=== PATIENT | male | born 1945 | race Caucasian/White ===

== ENCOUNTER 2016-03-30 11:38 | Inpatient (IN) | payer MEDICARE ==
[2016-03-30 12:55] LABS: ALT 10 U/L (7-52); AST 16 U/L (13-39); Albumin 3.9 g/dL (3.2-5.2); Alkaline Phosphatase 64 U/L (34-104); Anion Gap 7 mmol/L (2-11); BUN/Creatinine Ratio 23.3 (8-20); Blood Urea Nitrogen 35 mg/dL (6-24); CO2 Carbon Dioxide 29 mmol/L (22-32); Calcium 9.7 mg/dL (8.6-10.3); Chloride 98 mmol/L (101-111); EGFR African American 59.7 (>60); EGFR Non-African American 46.4 (>60); Globulin 3.9 g/dL (2-4); Glucose 100 mg/dL (70-100); Magnesium 2.2 mg/dL (1.9-2.7); Potassium 4.6 mmol/L (3.5-5.0); Sodium 134 mmol/L (133-145); Total Protein 7.8 g/dL (6.4-8.9); Troponin I 0.01 ng/mL (<0.04)
[2016-03-30 13:13] LABS: T4 7.03 g/dL (6.09-12.23)
[2016-03-30 13:14] LABS: TSH (Thyroid Stimulating Horm) 6.41 mcIU/mL (0.34-5.60)
--- NOTE | 2016-03-30 13:22 | RAD ---
HISTORY: Shortness of breath COMPARISONS: November 11, 2014 VIEWS: 2: Frontal dual-energy and lateral views of the chest. FINDINGS: CARDIOMEDIASTINAL SILHOUETTE: The cardiac silhouette is enlarged. The cardiomediastinal silhouette is otherwise normal. LINDA: The linda are normal. PLEURA: Again noted are pleural calcifications. LUNG PARENCHYMA: There is a diffuse coarse pattern of reticular opacification with alveolar opacification in the left midlung field. ABDOMEN: The upper abdomen is clear. There is no subphrenic gas. BONES AND SOFT TISSUES: No bone or soft tissue abnormalities are noted. OTHER: None. IMPRESSION: 1. CARDIOMEGALY. 2. PULMONARY INTERSTITIAL EDEMA. 3. CALCIFIED PLEURAL PLAQUES
[2016-03-30 13:23] LABS: Hematocrit 44 % (42-52); Mean Corpuscular HGB Conc 28 g/dl (31-36); Mean Corpuscular Hemoglobin 17 pg (27-31); Mean Platelet Volume 9 um3 (7.4-10.4); Red Blood Count 7.04 10^6/ul (4.0-5.4); Red Cell Distribution Width 23 % (10.5-15); White Blood Count 5.9 10^3/ul (3.5-10.8)
[2016-03-30 13:30] LABS: Comments Flag Yes; Hemoglobin 12.3 g/dl (14.0-18.0)
[2016-03-30 13:31] LABS: Add Diff/Slide Review? Slide Review Added; Mean Corpuscular Volume 63 fL (80-94)
[2016-03-30 13:58] LABS: Target Cells 1+
[2016-03-30 13:59] LABS: Hypochromasia 3+; Microcytosis 3+
[2016-03-30 14:00] LABS: Add Path Review? YES; Polychromasia 1+
[2016-03-30 14:29] LABS: Urine Bilirubin Negative (Negative); Urine Glucose Negative (Negative); Urine Nitrite Negative (Negative)
[2016-03-30 14:43] LABS: Free T4 0.91 ng/dL (0.61-1.12)
[2016-03-30] MEDS ORDERED: Furosemide IV* 10 MG/ML 10 ML VIAL (100 MG) IV ONE (14:49)
[2016-03-30] MEDS ORDERED: Ondansetron INJ* 2 MG/ML VIAL IV PRN (14:49)
[2016-03-30] MEDS ORDERED: Albuterol/Ipratropium NEB.SOL* Albuterol 2.5 MG/Ipratropium 0.5 MG 3 ML INH PRN (14:53)
[2016-03-30] MEDS ORDERED: Dextrose 50% Syringe 50 ML* 25 GM/50 ML SYRINGE IV PUSH PRN (14:57)
--- NOTE | 2016-03-30 15:03 | ED ---
Gil Boss Anna, scribed for Niles Franklin MD on 03/30/16 at 1226 . Lower Extremity - HPI Summary HPI Summary: Patient is a 71 y/o male coming to [facility] presenting with gradual onset of constant, bilateral LE edema that began three weeks ago. The edema is accompanied by erythema and pain. He additionally feels SOB. He has gained 30 lbs in the last four months. He has had constipation, but this has since resolved. Denies CP, fever, cough, abd pain, or diarrhea. His history is significant for CHF, DM, and COPD. Uses 4 L of O2 at home. - History of Current Complaint Chief Complaint: EDExtremityLower Stated Complaint: SOB Time Seen by Provider: 03/30/16 12:08 Hx Obtained From: Patient Onset of Pain: Prior to Arrival Onset/Duration: Still Present Timing: Constant, Lasting Weeks Associated Signs And Symptoms: Positive: Swelling, Redness - Allergies/Home Medications Allergies/Adverse Reactions: Allergies Allergy/AdvReac Type Severity Reaction Status Date / Time No Known Allergies Allergy Verified 11/12/14 00:16 Home Medications: Home Medications Albuterol Sulfate [Proair Hfa] 2 puff INH Q4H PRN 03/30/16 [History Confirmed ] Albuterol/Ipratropium NEB.ALEXIS* [Duoneb NEB.ALEXIS*] 1 neb INH Q4H PRN 03/30/16 [ History Confirmed 03/30/16] Furosemide TAB* [Lasix TAB*] 80 mg PO DAILY 03/30/16 [History Confirmed 03/30/16 ] Isosorbide Mononitrate ER TAB* [Imdur ER TAB*] 30 mg PO DAILY 03/30/16 [History Confirmed 03/30/16] Lisinopril [Lisinopril] 5 mg PO DAILY 03/30/16 [History Confirmed 03/30/16] Multiple Vitamin [Multivitamins] 1 cap PO DAILY 03/30/16 [History Confirmed 09/06] [place]-3 Fatty Acids [Thornton 3] 1 cap PO DAILY 03/30/16 [History Confirmed ] Rivaroxaban TAB(*) [Xarelto 20 mg] 20 mg PO DAILY 03/30/16 [History Confirmed ] Tamsulosin HCl [Tamsulosin HCl] 0.4 mg PO DAILY 03/30/16 [History Confirmed 09/06] PMH/Surg Hx/FS Hx/Imm Hx Endocrine/Hematology History: Reports: Hx Diabetes Cardiovascular History: Reports: Hx Congestive Heart Failure, Hx Coronary Artery Disease, Hx Hypercholesterolemia, Hx Hypertension Respiratory History: Reports: Hx Chronic Obstructive Pulmonary Disease (COPD) History: Denies: Hx Renal Disease Sensory History: Reports: Hx Contacts or Glasses, Hx Hearing Problem - [place], untreated Opthamlomology History: Reports: Hx Contacts or Glasses Infectious Disease History: No Infectious Disease History: Denies: Traveled Outside the [place] in Last 30 Days - Family History Known Family History: Negative: Cardiac Disease - Social History Alcohol Use: Occasionally Substance Use Type: Reports: None Smoking Status (MU): Former Smoker Type: Cigarettes Length of Time of Smoking/Using Tobacco: 50 yrs Have You Smoked in the Last Year: No Review of Systems Positive: Other - unintentional weight gain Positive: Shortness Of Breath Positive: Myalgia, Edema Positive: Other - erythema on bilateral LE All Other Systems Reviewed And Are Negative: Yes Physical Exam - Summary Physical Exam Summary: VITAL SIGNS: Reviewed. GENERAL: Patient is an obese male who is lying comfortable in the stretcher. Patient is not in any acute respiratory distress. HEAD AND FACE: No signs of trauma. No ecchymosis, hematomas or skull depressions. No sinus tenderness. EYES: PERRLA, EOMI x 2, No injected conjunctiva, no nystagmus. EARS: Hearing grossly intact. Ear canals and tympanic membranes are within normal limits. MOUTH: Oropharynx within normal limits. NECK: Supple, trachea is midline, no adenopathy, no JVD, no carotid bruit, no c- spine tenderness, neck with full ROM. CHEST: Symmetric, no tenderness at palpation LUNGS: Bilateral coarse breath sounds. CVS: Regular rate and rhythm, S1 and S2 present, no murmurs or gallops appreciated. ABDOMEN: Soft, non-tender. No signs of distention. No rebound no guarding, and no masses palpated. Bowel sounds are normal. Positive anasarca. EXTREMITIES: FROM in all major joints, Positive b/l LE edema 2+ . NEURO: Alert and oriented x 3. No acute neurological deficits. Speech is normal and follows commands. SKIN: Dry and warm Triage Information Reviewed: Yes Vital Signs On Initial Exam: Initial Vitals BP 90/66 03/30/16 11:57 Vital Signs Reviewed: Yes - Shabnam Coma Scale Coma Scale Total: 15 Diagnostics - Vital Signs Vital Signs Temp Pulse Resp BP Pulse Ox 03/30/16 12:11 98.1 F 78 20 98/67 96 03/30/16 12:09 74 16 106/77 95 03/30/16 12:00 77 12 88 03/30/16 11:58 62 80 03/30/16 11:57 90/66 - Laboratory Lab Results: Lab Results 03/30/16 03/30/16 03/30/16 Range/Units 12:11 12:11 12:11 INR (Anticoag Therapy) 1.67 H (0.89-1.11) Sodium 134 (133-145) mmol/L Potassium 4.6 (3.5-5.0) mmol/L Chloride 98 L (101-111) mmol/L Carbon Dioxide 29 (22-32) mmol/L Anion Gap 7 (2-11) mmol/L BUN 35 H (6-24) mg/dL Creatinine 1.50 H (0.67-1.17) mg/dL Est GFR ( Amer) 59.7 (>60) Est GFR (Non-Af Amer) 46.4 (>60) BUN/Creatinine Ratio 23.3 H (8-20) Glucose 100 (70-100) mg/dL Lactic Acid 1.7 (0.5-2.0) mmol/L Calcium 9.7 (8.6-10.3) mg/dL Magnesium 2.2 (1.9-2.7) mg/dL Total Bilirubin 1.50 H (0.2-1.0) mg/dL AST 16 (13-39) U/L ALT 10 (7-52) U/L Alkaline Phosphatase 64 (34-104) U/L CK-MB (CK-2) 1.7 (0.6-6.3) ng/mL Troponin I 0.01 (<0.04) ng/mL B-Natriuretic Peptide ( - 100) pg/mL Total Protein 7.8 (6.4-8.9) g/dL Albumin 3.9 (3.2-5.2) g/dL Globulin 3.9 (2-4) g/dL Albumin/Globulin Ratio 1.0 (1-3) TSH 6.41 H (0.34-5.60) mcIU/mL Thyroxine (T4) 7.03 (6.09-12.23) g/dL 03/30/16 Range/Units 12:11 INR (Anticoag Therapy) (0.89-1.11) Sodium (133-145) mmol/L Potassium (3.5-5.0) mmol/L Chloride (101-111) mmol/L Carbon Dioxide (22-32) mmol/L Anion Gap (2-11) mmol/L BUN (6-24) mg/dL Creatinine (0.67-1.17) mg/dL Est GFR ( Amer) (>60) Est GFR (Non-Af Amer) (>60) BUN/Creatinine Ratio (8-20) Glucose (70-100) mg/dL Lactic Acid (0.5-2.0) mmol/L Calcium (8.6-10.3) mg/dL Magnesium (1.9-2.7) mg/dL Total Bilirubin (0.2-1.0) mg/dL AST (13-39) U/L ALT (7-52) U/L Alkaline Phosphatase (34-104) U/L CK-MB (CK-2) (0.6-6.3) ng/mL Troponin I (<0.04) ng/mL B-Natriuretic Peptide 605 H ( - 100) pg/mL Total Protein (6.4-8.9) g/dL Albumin (3.2-5.2) g/dL Globulin (2-4) g/dL Albumin/Globulin Ratio (1-3) TSH (0.34-5.60) mcIU/mL Thyroxine (T4) (6.09-12.23) g/dL Result Diagrams: 03/30/16 12:11 03/30/16 12:11 Lab Statement: Any lab studies that have been ordered have been reviewed, and results considered in the medical decision making process. - Radiology CXR Xray Interpretation: Positive (See Comments) Radiology Interpretation Completed By: Radiologist - IMPRESSION: 1. CARDIOMEGALY. 2. PULMONARY INTERSTITIAL EDEMA. 3. CALCIFIED PLEURAL PLAQUES - EKG 1141 Cardiac Rate: NL - 81 bpm EKG Rhythm: Sinus Rhythm EKG Interpretation: Low voltage EKG, no ST elevations Lower Extremity Course/Dx - Course Assessment/Plan: Patient is a 71 y/o male coming to [facility] presenting with gradual onset of constant, bilateral LE edema that began three weeks ago. The edema is accompanied by erythema and pain. He additionally feels SOB. He has gained 30 lbs in the last four months. He has had constipation, but this has since resolved. Denies CP, fever, cough, abd pain, or diarrhea. His history is significant for CHF, DM, and COPD. Uses 4 L of O2 at home. Blood work shows RF and increase BNP consistent with CHF exacerbation. CXR impression: Cardiomegaly , pulmonary interstitial edema, and calcified pleural plaques. In the ED course I held the Lasix since patient is hypotensive. I believe he is intravascular depleted and he has peripheral overload. I discuss my physical exam, findings and test results with Dr. Newman from the hospitalist services and she agrees to admit patient to his services. Patient is alert and oriented x 3 w /o neurological deficits. - Diagnoses Differential Diagnosis/HQI/PQRI: Positive: Cellulitis, Infection - PNA, CHF, TN Provider Diagnoses: CHF exacerbation, Anasarca, Renal failure, Lower extremity edema - Physician Notifications Discussed Care of Patient With: Dr. Houser ([facility] [employer] Specialist) at 1437. Agrees to accept pt for admission. Discharge - Discharge Plan Condition: Stable Disposition: ADMITTED TO [facility] The documentation as recorded by the Gil schmidt Anna accurately reflects the service I personally performed and the decisions made by me, Niles Franklin MD.
[2016-03-30 15:14] LABS: Iron 17 ug/dL (50-212); Total Iron Binding Capacity 518 mcg/dL (250-450); Transferrin 370 mg/dL (203-362)
[2016-03-30 15:36] LABS: Ferritin < 10.0 ng/mL (24-336)
[2016-03-30 15:39] LABS: Folate > 20.00 ng/mL (>3.99)
[2016-03-30 15:40] LABS: Vitamin B12 423 pg/mL (180-914)
[2016-03-30] MEDS: Insulin LISPRO* 1 UNITS UNIT SUBCUT SCH (16:57)
[2016-03-30] MEDS: Metoprolol Tartrate TAB* 25 MG PO SCH (16:58)
--- NOTE | 2016-03-30 17:25 | HP ---
ADDENDUM NOW INCLUDED ON THIS REPORT ADMISSION HISTORY AND PHYSICAL: DATE OF ADMISSION: 03/30/16 PRIMARY CARE PROVIDER: Dr. Ne Hernandez. DISTRIBUTION WAREHOUSE MANAGER: Ronen Maravilla MD CREW MANAGER: Dr. Jolynn Marsh out of the [facility]. SUPERVISING PHYSICIAN: Jhoana Newman MD * (DICTATED BY LEEANNA JUARES) CHIEF COMPLAINT: Increased dyspnea. HISTORY OF PRESENT ILLNESS: This is a 71-year-old gentleman with a history of ischemic cardiomyopathy, chronic kidney disease, atrial flutter, obstructive sleep apnea that is relatively recently diagnosed, noninsulin-dependent diabetes , interstitial lung disease requiring chronic oxygen therapy, COPD, and known coronary disease who was referred by his primary care provider to the emergency department with complaints of increased dyspnea. The patient's symptoms have been increasing in severity over the last several weeks. He has noticed significant lower extremity edema and believes that he has gained almost 30 pounds in the last 2 months. His Lasix and lisinopril were doubled a couple of weeks ago. His Lasix went up to 80 mg daily and his lisinopril up to 5 mg daily and he was also started on Flomax with a little to no improvement in his edema. The patient notes decreasing exercise tolerance. He feels that his legs are extremely heavy and uncomfortable with all of the extra fluid. He has been compliant with low-sodium diet and has been trying to restrict fluid intake , but states that despite all of this, he continues to gain weight rather steadily. The patient has an occasional cough, which is chronic for him, but denies any recent acute illness. He has been afebrile. Denies abdominal pain, nausea, vomiting, or diarrhea. Apart from the medication changes listed above, he denies any anything else new. The patient reports that he was hospitalized at [facility] in October for similar symptoms and was diuresed approximately 25 pounds at that time. He believes that his dry weight is approximately 265 pounds or so, but he is really not sure about this. PAST MEDICAL HISTORY: 1. Stage 3 chronic kidney disease. 2. Atrial flutter. 3. Obstructive sleep apnea, which was diagnosed fairly recently. 4. Ischemic cardiomyopathy, last EF about 45%, measured December 2014. 5. Hypertension. 6. Noninsulin-dependent diabetes. 7. Interstitial lung disease, on chronic supplemental oxygen at 4 L. 8. COPD. 9. Coronary artery disease, status post PCI. PAST SURGICAL HISTORY: 1. PCI. 2. Tonsillectomy. HOME MEDICATIONS: 1. Albuterol inhaler 2 puffs inhaled q.4 hours as needed for shortness of breath. 2. DuoNeb 1 neb inhaled q.4 hours as needed for shortness of breath. 3. Atorvastatin 20 mg p.o. daily. 4. Clopidogrel 75 mg p.o. daily. 5. Lasix 80 mg p.o. daily. 6. Isosorbide mononitrate extended release 30 mg p.o. daily. 7. Lisinopril 5 mg p.o. daily. 8. Metoprolol tartrate 25 mg p.o. b.i.d. 9. Multivitamin 1 capsule p.o. daily. 10. [place]-3 fatty acids 1 capsule p.o. daily. 11. Xarelto 20 mg p.o. daily. 12. Flomax 0.4 mg p.o. daily. 13. Metformin 1000 mg p.o. daily. SOCIAL HISTORY: The patient lives alone. He has a [id number] smoking history and quit several years ago. The patient consumes occasional alcohol. REVIEW OF SYSTEMS: As listed above in HPI. PHYSICAL EXAMINATION GENERAL: This is an elderly gentleman who appeared slightly older than his stated age and slightly depressed. He is in no acute distress, however. INITIAL VITAL SIGNS: Temperature 98.1 degrees Fahrenheit, pulse 80 beats per minute, respiratory rate 16, oxygen saturation was 88% on 4 L, and blood pressure 90/66 mmHg. HEENT: Head is normocephalic, atraumatic. Mucous membranes are pink and moist. RESPIRATORY: There is diminished lung sounds appreciated at lung bases with a few crackles. No wheezes or rhonchi noted. CARDIOVASCULAR: Heart has a regular rate and rhythm without murmurs, rubs, or gallops. ABDOMEN: Slightly distended and firm, but nontender to palpation. EXTREMITIES: Lower extremities: There is significant nonpitting edema over both lower extremities. SKIN: Lower extremities are slightly hyperemic. PSYCH: The patient is alert and appropriately oriented. LABORATORY EVALUATION: CBC shows a white blood cell count of 5900; hemoglobin of 12.3 g/dL; and a platelet count of 188,000. INR mildly elevated at 1.67. Comprehensive metabolic panel shows sodium of 134 mmol/L, potassium 4.6 mmol/L, BUN of 35, creatinine of 1.5, and estimated GFR of 46. Magnesium is normal at 2.2. Iron is low at 17. Total iron binding capacity is high at 518 and iron saturation is low at 3%. Ferritin is pending. Total bilirubin mildly elevated at 1.5. Transaminases normal. BNP is elevated at 605. Troponin is 0.01. B12 and folate are pending. TSH mildly elevated at 6.4 with a free T4 of 0.91. Urinalysis is unremarkable. DIAGNOSTIC STUDIES/IMAGING: Chest x-ray shows evidence of interstitial lung disease along with what appeared to be pulmonary edema and cardiomegaly. EKG shows a normal sinus rhythm. Echocardiogram from December 2014 shows no significant valvular disease, but his ejection fraction was at about 45% at that time. ASSESSMENT AND PLAN: This is a 71-year-old gentleman with a history of ischemic cardiomyopathy, last EF estimated at 45% as well as obstructive sleep apnea; atrial flutter; hypertension; noninsulin-dependent diabetes; interstitial lung disease, requiring chronic supplemental O2; and chronic obstructive pulmonary disease who presents with complaints of increasing dyspnea without improvement with oral diuretics at home. 1. Congestive heart failure exacerbation - the patient's acute presentation appears to be consistent with congestive heart failure exacerbation. He has gained a significant amount of weight and has evidence of significant edema. We will start diuresing him with IV Lasix. Anticipate the patient will require several days of hospitalization to complete appropriate diuresis. Repeat an echocardiogram as his last one is almost 2 years old. No evidence of this being ischemic in origin, but if there are new wall motion abnormalities, repeat stress testing maybe indicated. The patient is also interested in a nutrition consult as he feels like he has not been successful in managing his diet at home. 2. Chronic kidney disease, stage 3 without acute exacerbation. 3. Chronic hypoxic respiratory failure secondary to interstitial lung disease without evidence of acute exacerbation. The patient has no associated wheeze nor does he have a significant amount of cough. I believe that his acute respiratory complaints are more due to his heart failure than a pulmonary process at this time. 4. Chronic obstructive pulmonary disease without acute exacerbation. 5. Noninsulin-dependent diabetes - we will hold his metformin at this time. Cover with mealtime Humalog for hyperglycemia if necessary. 6. Atrial flutter - the patient is chronically anticoagulated with Xarelto, which will be continued. He is in sinus rhythm at this time. 7. Obesity with a body mass index of 40. 8. Elevated TSH: His free T4 is borderline normal. His mild hypothyroidism maybe contributing to his current positive fluid balance. Maybe worth starting low-dose levothyroxine. Repeating a TSH in 4 to 6 weeks. 9. Microcytic anemia - the patient has a rather profound microcytosis with an MCV of only 63 and an MCH of 17 with an elevated RDW to 23. His hemoglobin is 12.3. This does not appear to represent any acute change. In a 71-year-old gentleman, the concern would be GI malignancy. We will check a stool for occult blood and if positive, outpatient colonoscopy would be the next appropriate step. He did have a CT scan done of his abdomen a couple of days ago ordered by Dr. Schumacher, which did not show any gross pathology nor does the patient have any significant abdominal discomfort at this time. 10. Code status: The patient is full code. 11. Health care proxy: Unknown. 12. DVT prophylaxis: The patient is anticoagulated with Xarelto. DISPOSITION: The patient is being admitted inpatient status for CHF exacerbation to the telemetry floor. ANTICIPATE LENGTH OF STAY: To be greater than 2 days. LEEANNA JUARES ADDENDUM: Clarified MALLIKA diagnosis with the patient. He states that this is a relatively new diagnosis for him. He did complete recommended sleep studies, but states that he has not received a CPAP at home and he is unsure of why. It sounds like he might have completed the titration study, but that is not entirely clear. This has been coordinated through his manager physical, Dr. Marsh, out of [facility]. This will require followup following this acute admission as certainly his MALLIKA would be significantly contributing to his difficulty to control his CHF. LEEANNA JUARES CC: Dr. Ne Hernandez; Dr. Maravilla; Dr. Jolynn Marsh* [id number]/[facility] #: [id number]/CPS #: [id number] LILA
--- NOTE | 2016-03-30 18:30 | HP ---
HISTORY AND PHYSICAL:* ADDENDUM: Clarified MALLIKA diagnosis with the patient. He states that this is a relatively new diagnosis for him. He did complete recommended sleep studies, but states that he has not received a CPAP at home and he is unsure of why. It sounds like he might have completed the titration study, but that is not entirely clear. This has been coordinated through his extension supervisor, Dr. Marsh, out of [place]. This will require followup following this acute admission as certainly his MALLIKA would be significantly contributing to his difficulty to control his CHF. LEEANNA JUARES [id number]/[facility] #: [id number] LILA
[2016-03-31 05:37] LABS: Hematocrit 40 % (42-52); Hemoglobin 10.9 g/dl (14.0-18.0); Mean Corpuscular HGB Conc 28 g/dl (31-36); Mean Corpuscular Hemoglobin 17 pg (27-31); Mean Platelet Volume 8 um3 (7.4-10.4); Red Blood Count 6.31 10^6/ul (4.0-5.4); White Blood Count 6.8 10^3/ul (3.5-10.8)
[2016-03-31 05:51] LABS: BUN/Creatinine Ratio 23.7 (8-20); Comments Flag Yes; EGFR African American 65.2 (>60); EGFR Non-African American 50.7 (>60); Potassium 4.4 mmol/L (3.5-5.0)
[2016-03-31 05:52] LABS: Mean Corpuscular Volume 63 fL (80-94); Red Cell Distribution Width 23 % (10.5-15)
[2016-03-31] MEDS ORDERED: Levothyroxine TAB* 25 MCG TAB PO SCH (06:00)
[2016-03-31] MEDS: Insulin LISPRO* 1 UNITS UNIT SUBCUT SCH ×3 (08:08→16:49)
[2016-03-31] MEDS: Metoprolol Tartrate TAB* 25 MG PO SCH ×2 (08:33→16:38)
--- NOTE | 2016-03-31 10:21 | PN ---
Subjective Date of Service: 03/31/16 Interval History: HOSPITALIST PROGRESS NOTE Patient seen and examined at bedside. Records from Dr. Ne Hernandez reviewed. Patient feels a little better today, but very discouraged with his edema. Denies any significant dyspnea so far, but has not "moved around yet". Denies chest pain or palpitations. Family History: Unchanged from Admission Social History: Unchanged from Admission Past Medical History: Unchanged from Admission Objective Active Medications: Acetaminophen (Tylenol Tab*) 650 mg PO Q4H PRN PRN Reason: FEVER/PAIN Albuterol/Ipratropium (Duoneb Neb.Alana*) 1 neb INH Q4H PRN PRN Reason: SOB/WHEEZING Last Admin: 03/31/16 08:55 Dose: 1 neb Atorvastatin Calcium (Lipitor*) 20 mg PO DAILY [facility] Clopidogrel Bisulfate (Plavix Tab*) 75 mg PO DAILY [facility] Dextrose (D50w Syringe 50 Ml*) 12.5 gm IV PUSH .FOR FS < 60 - SS PRN PRN Reason: FS < 60 Ferrous Sulfate (Ferrous Sulfate Tab*) 325 mg PO DAILY [facility] Furosemide (Lasix Iv*) 40 mg IV DAILY [facility] Insulin Human Lispro (Humalog*) 0 units SUBCUT AC [facility] PRN Reason: Protocol Last Admin: 03/31/16 08:08 Dose: Not Given Isosorbide Mononitrate (Imdur Er Tab*) 30 mg PO DAILY [facility] Lisinopril (Prinivil Tab*) 2.5 mg PO DAILY [facility] Metoprolol Tartrate (Lopressor Tab*) 25 mg PO BID WITH MEALS [facility] Last Admin: 03/31/16 08:33 Dose: 25 mg Ondansetron HCl (Zofran Inj*) 4 mg IV Q4H PRN PRN Reason: NAUSEA/VOMITING Rivaroxaban (Xarelto (*)) 20 mg PO DAILY@1700 [facility] Vital Signs 03/31/16 03/31/16 03/31/16 08:00 08:08 08:57 Temperature 97.7 F Pulse Rate 82 Respiratory 18 14 Rate Blood Pressure (mmHg) O2 Sat by Pulse 85 89 Oximetry Oxygen Devices in Use Now: Nasal Cannula Appearance: Elderly obese male sitting up in bed in NAD. Eyes: No Scleral Icterus Ears/Nose/Mouth/Throat: Mucous Membranes Moist Neck: Trachea Midline Respiratory: Symmetrical Chest Expansion and Respiratory Effort, - - BS+ bilaterally with bibasilar rales Cardiovascular: RRR - Normal S1 and S2 Abdominal: NL Sounds; No Tenderness; No Distention - Obese with abdominal wall edema Extremities: - - Severe bilateral LE edema all the way up to his thighs Skin: - - Bilateral LE erythema with chronic skin changes Neurological: Alert and Oriented x 3, NL Muscle Strength and Tone Lines/Tubes/Other Access: Clean, Dry and Intact Peripheral IV Nutrition: Taking PO's Result Diagrams: 03/31/16 05:09 03/31/16 05:09 Assess/Plan/Problems-Billing Assessment: Mr. Zimmer is a 71yo M with PMH of COPD, interstitial lung disease on home O2 4 liters, CKD stage 3, MALLIKA, CHF, HTN, type 2 DM, CAD, who presented to ED with c/ o dyspnea, progressive weight gain and edema secondary to CHF exacerbation, after failing outpatient diuretic therapy. - Patient Problems (1) Acute diastolic CHF (congestive heart failure) Comment: - F/u repeat echocardiogram. - As per Dr. Hernandez's note, his Furosemide dose was progressively increased up to 80mg/day but patient reports no significant improvement and is very discouraged. - Will add metolazone and continue IV Furosemide. - Monitor I/Os and daily weights. (2) Bilateral leg edema Comment: - Associated with CHF. - Suspect his skin changes are secondary to edema, but no signs of infection at this time. Recently completed antibiotic course as outpatient with no report of improvement. (3) CKD stage 3 due to type 2 diabetes mellitus Comment: - Renal function is stable. Continue to monitor in the setting of diuresis. (4) Acute and chronic respiratory failure Comment: - Patient has chronic hypoxemic respiratory failure secondary to his COPD/ILD and is on 4 liters of O2 at baseline. - Now oxygen requirements are higher due to acute CHF exacerbation - up to 6 liters. - Continue to monitor. (5) Type 2 diabetes mellitus Comment: - Continue Lispro SS. (6) CAD (coronary artery disease) Comment: - Stable. - Continue Plavix, Atorvastatin and Metoprolol. (7) Atrial flutter Comment: - In NSR at this time. - Continue Xarelto. (8) DVT prophylaxis Comment: - Xarelto. - SCDs contraindicated in the setting of severe bilateral LE edema and CHF. (9) Full code status (10) Microcytic anemia Comment: - W/u reveals iron deficiency anemia. - Continue ferrous sulfate. - As per Dr. Hernandez's note, patient had a colonoscopy in 2010. - Check stool for occult blood. - May need further GI w/u. Status and Disposition: Inpatient.
[2016-03-31] MEDS: Lisinopril TAB* 5 MG PO SCH (10:50)
[2016-03-31] MEDS: Isosorbide Mononitrate ER TAB* 30 MG PO SCH (10:51)
[2016-03-31] MEDS: Atorvastatin* 20 MG TAB PO SCH (10:52)
[2016-03-31] MEDS: Ferrous Sulfate TAB* 325 MG PO SCH (10:52)
[2016-03-31] MEDS: Clopidogrel TAB* 75 MG PO SCH (10:53)
[2016-03-31] MEDS: Furosemide IV* 10 MG/ML 10 ML VIAL (100 MG) IV SCH (10:54)
--- NOTE | 2016-03-31 12:47 | ECHO ---
Patient: CRUZ BRASWELL [facility] Rec#: [id number] : 1945 Date: 03/31/2016 Age: 71y Height: 182 cm / 71.7 in Weight: 134 kg / 295.3 lbs Sex: M BSA: 2.51 Room#: 444 Admit Date#: 03/30/2016 Type: Inpatient Referring: Saurabh Greenfield Reading: Melissa Moran MD Air Pollution Specialist: Samy Franklin RDCS CC: Ne Hernandez Transthoracic Echocardiogram Indication: CHF EXACERBATION BP: 90/49 Rhythm: NSR Findings History: CAD,with PCI, HTN,with rx, DM, HLD, COPD,interstital lung disease former smoker. Technical Comments: The study is technically difficult. The study is technically limited due to poor apical windows. The study is technically limited due to patient body habitus. The study is technically limited due to the patient's history of COPD. The study is technically limited due to the patient's smoking history. Left Ventricle: The left ventricular chamber size is normal. Mild concentric left ventricular hypertrophy is observed.D shaped septum noted on short axis view, suggestive of RV overload. Global left ventricular wall motion and contractility are within normal limits. Left ventricular systolic function is at the lower limits of normal. The estimated ejection fraction is 50-55%. The assessment of diastolic function is non-diagnostic. Left Atrium: The left atrial chamber size is normal. Right Ventricle: The right ventricular cavity size is normal.on measurment, appears dilated on 4 chamber view, diameter is greater than LV in this view. The right ventricular global systolic function is mildly reduced. Right Atrium: The right atrium is slightly dilated. Aortic Valve: The aortic valve is trileaflet.inadquate doppler signal due patient off axis devation There is no evidence of aortic regurgitation. There is no evidence of aortic stenosis.inadquate doppler signal due patient off axis devation Mitral Valve: The mitral valve leaflets appear normal. There is no evidence of mitral regurgitation. There is no evidence of mitral stenosis. Tricuspid Valve: There is trace to mild tricuspid regurgitation. The right ventricular systolic pressure is estimated at 28 mmHg. Unable to estimate the right ventricular systolic pressure. Pulmonic Valve: The pulmonic valve structure is not well visualized. There is no evidence of pulmonic regurgitation. Pericardium: There is no pericardial effusion. Aorta: There is no dilatation of the ascending aorta. The aortic arch is not well visualized. There is no dilation of the aortic root. Pulmonary Artery: The main pulmonary artery is not well visualized. Venous: The venous system is not well visualized. Conclusions Mild concentric left ventricular hypertrophy is observed. Left ventricular systolic function is at the lower limits of normal. The estimated ejection fraction is 50-55%. The right ventricular cavity size is normal.on measurment, appears dilated on 4 chamber view, diameter is greater than LV in this view. The right ventricular global systolic function is mildly reduced. All valves show good function. PA pressure may be underestimated. Compared with prior study of 01/20/15, LVEF previously estimated at 45%, RV not seen well. Also a technically difficult study due to COPD. Measurements Name Value Normal Range RVIDd (AP) 2D 2.5 cm (0.9 - 2.6) RVDdMajor (2D) 3.7 cm (2.2 - 4.4) RAd ISD 4CH 6.9 cm (3.4 - 4.9) RA (A4C)W 4.8 cm (2.9 - 4.6) IVSd (2D) 1.5 cm (0.6 - 1) LVPWd (2D) 0.87 cm (0.6 - 1) LVIDd (2D) 5.1 cm (3.6 - 5.4) LVIDs (2D) 3.4 cm - LV FS (2D) 31 % (25 - 45) Aortic Annulus 1.9 cm (1.4 - 2.6) Ao root diameter (2D) 2.8 cm (2.1 - 3.5) Ascending Ao 3.6 cm (2.1 - 3.4) LA dimension (AP) 2D 3.5 cm (2.3 - 3.8) LAd ISD 4CH 4.9 cm (2.9 - 5.3) LA ISD 4CH W 3.4 cm (2.5 - 4.5) Name Value Normal Range MV E-wave Vmax 0.62 m/sec - MV deceleration time 164 msec - MV A-wave Vmax 0.47 m/sec - MV E:A ratio 1.31 ratio - LV septal e' Vmax 0.06 m/sec - LV lateral e' Vmax 0.07 m/sec - LV E:e' septal ratio 10.3 ratio - LV E:e' lateral ratio 8.86 ratio - Name Value Normal Range LVOT diameter 2 cm - LVOT Vmax 0.5 m/sec - Name Value Normal Range TR Vmax 2.6 m/sec - TR peak gradient 28 mmHg - RVSP 28 mmHg - Name Value Normal Range PV Vmax 0.86 m/sec - PV peak gradient 2.99 mmHg -
[2016-03-31] MEDS ORDERED: Metolazone TAB* 5 MG PO ONE (15:30)
[2016-03-31] MEDS ORDERED: Furosemide IV* 10 MG/ML 10 ML VIAL (100 MG) IV ONE (16:00)
[2016-03-31] MEDS: Rivaroxaban TAB(*) 20 MG TAB PO SCH (16:38)
[2016-04-01 05:47] LABS: BUN/Creatinine Ratio 22.2 (8-20); EGFR Non-African American 56.7 (>60); Potassium 4.4 mmol/L (3.5-5.0)
[2016-04-01] MEDS ORDERED: Metolazone TAB* 5 MG PO ONE (08:30)
[2016-04-01] MEDS: Insulin LISPRO* 1 UNITS UNIT SUBCUT SCH ×3 (08:45→16:47)
[2016-04-01] MEDS: Ferrous Sulfate TAB* 325 MG PO SCH (08:55)
[2016-04-01] MEDS: Atorvastatin* 20 MG TAB PO SCH (08:55)
[2016-04-01] MEDS: Lisinopril TAB* 5 MG PO SCH (08:56)
[2016-04-01] MEDS: Clopidogrel TAB* 75 MG PO SCH (08:56)
[2016-04-01] MEDS: Isosorbide Mononitrate ER TAB* 30 MG PO SCH (08:56)
[2016-04-01] MEDS: Metoprolol Tartrate TAB* 25 MG PO SCH ×2 (08:56→17:15)
[2016-04-01] MEDS: Acetaminophen TAB* 325 MG PO PRN (08:57)
[2016-04-01] MEDS: Furosemide IV* 10 MG/ML 10 ML VIAL (100 MG) IV SCH (09:34)
--- NOTE | 2016-04-01 12:07 | PN ---
Subjective Date of Service: 04/01/16 Interval History: HOSPITALIST PROGRESS NOTE Patient seen and examined at bedside. He is in good spirits today, happy with his weight loss. Denies dyspnea, feels his legs are commercial credit lead and he can move more. Family History: Unchanged from Admission Social History: Unchanged from Admission Past Medical History: Unchanged from Admission Objective Active Medications: Acetaminophen (Tylenol Tab*) 650 mg PO Q4H PRN PRN Reason: FEVER/PAIN Last Admin: 04/01/16 08:57 Dose: 650 mg Albuterol/Ipratropium (Duoneb Neb.Alana*) 1 neb INH Q4H PRN PRN Reason: SOB/WHEEZING Last Admin: 03/31/16 08:55 Dose: 1 neb Atorvastatin Calcium (Lipitor*) 20 mg PO DAILY [facility] Last Admin: 04/01/16 08:55 Dose: 20 mg Clopidogrel Bisulfate (Plavix Tab*) 75 mg PO DAILY [facility] Last Admin: 04/01/16 08:56 Dose: 75 mg Dextrose (D50w Syringe 50 Ml*) 12.5 gm IV PUSH .FOR FS < 60 - SS PRN PRN Reason: FS < 60 Ferrous Sulfate (Ferrous Sulfate Tab*) 325 mg PO DAILY [facility] Last Admin: 04/01/16 08:55 Dose: 325 mg Furosemide (Lasix Iv*) 40 mg IV DAILY [facility] Last Admin: 04/01/16 09:34 Dose: 40 mg Insulin Human Lispro (Humalog*) 0 units SUBCUT AC [facility] PRN Reason: Protocol Last Admin: 04/01/16 08:45 Dose: Not Given Isosorbide Mononitrate (Imdur Er Tab*) 30 mg PO DAILY [facility] Last Admin: 04/01/16 08:56 Dose: 30 mg Lisinopril (Prinivil Tab*) 2.5 mg PO DAILY [facility] Last Admin: 04/01/16 08:56 Dose: 2.5 mg Metoprolol Tartrate (Lopressor Tab*) 25 mg PO BID WITH MEALS [facility] Last Admin: 04/01/16 08:56 Dose: 25 mg Ondansetron HCl (Zofran Inj*) 4 mg IV Q4H PRN PRN Reason: NAUSEA/VOMITING Rivaroxaban (Xarelto (*)) 20 mg PO DAILY@1700 [facility] Last Admin: 03/31/16 16:38 Dose: 20 mg Vital Signs 04/01/16 04/01/16 04/01/16 08:00 08:20 10:43 Temperature Pulse Rate 84 Respiratory 18 20 Rate Blood Pressure 104/68 (mmHg) O2 Sat by Pulse 93 Oximetry 04/01/16 11:23 Temperature 98.9 F Pulse Rate 72 Respiratory 16 Rate Blood Pressure 89/58 (mmHg) O2 Sat by Pulse 90 Oximetry Oxygen Devices in Use Now: Nasal Cannula Appearance: Pleasant elderly male sitting up in bed in NAD. Eyes: No Scleral Icterus Ears/Nose/Mouth/Throat: Mucous Membranes Moist Neck: Trachea Midline Respiratory: Symmetrical Chest Expansion and Respiratory Effort, - - BS+ bilaterally with bibasilar rales Cardiovascular: RRR - Normal S1 and S2 Abdominal: NL Sounds; No Tenderness; No Distention Extremities: - - Bilateral LE moderate to severe pitting edema, less than yesterday. Erythema has also subsided. Neurological: Alert and Oriented x 3, NL Muscle Strength and Tone Lines/Tubes/Other Access: Clean, Dry and Intact Peripheral IV Nutrition: Taking PO's Result Diagrams: 03/31/16 05:09 04/01/16 05:15 Assess/Plan/Problems-Billing Assessment: Mr. Zimmer is a 71yo M with PMH of COPD, interstitial lung disease on home O2 4 liters, CKD stage 3, MALLIKA, CHF, HTN, type 2 DM, CAD, who presented to ED with c/ o dyspnea, progressive weight gain and edema secondary to CHF exacerbation, after failing outpatient diuretic therapy. - Patient Problems (1) Acute diastolic CHF (congestive heart failure) Comment: - As per Dr. Hernandez's note, his Furosemide dose was progressively increased up to 80mg/day but patient reported no significant improvement and was very discouraged. - Repeat echocardiogram shows EF 50-55%. - Responding well to metolazone and IV Furosemide. - Weight down to 276lbs. (2) Bilateral leg edema Comment: - Associated with CHF. - Suspect his skin changes are secondary to edema, but no signs of infection at this time. Recently completed antibiotic course as outpatient with no report of improvement. - As edema is a little improved today, patient willing to wear Vern wraps or TEDs. (3) CKD stage 3 due to type 2 diabetes mellitus Comment: - Renal function is stable. Continue to monitor in the setting of diuresis. (4) Acute and chronic respiratory failure Comment: - Patient has chronic hypoxemic respiratory failure secondary to his COPD/ILD and is on 4 liters of O2 at baseline. - Now oxygen requirements are higher due to acute CHF exacerbation - up to 6 liters. - Continue to monitor. (5) Type 2 diabetes mellitus Comment: - Continue Lispro SS. (6) CAD (coronary artery disease) Comment: - Stable. - Continue Plavix, Atorvastatin and Metoprolol. (7) Atrial flutter Comment: - In NSR at this time. - Continue Xarelto. (8) Microcytic anemia Comment: - W/u reveals iron deficiency anemia. - Continue ferrous sulfate. - As per Dr. Hernandez's note, patient had a colonoscopy in 2010. - Check stool for occult blood. - May need further GI w/u. (9) DVT prophylaxis Comment: - Xarelto. - SCDs contraindicated in the setting of severe bilateral LE edema and CHF. (10) Full code status Status and Disposition: Inpatient.
[2016-04-01] MEDS: Rivaroxaban TAB(*) 20 MG TAB PO SCH (17:14)
[2016-04-02] MEDS: Acetaminophen TAB* 325 MG PO PRN ×2 (04:58→21:32)
[2016-04-02 06:34] LABS: EGFR African American 65.2 (>60); EGFR Non-African American 50.7 (>60); Potassium 4.2 mmol/L (3.5-5.0)
[2016-04-02] MEDS: Insulin LISPRO* 1 UNITS UNIT SUBCUT SCH ×3 (07:50→17:12)
[2016-04-02] MEDS: Isosorbide Mononitrate ER TAB* 30 MG PO SCH (08:32)
[2016-04-02] MEDS: Metoprolol Tartrate TAB* 25 MG PO SCH ×2 (08:33→17:26)
[2016-04-02] MEDS: Ferrous Sulfate TAB* 325 MG PO SCH (08:33)
[2016-04-02] MEDS: Atorvastatin* 20 MG TAB PO SCH (08:33)
[2016-04-02] MEDS: Clopidogrel TAB* 75 MG PO SCH (08:33)
[2016-04-02] MEDS: Metolazone TAB* 5 MG PO SCH ×2 (08:34→14:47)
[2016-04-02] MEDS: Lisinopril TAB* 5 MG PO SCH (08:34)
[2016-04-02] MEDS: Furosemide IV* 10 MG/ML 10 ML VIAL (100 MG) IV SCH ×2 (08:58→15:35)
--- NOTE | 2016-04-02 11:44 | PN ---
Subjective Date of Service: 04/02/16 Interval History: HOSPITALIST PROGRESS NOTE Patient seen and examined at bedside. Although he denies worsening of his dyspnea, he was on 9 liters of O2 when I saw him. RN documents 6 liters. Unclear to me why it was increased. He denies CP, palpitations. Has cough with brown sputum and has had some epistaxis, now resolved. Family History: Unchanged from Admission Social History: Unchanged from Admission Past Medical History: Unchanged from Admission Objective Active Medications: Acetaminophen (Tylenol Tab*) 650 mg PO Q4H PRN PRN Reason: FEVER/PAIN Last Admin: 04/02/16 04:58 Dose: 650 mg Albuterol/Ipratropium (Duoneb Neb.Alana*) 1 neb INH Q4H PRN PRN Reason: SOB/WHEEZING Last Admin: 03/31/16 08:55 Dose: 1 neb Atorvastatin Calcium (Lipitor*) 20 mg PO DAILY [facility] Last Admin: 04/02/16 08:33 Dose: 20 mg Clopidogrel Bisulfate (Plavix Tab*) 75 mg PO DAILY [facility] Last Admin: 04/02/16 08:33 Dose: 75 mg Dextrose (D50w Syringe 50 Ml*) 12.5 gm IV PUSH .FOR FS < 60 - SS PRN PRN Reason: FS < 60 Ferrous Sulfate (Ferrous Sulfate Tab*) 325 mg PO DAILY [facility] Last Admin: 04/02/16 08:33 Dose: 325 mg Furosemide (Lasix Iv*) 40 mg IV 0800,1500 [facility] Last Admin: 04/02/16 08:58 Dose: 40 mg Insulin Human Lispro (Humalog*) 0 units SUBCUT AC [facility] PRN Reason: Protocol Last Admin: 04/02/16 07:50 Dose: Not Given Isosorbide Mononitrate (Imdur Er Tab*) 30 mg PO DAILY [facility] Last Admin: 04/02/16 08:32 Dose: 30 mg Lisinopril (Prinivil Tab*) 2.5 mg PO DAILY [facility] Last Admin: 04/02/16 08:34 Dose: 2.5 mg Metolazone (Zaroxolyn Tab*) 5 mg PO 0730,1430 [facility] Last Admin: 04/02/16 08:34 Dose: 5 mg Metoprolol Tartrate (Lopressor Tab*) 25 mg PO BID WITH MEALS [facility] Last Admin: 04/02/16 08:33 Dose: 25 mg Ondansetron HCl (Zofran Inj*) 4 mg IV Q4H PRN PRN Reason: NAUSEA/VOMITING Rivaroxaban (Xarelto (*)) 20 mg PO DAILY@1700 [facility] Last Admin: 04/01/16 17:14 Dose: 20 mg Vital Signs 04/02/16 04/02/16 04/02/16 07:18 07:32 08:34 Temperature 97.9 F Pulse Rate 86 86 Respiratory 17 18 17 Rate Blood Pressure 94/53 (mmHg) O2 Sat by Pulse 89 90 Oximetry Oxygen Devices in Use Now: Nasal Cannula Appearance: Pleasant elderly gentleman sitting up in bed in NAD. Eyes: No Scleral Icterus Ears/Nose/Mouth/Throat: Mucous Membranes Moist Neck: Trachea Midline Respiratory: Symmetrical Chest Expansion and Respiratory Effort, - - BS+ bilaterally with bibasilar rales Cardiovascular: RRR - Normal S1 and S2 Abdominal: NL Sounds; No Tenderness; No Distention Extremities: - - Bilateral LE moderate pitting edema Neurological: Alert and Oriented x 3, NL Muscle Strength and Tone Lines/Tubes/Other Access: Clean, Dry and Intact Peripheral IV Nutrition: Taking PO's Result Diagrams: 03/31/16 05:09 04/02/16 05:48 Assess/Plan/Problems-Billing Assessment: Mr. Zimmer is a 71yo M with PMH of COPD, interstitial lung disease on home O2 4 liters, CKD stage 3, MALLIKA, CHF, HTN, type 2 DM, CAD, who presented to ED with c/ o dyspnea, progressive weight gain and edema secondary to CHF exacerbation, after failing outpatient diuretic therapy. - Patient Problems (1) Acute diastolic CHF (congestive heart failure) Comment: - Repeat echocardiogram shows EF 50-55%. - Weight stable around 276lbs. - Increase metolazone and IV Furosemide to BID. - Continue to monitor daily weights and I/Os. (2) Bilateral leg edema Comment: - Associated with CHF. - Suspect his skin changes are secondary to edema, but no signs of infection at this time. Recently completed antibiotic course as outpatient with no report of improvement. - Continue to wear Vern wraps or TEDs. (3) CKD stage 3 due to type 2 diabetes mellitus Comment: - Renal function is stable. Continue to monitor in the setting of diuresis. (4) Acute and chronic respiratory failure Comment: - Patient has chronic hypoxemic respiratory failure secondary to his COPD/ILD and is on 4 liters of O2 at baseline. - Does not require 9 liters at this point - will titrate down as tolerated. (5) Type 2 diabetes mellitus Comment: - Continue Lispro SS. (6) CAD (coronary artery disease) Comment: - Stable. - Continue Plavix, Atorvastatin and Metoprolol. (7) Atrial flutter Comment: - In NSR at this time. - Continue Xarelto. (8) Microcytic anemia Comment: - W/u reveals iron deficiency anemia. - Continue ferrous sulfate. - As per Dr. Hernandez's note, patient had a colonoscopy in 2010. - Stool was negative for occult blood. - May need further GI w/u as outpatient. (9) DVT prophylaxis Comment: - Xarelto. - SCDs contraindicated in the setting of severe bilateral LE edema and CHF. (10) Full code status Status and Disposition: Inpatient.
--- NOTE | 2016-04-02 12:45 | RAD ---
INDICATION: Mild dyspnea COMPARISON: Similar chest x-ray dated March 30, [address] the chest dated September 15, 2010 TECHNIQUE: PA and lateral views of the chest were obtained. FINDINGS: Similar the previous chest x-ray there is mild cardiomegaly and coarse calcification overlying the arch of the aorta. There is diffuse reticulonodular density overlying the bilateral lungs worse at the mid-level left lung relative to the right. Linear densities along the lateral margin of each lung compatible with calcification in the pleura. IMPRESSION: 1. THE RADIOGRAPHIC FINDINGS OBSERVED ARE UNCHANGED IN THE PREVIOUS CHEST X-RAY AND, AFTER EVALUATING THE SEPTEMBER 15, 2010 CT EXAMINATION, ARE LIKELY INDICATIVE OF INTERSTITIAL LUNG DISEASE. CARDIOGENIC PULMONARY EDEMA IS STILL CONSIDERED BUT CONSIDERED LESS LIKELY AFTER REVIEWING THE PATIENT'S MORE DISTANT PRIOR IMAGING. 2. THERE ARE PLEURAL PLAQUES ALONG THE LATERAL MARGINS OF BOTH LUNGS. PLEASE CORRELATE TO A HISTORY OF ASBESTOS EXPOSURE.
[2016-04-02] MEDS: Rivaroxaban TAB(*) 20 MG TAB PO SCH (17:26)
[2016-04-03] MEDS ORDERED: Furosemide IV* 10 MG/ML 10 ML VIAL (100 MG) IV SCH (07:13)
[2016-04-03] MEDS: Insulin LISPRO* 1 UNITS UNIT SUBCUT SCH ×3 (07:50→17:36)
[2016-04-03] MEDS: Metolazone TAB* 5 MG PO SCH ×2 (08:01→16:25)
[2016-04-03 08:12] LABS: BUN/Creatinine Ratio 25.4 (8-20); Calcium 9.3 mg/dL (8.6-10.3); EGFR African American 65.7 (>60); EGFR Non-African American 51.1 (>60); Potassium 4.8 mmol/L (3.5-5.0)
[2016-04-03] MEDS: Isosorbide Mononitrate ER TAB* 30 MG PO SCH (08:36)
[2016-04-03] MEDS: Ferrous Sulfate TAB* 325 MG PO SCH (08:36)
[2016-04-03] MEDS: Clopidogrel TAB* 75 MG PO SCH (08:36)
[2016-04-03] MEDS: Lisinopril TAB* 5 MG PO SCH (08:36)
[2016-04-03] MEDS: Atorvastatin* 20 MG TAB PO SCH (08:36)
[2016-04-03] MEDS: Furosemide IV* 10 MG/ML VIAL (40 MG) IV SCH ×2 (08:36→16:26)
[2016-04-03] MEDS: Metoprolol Tartrate TAB* 25 MG PO SCH ×2 (08:36→17:36)
[2016-04-03] MEDS ORDERED: Morphine INJ* 2 MG/ML 1 ML CARPUJECT IV PRN (12:32)
[2016-04-03] MEDS: Acetaminophen TAB* 325 MG PO PRN (12:33)
--- NOTE | 2016-04-03 12:46 | PN ---
Subjective Date of Service: 04/03/16 Interval History: HOSPITALIST PROGRESS NOTE Patient seen and examined at bedside. Family History: Unchanged from Admission Social History: Unchanged from Admission Past Medical History: Unchanged from Admission Objective Active Medications: Acetaminophen (Tylenol Tab*) 650 mg PO Q4H PRN PRN Reason: FEVER/PAIN Last Admin: 04/03/16 12:33 Dose: 650 mg Albuterol/Ipratropium (Duoneb Neb.Alana*) 1 neb INH Q4H PRN PRN Reason: SOB/WHEEZING Last Admin: 03/31/16 08:55 Dose: 1 neb Atorvastatin Calcium (Lipitor*) 20 mg PO DAILY [facility] Last Admin: 04/03/16 08:36 Dose: 20 mg Clopidogrel Bisulfate (Plavix Tab*) 75 mg PO DAILY [facility] Last Admin: 04/03/16 08:36 Dose: 75 mg Dextrose (D50w Syringe 50 Ml*) 12.5 gm IV PUSH .FOR FS < 60 - SS PRN PRN Reason: FS < 60 Ferrous Sulfate (Ferrous Sulfate Tab*) 325 mg PO DAILY [facility] Last Admin: 04/03/16 08:36 Dose: 325 mg Furosemide (Lasix Iv*) 40 mg IV 0800,1500 [facility] Last Admin: 04/03/16 08:36 Dose: 40 mg Insulin Human Lispro (Humalog*) 0 units SUBCUT AC [facility] PRN Reason: Protocol Last Admin: 04/03/16 11:45 Dose: Not Given Isosorbide Mononitrate (Imdur Er Tab*) 30 mg PO DAILY [facility] Last Admin: 04/03/16 08:36 Dose: 30 mg Lisinopril (Prinivil Tab*) 2.5 mg PO DAILY [facility] Last Admin: 04/03/16 08:36 Dose: 2.5 mg Metolazone (Zaroxolyn Tab*) 5 mg PO 0730,1430 [facility] Last Admin: 04/03/16 08:01 Dose: 5 mg Metoprolol Tartrate (Lopressor Tab*) 25 mg PO BID WITH MEALS [facility] Last Admin: 04/03/16 08:36 Dose: 25 mg Morphine Sulfate (Morphine Inj (Syringe)*) 2 mg IV Q4H PRN PRN Reason: SEVERE PAIN Ondansetron HCl (Zofran Inj*) 4 mg IV Q4H PRN PRN Reason: NAUSEA/VOMITING Rivaroxaban (Xarelto (*)) 20 mg PO DAILY@1700 [facility] Last Admin: 04/02/16 17:26 Dose: 20 mg Vital Signs 04/03/16 04/03/16 01:33 07:38 Temperature 98.8 F Pulse Rate 88 94 Respiratory 16 Rate Blood Pressure 101/63 (mmHg) O2 Sat by Pulse 92 97 Oximetry Oxygen Devices in Use Now: Simple Face Mask - Oxymask 4.5 liters Appearance: Pleasant elderly male sitting up in bed in NAD. Eyes: No Scleral Icterus Ears/Nose/Mouth/Throat: Mucous Membranes Moist Neck: Trachea Midline Respiratory: Symmetrical Chest Expansion and Respiratory Effort, - - BS+ bilaterally with bibasilar rales Cardiovascular: RRR - Normal S1 and S2 Abdominal: NL Sounds; No Tenderness; No Distention Extremities: - - Bilateral LE moderate pitting edema Neurological: Alert and Oriented x 3, NL Muscle Strength and Tone Lines/Tubes/Other Access: Clean, Dry and Intact Peripheral IV Nutrition: Taking PO's Result Diagrams: 03/31/16 05:09 04/03/16 06:41 Assess/Plan/Problems-Billing Assessment: Mr. Zimmer is a 71yo M with PMH of COPD, interstitial lung disease on home O2 4 liters, CKD stage 3, MALLIKA, CHF, HTN, type 2 DM, CAD, who presented to ED with c/ o dyspnea, progressive weight gain and edema secondary to CHF exacerbation, after failing outpatient diuretic therapy. - Patient Problems (1) Acute diastolic CHF (congestive heart failure) Comment: - Repeat echocardiogram shows EF 50-55%. - Weight stable around 276lbs, but fluid balance was negative 3 liters. - Continue metolazone and IV Furosemide BID as BP allows. SBP in the high 70s overnight, but he was asymptomatic. - Continue to monitor daily weights and I/Os. (2) Bilateral leg edema Comment: - Associated with CHF. - Continue to wear Vern wraps or TEDs as tolerated. (3) CKD stage 3 due to type 2 diabetes mellitus Comment: - Renal function is stable. Continue to monitor in the setting of diuresis. (4) Acute and chronic respiratory failure Comment: - Patient has chronic hypoxemic respiratory failure secondary to his COPD/ILD and is on 4 liters of O2 at baseline. - Doing well with 4.5 liters. (5) Type 2 diabetes mellitus Comment: - Continue Lispro SS. (6) CAD (coronary artery disease) Comment: - Stable. - Continue Plavix, Atorvastatin and Metoprolol. (7) Atrial flutter Comment: - In NSR at this time. - Continue Xarelto. (8) Microcytic anemia Comment: - W/u reveals iron deficiency anemia. - Continue ferrous sulfate. - As per Dr. Hernandez's note, patient had a colonoscopy in 2010. - Stool was negative for occult blood. - May need further GI w/u as outpatient. (9) DVT prophylaxis Comment: - Xarelto. - SCDs contraindicated in the setting of severe bilateral LE edema and CHF. (10) Full code status Status and Disposition: Inpatient.
[2016-04-03] MEDS ORDERED: Haloperidol INJ IV/IM* 5 MG/ML AMP IM PRN (16:34)
--- NOTE | 2016-04-03 16:34 | PN ---
Hospitalist Progress Note HOSPITALIST ADDENDUM Called by RN because patient was agitated and wants to leave the Hospital. Re-evaluated at bedside. He is very different from this AM. States he wants to leave the hospital because we are trying to kill him. "I don't trust this hospital, I don't trust you, I don't trust the nurse, I just want to go home". I explained in a simple manner I would need to assess his capacity prior to AMA discharge. I told him he's still very fluid overloaded and I'm concerned with his safety alone at home, especially with his dyspnea and drop in oxygen with exertion. He states he feels lousy and doesn't want to be here anymore, but cannot tell me exactly what's bothering him. He cannot manage the information I' ve given him about his health state, despite repeating myself. He seems to be paranoid now, and tells me what set him off was the lady on TV (channel 3, [employer]) , telling him strange things (he did not elaborate on the content). He asked me to change to channel 3 to make sure she was not saying those things anymore and then asked me to change to channel 65 [employer]. At this point he didn't want to leave anymore, just wanted me to increase the heat in his room and give him a warm blanket. I believe he's delirious and I'm concerned with possible CO2 retention, but he won't allow an ABG to be safely done at this time. He's confused, but not lethargic at this point. It is my opinion he doesn't have the capacity to sign out AMA at this time. I d/ w RN and RT - will continue to monitor closely, but if he becomes more lethargic , will need ABG. Will order Haldol PRN in case his agitation escalates again.
[2016-04-03] MEDS: Rivaroxaban TAB(*) 20 MG TAB PO SCH (17:35)
[2016-04-03 17:52] LABS: PCO2 Arterial 57 mmHg (35-45)
[2016-04-03] MEDS ORDERED: Furosemide IV* 10 MG/ML 2 ML VIAL (20 MG) IV ONE (20:01)
[2016-04-04 05:32] LABS: BUN/Creatinine Ratio 31.8 (8-20); Calcium 9.5 mg/dL (8.6-10.3); EGFR African American 85.4 (>60); EGFR Non-African American 66.4 (>60); Potassium 4.2 mmol/L (3.5-5.0)
[2016-04-04] MEDS: Metoprolol Tartrate TAB* 25 MG PO SCH ×2 (08:02→17:20)
[2016-04-04] MEDS: Ferrous Sulfate TAB* 325 MG PO SCH (08:02)
[2016-04-04] MEDS: Clopidogrel TAB* 75 MG PO SCH (08:03)
[2016-04-04] MEDS: Isosorbide Mononitrate ER TAB* 30 MG PO SCH (08:03)
[2016-04-04] MEDS: Atorvastatin* 20 MG TAB PO SCH (08:03)
[2016-04-04] MEDS: Lisinopril TAB* 5 MG PO SCH (08:03)
[2016-04-04] MEDS: Metolazone TAB* 5 MG PO SCH ×2 (08:10→14:19)
[2016-04-04] MEDS: Insulin LISPRO* 1 UNITS UNIT SUBCUT SCH ×3 (08:10→17:05)
[2016-04-04] MEDS: Furosemide IV* 10 MG/ML VIAL (40 MG) IV SCH ×2 (08:46→14:49)
--- NOTE | 2016-04-04 09:09 | RAD ---
HISTORY: Lower extremity pain TECHNIQUE: Multiple transverse and longitudinal ultrasound images were obtained of the veins of the bilateral lower extremity using grayscale, color Doppler, and spectral Doppler imaging with and without compression and with augmentation. FINDINGS: VEINS: The common femoral vein, deep femoral vein, femoral vein and popliteal vein are compressible throughout their course, with normal flow on color Doppler imaging and normal response to augmentation on spectral Doppler imaging. SOFT TISSUES: There is mild lower leg subcutaneous edema. IMPRESSION: No sonographic evidence of deep vein thrombosis.
--- NOTE | 2016-04-04 10:20 | PTEDU ---
Patient Name: CRUZ BRASWELL CHANA BRASWELLTER selected video: Fall Prevention in the Hospital to view on 04/04/2016 at 10:19:41 AM from [id number]
--- NOTE | 2016-04-04 14:45 | PN ---
Subjective Date of Service: 04/04/16 Interval History: HOSPITALIST PROGRESS NOTE Patient seen and examined at bedside. He seems to be back to his baseline today. States he's feeling well, and happy with weight he has lost so far. Breathing is easier and legs are "not so heavy" . He apologizes for his behavior last night and doesn't know "how it happened". Family History: Unchanged from Admission Social History: Unchanged from Admission Past Medical History: Unchanged from Admission Objective Active Medications: Acetaminophen (Tylenol Tab*) 650 mg PO Q4H PRN PRN Reason: FEVER/PAIN Last Admin: 04/03/16 12:33 Dose: 650 mg Albuterol/Ipratropium (Duoneb Neb.Alana*) 1 neb INH Q4H PRN PRN Reason: SOB/WHEEZING Last Admin: 03/31/16 08:55 Dose: 1 neb Atorvastatin Calcium (Lipitor*) 20 mg PO DAILY [facility] Last Admin: 04/04/16 08:03 Dose: 20 mg Clopidogrel Bisulfate (Plavix Tab*) 75 mg PO DAILY [facility] Last Admin: 04/04/16 08:03 Dose: 75 mg Dextrose (D50w Syringe 50 Ml*) 12.5 gm IV PUSH .FOR FS < 60 - SS PRN PRN Reason: FS < 60 Ferrous Sulfate (Ferrous Sulfate Tab*) 325 mg PO DAILY [facility] Last Admin: 04/04/16 08:02 Dose: 325 mg Furosemide (Lasix Iv*) 40 mg IV 0800,1500 [facility] Last Admin: 04/04/16 08:46 Dose: 40 mg Haloperidol Lactate (Haldol Inj Iv/Im*) 2.5 mg IM Q6H PRN PRN Reason: AGITATION Insulin Human Lispro (Humalog*) 0 units SUBCUT AC [facility] PRN Reason: Protocol Last Admin: 04/04/16 12:11 Dose: Not Given Isosorbide Mononitrate (Imdur Er Tab*) 30 mg PO DAILY [facility] Last Admin: 04/04/16 08:03 Dose: 30 mg Lisinopril (Prinivil Tab*) 2.5 mg PO DAILY [facility] Last Admin: 04/04/16 08:03 Dose: 2.5 mg Metolazone (Zaroxolyn Tab*) 5 mg PO 0730,1430 [facility] Last Admin: 04/04/16 14:19 Dose: 5 mg Metoprolol Tartrate (Lopressor Tab*) 25 mg PO BID WITH MEALS [facility] Last Admin: 04/04/16 08:02 Dose: 25 mg Morphine Sulfate (Morphine Inj (Syringe)*) 2 mg IV Q4H PRN PRN Reason: SEVERE PAIN Rivaroxaban (Xarelto (*)) 20 mg PO DAILY@1700 [facility] Last Admin: 04/03/16 17:35 Dose: 20 mg Vital Signs 04/04/16 04/04/16 04/04/16 00:43 04:48 07:53 Temperature 98.3 F 98.3 F Pulse Rate 79 92 92 Respiratory 20 12 Rate Blood Pressure 119/72 111/59 (mmHg) O2 Sat by Pulse 95 85 91 Oximetry Oxygen Devices in Use Now: Simple Face Mask - Oxymask 4.5 liters Appearance: Pleasant elderly male sitting up in a chair in NAD. Eyes: No Scleral Icterus Ears/Nose/Mouth/Throat: Mucous Membranes Moist Neck: Trachea Midline Respiratory: Symmetrical Chest Expansion and Respiratory Effort, Clear to Auscultation Cardiovascular: RRR - Normal S1 and S2 Abdominal: NL Sounds; No Tenderness; No Distention - obese Extremities: - - Bilateral LE moderate pitting edema, Vern wrapped Neurological: Alert and Oriented x 3, NL Muscle Strength and Tone Lines/Tubes/Other Access: Clean, Dry and Intact Peripheral IV Nutrition: Taking PO's Result Diagrams: 03/31/16 05:09 04/04/16 05:00 Assess/Plan/Problems-Billing Assessment: Mr. Zimmer is a 71yo M with PMH of COPD, interstitial lung disease on home O2 4 liters, CKD stage 3, MALLIKA, CHF, HTN, type 2 DM, CAD, who presented to ED with c/ o dyspnea, progressive weight gain and edema secondary to CHF exacerbation, after failing outpatient diuretic therapy. - Patient Problems (1) Delirium Comment: - Suspect multifactorial in the setting of hospital stay, hypoxia and hypercapnia. - Mental status back to baseline at this time, but may happen again, as I think he may have some sundowning also. - I believe he may qualify for BiPAP at home with his hypoxia and hypercapnia. Will check overnight oximetry with supplemental O2 and request Pulmonology consultation. (2) Acute diastolic CHF (congestive heart failure) Comment: - Repeat echocardiogram shows EF 50-55%. - Weight down to 271 lbs. - Continue metolazone and IV Furosemide BID as BP allows. - Continue to monitor daily weights and I/Os. (3) Bilateral leg edema Comment: - Associated with CHF. - Continue to wear Vern wraps or TEDs as tolerated. (4) CKD stage 3 due to type 2 diabetes mellitus Comment: - Renal function is stable. Continue to monitor in the setting of diuresis. (5) Acute and chronic respiratory failure Comment: - Patient has chronic hypoxemic respiratory failure secondary to his COPD/ILD and is on 4 liters of O2 at baseline. (6) Type 2 diabetes mellitus Comment: - Continue Lispro SS. (7) CAD (coronary artery disease) Comment: - Stable. - Continue Plavix, Atorvastatin and Metoprolol. (8) Atrial flutter Comment: - In NSR at this time. - Continue Xarelto. (9) Microcytic anemia Comment: - W/u reveals iron deficiency anemia. - Continue ferrous sulfate. - As per Dr. Hernandez's note, patient had a colonoscopy in 2010. - Stool was negative for occult blood. - May need further GI w/u as outpatient. (10) DVT prophylaxis Comment: - Xarelto. - SCDs contraindicated in the setting of severe bilateral LE edema and CHF. (11) Full code status Status and Disposition: Inpatient. Brother (Mr. Elton Zimmer [phone]) called and updated.
[2016-04-04] MEDS: Rivaroxaban TAB(*) 20 MG TAB PO SCH (17:20)
[2016-04-05] MEDS ORDERED: diPHENhydraMINE PO* 25 MG PO ONE ×2 (06:00→11:09)
[2016-04-05 07:11] LABS: BUN/Creatinine Ratio 31.4 (8-20); Calcium 9.8 mg/dL (8.6-10.3); EGFR African American 90.1 (>60)
--- NOTE | 2016-04-05 07:46 | PTEDU ---
Patient Name: CRUZ BRASWELL PORTIACRUZ CAMPBELL selected video: Fall Prevention in the Hospital to view on 04/05/2016 at 7:44:[address] [facility] [id number]
[2016-04-05] MEDS: Clopidogrel TAB* 75 MG PO SCH (08:56)
[2016-04-05] MEDS: Isosorbide Mononitrate ER TAB* 30 MG PO SCH (08:56)
[2016-04-05] MEDS: Ferrous Sulfate TAB* 325 MG PO SCH (08:56)
[2016-04-05] MEDS: Lisinopril TAB* 5 MG PO SCH (08:56)
[2016-04-05] MEDS: Metoprolol Tartrate TAB* 25 MG PO SCH ×2 (08:57→18:09)
[2016-04-05] MEDS: Atorvastatin* 20 MG TAB PO SCH (08:57)
[2016-04-05] MEDS: Insulin LISPRO* 1 UNITS UNIT SUBCUT SCH ×3 (08:58→18:03)
--- NOTE | 2016-04-05 11:03 | PN ---
Subjective Date of Service: 04/05/16 Interval History: HOSPITALIST PROGRESS NOTE Patient seen and examined at bedside. He feels well this AM. Pleased his weight is down to 259 lbs. Developed an erythematous pruritic rash last night, somewhat improved with Benadryl, but still present. Tolerating diet well. Denies dizziness or lightheadedness. Family History: Unchanged from Admission Social History: Unchanged from Admission Past Medical History: Unchanged from Admission Objective Active Medications: Acetaminophen (Tylenol Tab*) 650 mg PO Q4H PRN PRN Reason: FEVER/PAIN Last Admin: 04/03/16 12:33 Dose: 650 mg Albuterol/Ipratropium (Duoneb Neb.Alana*) 1 neb INH Q4H PRN PRN Reason: SOB/WHEEZING Last Admin: 03/31/16 08:55 Dose: 1 neb Atorvastatin Calcium (Lipitor*) 20 mg PO DAILY [facility] Last Admin: 04/05/16 08:57 Dose: 20 mg Clopidogrel Bisulfate (Plavix Tab*) 75 mg PO DAILY [facility] Last Admin: 04/05/16 08:56 Dose: 75 mg Dextrose (D50w Syringe 50 Ml*) 12.5 gm IV PUSH .FOR FS < 60 - SS PRN PRN Reason: FS < 60 Ferrous Sulfate (Ferrous Sulfate Tab*) 325 mg PO DAILY [facility] Last Admin: 04/05/16 08:56 Dose: 325 mg Haloperidol Lactate (Haldol Inj Iv/Im*) 2.5 mg IM Q6H PRN PRN Reason: AGITATION Insulin Human Lispro (Humalog*) 0 units SUBCUT AC [facility] PRN Reason: Protocol Last Admin: 04/05/16 08:58 Dose: Not Given Isosorbide Mononitrate (Imdur Er Tab*) 30 mg PO DAILY [facility] Last Admin: 04/05/16 08:56 Dose: 30 mg Lisinopril (Prinivil Tab*) 2.5 mg PO DAILY [facility] Last Admin: 04/05/16 08:56 Dose: 2.5 mg Metoprolol Tartrate (Lopressor Tab*) 25 mg PO BID WITH MEALS [facility] Last Admin: 04/05/16 08:57 Dose: 25 mg Morphine Sulfate (Morphine Inj (Syringe)*) 2 mg IV Q4H PRN PRN Reason: SEVERE PAIN Rivaroxaban (Xarelto (*)) 20 mg PO DAILY@1700 [facility] Last Admin: 04/04/16 17:20 Dose: 20 mg Vital Signs 04/04/16 04/05/16 04/05/16 23:36 02:13 04:26 Temperature 97.8 F 97.8 F Pulse Rate 75 75 80 Respiratory 18 20 20 Rate Blood Pressure 104/61 105/68 (mmHg) O2 Sat by Pulse 95 93 95 Oximetry Oxygen Devices in Use Now: Simple Face Mask - Oxymask 9 liters Appearance: Pleasant elderly male sitting up in bed in NAD. Eyes: No Scleral Icterus Ears/Nose/Mouth/Throat: Mucous Membranes Moist Neck: Trachea Midline Respiratory: Symmetrical Chest Expansion and Respiratory Effort, Clear to Auscultation Cardiovascular: RRR - Normal S1 and S2 Abdominal: NL Sounds; No Tenderness; No Distention Extremities: - - Bilateral LE edema is much improved, persistent around his ankles, with chronic sking changes. Skin: - - Faint macular rash on upper and lower extremities Neurological: Alert and Oriented x 3, NL Muscle Strength and Tone Lines/Tubes/Other Access: Clean, Dry and Intact Peripheral IV Nutrition: Taking PO's Result Diagrams: 03/31/16 05:09 04/05/16 06:19 Assess/Plan/Problems-Billing Assessment: Mr. Zimmer is a 71yo M with PMH of COPD, interstitial lung disease on home O2 4 liters, CKD stage 3, MALLIKA, CHF, HTN, type 2 DM, CAD, who presented to ED with c/ o dyspnea, progressive weight gain and edema secondary to CHF exacerbation, after failing outpatient diuretic therapy. - Patient Problems (1) Rash Comment: - Source is unclear, but almost resolved with one dose of Benadryl. - Will give another dose now and monitor. (2) Delirium Comment: - Suspect multifactorial in the setting of hospital stay, hypoxia and hypercapnia. - Mental status back to baseline at this time, but may happen again, as I think he may have some sundowning also. - I believe he may qualify for BiPAP at home with his hypoxia and hypercapnia. Will check overnight oximetry with supplemental O2 and request Pulmonology consultation. (3) Acute diastolic CHF (congestive heart failure) Comment: - Repeat echocardiogram shows EF 50-55%. - Weight down to 259 lbs. I believe he's as dry as he can be at this point. - Hold metolazone and furosemide. - Continue to monitor daily weights and I/Os. (4) Bilateral leg edema Comment: - Associated with CHF. - Continue to wear Vern wraps or TEDs as tolerated. (5) CKD stage 3 due to type 2 diabetes mellitus Comment: - Renal function remains stable. (6) Acute and chronic respiratory failure Comment: - Patient has chronic hypoxemic respiratory failure secondary to his COPD/ILD and was on 4 liters of O2 at baseline at home. (7) MALLIKA (obstructive sleep apnea) Comment: - Suspect patient may benefit of BiPAP. - CO2 was 57 and overnight oximetry showed SO2<89% for 4:12 minutes but it was done on 10 liters of O2. Will try again tonight with a lower amount of O2. - Pulmonology consult requested. (8) Type 2 diabetes mellitus Comment: - Continue Lispro SS. (9) CAD (coronary artery disease) Comment: - Stable. - Continue Plavix, Atorvastatin and Metoprolol. (10) Atrial flutter Comment: - Continue Xarelto. (11) Microcytic anemia Comment: - W/u reveals iron deficiency anemia. - Continue ferrous sulfate. - As per Dr. Hernandez's note, patient had a colonoscopy in 2010. - Stool was negative for occult blood. - May need further GI w/u as outpatient. (12) DVT prophylaxis Comment: - Xarelto. (13) Full code status Status and Disposition: Inpatient. Brother (Mr. Elton Zimmer [phone]) called and updated yesterday.
[2016-04-05] MEDS: Rivaroxaban TAB(*) 20 MG TAB PO SCH (18:09)
--- NOTE | 2016-04-05 20:41 | CONS ---
PULMONARY CONSULTATION REPORT: DATE OF CONSULT: 04/05/16 CONSULTATION REQUESTED BY: Dr. Ko. REASON FOR CONSULT: Evaluation of hypoxemic and hypercapnic respiratory failure. HISTORY OF PRESENT ILLNESS: The patient is a 71-year-old male, former smoker with history of ischemic cardiomyopathy, chronic kidney disease, atrial flutter , recently diagnosed mild obstructive sleep apnea, O2 dependency COPD, interstitial lung disease and pleural calcifications, coronary artery disease. The patient used to follow up with client support consultant in [place], [place]. The patient came into the ED for evaluation of worsening shortness of breath over the past several weeks. The patient also reported significantly worsening lower extremity edema with 30- pound weight gain in the past 2 months. He has failed outpatient diuretic therapy. His Lasix was increased to 80 mg recently. The patient also reported worsening exercise tolerance due to lower extremity edema. The patient also reported occasional cough productive of clear phlegm. The patient denied fevers, chills, abdominal pain, nausea, vomiting, diarrhea, headaches, and generalized malaise. The patient reported significant weight gain of about 25 pounds since October. The patient was hospitalized in October in [place], [place]. The patient recently was diagnosed with mild obstructive sleep apnea and significant hypoxemia. He subsequently underwent CPAP titration, CPAP of 7 cm was found to be optimal along with 6 L O2 supplementation. The patient did not receive his CPAP yet. The patient on further evaluation in the emergency room was noted to have hypoxemic and hypercapnic respiratory failure with chronic respiratory acidosis and metabolic compensation. The patient received extra dose of Lasix IV with improvement in lower extremity swelling and breathing. The patient was seen and examined by me at bedside. The patient has not been compliant with his CPAP while here. The patient reports improvement in his breathing. The patient has been O2 dependent, has needed 4 to 6 L oxygen which was set up by [facility]. I have personally reviewed prior imaging studies. The patient had CT scan of the chest a few years ago, which showed pleural calcification bilaterally and small effusions and pleural thickening. The patient also noted to having interstitial prominence. Recent chest x-ray during this admission was also personally reviewed. The patient noted to have interstitial prominence concerning for possible fluid overload. He also was noted to have those pleural changes that were seen on prior scans which appear unchanged. The patient had blood gas analysis, which revealed hypoxemia with pO2 of 55 and compensated respiratory acidosis with metabolic compensation. The patient had worsening metabolic alkalosis due to contraction alkalosis from Lasix. PAST MEDICAL HISTORY: 1. Stage 3 chronic kidney disease. 2. Atrial flutter. 3. Obstructive sleep apnea. 4. Ischemic cardiomyopathy of 45% in December 2014. 5. Hypertension. 6. Non-insulin diabetes. 7. Interstitial lung disease, on 4 L O2. 8. COPD. 9. Coronary artery disease, status post PCI. PAST SURGICAL HISTORY: 1. PCI. 2. Tonsillectomy. MEDICATIONS: At home: 1. Albuterol. 2. DuoNeb. 3. Atorvastatin. 4. Clopidogrel. 5. Lasix. 6. Isosorbide. 7. Lisinopril. 8. Metoprolol. 9. Multivitamin. 10. [place]-3. 11. Xarelto. 12. Flomax. 13. Metformin. SOCIAL HISTORY: The patient lives alone at home. [id number] smoking history , quit several years ago. The patient consumes alcohol occasionally. Denied drug abuse. REVIEW OF SYSTEMS: All 14 systems were reviewed and as per HPI. PHYSICAL EXAM: The patient in bed, in no apparent distress. Vital Signs: Temperature 97.8, heart rate 80 beats per minute, respiratory rate 16 per minute , O2 sat 95% on 8 L, blood pressure 90/66. HEENT: Pupils are equal and reactive to light. Mucous membranes are moist. Respiratory: Diminished breath sounds bilaterally, crackles present. Cardiovascular: Regular. No murmurs, gallops, or rubs. Abdomen: Obese, distended, nontender, bowel sounds present. Extremities: Pitting edema of lower extremities, chronic skin changes. Skin: Hyperemia and skin changes in lower extremities. Neuro: No focal deficits. DIAGNOSTIC STUDIES/LAB DATA: WBC count 6.8, hemoglobin 10.9, hematocrit 40, platelet count 173. Blood gas analysis showed pH of 7.42, pCO2 of 57, pO2 of 55 on 4 L, and bicarb of 33.3. Sodium is 136, potassium 4.0, chloride 90, bicarb of 42, BUN 33, creatinine 1.05. Chest x-ray as described above in HPI. Lower extremity Dopplers, negative for DVT. Echocardiogram showed mild concentric LVH with systolic function lower limits of normal and estimated EF of 50% to 55%. Right ventricular cavity is dilated and global systolic function is mildly reduced. PA pressure could not be estimated well. IMPRESSION AND RECOMMENDATIONS: 71-year-old male with history of chronic O2 dependent chronic obstructive pulmonary disease, interstitial lung disease with worsening shortness of breath recently likely secondary to fluid overload. [id number] hypoxemic and hypercapnic respiratory failure. The patient with cor pulmonale picture secondary to chronic hypoxia from COPD and interstitial lung disease. Patient denies h/o asbestos exposure Mild obstructive sleep apnea, not being treated currently. The patient's condition appears to be chronic. He had responded to diuresis. Titrate FiO2 to his baseline of 4-6 L/min to keep O2 sat around 90%. Continue with O2 supplementation. Continue with CPAP at night with 6L O2. Thank you for allowing me to participate in care of your patient. [id number]/CPS #: [id number] LILA
--- NOTE | 2016-04-06 07:53 | RAD ---
INDICATION: Hypoxia COMPARISON: Most recent comparison chest x-rays dated April 02, 2016 TECHNIQUE: Single AP portable view of the chest was obtained. FINDINGS: Image quality is compromised due to the relative inferiority of a portable chest x-ray. Similar the previous chest x-ray there is moderate cardiomegaly and coarse calcification overlying the arch of the aorta. Again seen are longitudinally oriented densities along the lateral aspects of each lung consistent with pleural calcification. There are patchy densities seen overlying the bilateral lungs. The pulmonary vasculature is indistinct and engorged. There is bibasilar costophrenic angle blunting. Visualized bones are normal for the patient's age. IMPRESSION: 1. Chest x-ray findings are most consistent with exacerbation of congestive heart failure. 2. Pleural calcifications are again seen. Please correlate to exposure to asbestos.
[2016-04-06] MEDS: Insulin LISPRO* 1 UNITS UNIT SUBCUT SCH ×3 (08:12→17:06)
[2016-04-06] MEDS: Metoprolol Tartrate TAB* 25 MG PO SCH ×2 (09:43→18:09)
[2016-04-06] MEDS: Atorvastatin* 20 MG TAB PO SCH (09:43)
[2016-04-06] MEDS: Isosorbide Mononitrate ER TAB* 30 MG PO SCH (09:43)
[2016-04-06] MEDS: Lisinopril TAB* 5 MG PO SCH (09:43)
[2016-04-06] MEDS: Clopidogrel TAB* 75 MG PO SCH (09:43)
[2016-04-06] MEDS: Ferrous Sulfate TAB* 325 MG PO SCH (09:43)
--- NOTE | 2016-04-06 16:38 | PN ---
Subjective Date of Service: 04/06/16 Interval History: Pt is feeling quite good. He states he is the lightest he has been in "decades. " He denies any SOB at rest. He has been up and doing laps in the white. Objective Active Medications: Acetaminophen (Tylenol Tab*) 650 mg PO Q4H PRN PRN Reason: FEVER/PAIN Last Admin: 04/03/16 12:33 Dose: 650 mg Albuterol/Ipratropium (Duoneb Neb.Alana*) 1 neb INH Q4H PRN PRN Reason: SOB/WHEEZING Last Admin: 03/31/16 08:55 Dose: 1 neb Atorvastatin Calcium (Lipitor*) 20 mg PO DAILY [facility] Last Admin: 04/06/16 09:43 Dose: 20 mg Clopidogrel Bisulfate (Plavix Tab*) 75 mg PO DAILY [facility] Last Admin: 04/06/16 09:43 Dose: 75 mg Dextrose (D50w Syringe 50 Ml*) 12.5 gm IV PUSH .FOR FS < 60 - SS PRN PRN Reason: FS < 60 Ferrous Sulfate (Ferrous Sulfate Tab*) 325 mg PO DAILY [facility] Last Admin: 04/06/16 09:43 Dose: 325 mg Haloperidol Lactate (Haldol Inj Iv/Im*) 2.5 mg IM Q6H PRN PRN Reason: AGITATION Insulin Human Lispro (Humalog*) 0 units SUBCUT AC [facility] PRN Reason: Protocol Last Admin: 04/06/16 11:51 Dose: Not Given Isosorbide Mononitrate (Imdur Er Tab*) 30 mg PO DAILY [facility] Last Admin: 04/06/16 09:43 Dose: 30 mg Lisinopril (Prinivil Tab*) 2.5 mg PO DAILY [facility] Last Admin: 04/06/16 09:43 Dose: 2.5 mg Metoprolol Tartrate (Lopressor Tab*) 25 mg PO BID WITH MEALS [facility] Last Admin: 04/06/16 09:43 Dose: 25 mg Morphine Sulfate (Morphine Inj (Syringe)*) 2 mg IV Q4H PRN PRN Reason: SEVERE PAIN Rivaroxaban (Xarelto (*)) 20 mg PO DAILY@1700 [facility] Last Admin: 04/05/16 18:09 Dose: 20 mg Vital Signs 04/05/16 04/06/16 04/06/16 20:35 00:04 00:10 Temperature Pulse Rate 74 Respiratory 20 16 Rate Blood Pressure 81/37 94/44 (mmHg) O2 Sat by Pulse 98 Oximetry 04/06/16 04/06/16 04/06/16 01:11 08:00 08:18 Temperature 97.9 F Pulse Rate 72 76 Respiratory 20 20 20 Rate Blood Pressure 121/70 (mmHg) O2 Sat by Pulse 93 95 Oximetry 04/06/16 13:08 Temperature Pulse Rate 66 Respiratory 16 Rate Blood Pressure (mmHg) O2 Sat by Pulse 94 Oximetry Oxygen Devices in Use Now: Simple Face Mask - 4L-94% Appearance: Elderly male sitting on the edge of the bed, NAD Eyes: No Scleral Icterus Ears/Nose/Mouth/Throat: Mucous Membranes Moist Respiratory: Symmetrical Chest Expansion and Respiratory Effort, Clear to Auscultation - decreased breath sounds in all lung thomas but clear Cardiovascular: NL Sounds; No Murmurs; No JVD, RRR, - - 2+ B/L lower leg edema Abdominal: NL Sounds; No Tenderness; No Distention Extremities: No Clubbing, Cyanosis Skin: No Rash or Ulcers, No Nodules or Sclerosis Neurological: Alert and Oriented x 3 Result Diagrams: 03/31/16 05:09 04/05/16 06:19 Additional Lab and Data: Lab Results 03/30/16 03/30/16 03/30/16 Range/Units 12:11 12:11 12:11 INR (Anticoag Therapy) 1.67 H (0.89-1.11) Sodium 134 (133-145) mmol/L Potassium 4.6 (3.5-5.0) mmol/L Chloride 98 L (101-111) mmol/L Carbon Dioxide 29 (22-32) mmol/L Anion Gap 7 (2-11) mmol/L BUN 35 H (6-24) mg/dL Creatinine 1.50 H (0.67-1.17) mg/dL Est GFR ( Amer) 59.7 (>60) Est GFR (Non-Af Amer) 46.4 (>60) BUN/Creatinine Ratio 23.3 H (8-20) Glucose 100 (70-100) mg/dL Lactic Acid 1.7 (0.5-2.0) mmol/L Calcium 9.7 (8.6-10.3) mg/dL Magnesium 2.2 (1.9-2.7) mg/dL Total Bilirubin 1.50 H (0.2-1.0) mg/dL AST 16 (13-39) U/L ALT 10 (7-52) U/L Alkaline Phosphatase 64 (34-104) U/L CK-MB (CK-2) 1.7 (0.6-6.3) ng/mL Troponin I 0.01 (<0.04) ng/mL B-Natriuretic Peptide ( - 100) pg/mL Total Protein 7.8 (6.4-8.9) g/dL Albumin 3.9 (3.2-5.2) g/dL Globulin 3.9 (2-4) g/dL Albumin/Globulin Ratio 1.0 (1-3) TSH 6.41 H (0.34-5.60) mcIU/mL Thyroxine (T4) 7.03 (6.09-12.23) g/dL 03/30/16 Range/Units 12:11 INR (Anticoag Therapy) (0.89-1.11) Sodium (133-145) mmol/L Potassium (3.5-5.0) mmol/L Chloride (101-111) mmol/L Carbon Dioxide (22-32) mmol/L Anion Gap (2-11) mmol/L BUN (6-24) mg/dL Creatinine (0.67-1.17) mg/dL Est GFR ( Amer) (>60) Est GFR (Non-Af Amer) (>60) BUN/Creatinine Ratio (8-20) Glucose (70-100) mg/dL Lactic Acid (0.5-2.0) mmol/L Calcium (8.6-10.3) mg/dL Magnesium (1.9-2.7) mg/dL Total Bilirubin (0.2-1.0) mg/dL AST (13-39) U/L ALT (7-52) U/L Alkaline Phosphatase (34-104) U/L CK-MB (CK-2) (0.6-6.3) ng/mL Troponin I (<0.04) ng/mL B-Natriuretic Peptide 605 H ( - 100) pg/mL Total Protein (6.4-8.9) g/dL Albumin (3.2-5.2) g/dL Globulin (2-4) g/dL Albumin/Globulin Ratio (1-3) TSH (0.34-5.60) mcIU/mL Thyroxine (T4) (6.09-12.23) g/dL Microbiology and Other Data: Microbiology 03/31/16 05:09 Aerobic Blood Culture - Preliminary Blood Venous No Growth Day 1 Anaerobic Blood Culture - Preliminary No Growth Day 1 03/31/16 05:09 Aerobic Blood Culture - Preliminary Blood Venous No Growth Day 1 Anaerobic Blood Culture - Preliminary No Growth Day 1 Assess/Plan/Problems-Billing Mr. Zimmer is a 71yo M with PMHx of COPD, interstitial lung disease on home O2 4 liters, CKD stage 3, MALLIKA, CHF, HTN, type 2 DM, CAD, who presented to ED with c /o dyspnea, progressive weight gain and edema secondary to CHF exacerbation, after failing outpatient diuretic therapy. - Patient Problems (1) Acute and chronic respiratory failure Current Visit: Yes Status: Acute Code(s): J96.20 - ACUTE AND CHR RESP FAILURE, UNSP W HYPOXIA OR HYPERCAPNIA SNOMED Code(s): 33551652 Comment: The patient has chronic hypoxemic respiratory failure secondary to his COPD/ILD and was on 4 liters of O2 at baseline at home. He at times has required as much as 15L of supplemental O2. Now back down to 4L continuously. (2) Acute diastolic CHF (congestive heart failure) Current Visit: Yes Status: Acute Code(s): I50.31 - ACUTE DIASTOLIC ( CONGESTIVE) HEART FAILURE SNOMED Code(s): 916248685 Comment: The patient is down to 253lb today. Will resume diuretic therapy tomorrow. Will send him out on lasix alone and he will need to monitor his weight/symptoms. If he starts to worsen again metolazone should be added back to augment the lasix. (3) MALLIKA (obstructive sleep apnea) Current Visit: Yes Status: Acute Code(s): G47.33 - OBSTRUCTIVE SLEEP APNEA ( ADULT) (PEDIATRIC) SNOMED Code(s): 61433292 Comment: CPAP has been ordered by Dr. Mcintosh. (4) Bilateral leg edema Current Visit: Yes Status: Acute Code(s): R60.0 - LOCALIZED EDEMA SNOMED Code(s): 697216951 Comment: Much improved per the patient. Continue DAMARIS wraps as able. (5) Atrial flutter Current Visit: Yes Status: Acute Code(s): I48.92 - UNSPECIFIED ATRIAL FLUTTER SNOMED Code(s): 5212640 Comment: Pt is in NSR. Continue xarelto and metoprolol. (6) CAD (coronary artery disease) Current Visit: Yes Status: Acute Code(s): I25.10 - ATHSCL HEART DISEASE OF [place] CORONARY ARTERY W/O ANG PCTRS SNOMED Code(s): 63655965 Comment: Stable and without complaints. Continue plavix, atorvastatin and metoprolol. (7) CKD stage 3 due to type 2 diabetes mellitus Current Visit: Yes Status: Acute Code(s): E11.22 - TYPE 2 DIABETES MELLITUS W DIABETIC CHRONIC KIDNEY DISEASE; N18.3 - CHRONIC KIDNEY DISEASE, STAGE 3 ( MODERATE) SNOMED Code(s): 723139822398 Comment: Creatinine remains stable. Continue to monitor intermittently. (8) Microcytic anemia Current Visit: Yes Status: Acute Code(s): D50.9 - IRON DEFICIENCY ANEMIA, UNSPECIFIED SNOMED Code(s): 491165985 Comment: Previous work up reveals iron deficiency. Continue ferrous sulfate. His PCP will need to continue to follow this. (9) HTN (hypertension) Current Visit: Yes Status: Acute Code(s): I10 - ESSENTIAL (PRIMARY) HYPERTENSION SNOMED Code(s): 86297973 Comment: BP is under good control. Continue to monitor. (10) Type 2 diabetes mellitus Current Visit: Yes Status: Acute Comment: Sugars are under good control. Resume metformin on d/c. (11) DVT prophylaxis Current Visit: Yes Status: Acute Code(s): POI6493 - SNOMED Code(s): 125061358 Comment: filipeto (12) Full code status Current Visit: Yes Status: Acute Code(s): Z78.9 - OTHER SPECIFIED HEALTH STATUS SNOMED Code(s): 003519657 Status and Disposition: d/c home tomorrow
--- NOTE | 2016-04-06 17:21 | PN ---
Progress Note - Progress Note Note: Pulm consult f/u note 04/06/16. Pt seen and examined at bed side.Pt reports feeling much improved. He is ambulating in room with O2. His O2 requirements have come down, he has been needing 4L Active Medications Generic Name Dose Route Start Last Admin Trade Name Freq PRN Reason Stop Dose Admin Acetaminophen 650 mg 03/30/16 14:49 04/03/16 12:33 Tylenol Tab* PO 650 mg Q4H PRN Administration FEVER/PAIN Albuterol/Ipratropium 1 neb 03/30/16 14:53 03/31/16 08:55 Duoneb Neb.Alana* INH 1 neb Q4H PRN Administration SOB/WHEEZING Atorvastatin Calcium 20 mg 03/31/16 09:00 04/06/16 09:43 Lipitor* PO 20 mg DAILY [facility] Administration Clopidogrel Bisulfate 75 mg 03/31/16 09:00 04/06/16 09:43 Plavix Tab* PO 75 mg DAILY [facility] Administration Dextrose 12.5 gm 03/30/16 14:57 D50w Syringe 50 Ml* IV PUSH .FOR FS < 60 - SS PRN FS < 60 Ferrous Sulfate 325 mg 03/31/16 09:00 04/06/16 09:43 Ferrous Sulfate Tab* PO 325 mg DAILY [facility] Administration Insulin Human Lispro 0 units 03/30/16 16:30 04/06/16 17:06 Humalog* SUBCUT Not Given AC [facility] Protocol Isosorbide Mononitrate 30 mg 04/03/16 07:13 04/06/16 09:43 Imdur Er Tab* PO 30 mg DAILY [facility] Administration Lisinopril 2.5 mg 04/03/16 07:13 04/06/16 09:43 Prinivil Tab* PO 2.5 mg DAILY [facility] Administration Metoprolol Tartrate 25 mg 04/03/16 07:13 04/06/16 09:43 Lopressor Tab* PO 25 mg BID WITH MEALS [facility] Administration Morphine Sulfate 2 mg 04/03/16 12:32 Morphine Inj (Syringe)* IV Q4H PRN SEVERE PAIN Rivaroxaban 20 mg 03/31/16 17:00 04/05/16 18:09 Xarelto (*) PO 20 mg DAILY@1700 [facility] Administration Vital Signs Temp Pulse Resp BP Pulse Ox 97.8 F 64 18 104/61 97 04/06/16 15:55 02/14/17 15:55 04/06/16 15:55 04/06/16 15:55 04/06/16 15:55 Oxygen Devices in Use Now: Simple Face Mask - 4L-94% Appearance: Elderly male sitting on the edge of the bed, NAD Eyes: No Scleral Icterus Ears/Nose/Mouth/Throat: Mucous Membranes Moist Respiratory: Symmetrical Chest Expansion and Respiratory Effort, Clear to Auscultation - decreased breath sounds in all lung thomas but clear Cardiovascular: NL Sounds; No Murmurs; No JVD, RRR, - - 2+ B/L lower leg edema Abdominal: NL Sounds; No Tenderness; No Distention Extremities: No Clubbing, Cyanosis Skin: No Rash or Ulcers, No Nodules or Sclerosis Neurological: Alert and Oriented x 3 Laboratory Results - last 24 hr 04/05/16 04/06/16 04/06/16 17:48 03:14 08:10 POC Glucose (mg/dL) 149 H 102 B-Natriuretic Peptide 490 H 04/06/16 04/06/16 11:42 16:22 POC Glucose (mg/dL) 118 H 107 H B-Natriuretic Peptide Microbiology and Other Data: Microbiology 03/31/16 05:09 Aerobic Blood Culture - Preliminary Blood Venous No Growth Day 1 Anaerobic Blood Culture - Preliminary No Growth Day 1 03/31/16 05:09 Aerobic Blood Culture - Preliminary Blood Venous No Growth Day 1 Anaerobic Blood Culture - Preliminary No Growth Day 1 I/R: Pt is a 71yo M with PMHx of COPD, interstitial lung disease on home O2 4-6 liters, CKD stage 3, MALLIKA, CHF, HTN, type 2 DM, CAD, with c/o dyspnea, progressive weight gain and edema secondary to CHF exacerbation, after failing outpatient diuretic therapy. Pt noted to have increased FiO2 requirements. He has responded to diuresis. ACUTE on CHR hypoxic and hypercapnic RESP FAILURE secondary to fluid overload- Improving, returning to baseline.The patient has chronic hypoxemic respiratory failure/cor pulmonale secondary to his COPD/ILD and was on 4-6 liters of O2 at baseline at home. c/w O2 at 4L/min c/w diuresis Pt with mild sleep apnea, required CPAP of 7 cm H2O with 6L O2 Pt to be set up through [facility] [place] upon d/c Pt has not been compliant with CPAP while in hosp Advised pt to use it tonight Poor overall prognosis given significant lung disease
[2016-04-06] MEDS: Rivaroxaban TAB(*) 20 MG TAB PO SCH (18:30)
[2016-04-07] MEDS: Insulin LISPRO* 1 UNITS UNIT SUBCUT SCH ×2 (08:22→12:31)
[2016-04-07 08:23] VITALS: BP 111/70
[2016-04-07] MEDS: Clopidogrel TAB* 75 MG PO SCH (09:24)
[2016-04-07] MEDS: Ferrous Sulfate TAB* 325 MG PO SCH (09:24)
[2016-04-07] MEDS: Atorvastatin* 20 MG TAB PO SCH (09:24)
[2016-04-07] MEDS: Isosorbide Mononitrate ER TAB* 30 MG PO SCH (09:24)
[2016-04-07] MEDS: Lisinopril TAB* 5 MG PO SCH (09:24)
[2016-04-07] MEDS: Metoprolol Tartrate TAB* 25 MG PO SCH (09:24)
--- NOTE | 2016-04-07 10:48 | PN ---
Subjective Date of Service: 04/07/16 Interval History: Pt is feeling well. He denies any SOB at this time. He is anxious to go home. Objective Active Medications: Acetaminophen (Tylenol Tab*) 650 mg PO Q4H PRN PRN Reason: FEVER/PAIN Last Admin: 04/03/16 12:33 Dose: 650 mg Albuterol/Ipratropium (Duoneb Neb.Alana*) 1 neb INH Q4H PRN PRN Reason: SOB/WHEEZING Last Admin: 03/31/16 08:55 Dose: 1 neb Atorvastatin Calcium (Lipitor*) 20 mg PO DAILY [facility] Last Admin: 04/07/16 09:24 Dose: 20 mg Clopidogrel Bisulfate (Plavix Tab*) 75 mg PO DAILY [facility] Last Admin: 04/07/16 09:24 Dose: 75 mg Dextrose (D50w Syringe 50 Ml*) 12.5 gm IV PUSH .FOR FS < 60 - SS PRN PRN Reason: FS < 60 Ferrous Sulfate (Ferrous Sulfate Tab*) 325 mg PO DAILY [facility] Last Admin: 04/07/16 09:24 Dose: 325 mg Insulin Human Lispro (Humalog*) 0 units SUBCUT AC [facility] PRN Reason: Protocol Last Admin: 04/07/16 08:22 Dose: Not Given Isosorbide Mononitrate (Imdur Er Tab*) 30 mg PO DAILY [facility] Last Admin: 04/07/16 09:24 Dose: 30 mg Lisinopril (Prinivil Tab*) 2.5 mg PO DAILY [facility] Last Admin: 04/07/16 09:24 Dose: 2.5 mg Metoprolol Tartrate (Lopressor Tab*) 25 mg PO BID WITH MEALS [facility] Last Admin: 04/07/16 09:24 Dose: 25 mg Morphine Sulfate (Morphine Inj (Syringe)*) 2 mg IV Q4H PRN PRN Reason: SEVERE PAIN Rivaroxaban (Xarelto (*)) 20 mg PO DAILY@1700 [facility] Last Admin: 04/06/16 18:30 Dose: 20 mg Vital Signs 04/06/16 04/06/16 04/06/16 13:08 15:55 23:47 Temperature 97.8 F Pulse Rate 66 64 Respiratory 16 18 18 Rate Blood Pressure 104/61 (mmHg) O2 Sat by Pulse 94 97 Oximetry 04/07/16 04/07/16 04/07/16 00:06 02:55 07:48 Temperature 98.2 F 98.6 F Pulse Rate 77 77 Respiratory 18 18 18 Rate Blood Pressure 109/52 111/70 (mmHg) O2 Sat by Pulse 95 98 Oximetry 04/07/16 08:00 Temperature Pulse Rate Respiratory 18 Rate Blood Pressure (mmHg) O2 Sat by Pulse Oximetry Oxygen Devices in Use Now: Nasal Cannula - 4L-98% Appearance: Elderly male sitting on the edge of the bed, NAD Eyes: No Scleral Icterus Ears/Nose/Mouth/Throat: Mucous Membranes Moist Respiratory: Symmetrical Chest Expansion and Respiratory Effort, Clear to Auscultation - diminished breath sounds in all lung thomas but clear Cardiovascular: NL Sounds; No Murmurs; No JVD, RRR, - - 2+ LE edema Abdominal: NL Sounds; No Tenderness; No Distention Extremities: No Clubbing, Cyanosis Skin: No Rash or Ulcers, No Nodules or Sclerosis Neurological: Alert and Oriented x 3 Result Diagrams: 03/31/16 05:09 04/05/16 06:19 Additional Lab and Data: Lab Results 03/30/16 03/30/16 03/30/16 Range/Units 12:11 12:11 12:11 INR (Anticoag Therapy) 1.67 H (0.89-1.11) Sodium 134 (133-145) mmol/L Potassium 4.6 (3.5-5.0) mmol/L Chloride 98 L (101-111) mmol/L Carbon Dioxide 29 (22-32) mmol/L Anion Gap 7 (2-11) mmol/L BUN 35 H (6-24) mg/dL Creatinine 1.50 H (0.67-1.17) mg/dL Est GFR ( Amer) 59.7 (>60) Est GFR (Non-Af Amer) 46.4 (>60) BUN/Creatinine Ratio 23.3 H (8-20) Glucose 100 (70-100) mg/dL Lactic Acid 1.7 (0.5-2.0) mmol/L Calcium 9.7 (8.6-10.3) mg/dL Magnesium 2.2 (1.9-2.7) mg/dL Total Bilirubin 1.50 H (0.2-1.0) mg/dL AST 16 (13-39) U/L ALT 10 (7-52) U/L Alkaline Phosphatase 64 (34-104) U/L CK-MB (CK-2) 1.7 (0.6-6.3) ng/mL Troponin I 0.01 (<0.04) ng/mL B-Natriuretic Peptide ( - 100) pg/mL Total Protein 7.8 (6.4-8.9) g/dL Albumin 3.9 (3.2-5.2) g/dL Globulin 3.9 (2-4) g/dL Albumin/Globulin Ratio 1.0 (1-3) TSH 6.41 H (0.34-5.60) mcIU/mL Thyroxine (T4) 7.03 (6.09-12.23) g/dL 03/30/16 Range/Units 12:11 INR (Anticoag Therapy) (0.89-1.11) Sodium (133-145) mmol/L Potassium (3.5-5.0) mmol/L Chloride (101-111) mmol/L Carbon Dioxide (22-32) mmol/L Anion Gap (2-11) mmol/L BUN (6-24) mg/dL Creatinine (0.67-1.17) mg/dL Est GFR ( Amer) (>60) Est GFR (Non-Af Amer) (>60) BUN/Creatinine Ratio (8-20) Glucose (70-100) mg/dL Lactic Acid (0.5-2.0) mmol/L Calcium (8.6-10.3) mg/dL Magnesium (1.9-2.7) mg/dL Total Bilirubin (0.2-1.0) mg/dL AST (13-39) U/L ALT (7-52) U/L Alkaline Phosphatase (34-104) U/L CK-MB (CK-2) (0.6-6.3) ng/mL Troponin I (<0.04) ng/mL B-Natriuretic Peptide 605 H ( - 100) pg/mL Total Protein (6.4-8.9) g/dL Albumin (3.2-5.2) g/dL Globulin (2-4) g/dL Albumin/Globulin Ratio (1-3) TSH (0.34-5.60) mcIU/mL Thyroxine (T4) (6.09-12.23) g/dL Microbiology and Other Data: Microbiology 03/31/16 05:09 Aerobic Blood Culture - Preliminary Blood Venous No Growth Day 1 Anaerobic Blood Culture - Preliminary No Growth Day 1 03/31/16 05:09 Aerobic Blood Culture - Preliminary Blood Venous No Growth Day 1 Anaerobic Blood Culture - Preliminary No Growth Day 1 Assess/Plan/Problems-Billing Mr. Zimmer is a 71yo M with PMHx of COPD, interstitial lung disease on home O2 4 liters, CKD stage 3, MALLIKA, CHF, HTN, type 2 DM, CAD, who presented to ED with c /o dyspnea, progressive weight gain and edema secondary to CHF exacerbation, after failing outpatient diuretic therapy. - Patient Problems (1) Acute and chronic respiratory failure Current Visit: Yes Status: Acute Code(s): J96.20 - ACUTE AND CHR RESP FAILURE, UNSP W HYPOXIA OR HYPERCAPNIA SNOMED Code(s): 56169590 Comment: THe patient was admitted iwht acute on chronic hypoxic and hypercarbic respiratory failure secondary to decompensated CHF in the setting of chronic COPD/ILD. The patient has chronic hypoxemic respiratory failure secondary to his COPD/ILD and was on 4 liters of O2 at baseline at home. He at times has required as much as 15L of supplemental O2. Now back down to 4L continuously. (2) Acute diastolic CHF (congestive heart failure) Current Visit: Yes Status: Acute Code(s): I50.31 - ACUTE DIASTOLIC ( CONGESTIVE) HEART FAILURE SNOMED Code(s): 952983749 Comment: The patient's weight continues to drop. He feels much improved. Will have the patient continue on his regular home dose of lasix. (3) MALLIKA (obstructive sleep apnea) Current Visit: Yes Status: Acute Code(s): G47.33 - OBSTRUCTIVE SLEEP APNEA ( ADULT) (PEDIATRIC) SNOMED Code(s): 58491797 Comment: Continue CPAP +7 with 6L O2. (4) Bilateral leg edema Current Visit: Yes Status: Acute Code(s): R60.0 - LOCALIZED EDEMA SNOMED Code(s): 636064744 Comment: Much improved per the patient. Continue DAMARIS wraps as able. (5) Atrial flutter Current Visit: Yes Status: Acute Code(s): I48.92 - UNSPECIFIED ATRIAL FLUTTER SNOMED Code(s): 4236910 Comment: Pt is in NSR. Continue xarelto and metoprolol. (6) CAD (coronary artery disease) Current Visit: Yes Status: Acute Code(s): I25.10 - ATHSCL HEART DISEASE OF [place] CORONARY ARTERY W/O ANG PCTRS SNOMED Code(s): 47022581 Comment: Stable and without complaints. Continue plavix, atorvastatin and metoprolol. (7) CKD stage 3 due to type 2 diabetes mellitus Current Visit: Yes Status: Acute Code(s): E11.22 - TYPE 2 DIABETES MELLITUS W DIABETIC CHRONIC KIDNEY DISEASE; N18.3 - CHRONIC KIDNEY DISEASE, STAGE 3 ( MODERATE) SNOMED Code(s): 134030810598 Comment: Creatinine remains stable. Continue to monitor intermittently. (8) Microcytic anemia Current Visit: Yes Status: Acute Code(s): D50.9 - IRON DEFICIENCY ANEMIA, UNSPECIFIED SNOMED Code(s): 120604717 Comment: Previous work up reveals iron deficiency. Continue ferrous sulfate. His PCP will need to continue to follow this. (9) HTN (hypertension) Current Visit: Yes Status: Acute Code(s): I10 - ESSENTIAL (PRIMARY) HYPERTENSION SNOMED Code(s): 89691428 Comment: BP is under good control. Continue to monitor. (10) Type 2 diabetes mellitus Current Visit: Yes Status: Acute Comment: Sugars are under good control. Resume metformin on d/c. (11) DVT prophylaxis Current Visit: Yes Status: Acute Code(s): IBX0684 - SNOMED Code(s): 796459060 Comment: damian (12) Full code status Current Visit: Yes Status: Acute Code(s): Z78.9 - OTHER SPECIFIED HEALTH STATUS SNOMED Code(s): 489527152 Status and Disposition: d/c home
--- NOTE | 2016-04-08 14:46 | DS ---
DISCHARGE SUMMARY: DATE OF ADMISSION: 03/30/16 DATE OF DISCHARGE: 04/07/16 PRIMARY CARE PROVIDER: Dr. Ne Hernandez. ENVIRONMENTAL DESIGNER: Ronen Maravilla MD PRINCIPAL DIAGNOSIS: [id number] hypoxic and hypercarbic respiratory failure secondary to acute decompensated diastolic congestive heart failure in the setting of known chronic obstructive pulmonary disease and interstitial lung disease. SECONDARY DIAGNOSES: 1. Stage 3 chronic kidney disease. 2. Atrial flutter. 3. Obstructive sleep apnea. 4. Hypertension. 5. Type 2 diabetes. 6. Coronary artery disease. DISCHARGE MEDICATIONS: 1. Metformin 1000 mg p.o. daily. 2. Flomax 0.4 mg p.o. daily. 3. Multivitamin 1 cap p.o. daily. 4. Lisinopril 5 mg p.o. daily. 5. Burchard-3 fatty acid 1 cap p.o. daily. 6. Metoprolol tartrate 25 mg p.o. b.i.d. 7. Lipitor 20 mg p.o. daily. 8. Imdur 30 mg p.o. daily. 9. Lasix 40 mg p.o. b.i.d. 10. Xarelto 20 mg p.o. daily. 11. DuoNeb 1 neb inhaled q.4 hours p.r.n. shortness of breath. 12. Albuterol 2 puffs inhaled q.4 hours p.r.n. shortness of breath. 13. Plavix 75 mg p.o. daily. HOSPITAL COURSE: Mr. Zimmer is a 71-year-old male who presented to the emergency room on 03/30/16 with complaints of increasing dyspnea. The patient had been working with his primary care provider due to increasing dyspnea over several weeks prior to admission. Additionally, he noted that he had significant lower extremity edema and that as faster, he gained approximately 30 pounds in 2 months. His medications have been adjusted as an outpatient; however, he has not improved; and therefore, the patient was admitted for hospitalization to manage his acute decompensated congestive heart failure. The patient underwent repeat transthoracic echocardiogram on 03/30/16. This revealed his EF to be normal at 50% to 55%. The patient was placed on IV Lasix. Additionally, oral metolazone was added to augment the effects of the Lasix. With his, the patient did remarkably well. The day of admission, the patient was weighed to be 288 pounds. By the day of discharge, his weight was down to 250 pounds. The patient was feeling markedly improved in terms of both his breathing and his lower extremity edema. During the course of the hospitalization, it became clear that the patient had [id number] hypoxic and hypercarbic respiratory failure secondary to the decompensated CHF in the setting of his baseline COPD and interstitial lung disease. The patient was seen in consultation by Dr. Mcintosh, who felt that his management had been appropriate; however, she also recommended that he be set up for CPAP given his history of obstructive sleep apnea. Dr. Mcintosh has prescribed CPAP at +7 cm of water with 6 L of O2 while sleeping. This has been set up and is to be delivered on the day of discharge. The patient utilized the CPAP the night prior to discharge and states that it was best he had slept in quite sometime. By 04/07/16, the patient was feeling markedly improved and anxious for discharge to home. FOLLOWUP CONCERNS: The patient is being discharged to home today, 04/07/16. He is to follow up with Dr. Hernandez in the next 4 to 7 days. He will be contacted by Dr. Hernandez's office with an appointment date and time. ACTIVITY LEVEL: As tolerated. DIET: Diabetic, no added salt. CONDITION ON DISCHARGE: Stable. The patient has been instructed to monitor his weight daily and if his weight is to go up by 3 pounds, he is to contact his primary care provider's office for instructions on what to do with his diuretic regimen. Additionally, I have not sent the patient home on metolazone as he continues to lose fluid weight despite his diuretics being held over the last 2 days. If the patient notices increasing fluid gains, at that time metolazone could be added sparingly to his regimen. TIME SPENT: Thirty-five minutes was spent discharging this patient. CC: Dr. Ne Hernandez* [id number]/[facility] #: [id number] LILA
== END 2016-04-07 13:10 | disposition home or self-care (01) | DRG 291 ==
LOC: ED 11:38 → MEDTELE 14:38 → MED 04-01 22:14
PROVIDERS: ADMIT Internal Medicine; ATTEND Hospitalist
PROC: 5A09357 Assistance with Respiratory Ventilation, Less than 24 Consecutive Hours, Continuous Positive Airway Pressure (ICD-10-PCS; principal; 2016-03-31)
DX: I13.0 Hypertensive heart and chronic kidney disease with heart failure and stage 1 through stage 4 chronic kidney disease, or unspecified chronic kidney disease (principal); I50.33 Acute on chronic diastolic (congestive) heart failure; J96.21 Acute and chronic respiratory failure with hypoxia; J84.9 Interstitial pulmonary disease, unspecified; E87.3 Alkalosis; I27.81 Cor pulmonale (chronic); I95.9 Hypotension, unspecified; E87.2 Acidosis; E11.22 Type 2 diabetes mellitus with diabetic chronic kidney disease; J96.22 Acute and chronic respiratory failure with hypercapnia; I48.92 Unspecified atrial flutter; Z68.41 Body mass index [BMI] 40.0-44.9, adult; J44.9 Chronic obstructive pulmonary disease, unspecified; N18.3 Chronic kidney disease, stage 3 (moderate); I25.10 Atherosclerotic heart disease of native coronary artery without angina pectoris; E78.00 Pure hypercholesterolemia, unspecified; H91.90 Unspecified hearing loss, unspecified ear; E66.9 Obesity, unspecified; I25.5 Ischemic cardiomyopathy; G47.33 Obstructive sleep apnea (adult) (pediatric); D50.9 Iron deficiency anemia, unspecified; R41.0 Disorientation, unspecified; R21 Rash and other nonspecific skin eruption; Z99.81 Dependence on supplemental oxygen; Z72.89 Other problems related to lifestyle; Z87.891 Personal history of nicotine dependence; Z95.5 Presence of coronary angioplasty implant and graft; Z91.19 Patient's noncompliance with other medical treatment and regimen; Z79.84 Long term (current) use of oral hypoglycemic drugs; Z79.01 Long term (current) use of anticoagulants; Z79.02 Long term (current) use of antithrombotics/antiplatelets
CPT/HCPCS: 36415; 36600; 71010; 71020; 74177; 80048; 80053; 81003; 82272; 82553; 82607; 82728; 82746; 82803; 83036; 83540; 83550; 83605; 83735; 83880; 84436; 84439; 84443; 84484; 85025; 85060; 85610; 87040; 93005; 93306; 93970; 94640; 94660; 94760; 94762; A9270-GY; J1940; Q9967

== ENCOUNTER → 2016-04-26 07:59 | Day surgery (SDC) | payer MEDICARE ==
--- NOTE | 2016-04-17 12:34 | HP ---
HISTORY AND PHYSICAL: DATE OF PLANNED ADMISSION AND SURGERY: 04/26/16 [facility] PRIMARY MEDICINE: Dr. Ne Hernandez. HISTORY OF PRESENT ILLNESS: Mr. Zimmer is a 71-year-old white male who is admitted with a bladder tumor for cystoscopy and excisional biopsy. Mr. Zimmer was referred to my office by Dr. Hernandez and Dr. Schumacher because of increasing voiding symptoms and because of a small bladder mass noted on a CT. Mr. Zimmer is a chronic heavy smoker with advanced COPD on 24 hour oxygen. He recently was noted to have increasing swelling of his lower extremities and some abdominal distention. A CT of the abdomen and pelvis was obtained with IV contrast. The study showed some decreased perfusion to his kidneys; however, there was no evidence of any abnormal filling defect in the collecting systems or in the ureter. There was, however, a 1 cm filling defect noted in the left base of the bladder that was suspicious for bladder carcinoma. The study showed diffuse diverticulosis and some ascites, but no other abnormalities. The patient has been having increasing voiding symptoms with nocturia up to 3 times, day frequency every 2 hours with slow stream, hesitancy, and at times feeling of incomplete bladder emptying. He denies any episodes of gross hematuria or urinary tract infections. He was started on tamsulosin with improvement in the symptoms. His examination in the office showed an enlarged, but nonsuspicious prostate. Because of the finding of the bladder lesion on the CT scan, the patient had an office cystoscopy. The examination showed a 1.5 cm papillary lesion in the left base of the bladder consistent with transitional cell carcinoma. Because of that finding, the patient is admitted for excisional biopsy. PAST MEDICAL HISTORY AND SYSTEM REVIEW: The patient has multiple medical problems. He has type 2 diabetes mellitus and he is maintained on metformin 1 g daily. He has a history of hypertension and an element of congestive heart failure. MEDICATIONS: He is maintained on lisinopril 2.5 mg daily, metoprolol 25 mg daily, isosorbide 30 mg daily, Plavix 75 mg daily, and furosemide 40 mg 2 tablets daily. He is also on inhalers for his COPD and on Lipitor 10 mg daily. He is on 24 hour oxygen. ALLERGIES: He denies any allergies to medications. PHYSICAL EXAMINATION GENERAL: A pleasant white male, who looks older than his age and who is on 24 hour oxygen. VITAL SIGNS: Blood pressure 100/60, pulse of 70, and oxygen saturation 91%. LUNGS: Bilateral wheezing, some rhonchi. HEART: Regular and rhythmic. No murmurs. ABDOMEN: Soft. No masses, no tenderness, and no CVA tenderness. EXTERNAL GENITALIA: Normal. RECTAL: Exam showed an enlarged but nonsuspicious prostate. EXTREMITIES: Show bilateral edema more so on the left side. IMPRESSION: 1. A 1.5 cm tumor in the left base of the bladder consistent with transitional cell carcinoma. 2. History of chronic heavy smoking with advanced chronic obstructive pulmonary disease on 24 hour oxygen. 3. Diabetes mellitus. 4. History of congestive heart failure. 5. Hypertension. PLAN/RECOMMENDATIONS: 1. Plan is for cystoscopy and excisional biopsy of the above lesion. 2. This can be done without stopping his Plavix. 3. A medical clearance was requested from his primary care physician. CC: Dr. Ne Hernandez, Primary Medicine * [id number]/[facility] #: [id number] MTDD
[~2016-04-26 07:59] MED LIST: Buffered Lidocaine 1% SYR 3ML* 3 ML/SYR SYRINGE INTRADERM ONE; EPHEDrine (Pressors)* 50 MG/ML VIAL ONE; Famotidine IV* 10 MG/ML 2 ML (20 mg) IV ONE; Famotidine IV* 10 MG/ML 2 ML (20 mg) ONE; Metoclopramide IV* 5 MG/ML 2 ML VIAL IV SLOW PU ONE; Metoclopramide IV* 5 MG/ML 2 ML VIAL ONE; Midazolam* 1 MG/ML 2 ML VIAL (2 MG) ONE; NS 0.45% 1000 ML BAG* 1,000 ML IV SCH; Ondansetron INJ* 2 MG/ML VIAL IV PRN; Phenylephrine IV* 40 MCG/ML 10 ML SYRINGE ONE; cefTRIAXone VIAL(*) 1,000 MG VIAL ONE; cefTRIAXone(*) 2 GM ADDV.VIAL IVPB ONE; fentaNYL* 50 MCG/ML 2 ML VIAL (100 MCG VIAL) IV PRN; mitoMYcin PWD* 40 MG in Sterile Water for Inj* 40 ML IRRIGATION ONE
[2016-04-26 12:56] VITALS: BP 110/59
--- NOTE | 2016-04-26 21:46 | OP ---
DATE OF OPERATION: 04/26/16 [facility] DATE OF : 49 SURGEON: Yahir Stephens MD ANESTHESIOLOGIST: De Mcguire MD ANESTHESIA: General. PRE-OP DIAGNOSIS: Bladder tumor. POST-OP DIAGNOSIS: Bladder tumor. OPERATIVE PROCEDURE: 1. Cystoscopy. 2. Excisional biopsy and fulguration of bladder tumor (left anterolateral bladder wall, 1.5 cm). INDICATIONS: Mr. Zimmer is a 71-year-old white male who is a chronic heavy smoker and has advanced COPD, on 24-hour oxygen. He had a CT of the abdomen and pelvis for evaluation of leg swelling and was noted to have a filling defect in the left bladder wall. He denies any history of gross hematuria. Office cystoscopy confirmed the presence of a 1.5-cm tumor arising from the left anterolateral bladder wall. Because of that finding, the above operation was advised and accepted. PATHOLOGY AT CYSTOSCOPY: The penile and bulbar urethrae looked normal. The prostatic urethra measured 2.5 cm in length and there was moderate degree of obstruction by bilobar hyperplasia of the prostate and some degree of bladder neck elevation. Examination of the bladder showed moderate trabeculations. The ureteral orifices looked normal. Clear efflux was seen coming from both orifices. There was a 1.5-cm pedunculated, non papillary, solid looking tumor, arising from the left anterolateral bladder wall. The tumor measured about 1.5 cm. It had the appearance of a medium-to- high grade transitional cell carcinoma. There was no gross evidence of infiltration of the tumor into the bladder wall. DESCRIPTION OF PROCEDURE: After successful general anesthesia, the patient was placed under lithotomy position and was prepped and draped for cystoscopy. Cystoscopy was then performed. The bladder was carefully inspected and the above findings were noted. Using the rigid biopsy forceps, the tumor was excised at its base. Muscle fibers were seen in the bed of the excised tumor. The bed of the tumor and the surrounding tissue were then thoroughly fulgurated with a Bugbee electrode achieving very good hemostasis. After making sure there were no residual tumors, the cystoscope was removed and a size 16 Gu[place]ese Chanel catheter was passed inside the bladder and the balloon inflated with 10 cc of water. The patient tolerated the procedure well and left the operating room in good condition. The plan is to give the patient one dose of intravesical mitomycin-C in the PACU to decrease the incidence of recurrent tumors. CC: Dr. Ne Hernandez* [id number]/[facility] #: [id number] [facility]ITALAbhi
== END | disposition home or self-care (01) ==
LOC: OR 07:59
PROVIDERS: ATTEND Urology
DX: C67.2 Malignant neoplasm of lateral wall of bladder (principal); E11.8 Type 2 diabetes mellitus with unspecified complications; Z79.84 Long term (current) use of oral hypoglycemic drugs; J44.9 Chronic obstructive pulmonary disease, unspecified; F17.210 Nicotine dependence, cigarettes, uncomplicated; Z79.01 Long term (current) use of anticoagulants; I25.10 Atherosclerotic heart disease of native coronary artery without angina pectoris; Z95.5 Presence of coronary angioplasty implant and graft; I10 Essential (primary) hypertension
CPT/HCPCS: 88305; J0696; J2250; J2765; J9280

== ENCOUNTER 2018-02-23 10:40 | Inpatient (IN) | payer MEDICARE ==
--- NOTE | 2018-02-23 11:11 | ED ---
Shortness of Breath - HPI Summary HPI Summary: A 72 y/o male accompanied by his neighbor presents to [facility] with a chief complaint of increasing SOB since 02/16/18. At triage he rated his pain as 0/ 10. The patient called Dr. Ibarra office and claims that a nurse referred him to the ED. He states that he experiences this SOB even when sitting down. He expressed his difficulty sleeping claiming that it felt as if he went to sleep he would choke to . He denies CP, fever, recent falls, coughs, N/V or calf pain. He c/o weakness stating that it is like everything is a struggle, and his legs being swollen with his left leg being more swollen than his right leg. He reports that Dr. Jolynn Marsh, gear repairer at [place], gave the patient an oxymizer which is supposed to maximize O2 regardless of what level you are on. He has a Hx of DM and reports that he has had 2 episodes of CHF. FHx of cardiac disease stating his dad of HI at 53. He denies a Hx of HI. He had a tumor removal on his bladder by Dr. Stephens. He is a former smoker, quitting in 2010. He denies substance abuse or EtOH use. Vital signs while in room: HR 87 bpm, BP 122/75, O2 sat 91 on 4L O2 (his usual) . He reports that his O2 Sats at home he reads himself and usually runs between 75 and 85. - History of Current Complaint Chief Complaint: EDRespiratoryDistress Time Seen by Provider: 02/23/18 11:02 Hx Obtained From: Patient, Family/Seam Hammerer - neighbor Onset/Duration: Sudden Onset, Lasting Days, Still Present Current Severity: Mild Dyspnea At: Rest Aggrevating Factors: Nothing Alleviating Factors: Nothing Associated Signs & Symptoms: Calf Pain/Swelling - Allergy/Home Medications Allergies/Adverse Reactions: Allergies Allergy/AdvReac Type Severity Reaction Status Date / Time No Known Allergies Allergy Verified 04/26/16 08:25 Home Medications: Home Medications Atorvastatin* [Lipitor*] 20 mg PO DAILY 02/23/18 [History Confirmed 02/23/18] Clopidogrel TAB* [Plavix TAB*] 75 mg PO DAILY 02/23/18 [History Confirmed ] Finasteride TAB* [Proscar TAB*] 5 mg PO DAILY 02/23/18 [History Confirmed ] Isosorbide Mononitrate ER TAB* [Imdur ER TAB*] 30 mg PO DAILY 02/23/18 [History Confirmed 02/23/18] Lisinopril TAB* [Prinivil TAB*] 2.5 mg PO BID 02/23/18 [History Confirmed ] Multivitamins/Minerals TAB* [Theragran/minerals TAB*] 1 tab PO DAILY 02/23/18 [ History Confirmed 02/23/18] [place]-3 Fatty Acids (Nf) [Fish Oil (NF)] 1,000 mg PO DAILY 02/23/18 [History Confirmed 02/23/18] Rivaroxaban TAB(*) [Xarelto 20 mg] 20 mg PO DAILY 02/23/18 [History Confirmed ] Tamsulosin CAP* [Flomax CAP*] 0.4 mg PO DAILY 02/23/18 [History Confirmed ] metFORMIN* [Glucophage 500 MG TAB *] 1,000 mg PO BID 02/23/18 [History Confirmed 02/23/18] PMH/Surg Hx/FS Hx/Imm Hx Endocrine/Hematology History: Reports: Hx Diabetes - TYPE II- ON ORAL MEDICATION FOR Cardiovascular History: Reports: Hx Congestive Heart Failure - HISTORY OF 3 TIMES- RECENTLY 2 WEEKS AGO, Hx Coronary Artery Disease - STENT-2010, Hx Hypercholesterolemia, Hx Hypertension - ON MEDICATION FOR, Other Cardiovascular Problems/Disorders - ARRTHYMIA Denies: Hx Pacemaker/ICD Respiratory History: Reports: Hx Chronic Obstructive Pulmonary Disease (COPD), Hx Pulmonary Edema - HX OF, Hx Sleep Apnea GI History: Reports: Other GI Disorders - pt states he vascillates between diarrhea and constipation History: Denies: Hx Renal Disease Sensory History: Reports: Hx Hearing Problem - [place], untreated Denies: Hx Contacts or Glasses, Hx Hearing Aid Opthamlomology History: Denies: Hx Contacts or Glasses - Surgical History Surgery Procedure, Year, and Place: tonsils,. cardiac stent 2010 Hx Anesthesia Reactions: No Infectious Disease History: No Infectious Disease History: Denies: Traveled Outside the [place] in Last 30 Days - Family History Known Family History: Positive: Cardiac Disease - Social History Occupation: Retired Lives: Alone Alcohol Use: None Substance Use Type: Reports: None Smoking Status (MU): Former Smoker Type: Cigarettes Amount Used/How Often: 1.5 ppd X 45 YEARS Length of Time of Smoking/Using Tobacco: 47 years Have You Smoked in the Last Year: No Review of Systems Negative: Fever Negative: Chest Pain Positive: Shortness Of Breath. Negative: Cough Negative: Vomiting, Nausea Musculoskeletal: Negative - calf pain All Other Systems Reviewed And Are Negative: Yes Physical Exam - Summary Physical Exam Summary: Appearance: Well-appearing, moderate pain distress, well-nourished Skin: Warm, color reflects adequate perfusion, dry Head: Normal Head/Face inspection, atraumatic Eyes: Conjunctiva clear ENT: Normal inspection Neck: Supple, no nodes, no JVD Respiratory: Crackles at right base, expiratory wheezing and decreased breath sounds throughout, no respiratory distress, speaks full sentences. Cardio: RRR, No murmur, pulses normal, brisk capillary refill Abdomen: Soft, nontender Bowel sounds: Present Musculoskeletal: Strength Intact/ROM intact, no calf tenderness, Silver scales bilateral anterior tibia, bilateral edema Psychological: Normal Neuro: Alert, muscle tone normal, no focal deficit Triage Information Reviewed: Yes Vital Signs On Initial Exam: Initial Vitals Temp Pulse Resp BP Pulse Ox 98.2 F 92 24 120/74 81 02/23/18 10:42 02/23/18 10:42 02/23/18 10:42 02/23/18 10:42 02/23/18 10:42 Vital Signs Reviewed: Yes Diagnostics - Vital Signs Vital Signs Temp Pulse Resp BP Pulse Ox 02/23/18 10:42 98.2 F 92 24 120/74 81 - Laboratory Result Diagrams: 02/23/18 11:15 02/23/18 11:15 Lab Statement: Any lab studies that have been ordered have been reviewed, and results considered in the medical decision making process. - Radiology CXR Radiology Interpretation Completed By: Radiologist Summary of Radiographic Findings: Stable radiographic findings include pleural plaques which could be seen in. the setting of asbestosis. The increased parenchymal markings overlying the bilateral. lungs have actually decreased slightly when compared to the previous chest x-ray but. remain pronounced. Such an appearance could be seen in the setting of congestive heart. failure or interstitial lung disease. ED provider has reviewed this imaging report. - EKG 10:51 Cardiac Rate: NL - 88 bpm EKG Rhythm: Sinus Rhythm ST Segment: Non-Specific Ectopy: None EKG Comparison: No Significant Change Summary of EKG Findings: NSR at 88 bpm with nl AVCT, nl IVCT, prolonged QTc (538 ), no acute changes and no changes compared with EKG done 02/28/16. Re-Evaluation - Re-Evaluation First Eval Re-Evaluation Time: 13:12 Change: Unchanged Comment: O2 sat 88 on 4L, HR 90 bpm, BP 109/77. Course/Dx - Course Course Of Treatment: A 72 y/o male accompanied by his neighbor presents to [facility] with a chief complaint of increasing SOB since 02/16/18. FHx cardiac disease. Respiratory protocol initiated after initial interview. Elevated lactic acid 2.5 at 12:15. CXR impression: Stable radiographic findings include pleural plaques which could be seen in. the setting of asbestosis. The increased parenchymal markings overlying the bilateral. lungs have actually decreased slightly when compared to the previous chest x-ray but. remain pronounced. Such an appearance could be seen in the setting of congestive heart. failure or interstitial lung disease. In the ED course the patient was given albuterol 1 neb INH. EKG at 10:51 showed NSR at 88 bpm with nl AVCT, nl IVCT, prolonged QTc (538), no acute changes and no changes compared with EKG done 02/28/16. Case discussed with Dr. Alvarez, hospitalist, who has accepted the patient for admission. - Diagnoses Provider Diagnoses: Acute and chronic respiratory failure with hypoxia, CHF (congestive heart failure), COPD exacerbation, Lactic acidosis - Physician Notifications Discussed Care of Patient With: Monika Alvarez Time Discussed With Above Provider: 14:00 Instructed by Provider To: Admit As Inpatient Discharge - Sign-Out/Discharge Documenting (check all that apply): Patient Departure - admit - Discharge Plan Condition: Fair Disposition: ADMITTED TO [facility] Referrals: Ne Hernandez MD [Primary Care Provider] - - Attestation Statements Document Initiated by Scribe: Yes Documenting Scribe: Ronen Elam Provider For Whom Yueibe is Documenting (Include Credential): Dr. Erika Michaels MD Scribe Attestation: Ronen Boss, scribed for Dr. Erika Michaels MD on 02/23/18 at 1538. Status of Scribe Document: Ready
[2018-02-23 11:32] LABS: ABS Basophils 0.1 10^3/ul (0-0.2); ABS Eosinophils 0.4 10^3/ul (0-0.6); ABS Lymphocytes 1.6 10^3/ul (1.0-4.8); ABS Monocytes 0.9 10^3/ul (0-0.8); ABS Neutrophils 5.3 10^3/ul (1.5-7.7); ABS Nucleated RBC 0 10^3/ul; Eosinophil % 4.4 %; Hematocrit 49 % (42-52); Hemoglobin 15.6 g/dl (14.0-18.0); Lymphocyte % 19.4 %; Mean Corpuscular HGB Conc 32 g/dl (31-36); Mean Corpuscular Hemoglobin 26 pg (27-31); Mean Corpuscular Volume 82 fL (80-94); Mean Platelet Volume 8.4 fL (7.4-10.4); Nucleated Red Blood Cells % 0.1; Platelet Count 182 10^3/ul (150-450); Red Blood Count 5.95 10^6/ul (4.00-5.40); Red Cell Distribution Width 16 % (10.5-15); White Blood Count 8.2 10^3/ul (3.5-10.8)
[2018-02-23] MEDS ORDERED: Albuterol/Ipratropium NEB.SOL* Albuterol 2.5 MG/Ipratropium 0.5 MG 3 ML INH ONE (11:36)
[2018-02-23 11:46] LABS: Activated Partial Thrombo Time 39.6 seconds (26.0-36.3); INR 1.49 (0.77-1.02)
[2018-02-23 11:48] LABS: Albumin 4.1 g/dL (3.2-5.2); Albumin/Globulin Ratio 1.2 (1-3); Calcium 9.5 mg/dL (8.6-10.3); EGFR Non-African American 53.2 (>60); Globulin 3.3 g/dL (2-4); Potassium 4.6 mmol/L (3.5-5.0); Total Protein 7.4 g/dL (6.4-8.9)
[2018-02-23 12:43] LABS: Urine Appearance Clear; Urine Bilirubin Negative (Negative); Urine Blood Negative (Negative); Urine Color Straw; Urine Glucose Negative (Negative); Urine Ketones Negative (Negative); Urine Nitrite Negative (Negative); Urine Protein Negative (Negative); Urine Specific Gravity 1.006 (1.010-1.030); Urine Urobilinogen Negative (Negative)
[2018-02-23] MEDS ORDERED: Furosemide IV* 10 MG/ML VIAL (40 MG) IV ONE (14:35)
[2018-02-23] MEDS ORDERED: Albuterol/Ipratropium NEB.SOL* Albuterol 2.5 MG/Ipratropium 0.5 MG 3 ML INH PRN (14:37)
[2018-02-23] MEDS ORDERED: Dextrose 50% Syringe 50 ML* 25 GM/50 ML SYRINGE IV PUSH PRN (14:52)
[2018-02-23 15:50] LABS: TSH (Thyroid Stimulating Horm) 4.87 mcIU/mL (0.34-5.60)
--- NOTE | 2018-02-23 18:30 | HP ---
CC: Dr. Ne Hernandez * HISTORY AND PHYSICAL: DATE OF ADMISSION: 02/23/18 PRIMARY CARE PROVIDER: Dr. Ne Hernandez. LEAD SECURITY OFFICER: Dr. Jolynn Marsh. CHIEF COMPLAINT: Shortness of breath. HISTORY OF PRESENT ILLNESS: Mr. Zimmer is a 72-year-old male who has a history of interstitial lung disease and COPD, on 4 L of oxygen continuously for chronic hypoxic respiratory failure, MALLIKA, ischemic cardiomyopathy/coronary artery disease, atrial flutter, who presented to the emergency room with complaints of approximately 1 to 2 weeks of progressive shortness of breath. The patient is at baseline short of breath; however, he states over the last 1 to 2 weeks, he started feeling quite lousy. He is unable to really pinpoint how he is feeling other than stating he has been more short of breath than usual. He states it has been getting progressively worse. He states that he can have short of breath at rest and with exertion; however, it is much worse with exertion. He denies any cough more than normal and no sputum production that is of any significance. He denies any recent sick contacts. He denies any fevers or chills. He states that he has not had any recent long distance travel. He states that he does not believe that his weight is up and in fact he thinks it may be down and he denies any increase in his lower extremity edema. He states that he checks his O2 saturation on an every other day basis. Up until couple of weeks ago, his O2 saturations have been ranging from 92% to 94%. Over the last 1 to 2 weeks, he states he can barely get it above 90%. Because of this, he presented to the emergency room for evaluation. PAST MEDICAL HISTORY: 1. Stage 3 chronic kidney disease. 2. Atrial flutter. 3. MALLIKA, on CPAP at night. 4. Ischemic cardiomyopathy/coronary artery disease status post PCI. 5. Hypertension. 6. Type 2 diabetes. 7. Interstitial lung disease. 8. COPD. PAST SURGICAL HISTORY: 1. Tonsillectomy. 2. TURBT. MEDICATIONS: 1. Flomax 0.4 mg p.o. daily. 2. Xarelto 20 mg p.o. daily. 3. Finasteride 5 mg p.o. daily. 4. Fish oil 1000 mg p.o. daily. 5. Multivitamin 1 tab p.o. daily. 6. Plavix 75 mg p.o. daily. 7. Metformin 1000 mg p.o. b.i.d. 8. Metoprolol tartrate 25 mg p.o. b.i.d. 9. Lisinopril 2.5 mg p.o. b.i.d. 10. Imdur 30 mg p.o. daily. 11. Lipitor 20 mg p.o. daily. 12. Lasix 40 mg p.o. daily. 13. DuoNeb 1 neb inhaled q.4 hours p.r.n. shortness of breath. ALLERGIES: None. FAMILY HISTORY: Mom at age of 79, she had diabetes. Dad at the age 53 of coronary artery disease. SOCIAL HISTORY: The patient is a former smoker, he quit 7 to 8 years ago. He smoked 2 packs per day for approximately 50 years. He denies any alcohol use. 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 He is . He has 4 step children. He indicates that his brother, Elton, would be his healthcare proxy. REVIEW OF SYSTEMS: A complete 11-system review of systems is obtained. Pertinent positives and negatives are as per HPI and otherwise negative. PHYSICAL EXAMINATION GENERAL: The patient is a well-developed, elderly male, seen sitting up in the bed, in no acute distress. VITAL SIGNS: Blood pressure 111/76, pulse 88, respirations 27, temp 98.2, O2 sat 93% on 4 L. HEENT: Pupils are equal, round. Extraocular muscles are intact. Oropharynx is clear. Oral mucosa is moist. There is no submandibular, cervical, or supraclavicular adenopathy. Thyroid is not enlarged. No thyroid nodules are noted. PULMONARY: Lungs are clear in the upper lobes. There are fine crackles noted in the bilateral lower lobes. CARDIAC: Normal S1, S2. Regular rate and rhythm. I did not appreciate any murmurs. ABDOMEN: Bowel sounds are present. Abdomen is soft, not obese, nontender, nondistended. MUSCULOSKELETAL: There is no cyanosis or clubbing of the digits. There is full active range of motion of all 4 extremities. NEURO: Cranial nerves II through XII are grossly intact. Sensation is intact to light touch throughout. Strength is 5/5 and symmetric in both upper and lower extremities bilaterally. PSYCH: The patient is alert. He is oriented x3. Affect appears appropriate. SKIN: Warm and dry. There are no rashes. There are chronic venous stasis changes to the bilateral lower extremities with very dry flaking skin noted on the lower legs, ankles, and feet. The patient has a alanis complexion. DIAGNOSTIC STUDIES/LAB DATA: WBC 8.2, hemoglobin 15.6, hematocrit 49, platelets 182. INR 1.49. D-dimer less than 200. Sodium 138, potassium 4.6, chloride 101, CO2 28, BUN 24, creatinine 1.33, glucose 99. Lactic acid 2.5. Calcium 9.5. Bilirubin 1.0, AST 13, ALT 11, alk phos 62. Troponin 0.01. BNP 180. Albumin 4.1. Urinalysis reveals no signs of infections. Influenza A and B negative. Chest x-ray revealed stable radiographic findings including pleural plaques, which could be seen in the setting of asbestosis. The increased parenchymal markings overlying the bilateral lungs have actually decreased slightly when compared to the previous chest x-ray but remained pronounced. Such an appearance can be seen in the setting of congestive heart failure or interstitial lung disease. ASSESSMENT AND PLAN: Mr. Zimmer is a 72-year-old male with a history of interstitial lung disease, chronic obstructive pulmonary disease, chronic hypoxic respiratory failure, on 4 L of oxygen continuously, ischemic cardiomyopathy, and stage 3 chronic kidney disease who presents to the emergency room with complaints of 1 to 2 weeks of progressive shortness of breath. 1. Dyspnea. The etiology behind this is not clear. The patient's respiratory status at baseline is quite tenuous. His O2 saturation on 4 L in the ER has been ranging in the low 90s as he described previously at home. This is however at rest and not with exertion. The patient does have significant bilateral lower extremity pitting edema as well as fine crackles at the bilateral bases of his lungs. Perhaps, this represents mild congestive heart failure exacerbation. The patient does have a known history of systolic dysfunction related to an ischemic cardiomyopathy. At this point, I will treat the patient for acute decompensated systolic congestive heart failure. He will receive 40 mg of IV Lasix now followed by 40 mg in the morning. Transthoracic echocardiogram will also be obtained. His last echo within our system is in May 2017. At that point, however, his EF had improved to 50% to 55%. If the IV Lasix does not improve his hypoxia, perhaps his dyspnea and hypoxia are related to progression of his underlying interstitial lung disease. It is possible he may just need more oxygen supplementation. He states it is portable concentrator, does not allow him to administer more than 4 L per minute , which is problematic if he requires more oxygen than this. 2. Interstitial lung disease/chronic obstructive pulmonary disease/chronic hypoxic respiratory failure. At this point, the patient will continue with p.r.n. DuoNebs. We will titrate his oxygen to achieve an O2 saturation of 90%. 3. Obstructive sleep apnea. The patient will utilize CPAP with sleep. 4. Stage 3 chronic kidney disease. The patient's creatinine is slightly up compared to his most recent creatinine; however, in the range of where he has been in the past. His creatinine will be monitored in the setting of IV diuresis. 5. History of atrial flutter. At this point, the patient is in atrial flutter with controlled rate. He will be maintained on this usual dose of metoprolol and Xarelto. 6. Type 2 diabetes. The patient will have glucoses a.c., h.s. with lispro sliding scale. I additionally will continue his metformin 1000 mg p.o. b.i.d. as I do not suspect that the patient will be hospitalized for prolonged period of time. 7. Hypertension. We will continue home regimen of metoprolol, lisinopril, and Imdur. 8. Hyperlipidemia. Continue Lipitor. 9. Benign prostatic hypertrophy. Continue Flomax and finasteride. 10. DVT prophylaxis. According to the Adult Thrombosis Prophylaxis Risk Factor Assessment Guide, the patient has a total risk factor score of 6, making him the highest risk. He is already on Xarelto and this will act as his DVT prophylaxis. 11. Code status is full. TIME SPENT: 65 minutes was spent admitting this patient. [id number]/[facility] #: [id number] LILA
[2018-02-23] MEDS: Insulin LISPRO* 1 UNITS UNIT SUBCUT SCH ×2 (18:34→20:41)
[2018-02-23] MEDS: Metoprolol Tartrate TAB* 25 MG PO SCH (20:42)
[2018-02-23] MEDS: Lisinopril TAB* 5 MG PO SCH (20:42)
[2018-02-23] MEDS: metFORMIN* 500 MG TAB PO SCH (20:50)
[2018-02-24] MEDS: Insulin LISPRO* 1 UNITS UNIT SUBCUT SCH ×4 (08:11→21:07)
[2018-02-24] MEDS: Multivitamins/Minerals TAB PO SCH (08:14)
[2018-02-24] MEDS: Clopidogrel TAB* 75 MG PO SCH (08:14)
[2018-02-24] MEDS: Atorvastatin* 20 MG TAB PO SCH (08:14)
[2018-02-24] MEDS: Tamsulosin CAP* 0.4 MG PO SCH (08:14)
[2018-02-24] MEDS: Finasteride TAB* 5 MG PO SCH (08:14)
[2018-02-24] MEDS: Isosorbide Mononitrate ER TAB* 30 MG PO SCH (08:15)
[2018-02-24] MEDS: metFORMIN* 500 MG TAB PO SCH ×2 (08:15→21:08)
[2018-02-24] MEDS: Rivaroxaban TAB(*) 20 MG TAB PO SCH (08:15)
[2018-02-24] MEDS: Furosemide IV* 10 MG/ML VIAL (40 MG) IV SLOW PU SCH (08:15)
[2018-02-24] MEDS: Lisinopril TAB* 5 MG PO SCH ×2 (08:24→21:08)
[2018-02-24] MEDS: Metoprolol Tartrate TAB* 25 MG PO SCH ×2 (08:24→21:09)
--- NOTE | 2018-02-24 12:25 | ECHO ---
Patient: CRUZ BRASWELL [facility] Rec#: [id number] : 1945 Date: 02/24/2018 Age: 72y Height: 191 cm / 75.2 in Weight: 121.6 kg / 268.0 lbs Sex: M BSA: 2.49 Room#: [facility] Admit Date#: 02/23/2018 Type: Inpatient Referring: Monika Alvarez DO Reading: Jose Miguel Lazaro MD Personal Injury Paralegal: Raiza Hammond RN RDCS CC: Ne Hernandez Transthoracic Echocardiogram Indication: Shortness of breath BP: 110/62 HR: 119 Rhythm: A-Flutter Findings History: CAD, PCI, CHF, ischemic cardiomyopathy, A. flutter, HTN, HLD, DM, COPD, pulmonary edema, MALLIKA, interstitial lung disease, former smoker. Technical Comments: The study quality is poor. The study is technically limited due to poor apical windows. The study is technically limited due to the patient's history of COPD. The patient refused Definity. Left Ventricle: The left ventricular chamber size is normal. Mild concentric left ventricular hypertrophy is observed. Global left ventricular wall motion and contractility are within normal limits. Left ventricular systolic function is at the lower limits of normal. The estimated ejection fraction is 50-55%. There is septal flattening of the interventricular septum consistent with right ventricular volume or pressure overload. The assessment of diastolic function is non-diagnostic. Left Atrium: The left atrial chamber size is normal. Right Ventricle: The right ventricle wall thickness is mildly increased. The right ventricle is mildly dilated. The right ventricular global systolic function is low normal. Right Atrium: The right atrium is not well visualized. Aortic Valve: The aortic valve is trileaflet. The aortic valve leaflets are mildly thickened. There is aortic annular calcification. There is no evidence of aortic regurgitation. There is no evidence of aortic stenosis. Mitral Valve: The mitral valve leaflets are mildly thickened. There is no evidence of mitral regurgitation. There is no evidence of mitral stenosis. Tricuspid Valve: The tricuspid valve leaflets are normal. There is trace to mild tricuspid regurgitation. Unable to estimate the right ventricular systolic pressure. Pulmonic Valve: The pulmonic valve structure is not well visualized. There is no evidence of pulmonic regurgitation. There is no pulmonic stenosis. Pericardium: There is no significant pericardial effusion. Aorta: There is no dilatation of the ascending aorta. The aortic arch is not well visualized. There is mild dilatation of the aortic root. Pulmonary Artery: The main pulmonary artery is not well visualized. Venous: The inferior vena cava appears normal in size. There is an approximate 50% respiratory change in the inferior vena cava dimension. Summary: There are changes noted when compared to the previous study done on 05/30/2017, TR is new. Conclusions The study is technically limited due to the patient's history of COPD. The patient refused Definity. The left ventricular chamber size is normal. Mild concentric left ventricular hypertrophy is observed. The estimated ejection fraction is 50-55%. There is septal flattening of the interventricular septum consistent with right ventricular volume or pressure overload. There is trace to mild tricuspid regurgitation. Unable to estimate the right ventricular systolic pressure. There is mild dilatation of the aortic root. Measurements Name Value Normal Range RVIDd (AP) 2D 3.1 cm (0.9 - 2.6) RVDdMajor (2D) 4.8 cm (2.2 - 4.4) RVAW (2D) 0.8 cm (0.2 - 0.5) IVSd (2D) 1.3 cm (0.6 - 1) LVPWd (2D) 1.2 cm (0.6 - 1) LVIDd (2D) 4 cm (3.6 - 5.4) LVIDs (2D) 2.7 cm - LV FS (2D) 33 % (25 - 45) Aortic Annulus 2.2 cm (1.4 - 2.6) Ao root diameter (2D) 3.7 cm (2.1 - 3.5) Ascending Ao 3.1 cm (2.1 - 3.4) LA dimension (AP) 2D 3.1 cm (2.3 - 3.8) Name Value Normal Range MV E-wave Vmax 0.67 m/sec - MV deceleration time 147 msec - Name Value Normal Range IVC diameter 2.1 cm - Name Value Normal Range PV Vmax 0.89 m/sec -
--- NOTE | 2018-02-24 15:01 | PN ---
Subjective Date of Service: 02/24/18 Interval History: Pt is feeling much better today than yesterday but now is on 9L O2. He has not been walking around much today to see if he really feels back to his baseline from a couple weeks ago. He states he has urinated a lot today and yesterday. Objective Active Medications: Albuterol/Ipratropium (Duoneb (Albuterol 2.5 Mg/Ipratropium 0.5 Mg)) 1 neb INH Q4HR PRN PRN Reason: SHORTNESS OF BREATH Atorvastatin Calcium (Lipitor*) 20 mg PO DAILY [facility] Last Admin: 02/24/18 08:14 Dose: 20 mg Clopidogrel Bisulfate (Plavix Tab*) 75 mg PO DAILY [facility] Last Admin: 02/24/18 08:14 Dose: 75 mg Dextrose (D50w Syringe 50 Ml*) 12.5 gm IV PUSH .FOR FS < 60 - SS PRN PRN Reason: FS < 60 Finasteride (Proscar Tab*) 5 mg PO DAILY [facility] Last Admin: 02/24/18 08:14 Dose: 5 mg Furosemide (Lasix Iv*) 40 mg IV SLOW PU DAILY [facility] Last Admin: 02/24/18 08:15 Dose: 40 mg Insulin Human Lispro (Humalog*) [address] [facility]; Protocol Last Admin: 02/24/18 12:38 Dose: Not Given Isosorbide Mononitrate (Imdur Er Tab*) 30 mg PO DAILY [facility] Last Admin: 02/24/18 08:15 Dose: 30 mg Lisinopril (Prinivil Tab*) 2.5 mg PO BID [facility] Last Admin: 02/24/18 08:24 Dose: Not Given Metformin HCl (Glucophage*) 1,000 mg PO BID [facility] Last Admin: 02/24/18 08:15 Dose: 1,000 mg Metoprolol Tartrate (Lopressor Tab*) 25 mg PO BID [facility] Last Admin: 02/24/18 08:24 Dose: Not Given Multivitamins/Minerals (Theragran/Minerals Tab*) 1 tab PO DAILY [facility] Last Admin: 02/24/18 08:14 Dose: 1 tab Rivaroxaban (Xarelto(*)) 20 mg PO DAILY [facility] Last Admin: 02/24/18 08:15 Dose: 20 mg Tamsulosin HCl (Flomax Cap*) 0.4 mg PO DAILY [facility] Last Admin: 02/24/18 08:14 Dose: 0.4 mg Vital Signs - 8 hr 02/24/18 02/24/18 02/24/18 07:24 08:10 11:28 Temperature 98.1 F 98.7 F Pulse Rate 101 120 Respiratory 18 16 Rate Blood Pressure 99/58 102/80 103/61 (mmHg) O2 Sat by Pulse 92 95 Oximetry Oxygen Devices in Use Now: Nasal Cannula - 9L Appearance: Elderly male sitting up on the edge of the bed, eating lunch, NAD Eyes: No Scleral Icterus Ears/Nose/Mouth/Throat: Mucous Membranes Moist Respiratory: Symmetrical Chest Expansion and Respiratory Effort, Clear to Auscultation - diminished breath sounds throughout Cardiovascular: NL Sounds; No Murmurs; No JVD, RRR, - - 2+ LE edema but much improved from yesterday Abdominal: NL Sounds; No Tenderness; No Distention Extremities: No Clubbing, Cyanosis Skin: No Nodules or Sclerosis, - - chronic venous statsis changes to bilateral LE Neurological: Alert and Oriented x 3 Result Diagrams: 02/23/18 11:15 02/23/18 11:15 Microbiology and Other Data: Microbiology 02/23/18 11:32 Aerobic Blood Culture - Preliminary Blood Venous No Growth Day 1 Anaerobic Blood Culture - Preliminary No Growth Day 1 02/23/18 11:15 Aerobic Blood Culture - Preliminary Blood Venous No Growth Day 1 Anaerobic Blood Culture - Preliminary No Growth Day 1 02/23/18 10:55 Influenza Types A,B Antigen - Final Nasal Specimen received for Influenza A/B Molecular testing Assess/Plan/Problems-Billing Mr Zimmer is a 72 yo M who has a h/o ILD and COPD on 4L O2 at home for chronic hypoxic respiratory who presented to the ER with c/o marked dyspnea and mild hypoxia on his home O2 settings and was admitted for evaluation of the hypoxia and dyspnea. - Patient Problems (1) Acute and chronic respiratory failure Current Visit: Yes Status: Acute Code(s): J96.20 - ACUTE AND CHR RESP FAILURE, UNSP W HYPOXIA OR HYPERCAPNIA SNOMED Code(s): 92191287 Comment: The patient has chronic hypoxic respiratory failure and has acute hypoxic respiratory failure on top. Now on 9L O2. Will try to wean down. I supsect the worsened hypoxia and dyspnea was secondary to acute diastolic CHF. The patient is improving. Will dose IV lasix again tomorrow. May need BID dosing of oral lasix at home. (2) Acute diastolic CHF (congestive heart failure) Current Visit: Yes Status: Acute Code(s): I50.31 - ACUTE DIASTOLIC ( CONGESTIVE) HEART FAILURE SNOMED Code(s): 886330866 Comment: As above pt with probable acute diastolic CHF as cause of dyspnea and hypoxia. Clinically he is seeming somewhat better today. Will dose IV lasix again tomorrow. Monitor weight and I/Os. (3) Atrial flutter Current Visit: Yes Status: Acute Code(s): I48.92 - UNSPECIFIED ATRIAL FLUTTER SNOMED Code(s): 9145792 Comment: Pt is in NSR. Continue xarelto and metoprolol. (4) Stage III chronic kidney disease Current Visit: Yes Status: Acute Code(s): N18.3 - CHRONIC KIDNEY DISEASE, STAGE 3 (MODERATE) SNOMED Code(s): 643595490 Comment: Creatinine and is stable and close to baseline. CKD is likely secondary to diabetic nephropathy. Recheck tomorrow in the setting of IV diuresis. (5) Type 2 diabetes mellitus Current Visit: Yes Status: Acute Comment: Sugars are under good control. Continue metformin at home dose and lispro sliding scale. (6) CAD (coronary artery disease) Current Visit: Yes Status: Acute Code(s): I25.10 - ATHSCL HEART DISEASE OF [place] CORONARY ARTERY W/O ANG PCTRS SNOMED Code(s): 34601972 Comment: Pt has no c/o chest pain. Will continue plavix, metoprolol and lipitor. (7) HLD (hyperlipidemia) Current Visit: Yes Status: Acute Code(s): E78.5 - HYPERLIPIDEMIA, UNSPECIFIED SNOMED Code(s): 37770178 Comment: Continue lipitor. (8) DVT prophylaxis Current Visit: Yes Status: Acute Code(s): XMZ7537 - SNOMED Code(s): 022718099 Comment: mkrelto (9) Full code status Current Visit: Yes Status: Acute Code(s): Z78.9 - OTHER SPECIFIED HEALTH STATUS SNOMED Code(s): 060035368
[2018-02-25 07:53] LABS: BUN/Creatinine Ratio 18.9 (8-20); EGFR Non-African American 56.1 (>60); Potassium 4.4 mmol/L (3.5-5.0)
[2018-02-25] MEDS: Insulin LISPRO* 1 UNITS UNIT SUBCUT SCH ×2 (09:00→12:14)
[2018-02-25] MEDS: Furosemide IV* 10 MG/ML VIAL (40 MG) IV SLOW PU SCH (09:36)
[2018-02-25] MEDS: Isosorbide Mononitrate ER TAB* 30 MG PO SCH (09:36)
[2018-02-25] MEDS: Finasteride TAB* 5 MG PO SCH (09:36)
[2018-02-25] MEDS: Atorvastatin* 20 MG TAB PO SCH (09:36)
[2018-02-25] MEDS: Lisinopril TAB* 5 MG PO SCH (09:37)
[2018-02-25] MEDS: Tamsulosin CAP* 0.4 MG PO SCH (09:37)
[2018-02-25] MEDS: Metoprolol Tartrate TAB* 25 MG PO SCH (09:37)
[2018-02-25] MEDS: metFORMIN* 500 MG TAB PO SCH (09:37)
[2018-02-25] MEDS: Clopidogrel TAB* 75 MG PO SCH (09:37)
[2018-02-25] MEDS: Rivaroxaban TAB(*) 20 MG TAB PO SCH (09:38)
[2018-02-25] MEDS: Multivitamins/Minerals TAB PO SCH (09:38)
[2018-02-25 12:10] VITALS: BP 90/57
--- NOTE | 2018-02-25 12:57 | PN ---
Progress Note - Progress Note Date of Service: 02/25/18 Note: Time spent on discharge including exam of patient, discussion with patient, nurse, CM, review of EMR and preparation of discharge documents is 40 minutes.
--- NOTE | 2018-02-25 22:25 | DS ---
CC: Dr. Ne Hernandez DISCHARGE SUMMARY: DATE OF ADMISSION: DATE OF DISCHARGE: 02/25/18 HISTORY OF PRESENT ILLNESS: This 72-year-old man presented with shortness of breath. He has a histo ry of interstitial lung disease as well as ischemic cardiomyopathy. The history is detailed in admis galen note. He was getting more short of breath. He has an oxygen concentrator at home, which could give him adequate oxygen but he brought himself a portable oxygen concentrator bringing with him when he goes out that only goes up to 4 L per minute. Otherwise, he would have to take tanks with him wh en he ran out if he needed more than 4 L per minute. The patient had a transthoracic echocardiogram, which showed ejection fraction of 50% to 55%. There was evidence of right ventricular volume overload, assessment of diastolic function was nondiagnostic . A chest x-ray showed stable radiographic findings with pleural plaques. There was some increased parenchymal markings, which were felt to have decreased compared to a previo us x-ray, but could represent congestive heart failure or interstitial lung disease. The patient was given intravenous furosemide. He had some diuresis. His weight went down about 2 po unds. His pedal edema improved a little bit. He was less short of breath. He still required high f low of oxygen, usually generally about 5 L a minute. I noticed the blood pressure was in the 80s and 90s much of the time and I have lowered his lisinopril dose. FINAL DIAGNOSES: 1. Interstitial lung disease. 2. Ischemic cardiomyopathy. 3. Hypertension. 4. Atrial flutter. 5. Diabetes. 6. Obstructive sleep apnea. DISCHARGE MEDICATIONS: 1. Lisinopril 2.5 mg daily. 2. Torsemide 40 mg daily. 3. Metoprolol 25 mg b.i.d. 4. Albuterol ipratropium 1 neb every 4 hours p.r.n. 5. Tamsulosin 0.4 mg daily. 6. Rivaroxaban 20 mg daily. 7. Finasteride 5 mg daily. 8. Landis-3 fatty acids 1000 mg daily. 9. Multivitamin with minerals daily. 10. Clopidogrel 75 mg daily. 11. Metformin 1000 mg b.i.d. 12. Isosorbide mononitrate 30 mg daily. 13. Atorvastatin 20 mg daily. The patient was changed to torsemide in the hope of increasing the absorption of the medication as he seemed to respond well to intravenous furosemide. CONDITION ON DISCHARGE: Stable. DISPOSITION ON DISCHARGE: Discharged home. [id number]/[facility] #: [id number]
[2018-02-26] MEDS ORDERED: Torsemide TAB* 20 MG PO SCH (09:00)
[2018-02-26] MEDS ORDERED: Lisinopril TAB* 5 MG PO SCH (09:00)
== END 2018-02-25 14:50 | disposition home or self-care (01) | DRG 196 ==
LOC: ED 10:40 → MED 14:35 → OBSVTOIN 02-24 15:18
PROVIDERS: ADMIT Hospitalist; ATTEND Internal Medicine
DX: J84.9 Interstitial pulmonary disease, unspecified (principal); J96.21 Acute and chronic respiratory failure with hypoxia; I50.31 Acute diastolic (congestive) heart failure; I48.92 Unspecified atrial flutter; I13.0 Hypertensive heart and chronic kidney disease with heart failure and stage 1 through stage 4 chronic kidney disease, or unspecified chronic kidney disease; Z99.81 Dependence on supplemental oxygen; J44.9 Chronic obstructive pulmonary disease, unspecified; E11.22 Type 2 diabetes mellitus with diabetic chronic kidney disease; E11.21 Type 2 diabetes mellitus with diabetic nephropathy; I25.5 Ischemic cardiomyopathy; N18.3 Chronic kidney disease, stage 3 (moderate); G47.33 Obstructive sleep apnea (adult) (pediatric); I25.10 Atherosclerotic heart disease of native coronary artery without angina pectoris; E78.5 Hyperlipidemia, unspecified; N40.0 Benign prostatic hyperplasia without lower urinary tract symptoms; Z98.61 Coronary angioplasty status; Z79.01 Long term (current) use of anticoagulants; Z79.02 Long term (current) use of antithrombotics/antiplatelets; Z79.899 Other long term (current) drug therapy; Z83.3 Family history of diabetes mellitus; Z82.49 Family history of ischemic heart disease and other diseases of the circulatory system; Z87.891 Personal history of nicotine dependence; Z79.84 Long term (current) use of oral hypoglycemic drugs
CPT/HCPCS: 36415; 71045; 80048; 80053; 81003; 82803; 83605; 83735; 83880; 84443; 84484; 85025; 85379; 85610; 85730; 87040; 93005; 93306; 94660; 99284; A9270-GY; G0378; J1940

== ENCOUNTER 2018-06-14 20:13 | Inpatient (IN) | payer MEDICARE ==
--- OUTSIDE RECORDS SUMMARY | 2018-06-14 20:43 | XMS REPORT | Continuity of Care Document ---
:1945 External Reference #:[id number] Author Name Minoo Dietz Care Team Providers Name Role Phone Ne Hernandez MD Primary Care Physician Unavailable Payers Date Identification Numbers Payment Provider Subscriber Effective: 2012 Policy Number: [id number] Medicare Niles Wayer PayID: [id number] [address] [place] [address] Policy Number: [id number] [facility] [employer]iles [place] [employer] PayID: [id number] [address] [place] [address] Effective: 2011 Policy Number: [id number] [facility] Niles Wayer Expires: 2012 PayID: [id number] [address] [address] [place] [address] Expires: 2016 Policy Number: [id number] [facility] [employer]iles [place] [employer] Group Number: [id number] [address] [address] PayID: [id number] [place] [address] Advance Directives Description No Information Available Problems Date Description Provider Status Onset: 01/24/2013 Essential hypertension Ronen Maravilla M.D., [facility], Active [facility] Onset: 01/24/2013 Chronic ischemic heart disease Ronen Maravilla M.D., [facility], Active [facility] Onset: 01/24/2013 Congestive heart failure Ronen Maravilla M.D., [place], Active [facility] Onset: 01/24/2013 Hyperlipidemia Ronen Maravilla M.D., [place], Active [facility] Onset: 11/11/2014 Atrial flutter Ronen Maravilla M.D., [facility], Active [facility] Onset: 11/11/2014 Essential hypertension Ronen Maravilla M.D., [facility], Active [facility] Onset: 11/11/2014 Chronic ischemic heart disease, Ronen Maravilla M.D., [facility], Active unspecified [facility] Onset: 11/20/2014 Cardiomyopathy, unspecified Ronen Maravilla M.D., [facility], Active [facility] Onset: 12/24/2015 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., [facility], 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 Onset: 12/24/2015 Chronic systolic (congestive) Ronen Maravilla M.D., [facility], Active heart failure [facility] Onset: 06/09/2016 Acute on chronic diastolic heart Ronen Maravilla M.D., [facility], Active failure [facility] Onset: 12/06/2016 Chronic hypoxemic respiratory Ronen Maravilla M.D., [facility], Active failure [facility] Family History Description No Information Available Social History Type Date Description Comments Sex Unknown Marital Status Lives With Alone ETOH Use Denies alcohol use Tobacco Use Start: Unknown End: Patient is a former quit in 2010 Unknown smoker Recreational Drug Use Denies Drug Use Smoking Status Reviewed: 01/17/18 Patient is a former quit in 2010 smoker Exercise Type/Frequency Exercises regularly walking a mile every other day Allergies, Adverse Reactions, Alerts Description No Known Drug Allergies Medications Medication Date Status Form Strength Qnty SIG Indications Ordering Provider Isosorbide 10/16/ Active Tablets ER 30mg 30tabs 1 po qd Ronen Mononitrate ER 2011 24HR Poly Maravilla, [facility] Metoprolol 1016/ Active Tablets 25mg 60tabs 1 po bid Ronen Tartrate 2011 Poly Maravilla, [facility] Clopidogrel 10/16/ Active Tablets 75mg 30tabs 1 po qd Ronen Sangita Maravilla M.D., [facility] Metformin 00/00/ Active Tablets 1000mg 60tabs 1 po daily Unknown 0000 Atorvastatin 0000/ Active Tablets 10mg 90tabs take 1 Unknown Calcium 0000 tablet at bedtime [place] 3 Fish 00/ Active 1000mg once daily Unknown Oil 0000 Multivitamin 00/00/ Active daily. Unknown 0000 Furosemide 0000/ Active Tablets 40mg 7tabs 1 by mouth Unknown 0000 every day Xarelto / Active Tablets 20mg 90tabs 1 by mouth Ronen 0000 every day Poly Maravilla, [facility] Lisinopril / Active Tablets 2.5mg 90tabs 2 by mouth Ronen 0000 every day Poly Maravilla, [facility] Ipratropium / Active Solution 0.5-2.5(3) 1 vial in Unknown [place]/Albuter 0000 mg/3ML nebulizer ol Sulfate four times a day Acetaminophen / Active Tablets 500mg 2 tablets Unknown 0000 every 6 hours as needed for pain Tamsulosin HCL / Active Capsules 0.4mg 1 by mouth Unknown 0000 every day Finasteride / Active Tablets 5mg 1 by mouth Unknown 0000 every day Cpap Machine / Active via face Unknown 0000 mask used when sleeping Oxygen / Active 3-4 L used Unknown Concentrator 0000 portable during the day Lasix / Hx Tablets 20mg 90tabs 1 po qd Unknown - 2012 Aspirin / Hx Tablets 81mg 100tab 1 po qd Unknown 0000 - s 2014 Garlic / Hx 100mg daily Unknown - 2014 Qvar / Hx Aerosol 80mcg/Act 1units 1 puff qd Unknown - 2013 Furosemide / Hx Tablets 40mg 1 po qd Unknown - 2013 Multaq / Hx Tablets 400mg 180tab 1 by mouth Ronen 0000 - s twice a Renita, Poly, 2016 [facility] Proair HFA / Hx Aerosol 108(90Base 2 puffs by Unknown 0000 - ) mcg/Act mouth 06/08/ every 4 2017 hours as needed Immunizations Description No Information Available Vital Signs Date Vital Result Comment 01/17/2018 3:45pm Height 76 inches 6'4" Weight 273.00 lb Heart Rate 70 /min BP Systolic Sitting 126 mmHg rue reg cuff BP Diastolic Sitting 78 mmHg rue reg cuff O2 % BldC Oximetry 89 % 90 after rest BMI (Body Mass Index) 33.2 kg/m2 Ejection Fraction 50-55% echo 05/30/17 06/06/2017 1:35pm Height 76 inches 6'4" Weight 275.00 lb w/ shoes Heart Rate 90 /min BP Systolic Sitting 132 mmHg lue large cuff BP Diastolic Sitting 74 mmHg lue large cuff BP Systolic Standing 118 mmHg lue large cuff BP Diastolic Standing 78 mmHg lue large cuff Respiratory Rate 20 /min O2 concentrator BMI (Body Mass Index) 33.5 kg/m2 Ejection Fraction 50-55% echo 05/30/17 12/22/2016 9:55am Height 76 inches 6'4" Weight 263.00 lb w/ shoes Heart Rate 76 /min BP Systolic Sitting 118 mmHg lue reg cuff BP Diastolic Sitting 72 mmHg lue reg cuff BP Systolic Standing 122 mmHg lue reg cuff BP Diastolic Standing 82 mmHg lue reg cuff Respiratory Rate 18 /min BMI (Body Mass Index) 32.0 kg/m2 Ejection Fraction 50% echo 12/07/16 12/06/2016 1:54pm Height 76 inches 6'4" Weight 263.50 lb with shoes Heart Rate 90 /min sit and 102 stand BP Systolic Sitting 108 mmHg Lue reg cuff BP Diastolic Sitting 70 mmHg Lue reg cuff BP Systolic Standing 110 mmHg Lue reg cuff BP Diastolic Standing 62 mmHg Lue reg cuff Respiratory Rate 17 /min BMI (Body Mass Index) 32.1 kg/m2 Ejection Fraction 50-55% date 03/31/2016 ECHO 06/09/2016 1:12pm Height 73 inches 6'1" Weight 239.38 lb with sneakers Heart Rate 72 /min BP Systolic Sitting 100 mmHg LA reg cuff BP Diastolic Sitting 64 mmHg LA reg cuff BP Systolic Standing 96 mmHg LA reg cuff BP Diastolic Standing 58 mmHg LA reg cuff BMI (Body Mass Index) 31.6 kg/m2 Ejection Fraction 50-55% as of 03/31/16 echo 02/02/2016 12:54pm Height 73 inches 6'1" Weight 281.00 lb w/ shoes Heart Rate 80 /min BP Systolic Sitting 106 mmHg Rue, reg cuff BP Diastolic Sitting 72 mmHg Rue, reg cuff BP Systolic Standing 100 mmHg Rue BP Diastolic Standing 64 mmHg Rue Respiratory Rate 16 /min BMI (Body Mass Index) 37.1 kg/m2 Ejection Fraction 55-60% as of 12/01/15 echo 12/24/2015 10:52am Height 73 inches 6'1" Weight 279.00 lb Heart Rate 72 /min 72 BP Systolic Sitting 92 mmHg right arm, reg cuff BP Diastolic Sitting 60 mmHg right arm, reg cuff BP Systolic Standing 100 mmHg right arm, reg cuff BP Diastolic Standing 62 mmHg right arm, reg cuff Respiratory Rate 20 /min BMI (Body Mass Index) 36.8 kg/m2 Ejection Fraction 55-60% 12/01/15 08/06/2015 10:59am Height 73 inches 6'1" Weight 282.00 lb Heart Rate 62 /min 62 BP Systolic Sitting 106 mmHg right arm, reg cuff BP Diastolic Sitting 60 mmHg right arm, reg cuff BP Systolic Standing 100 mmHg right arm, reg cuff BP Diastolic Standing 60 mmHg right arm, reg cuff Respiratory Rate 20 /min BMI (Body Mass Index) 37.2 kg/m2 Ejection Fraction 45% 01/20/15 01/21/2015 3:09pm Height 73 inches 6'1" Weight 275.00 lb Heart Rate 62 /min 70 BP Systolic Sitting 118 mmHg right arm, reg cuff BP Diastolic Sitting 68 mmHg right arm, reg cuff BP Systolic Standing 116 mmHg right arm, reg cuff BP Diastolic Standing 68 mmHg right arm, reg cuff Respiratory Rate 16 /min BMI (Body Mass Index) 36.3 kg/m2 Ejection Fraction 45% 01/20/15 11/20/2014 3:10pm Height 73 inches 6'1" Weight 273.00 lb Heart Rate 62 /min 66 BP Systolic Sitting 116 mmHg right arm, reg cuff BP Diastolic Sitting 74 mmHg right arm, reg cuff BP Systolic Standing 118 mmHg right arm, reg cuff BP Diastolic Standing 78 mmHg right arm, reg cuff Respiratory Rate 20 /min BMI (Body Mass Index) 36.0 kg/m2 Ejection Fraction 50% 03/02/11 11/11/2014 12:49pm Height 73 inches 6'1" Weight 280.00 lb Heart Rate 112 /min 124 BP Systolic Sitting 146 mmHg right arm, reg cuff BP Diastolic Sitting 108 mmHg right arm, reg cuff BP Systolic Standing 144 mmHg right arm, reg cuff BP Diastolic Standing 86 mmHg right arm, reg cuff Respiratory Rate 20 /min BMI (Body Mass Index) 36.9 kg/m2 Ejection Fraction 50% 03/02/11 10/01/2013 2:25pm Height 73 inches 6'1" Weight 269.00 lb Heart Rate 62 /min 66 BP Systolic Sitting 126 mmHg right arm, reg cuff BP Diastolic Sitting 89 mmHg right arm, reg cuff BP Systolic Lying Down 118 mmHg right arm, reg cuff BP Diastolic Lying Down 88 mmHg right arm, reg cuff Respiratory Rate 20 /min BMI (Body Mass Index) 35.5 kg/m2 01/24/2013 3:07pm Height 73 inches 6'1" Weight 261.00 lb Heart Rate 6668 /min BP Systolic Sitting 112 mmHg left arm, large cuff BP Diastolic Sitting 72 mmHg left arm, large cuff BP Systolic Standing 108 mmHg left arm, large cuff BP Diastolic Standing 68 mmHg left arm, large cuff Respiratory Rate 20 /min BMI (Body Mass Index) 34.4 kg/m2 Results Test Date Facility Test Result H/L Range Note Laboratory test 02/23/2018 [facility] Lactic Acid 1.1 mmol/L N 0.5-2.0 [address] [place] [address] [phone] Basic Metabolic 12/06/2016 [facility] Sodium 135 mmol/L N 133- [address] [place] [address] [phone] Potassium 4.7 mmol/L N 3.5-5.0 Chloride 96 mmol/L Low 101-111 Co2 Carbon Dioxide 34 mmol/L High 22-32 Anion Gap 5 mmol/L N 2-11 Glucose 127 mg/dL High 70-100 Blood Urea Nitrogen 23 mg/dL N 6-24 Creatinine 1.25 mg/dL High 0.67-1.17 BUN/Creatinine Ratio 18.4 N 8-20 Calcium 10.1 mg/dL N 8.6-10.3 Egfr Non- 57.3 N >60 Egfr 73.7 N >60 2 Laboratory test 12/06/2016 [facility] B-Type 64 pg/mL N [address] [place] [address] Peptide BNP [phone] Comp Metabolic 06/14/2016 [facility] Sodium 136 mmol/L N 133- [address] [place] [address] [phone] Potassium 4.9 mmol/L N 3.5-5.0 Chloride 100 mmol/L Low 101-111 Co2 Carbon Dioxide 32 mmol/L N 22-32 Anion Gap 4 mmol/L N 2-11 Glucose 98 mg/dL N 70-100 Blood Urea Nitrogen 22 mg/dL N 6-24 Creatinine 1.17 mg/dL N 0.67-1.17 BUN/Creatinine Ratio 18.8 N 8-20 Calcium 9.7 mg/dL N 8.6-10.3 Total Protein 7.8 g/dL N 6.4-8.9 Albumin 4.1 g/dL N 3.2-5.2 Globulin 3.7 g/dL N 2-4 Albumin/Globulin Ratio 1.1 N 1-3 Total Bilirubin 0.80 mg/dL N 0.2-1.0 Alkaline Phosphatase 77 U/L N 34-104 Alt 19 U/L N 7-52 Ast 23 U/L N 13-39 Egfr Non- 61.8 N >60 Egfr 79.5 N >60 4 Laboratory test 06/14/2016 [facility] B-Type 141 pg/mL High [address] [place] [address] Peptide BNP [phone] Laboratory test 12/24/2015 [facility] B-Type 150 pg/mL High [address] [place] [address] Peptide BNP [phone] Basic Metabolic 12/24/2015 [facility] Sodium 134 mmol/L N 133- [address] [place] [address] [phone] Potassium 4.9 mmol/L N 3.5-5.0 Chloride 96 mmol/L Low 101-111 Co2 Carbon Dioxide 33 mmol/L High 22-32 Anion Gap 5 mmol/L N 2-11 Glucose 88 mg/dL N 70-100 Blood Urea Nitrogen 24 mg/dL N 6-24 Creatinine 1.32 mg/dL High 0.67-1.17 BUN/Creatinine Ratio 18.2 N 8-20 Calcium 9.7 mg/dL N 8.6-10.3 Egfr Non- 53.9 N >60 Egfr 69.4 N >60 7 Laboratory test finding 10/09/2013 [facility] Alt 31 U/L N 7- 52 8, [address] [place] [address] [phone] Ast 21 U/L N 13-39 10 Lipid Profile 10/09/2013 [facility] Triglycerides 182 mg/dL N 11 (Trig/Chol/HDL) [address] [place] [address] [phone] Cholesterol 108 mg/dL N 12 HDL Cholesterol 27.5 mg/dL N 13 LDL Cholesterol 44 mg/dL N 14 1 [facility] Severe Sepsis and Septic Shock Management Bundle Measure requires all lactic acids initially measuring >2.0 mmol/L be repeated. 2 Because ethnic data is not always readily available, this report includes an eGFR for both -Americans and non- Americans. The National Kidney Disease Education Program (NKDEP) does not endorse the use of the MDRD equation for patients that are not between the ages of 18 and 70, are , have extremes of body size, muscle mass, or nutritional status, or are non- or non-. According to the National Kidney Foundation, irrespective of diagnosis, the stage of the disease is based on the level of kidney function: Stage Description GFR(mL/min/1.73 m(2)) 1 Kidney damage with normal or decreased GFR 90 2 Kidney damage with mild decrease in GFR 60-89 3 Moderate decrease in GFR 30-59 4 Severe decrease in GFR 15-29 5 Kidney failure <15 (or dialysis) 3 >100 to <200 pg/mL: likely compensated congestive heart failure (CHF) 200 to 400 pg/mL: likely moderate CHF >400 pg/mL: likely moderate to severe CHF 4 Because ethnic data is not always readily available, this report includes an eGFR for both -Americans and non- Americans. The National Kidney Disease Education Program (NKDEP) does not endorse the use of the MDRD equation for patients that are not between the ages of 18 and 70, are , have extremes of body size, muscle mass, or nutritional status, or are non- or non-. According to the National Kidney Foundation, irrespective of diagnosis, the stage of the disease is based on the level of kidney function: Stage Description GFR(mL/min/1.73 m(2)) 1 Kidney damage with normal or decreased GFR 90 2 Kidney damage with mild decrease in GFR 60-89 3 Moderate decrease in GFR 30-59 4 Severe decrease in GFR 15-29 5 Kidney failure <15 (or dialysis) 5 >100 to <200 pg/mL: likely compensated congestive heart failure (CHF) 200 to 400 pg/mL: likely moderate CHF >400 pg/mL: likely moderate to severe CHF 6 >100 to <200 pg/mL: likely compensated congestive heart failure (CHF) 200 to 400 pg/mL: likely moderate CHF >400 pg/mL: likely moderate to severe CHF 7 Because ethnic data is not always readily available, this report includes an eGFR for both -Americans and non- Americans. The National Kidney Disease Education Program (NKDEP) does not endorse the use of the MDRD equation for patients that are not between the ages of 18 and 70, are , have extremes of body size, muscle mass, or nutritional status, or are non- or non-. According to the National Kidney Foundation, irrespective of diagnosis, the stage of the disease is based on the level of kidney function: Stage Description GFR(mL/min/1.73 m(2)) 1 Kidney damage with normal or decreased GFR 90 2 Kidney damage with mild decrease in GFR 60-89 3 Moderate decrease in GFR 30-59 4 Severe decrease in GFR 15-29 5 Kidney failure <15 (or dialysis) 8 FASTING 9 FASTING 10 FASTING 11 Desirable <150 Borderline high 150-199 High 200-499 Very High >500 12 Desirable <200 Borderline high 200-239 High >239 13 Low <40 Desirable: 40-60 High: >60 14 Desirable <100 Near Optimal 100-129 Borderline high 130-159 High 160-189 Very High >189 Procedures Date Code Description Status 05/08/2018 83684 ECHO Transthorasic Realtime 2D W Doppler & Color Flow Hosp Completed 02/24/2018 24563 ECHO Transthorasic Realtime 2D W Doppler & Color Flow Hosp Completed 01/17/2018 94009 EKG Tracing & Interpretation Completed 07/12/2017 15491 Holter Monitor Review (24 hr)dr review & interp only Completed 05/30/2017 27887 ECHO Transthorasic Realtime 2D W Doppler & Color Flow Hosp Completed 12/22/2016 09903 EKG Tracing & Interpretation Completed 12/07/2016 95865 ECHO Transthorasic Realtime 2D W Doppler & Color Flow Hosp Completed 12/06/2016 35719 EKG Tracing & Interpretation Completed 06/09/2016 76291 EKG Tracing & Interpretation Completed 03/31/2016 28693 ECHO Transthorasic Realtime 2D W Doppler & Color Flow Hosp Completed 02/02/2016 22846 EKG Tracing & Interpretation Completed 01/13/2016 62486 EKG Tracing & Interpretation Completed 12/24/2015 82115 EKG Tracing & Interpretation Completed 08/06/2015 55559 EKG Tracing & Interpretation Completed 01/20/2015 94118 ECHO Transthorasic Realtime 2D W Doppler & Color Flow Hosp Completed 12/06/2014 96242 EKG Tracing & Interpretation Completed 12/06/2014 72449 EKG Tracing & Interpretation Completed 11/20/2014 27494 EKG Tracing & Interpretation Completed 11/12/2014 99764 Color Flow Doppler/Interp & Reprt Completed 11/12/2014 55820 Pulse Wave/Continuous-Interp.RPT Completed 11/12/2014 62179 Echocardiography, Transesophageal, Real Time W/Image 2D Completed W/W/O M-M 11/12/2014 41958 Cardioversion Completed 11/11/2014 58866 EKG Tracing & Interpretation Completed 10/01/2013 72551 EKG Tracing & Interpretation Completed 01/24/2013 28262 EKG Tracing & Interpretation Completed 07/24/2012 09860 EKG Tracing & Interpretation Completed 01/24/2012 63558 EKG Tracing & Interpretation Completed Encounters Type Date Location Provider Dx Diagnosis Office Visit 05/16/2018 [facility] Esperanza Watson, J96.21 Acute and chronic 9:18a josefina Lozano M.D. respiratory Hospitalists failure with hypoxia I50.31 Acute diastolic (congestive) heart failure J81.0 Acute pulmonary edema R57.9 Shock, unspecified L03.115 Cellulitis of right lower limb R79.1 Abnormal coagulation profile J84.9 Interstitial pulmonary disease, unspecified J44.9 Chronic obstructive pulmonary disease, unspecified I25.10 Athscl heart disease of [place] coronary artery w/o ang pctrs Office Visit 05/15/2018 [facility] Esperanza I50.31 Acute diastolic 9:17a josefina Lozano M.D. (congestive) heart Hospitalists failure J44.9 Chronic obstructive pulmonary disease, unspecified L03.115 Cellulitis of right lower limb I48.92 Unspecified atrial flutter Office Visit 05/14/2018 [facility] Esperanza I50.33 Acute on chronic 9:17a josefina Lozano M.D. diastolic Hospitalists (congestive) heart failure J44.9 Chronic obstructive pulmonary disease, unspecified L03.115 Cellulitis of right lower limb I48.92 Unspecified atrial flutter Office Visit 05/13/2018 [facility] I50.33 Acute on chronic 9:17a Assoc,pc MD Johnnie diastolic Hospitalists (congestive) heart failure J44.9 Chronic obstructive pulmonary disease, unspecified L03.115 Cellulitis of right lower limb I48.92 Unspecified atrial flutter I25.10 Athscl heart disease of [place] coronary artery w/o ang pctrs I10 Essential (primary) hypertension E11.22 Type 2 diabetes mellitus w diabetic chronic kidney disease G47.33 Obstructive sleep apnea (adult) (pediatric) N40.0 Benign prostatic hyperplasia without lower urinry tract symp Office Visit 05/12/2018 9:17a Intensiv[facility] Marisa Moore96.21 Acute and chronic MD respiratory failure with hypoxia J81.0 Acute pulmonary edema E87.70 Fluid overload, unspecified I50.33 Acute on chronic diastolic (congestive) heart failure I95.9 Hypotension, unspecified L03.115 Cellulitis of right lower limb R71.8 Other abnormality of red blood cells J84.9 Interstitial pulmonary disease, unspecified J44.9 Chronic obstructive pulmonary disease, unspecified Office Visit 05/11/2018 9:16a [facility]ens[facility] Marisa Moore96.21 Acute and chronic MD respiratory failure with hypoxia J81.0 Acute pulmonary edema E87.70 Fluid overload, unspecified I50.33 Acute on chronic diastolic (congestive) heart failure R79.1 Abnormal coagulation profile R71.8 Other abnormality of red blood cells J84.9 Interstitial pulmonary disease, unspecified J44.9 Chronic obstructive pulmonary disease, unspecified I48.92 Unspecified atrial flutter N18.3 Chronic kidney disease, stage 3 (moderate) G47.33 Obstructive sleep apnea (adult) (pediatric) E11.22 Type 2 diabetes mellitus w diabetic chronic kidney disease Office Visit 05/10/2018 9:16a Intensivists Marisa Moore96.21 Acute and chronic MD respiratory failure with hypoxia J81.0 Acute pulmonary edema E87.70 Fluid overload, unspecified I50.33 Acute on chronic diastolic (congestive) heart failure L03.115 Cellulitis of right lower limb R79.1 Abnormal coagulation profile R71.8 Other abnormality of red blood cells J84.9 Interstitial pulmonary disease, unspecified J44.9 Chronic obstructive pulmonary disease, unspecified Office Visit 05/10/2018 9:00a Wound Care Chelsey Alanis I87.311 Chronic venous Center AT [facility] [employer] hypertension w [facility] ulcer of r low extrem L97.819 Non-pressure chronic ulcer oth prt r low leg w unsp severity L03.115 Cellulitis of right lower limb E11.22 Type 2 diabetes mellitus w diabetic chronic kidney disease Z78.9 Other specified health status Office Visit 05/09/2018 9:16a [facility]ensivists Marisa Moore96.21 Acute and chronic MD respiratory failure with hypoxia J81.0 Acute pulmonary edema I50.33 Acute on chronic diastolic (congestive) heart failure E87.70 Fluid overload, unspecified L03.115 Cellulitis of right lower limb J84.9 Interstitial pulmonary disease, unspecified J44.9 Chronic obstructive pulmonary disease, unspecified I48.92 Unspecified atrial flutter N18.3 Chronic kidney disease, stage 3 (moderate) G47.33 Obstructive sleep apnea (adult) (pediatric) E11.22 Type 2 diabetes mellitus w diabetic chronic kidney disease Office Visit 05/08/2018 9:16a Intensiv[facility] Marisa Moore96.21 Acute and chronic MD respiratory failure with hypoxia J81.0 Acute pulmonary edema I50.31 Acute diastolic (congestive) heart failure E87.70 Fluid overload, unspecified L03.115 Cellulitis of right lower limb R79.1 Abnormal coagulation profile J84.9 Interstitial pulmonary disease, unspecified J44.9 Chronic obstructive pulmonary disease, unspecified I48.92 Unspecified atrial flutter N17.9 Acute kidney failure, unspecified N18.9 Chronic kidney disease, unspecified Office Visit 05/07/2018 9:15a Intensivists Marisa Vargas96.21 Acute and chronic MD respiratory failure with hypoxia J81.0 Acute pulmonary edema I50.33 Acute on chronic diastolic (congestive) heart failure E87.70 Fluid overload, unspecified L03.115 Cellulitis of right lower limb J84.9 Interstitial pulmonary disease, unspecified J44.9 Chronic obstructive pulmonary disease, unspecified I48.92 Unspecified atrial flutter N18.3 Chronic kidney disease, stage 3 (moderate) G47.33 Obstructive sleep apnea (adult) (pediatric) E11.22 Type 2 diabetes mellitus w diabetic chronic kidney disease Office Visit 05/06/2018 9:15a Intensivists Karl Vargas.21 Acute and chronic MD respiratory failure with hypoxia J81.0 Acute pulmonary edema I50.31 Acute diastolic (congestive) heart failure E87.70 Fluid overload, unspecified L03.115 Cellulitis of right lower limb J44.9 Chronic obstructive pulmonary disease, unspecified I48.92 Unspecified atrial flutter N17.9 Acute kidney failure, unspecified N18.9 Chronic kidney disease, unspecified G47.33 Obstructive sleep apnea (adult) (pediatric) E11.22 Type 2 diabetes mellitus w diabetic chronic kidney disease Office Visit 05/05/2018 9:14a Intensivists Karl Vargas.Laurent Acute and chronic MD respiratory failure with hypoxia J81.0 Acute pulmonary edema I50.33 Acute on chronic diastolic (congestive) heart failure R57.9 Shock, unspecified E87.70 Fluid overload, unspecified L03.115 Cellulitis of right lower limb J84.9 Interstitial pulmonary disease, unspecified J44.9 Chronic obstructive pulmonary disease, unspecified N18.3 Chronic kidney disease, stage 3 (moderate) G47.33 Obstructive sleep apnea (adult) (pediatric) E11.22 Type 2 diabetes mellitus w diabetic chronic kidney disease Office Visit 05/04/2018 9:14a [facility] Karl Vargas.21 Acute and chronic MD respiratory failure with hypoxia I50.33 Acute on chronic diastolic (congestive) heart failure R57.9 Shock, unspecified E87.70 Fluid overload, unspecified L03.115 Cellulitis of right lower limb J84.9 Interstitial pulmonary disease, unspecified J44.9 Chronic obstructive pulmonary disease, unspecified I48.92 Unspecified atrial flutter N18.3 Chronic kidney disease, stage 3 (moderate) G47.33 Obstructive sleep apnea (adult) (pediatric) E11.22 Type 2 diabetes mellitus w diabetic chronic kidney disease Office Visit 05/03/2018 9:14a [facility] Karl Vargas.21 Acute and chronic MD respiratory failure with hypoxia I50.33 Acute on chronic diastolic (congestive) heart failure I95.9 Hypotension, unspecified E87.70 Fluid overload, unspecified L03.115 Cellulitis of right lower limb J84.9 Interstitial pulmonary disease, unspecified J44.9 Chronic obstructive pulmonary disease, unspecified I48.92 Unspecified atrial flutter N18.3 Chronic kidney disease, stage 3 (moderate) G47.33 Obstructive sleep apnea (adult) (pediatric) E11.22 Type 2 diabetes mellitus w diabetic chronic kidney disease Office Visit 02/25/2018 10:34a [facility] Nikhil J84.9 Interstitial Assoc,josefina Pete M.D. pulmonary disease, Hospitalists unspecified I25.5 Ischemic cardiomyopathy I48.92 Unspecified atrial flutter E11.9 Type 2 diabetes mellitus without complications Office Visit 02/24/2018 10:34a [facility] Monika J96.21 Acute and chronic Assoc,josefina Alvarez D.O. respiratory Hospitalists failure with hypoxia I50.33 Acute on chronic diastolic (congestive) heart failure I48.92 Unspecified atrial flutter E11.22 Type 2 diabetes mellitus w diabetic chronic kidney disease N18.3 Chronic kidney disease, stage 3 (moderate) Office Visit 02/23/2018 10:33a [facility] J96.11 Chronic Assoc,pc Ashwin Alvarez. respiratory Hospitalists failure with hypoxia J84.9 Interstitial pulmonary disease, unspecified J44.9 Chronic obstructive pulmonary disease, unspecified N18.3 Chronic kidney disease, stage 3 (moderate) I12.9 Hypertensive chronic kidney disease w stg 1-4/unsp chr kdny E11.22 Type 2 diabetes mellitus w diabetic chronic kidney disease Office Visit 01/17/2018 3:40p [facility] Jose Miguel Syed I48.3 Typical atrial Of [employer] Poly Lazaro flutter I25.10 Athscl heart disease of [place] coronary artery w/o ang pctrs E78.5 Hyperlipidemia, unspecified I10 Essential (primary) hypertension J96.11 Chronic respiratory failure with hypoxia I71.9 Aortic aneurysm of unspecified site, without rupture Z99.81 Dependence on supplemental oxygen R94.31 Abnormal electrocardiogram [ECG] [EKG] Office Visit 06/06/2017 1:40p [facility] Ronen Maravilla, I48.3 Typical atrial Of [employer] Manager AT [facility] Poly, FACC, flutter FSCAI I25.10 Athscl heart disease of [place] coronary artery w/o ang pctrs E78.5 Hyperlipidemia, unspecified Office Visit 12/22/2016 10:20a [facility] Ronen Stefek, I48.3 Typical atrial Of [employer] Manager AT [facility], flutter FSCAI I10 Essential (primary) hypertension I25.10 Athscl heart disease of [place] coronary artery w/o ang pctrs I50.9 Heart failure, unspecified E78.5 Hyperlipidemia, unspecified Office Visit 12/06/2016 2:20p [facility] Ronen Maravilla, I25.10 Athscl heart Of [employer] Manager AT [facility], disease of FSCAI [place] coronary artery w/o ang pctrs I48.3 Typical atrial flutter I10 Essential (primary) hypertension E78.5 Hyperlipidemia, unspecified J96.11 Chronic respiratory failure with hypoxia Office Visit 06/09/2016 1:40p [facility] Ronen Maravilla, I50.33 Acute on chronic Of [employer] AT [facility], diastolic FSCAI (congestive) heart failure I25.10 Athscl heart disease of [place] coronary artery w/o ang pctrs I48.92 Unspecified atrial flutter [facility]33 Acute on chronic 3:14p Assoc,josefina Alvarez D.O. diastolic Hospitalists (congestive) heart failure J96.11 Chronic respiratory failure with hypoxia J84.9 Interstitial pulmonary disease, unspecified I48.92 Unspecified atrial flutter Office Visit 04/06/2016 [facility] I50.33 Acute on chronic 3:13p Assoc,josefina Alvarez D.O. diastolic Hospitalists (congestive) heart failure J96.11 Chronic respiratory failure with hypoxia J84.9 Interstitial pulmonary disease, unspecified I48.92 Unspecified atrial flutter Office Visit 04/06/2016 8:42a [facility] J96.21 Acute and chronic Sleep Services Of MD Arnaldo respiratory [employer] failure with hypoxia J96.22 Acute and chronic respiratory failure with hypercapnia J44.1 Chronic obstructive pulmonary disease w (acute) exacerbation J84.9 Interstitial pulmonary disease, unspecified Office Visit 04/05/2016 3:13p [facility] Esperanza I48.92 Unspecified Assocjosefina M.D. atrial flutter Hospitalists J84.9 Interstitial pulmonary disease, unspecified J96.11 Chronic respiratory failure with hypoxia I50.23 Acute on chronic systolic (congestive) heart failure Office Visit 04/05/2016 8:42a [facility] J96.21 Acute and chronic Sleep Services Of MD Arnaldo respiratory [employer] failure with hypoxia J96.22 Acute and chronic respiratory failure with hypercapnia J44.1 Chronic obstructive pulmonary disease w (acute) exacerbation J84.9 Interstitial pulmonary disease, unspecified Office Visit 04/04/2016 3:12p [facility] Esperanza I48.92 Unspecified josefina Lozano M.D. atrial flutter Hospitalists J84.9 Interstitial pulmonary disease, unspecified J96.11 Chronic respiratory failure with hypoxia I50.23 Acute on chronic systolic (congestive) heart failure [facility]23 Acute on chronic 3:12p josefina Lozano M.D. systolic Hospitalists (congestive) heart failure I48.92 Unspecified atrial flutter J84.9 Interstitial pulmonary disease, unspecified J96.11 Chronic respiratory failure with hypoxia Office Visit 04/02/2016 [facility] I50.23 Acute on chronic 3:11p josefina Lozano M.D. systolic Hospitalists (congestive) heart failure I48.92 Unspecified atrial flutter J84.9 Interstitial pulmonary disease, unspecified J96.11 Chronic respiratory failure with hypoxia Office Visit 04/01/2016 [facility] I50.23 Acute on chronic 3:11p josefina Lozano M.D. systolic Hospitalists (congestive) heart failure I48.92 Unspecified atrial flutter J84.9 Interstitial pulmonary disease, unspecified J96.11 Chronic respiratory failure with hypoxia Office Visit 03/31/2016 [facility] I50.23 Acute on chronic 3:10p josefina Lozano M.D. systolic Hospitalists (congestive) heart failure I48.92 Unspecified atrial flutter J84.9 Interstitial pulmonary disease, unspecified J96.11 Chronic respiratory failure with hypoxia Office 03/30/2016 [facility] I50.23 Acute on chronic Visit 3:09p Assjosefina guillen PA systolic Hospitalists (congestive) heart failure I48.92 Unspecified atrial flutter J84.9 Interstitial pulmonary disease, unspecified J96.11 Chronic respiratory failure with hypoxia Office Visit 02/02/2016 1:20p [facility] Ronen Maravilla, I48.3 Typical atrial Of [employer]allion Manager AT [facility], flutter FSCAI I25.10 Athscl heart disease of [place] coronary artery w/o ang pctrs I10 Essential (primary) hypertension E78.5 Hyperlipidemia, unspecified Office Visit 12/24/2015 11:00a [facility] Ronen Maravilla, I48.3 Typical atrial Of [employer]allion Manager AT [facility], flutter FSCAI I25.10 Athscl heart disease of [place] coronary artery w/o ang pctrs I50.9 Heart failure, unspecified Office Visit 08/06/2015 11:00a [facility] Ronen Maravilla, I10 Essential (primary) Of [employer] Manager AT [facility], hypertension FSCAI I25.9 Chronic ischemic heart disease, unspecified I25.5 Ischemic cardiomyopathy I48.3 Typical atrial flutter E78.5 Hyperlipidemia, unspecified I44.0 Atrioventricular block, first degree I25.10 Athscl heart disease of [place] coronary artery w/o ang pctrs Office Visit 01/21/2015 3:20p [facility] Ronen Maravilla, I10 Essential (primary) Of [employer] Manager AT [facility], hypertension FSCAI I25.9 Chronic ischemic heart disease, unspecified I25.5 Ischemic cardiomyopathy Office Visit 11/20/2014 3:20p [facility] Ronen Maravilla, I25.9 Chronic ischemic Of [employer]ion Manager AT [facility], heart disease, FSCAI unspecified I48.3 Typical atrial flutter I10 Essential (primary) hypertension I42.9 Cardiomyopathy, unspecified Office Visit 11/12/2014 3:25p [facility] Brit S. 427.32 Atrial Flutter Assoc,josefina Hansen, N.P. Hospitalists 428.0 Congestive Heart Failure Unspecified 496 COPD Airway Obstruction Chronic Not Class Elsewhere 414.00 Coronary Atherosclerosis Unspec Type Vessel [place] Office Visit 11/11/2014 3:24p [facility] Brit S. 427.32 Atrial Flutter Assoc,josefina Hansen, N.P. Hospitalists 428.0 Congestive Heart Failure Unspecified 496 COPD Airway Obstruction Chronic Not Class Elsewhere 414.00 Coronary Atherosclerosis Unspec Type Vessel [place] Office Visit 11/11/2014 1:00p [facility] Ronen Maravilla, I10 Essential (primary) Of [employer]allion Manager AT [facility] M.Abhi., [facility], hypertension FSCAI I25.9 Chronic ischemic heart disease, unspecified I48.3 Typical atrial flutter Office Visit 10/01/2013 2:30p [facility] Ronen Maravilla, 401.9 Hypertension Of [employer]allion Manager AT [facility] M.Abhi., [facility], Unspec FSCAI 414.9 Ischemic Heart Disease Chronic Unspec 428.0 Congestive Heart Failure Unspecified 272.4 Hyperlipidemia Other Unspec Office Visit 01/24/2013 2:45p [facility] Ronen Maravilla, 401.9 Hypertension Of Stallion Manager AT [facility].[place], [facility], Unspec FSCAI 414.9 Ischemic Heart Disease Chronic Unspec 428.0 Congestive Heart Failure Unspecified 272.4 Hyperlipidemia Other Unspec Office Visit 07/24/2012 10:15a [facility] Ronen Maravilla, 414.9 Ischemic Heart Of Stallion Manager AT [facility].[place], [facility], Disease Chronic FSCAI Unspec 401.9 Hypertension Unspec Office Visit 01/24/2012 9:45a [facility] Ronen Maravilla, 425.4 Cardiomyopathy Other Cardiology Of M.[place], [facility], Prim [facility] AT [facility] FSCAI 272.4 Hyperlipidemia Other Unspec Plan of Treatment 01/17/2018 - Jose Miguel Lazaro M.D.I48.3 Typical atrial qoondepF89.10 Atherosclerotic heart disease of [place] coronary artery withFollow up:10 months ovE78.5 Hyperlipidemia, [id number] Essential (primary) njgbcoyefjlqJ27.11 Chronic respiratory failure with yldqdpjX83.9 Aortic aneurysm of unspecified site, without ruptureNew Orders:Echocardiogram, Ordered: 01/17/18Z99.81 Dependence on supplemental ulqgivJ81.31 Abnormal electrocardiogram [ECG] [EKG]
--- OUTSIDE RECORDS SUMMARY | 2018-06-14 20:44 | XMS REPORT | Continuity of Care Document ---
:1945 External Reference #:[id number] Author Name Ne Hernandez M.D. Address [address] [facility] [place] [address] Care Team Providers Name Role Phone Ne Hernandez M.D. 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 Primary Care Physician Unavailable Payers Date Identification Numbers Payment Provider Subscriber Effective: 2012 Policy Number: [id number] [employer] [place] [employer] PayID: [id number] [address] [place] [address] Effective: 2012 Policy Number: [id number] [employer] [place] [employer] Expires: 2018 PayID: [id number] [address] [place] [address] Effective: 2015 Policy Number: [id number] [facility] Expires: [address] [place] [address] Policy Number: [id number] [facility] PayID: [id number] [address] [place] [address] Advance Directives Description No Information Available Problems Active Problems Provider Date Arteriosclerosis of arterial coronary artery El Lira M.D. Onset: bypass graft Congestive heart failure El Lira M.D. Onset: 11/12/2010 Chronic obstructive lung disease El Lira M.D. Onset: 11/12/2010 Atherosclerosis of arteries of the El Lira M.D. Onset: 11/12/2010 extremities Type 2 diabetes mellitus El Lira M.D. Onset: 04/29/2011 Hyperlipidemia Joe Vanegas M.D. Onset: 11/01/2013 Paroxysmal atrial fibrillation Ne Hernandez M.D. Onset: 05/08/2015 Mixed hyperlipidemia Ne Hernandez M.D. Onset: 05/08/2015 Paroxysmal atrial fibrillation Tu Tomas M.D. Onset: 08/05/2015 Acute on chronic combined systolic and Alejo Schumacher M.D. Onset: 03/16/2016 diastolic heart failure Other ascites Alejo Schumacher M.D. Onset: 03/26/2016 Benign prostatic hypertrophy with outflow Alejo Schumacher M.D. Onset: 2016 obstruction Restrictive lung disease Ne Hernandez M.D. Onset: 03/30/2016 Note: pulm fibrosis Hypoxemia Ne Hernandez M.D. Onset: 03/30/2016 Iron deficiency anemia Ne Hernandez M.D. Onset: 03/30/2016 Chronic systolic heart failure Ne Hernandez M.D. Onset: 04/14/2016 Obstructive sleep apnea syndrome Ne Hernandez M.D. Onset: 04/14/2016 Coronary atherosclerosis Ne Hernandez M.D. Onset: 04/22/2016 Obesity Ne Hernandez M.D. Onset: 11/29/2016 Chronic atrial fibrillation Ne Hernandez M.D. Onset: 07/04/2017 Resolved Problems Cellulitis of right upper limb Alejo Schumacher M.D. Onset: 03/19/2016 Resolved: 03/30/2016 Cellulitis of left lower limb Alejo Schumacher M.D. Onset: 03/19/2016 Resolved: 03/30/2016 Family History Date Family Member(s) Observation Comments General No colon cancer Father [place] fatal age 52 Father due to RI () Mother Diabetes Mellitus, II First Brother Diabetes Mellitus, II Second Brother dt diabetic coma. 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 Onetouch Ultra 2 test once a day 1units [facility], 06/14/2016 dx: e11.9 last M.D. w/Device Kit office visit 04/22/16 Onetouch Ultra Blue use for BG 200units [facility], 06/14/2016 testing 3x daily M.D. Strips E11.9 last appt 04/22/16 Furosemide 1 by mouth every 90tabs Galdino A. 04/14/2016 40mg Tablets day Poyl Downs Tamsulosin HCL take 1 capsule 90caps N40.1 [facility], 03/26/2016 0.4mg daily for M.D. Capsules prostate Ventolin HFA 2 puffs every 4 16gm J44.9 [facility], 11/11/2015 hours as needed M.D. 108(90Base) mcg/Act Aerosol Metformin HCL 1 by mouth twice 120tabs E11.9 [facility], 06/01/2013 1000mg a day M.D. Tablets Metoprolol Tartrate 1 by mouth twice 180tabs I48.0 [facility], 2012 a day M.D. 25mg Tablets Torsemide 1 by mouth every Unknown 20mg Tablets day Spironolactone 1 by mouth every Unknown 25mg day Tablets Prednisone as Directed Unknown 10mg Tablets Midodrine HCL tid Unknown 5mg Tablets Ferrousul 1 by mouth every Unknown 325(65Fe) mg other day for Tablets anemia Azithromycin 1 PO Unknown 250mg [id number] Tablets Plavix 1 by mouth every 90tabs I48.0 [facility], 75mg Tablets day M.D. Atorvastatin Calcium 1 by mouth every 90tabs E78.2 [facility], day M.D. 20mg Tablets Finasteride 1 by mouth every 90tabs [facility], 5mg Tablets day M.D. Duoneb use 1 vial via Unknown 0.5-2.5(3)mg/3ML nebulizer q 4 hrs Solution prn Multivitamins 1 by mouth every Tu F. Capsules day Shallish, M.D. Xarelto take 1 tablet by 90tabs Galdino A. 20mg Tablets mouth once daily Poly Downs Fish Oil Concentrate 1 po qd Tu F. Poly Tomas 1000mg Capsules Oxygen Therapy 4 liters, with Tu F. conserving device Poly Tomas History Medications Truetrack Test test once a day 100units E11.9 Ne Hernandez, 06/23/2016 - dx: e11.9 M.D. 05/23/2018 Strips Sulfamethoxazole/Tr 1 by mouth twice 30tabs L03.113 Alejo Schumacher, 2016 - imethoprim DS a day M.D. 03/26/2016 800-160mg Tablets Compression dispense xxl 2Pair I50.22 Ne Hernandez, 12/16/2015 - Stockings pair to knees M.D. 01/19/2018 14Mmg HG seen 12/16/15 R60.0 Atorvastatin Calcium 1 by mouth 90tabs E78.2 Ne Hernandez, 05/08/2015 - 10mg every day M.D. 07/14/2016 Tablets Atorvastatin Calcium 1/2 tab by 90tabs E78.2 Joe Vanegas, 10/30/2014 - 20mg mouth every day M.D. 05/08/2015 Tablets Test Strips - True Test check qd 1Box Joe Vanegas, 09/27/2014 - M.D. 09/27/2014 Truetest Blood Glucose test daily as 100units Ne Hernandez, 09/27/2014 - T Est Strips directed M.D. 05/23/2018 Strips Baclofen 1 by mouth 30tabs 724.3 Joe Vanegas, 05/23/2014 - 10mg Tablets every night as M.D. 10/09/2014 needed Cyclobenzaprine HCL 1 by mouth at 30tabs 724.3 Joe Vanegas, 05/22/2014 - 10mg bedtime as M.D. 05/23/2014 Tablets needed Atorvastatin Calcium 1 by mouth 272.4 Joe Vanegas, 05/08/2014 - 10mg every day M.D. 10/30/2014 Tablets Prednisone 1 by mouth 14tabs 724.3 Joe Vanegas, 04/17/2014 - 20mg Tablets twice a day for M.D. 05/22/2014 4 days then 1 tab by mouth a day for 4 days then 1/2 tab by mouth daily for 4 days Hydrocodone-Acetaminoph 1 every 4 hours 60tabs 724.3 Joe Guilherme, 2014 - en as needed M.DMelanie 05/08/2015 5-325mg Tablets Lisinopril 2 by mouth 180tabs Ne Hernandez 11/21/2012 - 2.5mg Tablets every day M.DMelanie 05/23/2018 Qvar inhale 1 puff 1units 496 El Rhodes 06/15/2012 - 80mcg/Act Aerosol by mouth 2 Poly Lira 11/01/2013 times a day Atorvastatin Calcium 1 by mouth 90tabs 272.4 Joe Vanegas, 02/14/2012 - 20mg every day M.DMelanie 05/08/2014 Tablets Lisinopril 1 po qd 90tabs 428.0 El Rhodes 02/10/2012 - 2.5mg Tablets Poly Lira 10/26/2012 Test Strips - True Test check qd 1Box El Rhodes 07/01/2011 - Poly Lira 10/26/2012 Metformin HCL 1 po bid 180tabs 250.00 El Rhodes 04/29/2011 - 500mg Tablets Poly Lira 06/01/2013 Metformin HCL 1/2 po qd 30tabs 250.00 Keerthi Bentley 04/23/2011 - 500mg Tablets Poly Frederick 04/29/2011 Lisinopril 1 po qd 90tabs El Rhodes 12/24/2010 - 2.5mg Tablets Poly Lira 04/23/2011 Metoprolol Succinate ER 1 po bid El Rhodes - Poly Lira 07/18/2012 25mg Tablets ER 24HR Aspirin DR 1 po qd Unknown - 81mg Tablets DR 11/19/2014 Spiriva Handihaler 1 po qd 3Months Unknown - 18mcg 04/23/2011 Capsules Advair Diskus 1 puff bid 3units Unknown - 04/23/2011 250-50mcg/Dose Aerosol Simvastatin 1 po qhs 30tabs Unknown - 20mg Tablets 02/14/2012 Multivitamins 1 po qd Unknown - Tablets 11/19/2014 Garlic 1 po qd Unknown - 100mg Capsules 08/05/2015 Furosemide take 1 tablet 45tabs [facility], - 20mg Tablets every other day M.D. 12/16/2015 Multaq take 1 tablet 60tabs [facility], - 400mg Tablets by mouth two M.D. 12/30/2015 times daily Furosemide 2 by mouth 90tabs [facility], - 40mg Tablets every day M.D. 04/14/2016 Isosorbide Mononitrate 1 by mouth 90tabs [facility], - ER every day M.D. 05/23/2018 30mg Tablets ER 24HR Immunizations CPT Code Status Date Vaccine Lot # [id number] Given 01/19/2018 Pneumococcal Immunization [id number] 80224 Given 01/19/2018 High-Dose, Influenza Virus Vacccine-fluzone 65 and [id number] older 33678 Given 11/29/2016 High-Dose, Influenza Virus Vacccine-fluzone 65 and [id number] older 02296 Given 12/16/2015 Pneumococcal Conjugate Vacc-13 [id number] 70912 Given 12/16/2015 High-Dose, Influenza Virus Vacccine-fluzone 65 and [id number] older 32575 Given 10/25/2013 DO Not Use Split Influenza Virus Vaccine [id number] Given 10/26/2012 Tdap Tetanus, W Pertussis [id number] Vital Signs Date Vital Result Comment 05/23/2018 3:30pm BP Systolic 110 mmHg BP Diastolic 70 mmHg Heart Rate 113 /min Body Temperature 98.1 F Respiratory Rate 18 /min O2 % BldC Oximetry 92 % @4 L O2 Height 75 inches 6'3" Weight 265.00 lb BMI (Body Mass Index) 33.1 kg/m2 01/19/2018 9:53am BP Systolic 129 mmHg BP Diastolic 82 mmHg Heart Rate 68 /min Body Temperature 97.9 F Respiratory Rate 16 /min O2 % BldC Oximetry 93 % 4L O2 Height 75 inches 6'3" Weight 264.00 lb BMI (Body Mass Index) 33.0 kg/m2 10/05/2017 8:01am BP Systolic 118 mmHg BP Diastolic 72 mmHg Heart Rate 82 /min Body Temperature 98.1 F Respiratory Rate 16 /min O2 % BldC Oximetry 934 % Height 75 inches 6'3" Weight 264.12 lb BMI (Body Mass Index) 33.0 kg/m2 07/04/2017 3:04pm BP Systolic 132 mmHg BP Diastolic 92 mmHg Heart Rate 104 /min Body Temperature 99.0 F Respiratory Rate 16 /min O2 % BldC Oximetry 89 % Height 75 inches 6'3" Weight 273.00 lb BMI (Body Mass Index) 34.1 kg/m2 11/29/2016 10:48am BP Systolic 132 mmHg BP Diastolic 70 mmHg Heart Rate 72 /min Body Temperature 98.6 F Height 75 inches 6'3" Weight 254.19 lb BMI (Body Mass Index) 31.8 kg/m2 07/14/2016 2:03pm BP Systolic 120 mmHg BP Diastolic 80 mmHg Heart Rate 72 /min Body Temperature 98.8 F Respiratory Rate 18 /min O2 % BldC Oximetry 93 % Height 75 inches 6'3" Weight 230.38 lb BMI (Body Mass Index) 28.8 kg/m2 04/22/2016 3:05pm BP Systolic 98 mmHg BP Diastolic 60 mmHg Heart Rate 68 /min Body Temperature 97.9 F Respiratory Rate 18 /min O2 % BldC Oximetry 95 % 4liter O2 Height 75 inches 6'3" Weight 245.00 lb BMI (Body Mass Index) 30.6 kg/m2 04/14/2016 3:03pm BP Systolic 110 mmHg BP Diastolic 70 mmHg Heart Rate 76 /min Body Temperature 98.4 F Respiratory Rate 18 /min O2 % BldC Oximetry 91 % Height 75 inches 6'3" Weight 253.00 lb BMI (Body Mass Index) 31.6 kg/m2 03/30/2016 10:44am BP Systolic 90 mmHg BP Diastolic 58 mmHg Heart Rate 72 /min Body Temperature 97.5 F O2 % BldC Oximetry 914 % Height 75 inches 6'3" Weight 292.00 lb BMI (Body Mass Index) 36.5 kg/m2 03/26/2016 3:07pm BP Systolic 100 mmHg BP Diastolic 60 mmHg Heart Rate 72 /min Body Temperature 98.6 F Respiratory Rate 18 /min O2 % BldC Oximetry 844 % Height 75 inches 6'3" Weight 300.12 lb BMI (Body Mass Index) 37.5 kg/m2 03/19/2016 3:16pm BP Systolic 100 mmHg BP Diastolic 70 mmHg Heart Rate 80 /min Body Temperature 97.2 F Respiratory Rate 20 /min O2 % BldC Oximetry 794 % Height 75 inches 6'3" Weight 295.00 lb BMI (Body Mass Index) 36.9 kg/m2 03/16/2016 11:49am BP Systolic 100 mmHg BP Diastolic 60 mmHg Heart Rate 84 /min Body Temperature 97.9 F Respiratory Rate 24 /min O2 % BldC Oximetry 79 % 4L O2 Height 75 inches 6'3" Weight 295.25 lb BMI (Body Mass Index) 36.9 kg/m2 12/16/2015 10:22am BP Systolic 130 mmHg BP Diastolic 70 mmHg Heart Rate 72 /min Body Temperature 97.6 F O2 % BldC Oximetry 904 % Height 75 inches 6'3" Weight 280.00 lb BMI (Body Mass Index) 35.0 kg/m2 11/11/2015 12:54pm BP Systolic 130 mmHg BP Diastolic 80 mmHg Heart Rate 72 /min Body Temperature 98.4 F Respiratory Rate 24 /min O2 % BldC Oximetry 884 % Height 75 inches 6'3" Weight 295.00 lb BMI (Body Mass Index) 36.9 kg/m2 08/05/2015 2:41pm BP Systolic 110 mmHg BP Diastolic 64 mmHg Heart Rate 62 /min Body Temperature 97.8 F Respiratory Rate 16 /min O2 % BldC Oximetry 923 % Height 75 inches 6'3" Weight 274.00 lb BMI (Body Mass Index) 34.2 kg/m2 05/08/2015 2:47pm BP Systolic 160 mmHg BP Diastolic 82 mmHg Heart Rate 83 /min Body Temperature 98.8 F O2 % BldC Oximetry 91 % Height 75 inches 6'3" Weight 286.00 lb BMI (Body Mass Index) 35.7 kg/m2 02/06/2015 12:58pm BP Systolic 124 mmHg BP Diastolic 64 mmHg Heart Rate 60 /min Respiratory Rate 16 /min Height 75 inches 6'3" Weight 270.00 lb BMI (Body Mass Index) 33.7 kg/m2 11/19/2014 10:51am BP Systolic 136 mmHg BP Diastolic 82 mmHg Heart Rate 72 /min Body Temperature 98.2 F Respiratory Rate 16 /min Height 75 inches 6'3" Weight 274.00 lb BMI (Body Mass Index) 34.2 kg/m2 10/09/2014 9:46am BP Systolic 132 mmHg BP Diastolic 80 mmHg Heart Rate 76 /min Body Temperature 98.1 F Respiratory Rate 18 /min Height 75 inches 6'3" Weight 271.00 lb BMI (Body Mass Index) 33.9 kg/m2 05/22/2014 2:21pm BP Systolic 122 mmHg BP Diastolic 74 mmHg Heart Rate 64 /min Body Temperature 97.7 F Respiratory Rate 20 /min Height 75 inches 6'3" 05/08/2014 2:53pm BP Systolic 132 mmHg BP Diastolic 80 mmHg Heart Rate 78 /min Body Temperature 97.4 F Respiratory Rate 18 /min Height 75 inches 6'3" Weight 267.00 lb BMI (Body Mass Index) 33.4 kg/m2 04/17/2014 2:14pm BP Systolic 144 mmHg BP Diastolic 84 mmHg Heart Rate 80 /min Body Temperature 97.5 F Respiratory Rate 18 /min Height 75 inches 6'3" Weight 260.00 lb BMI (Body Mass Index) 32.5 kg/m2 11/01/2013 12:58pm BP Systolic 136 mmHg BP Diastolic 80 mmHg Heart Rate 72 /min Body Temperature 98.5 F Respiratory Rate 18 /min O2 % BldC Oximetry 953 % Height 75 inches 6'3" Weight 262.00 lb BMI (Body Mass Index) 32.7 kg/m2 06/01/2013 11:21am BP Systolic 138 mmHg BP Diastolic 90 mmHg Heart Rate 71 /min Body Temperature 97.2 F O2 % BldC Oximetry 92 % Height 75 inches 6'3" Weight 267.00 lb BMI (Body Mass Index) 33.4 kg/m2 03/08/2013 2:47pm BP Systolic 130 mmHg BP Diastolic 84 mmHg Heart Rate 64 /min Body Temperature 97.5 F Respiratory Rate 12 /min O2 % BldC Oximetry 9632 % Height 75 inches 6'3" Weight 255.50 lb BMI (Body Mass Index) 31.9 kg/m2 10/26/2012 12:04pm BP Systolic 120 mmHg BP Diastolic 80 mmHg Heart Rate 68 /min Body Temperature 97.6 F Respiratory Rate 12 /min Height 75 inches 6'3" Weight 257.00 lb BMI (Body Mass Index) 32.1 kg/m2 Right Visual Acuity Distance 20/30 uncorrected Left Visual Acuity Distance 20/20 uncorrected 06/15/2012 2:07pm BP Systolic 134 mmHg BP Diastolic 80 mmHg Heart Rate 72 /min Body Temperature 97.4 F Respiratory Rate 20 /min O2 % BldC Oximetry 97 % Height 75 inches 6'3" Weight 259.00 lb BMI (Body Mass Index) 32.4 kg/m2 02/10/2012 1:24pm BP Systolic 140 mmHg BP Diastolic 90 mmHg Heart Rate 62 /min Body Temperature 97.6 F Height 75 inches 6'3" Weight 259.00 lb BMI (Body Mass Index) 32.4 kg/m2 10/07/2011 1:32pm BP Systolic 106 mmHg BP Diastolic 76 mmHg Heart Rate 59 /min Body Temperature 97.6 F O2 % BldC Oximetry 96 % 3L Oxygen Height 75 inches 6'3" Weight 259.00 lb BMI (Body Mass Index) 32.4 kg/m2 07/01/2011 3:19pm BP Systolic 112 mmHg BP Diastolic 64 mmHg Heart Rate 64 /min 3L 02 Body Temperature 98.6 F O2 % BldC Oximetry 98 % Height 75 inches 6'3" Weight 252.00 lb BMI (Body Mass Index) 31.5 kg/m2 04/29/2011 12:22pm BP Systolic 120 mmHg BP Diastolic 70 mmHg Heart Rate 64 /min Body Temperature 97.2 F Respiratory Rate 22 /min Height 75 inches 6'3" Weight 247.00 lb BMI (Body Mass Index) 30.9 kg/m2 04/23/2011 2:18pm BP Systolic 122 mmHg BP Diastolic 90 mmHg Heart Rate 70 /min O2 % BldC Oximetry 91 % 3 liters Height 75 inches 6'3" Weight 253.00 lb BMI (Body Mass Index) 31.6 kg/m2 12/24/2010 1:17pm BP Systolic 110 mmHg BP Diastolic 72 mmHg Heart Rate 77 /min Body Temperature 97.7 F Respiratory Rate 14 /min O2 % BldC Oximetry 93 % 3L Oxygen Height 75 inches 6'3" Weight 257.00 lb BMI (Body Mass Index) 32.1 kg/m2 11/12/2010 2:59pm BP Systolic 118 mmHg BP Diastolic 70 mmHg Heart Rate 68 /min Body Temperature 98.2 F Respiratory Rate 16 /min O2 % BldC Oximetry 93 % 2 liters Height 75 inches 6'3" Weight 243.00 lb BMI (Body Mass Index) 30.4 kg/m2 10/22/2010 11:25am BP Systolic 100 mmHg BP Diastolic 70 mmHg Heart Rate 72 /min Body Temperature 97.0 F O2 % BldC Oximetry 94 % 2l oxygen Height 75 inches 6'3" Weight 240.00 lb BMI (Body Mass Index) 30.0 kg/m2 Results Test Date Facility Test Result H/L Range Note Total And 05/23/2018 [facility] Total Bilirubin 1.9 mg/dL High 0.2- 1.3 1 Direct Bili Direct Bilirubn 1.1 mg/dL High 0.0-0.6 Indirect Bilirubin 0.80 mg/dL 0.10-1.00 CBC Electronic Fma 05/23/2018 [facility] WBC 13.2 x10^3/UL High 4.0- 10.0 2 RBC 6.49 x10^6/UL High 3.93-6.00 HGB 16.0 g/dL 12.0-17.0 3 HCT 53 % High 35-50 MCV 81.2 fL 80.0-95.0 MCH 24.7 pg Low 25.6-32.2 MCHC 30.4 g/dL Low 32.2-36.0 RDW-CV 23.2 % High 11.6-14.4 PLT 338 x10^3/UL 163-400 MPV 11.1 fL 9.4-12.4 Charlie# 11.96 x10^3/UL High 1.56-6.13 Lymph# 0.85 x10^3/UL Low 1.18-3.74 Harlan# 0.28 x10^3/UL 0.24-0.82 Eos # 0.0 x10^3/UL 0.0-0.5 Baso # 0.02 x10^3/UL 0.01-0.08 Charlie% 90.8 % High 34.0-70.0 Lymph % 6.5 % Low 20.0-52.0 Harlan% 2.1 % Low 5.0-12.0 Eos% 0.0 % Low 0.7-7.0 Baso% 0.2 % 0.1-1.2 Laboratory test 05/23/2018 [facility] Hemoglobin A1c 5.8 % High 4.1- 5.7 finding (607)- - (Fma) Laboratory test 05/23/2018 [facility] Free T4 1.63 High 0.75-1.54 4 finding ng/dL TSH 0.94 mIU/L 0.50-6.00 Serum Iron 106 g/dL 60-150 Vitamin B-12 333 pg/mL 230-1050 Magnesium, Serum 1.9 mEq/L 1.2-2.1 Comprehensive Metabolic Prof 05/23/2018 [facility] Sodium 136 mEq/L 134-149 Potassium 5.4 mEq/L 3.6-5.5 Chloride 91 mEq/L Low 94-112 5 Carbon Dioxide 27 mEq/L 21-32 Glucose 178 mg/dL High 70-105 6 BUN 44 mg/dL High 6-26 7 Creatinine 1.3 mg/dL 0.6-1.4 BUN/Creat Ratio 33.8 CALC 8.0-36.0 Calcium 10.0 mg/dL 8.6-10.2 Total Protein 7.2 g/dL 6.4-8.3 Albumin 4.5 g/dL 3.8-5.5 Globulin 2.7 g/dL 2.0-4.8 A/G Ratio 1.7 CALC 0.6-2.3 Alk. Phosphatase 60 U/L 22-95 Alt (SGPT) 31 U/L 7-35 Ast (Sgot) 25 U/L 5-34 Total Bilirubin 1.9 mg/dL High 0.2-1.3 8 GFR Non- 58 ml/min/1.73m^ Low >=60 GFR >60 ml/min/1.73m^ >=60 Laboratory test finding 05/03/2018 [facility] Erythrocyte Sed Rate 2 mm/Hr N 0- 20 9 Blood Culture SEE RESULT BELOW 10 CBC Auto Diff 05/03/2018 [facility] White Blood Count 9.3 10^3/uL N 3.5-10.8 Red Blood Count 5.87 10^6/uL High 4.00-5.40 Hemoglobin 14.3 g/dL N 14.0-18.0 Hematocrit 46 % N 42-52 Mean Corpuscular Volume 78 fL Low 80-94 Mean Corpuscular Hemoglobin 24 pg Low 27-31 Mean Corpuscular HGB Conc 31 g/dL N 31-36 Red Cell Distribution Width 22 % High 10.5-15 Platelet Count 175 10^3/uL N 150-450 Mean Platelet Volume 8.3 fL N 7.4-10.4 Abs Neutrophils 6.5 10^3/uL N 1.5-7.7 Abs Lymphocytes 1.4 10^3/uL N 1.0-4.8 Abs Monocytes 1.2 10^3/uL High 0-0.8 Abs Eosinophils 0.1 10^3/uL N 0-0.6 Abs Basophils 0.1 10^3/uL N 0-0.2 Abs Nucleated RBC 0 10^3/uL Granulocyte % 69.9 % Lymphocyte % 15.0 % Monocyte % 12.9 % Eosinophil % 1.6 % Basophil % 0.6 % Nucleated Red Blood Cells % 0.2 Large Platelets Present Urinalysis Profile 05/03/2018 [facility] Urine Color Yellow Urine Appearance Clear Urine Specific [place] 1.008 Low 1.010-1.030 Urine pH 5.0 N 5-9 Urine Urobilinogen Negative Negative Urine Ketones Negative Negative Urine Protein Negative Negative Urine Leukocytes Negative Negative Urine Blood Negative Negative Urine Nitrite Negative Negative Urine Bilirubin Negative Negative Urine Glucose Negative Negative Laboratory test finding 05/03/2018 [facility] Creatine Kinase(CK) 44 U/L N 10- 223 C Reactive Protein 68.94 mg/L High <8.01 Troponin I 0.01 ng/mL <0.04 11 Comp Metabolic Panel 05/03/2018 [facility] Sodium 140 mmol/L N 135-145 Potassium 4.0 mmol/L N 3.5-5.0 Chloride 97 mmol/L Low 101-111 Co2 Carbon Dioxide 32 mmol/L N 22-32 Anion Gap 11 mmol/L N 2-11 Glucose 93 mg/dL N 70-100 Blood Urea Nitrogen 30 mg/dL High 6-24 Creatinine 1.31 mg/dL High 0.67-1.17 BUN/Creatinine Ratio 22.9 High 8-20 Calcium 9.3 mg/dL N 8.6-10.3 Total Protein 7.1 g/dL N 6.4-8.9 Albumin 3.7 g/dL N 3.2-5.2 Globulin 3.4 g/dL N 2-4 Albumin/Globulin Ratio 1.1 N 1-3 Total Bilirubin 1.70 mg/dL High 0.2-1.0 Alkaline Phosphatase 59 U/L N 34-104 Alt 9 U/L N 7-52 Ast 13 U/L N 13-39 Egfr Non- 53.9 >60 Egfr 65.3 >60 12 Wound Culture/Sensi 05/03/2018 [facility] Wound/Misc SEE RESULT 13 Culture-Gram Stain BELOW Laboratory test 05/03/2018 [facility] MRSA/S. aureus Ssti SEE RESULT 14 finding PCR BELOW Arterial Blood Gas 05/03/2018 [facility] PH Arterial 7.47 High 7.35-7. 45 Pco2 Arterial 47 mmHg High 35-45 Po2 Arterial 87 mmHg N 80-100 O2 Saturation Arterial 98.6 % High 94.0-98.0 Base Excess Arterial 9.1 mmol/L High -2.0-2.0 15 Hco3 Arterial 31.9 mmol/L High 19-31 Laboratory test finding 05/03/2018 [facility] Partial Thrombo Time 35.0 seconds N 26.0-36.3 PTT B-Type Natriuretic Peptide BNP 301 pg/mL High <=100 Laboratory test 05/03/2018 [facility] Lactic Acid 3.3 mmol/L High 0.5-2.0 16 finding Inr/Protime 05/03/2018 [facility] Inr 1.75 High 0.77-1.02 Laboratory test 02/23/2018 [facility] Rapid Influenza A SEE RESULT BELOW 17 finding & B Antigen Rapid Influenza A & 02/23/2018 [facility] Influenza A NEGATIVE Negative 18 B Molecular Molecular Influenza B Molecular NEGATIVE Negative Laboratory test finding 02/23/2018 [facility] TSH (Thyroid Stim 4.87 mcIU/mL N 0.34-5.60 Horm) Blood Culture SEE RESULT BELOW 19 Urinalysis Profile 02/23/2018 [facility] Urine Color Straw Urine Appearance Clear Urine Specific [place] 1.006 Low 1.010-1.030 Urine pH 5.0 N 5-9 Urine Urobilinogen Negative Negative Urine Ketones Negative Negative Urine Protein Negative Negative Urine Leukocytes Negative Negative Urine Blood Negative Negative Urine Nitrite Negative Negative Urine Bilirubin Negative Negative Urine Glucose Negative Negative Laboratory test finding 02/23/2018 [facility] Troponin I 0.01 ng/mL <0.04 20 Comp Metabolic Panel 02/23/2018 [facility] Sodium 138 mmol/L N 135-145 Potassium 4.6 mmol/L N 3.5-5.0 Chloride 101 mmol/L N 101-111 Co2 Carbon Dioxide 28 mmol/L N 22-32 Anion Gap 9 mmol/L N 2-11 Glucose 99 mg/dL N 70-100 Blood Urea Nitrogen 24 mg/dL N 6-24 Creatinine 1.33 mg/dL High 0.67-1.17 BUN/Creatinine Ratio 18.0 N 8-20 Calcium 9.5 mg/dL N 8.6-10.3 Total Protein 7.4 g/dL N 6.4-8.9 Albumin 4.1 g/dL N 3.2-5.2 Globulin 3.3 g/dL N 2-4 Albumin/Globulin Ratio 1.2 N 1-3 Total Bilirubin 1.00 mg/dL N 0.2-1.0 Alkaline Phosphatase 62 U/L N 34-104 Alt 11 U/L N 7-52 Ast 13 U/L N 13-39 Egfr Non- 53.2 >60 Egfr 64.3 >60 21 Laboratory test 02/23/2018 [facility] Lactic Acid 1.1 mmol/L N 0.5-2.0 22 finding Laboratory test 02/23/2018 [facility] Lactic Acid 1.2 mmol/L N 0.5-2.0 23 finding Laboratory test 02/23/2018 [facility] B-Type Natriuretic 180 pg/mL High <=100 finding Peptide BNP Laboratory test 02/23/2018 [facility] Partial Thrombo Time 39.6 seconds High 26.0-36.3 finding PTT D Dimer Quantitative < 200 ng/mL N Less Than 230 24 Lactic Acid 2.5 mmol/L High 0.5-2.0 25 Inr/Protime 02/23/2018 [facility] Inr 1.49 High 0.77-1.02 CBC Auto Diff 02/23/2018 [facility] White Blood Count 8.2 10^3/uL N 3.5-10.8 Red Blood Count 5.95 10^6/uL High 4.00-5.40 Hemoglobin 15.6 g/dL N 14.0-18.0 Hematocrit 49 % N 42-52 Mean Corpuscular Volume 82 fL N 80-94 Mean Corpuscular Hemoglobin 26 pg Low 27-31 Mean Corpuscular HGB Conc 32 g/dL N 31-36 Red Cell Distribution Width 16 % High 10.5-15 Platelet Count 182 10^3/uL N 150-450 Mean Platelet Volume 8.4 fL N 7.4-10.4 Abs Neutrophils 5.3 10^3/uL N 1.5-7.7 Abs Lymphocytes 1.6 10^3/uL N 1.0-4.8 Abs Monocytes 0.9 10^3/uL High 0-0.8 Abs Eosinophils 0.4 10^3/uL N 0-0.6 Abs Basophils 0.1 10^3/uL N 0-0.2 Abs Nucleated RBC 0 10^3/uL Granulocyte % 64.6 % Lymphocyte % 19.4 % Monocyte % 10.8 % Eosinophil % 4.4 % Basophil % 0.8 % Nucleated Red Blood Cells % 0.1 Arterial Blood Gas 02/23/2018 [facility] PH Arterial 7.43 N 7.35-7.45 Pco2 Arterial 44 mmHg N 35-45 Po2 Arterial 67 mmHg Low 80-100 O2 Saturation Arterial 93.6 % Low 94.0-98.0 Base Excess Arterial 4.2 mmol/L High -2.0-2.0 26 Hco3 Arterial 28.0 mmol/L N 19-31 CBC Electronic Fma 01/19/2018 [facility] WBC 8.6 x10^3/UL 4.0-10.0 RBC 5.71 x10^6/UL 3.93-6.00 HGB 16.6 g/dL 12.0-17.0 HCT 52 % High 35-50 MCV 90.9 fL 80.0-95.0 MCH 29.1 pg 25.6-32.2 MCHC 32.2 g/dL 32.2-36.0 RDW-CV 14.3 % 11.6-14.4 PLT 203 x10^3/UL 163-400 MPV 10.9 fL 9.4-12.4 Charlie# 5.64 x10^3/UL 1.56-6.13 Lymph# 1.72 x10^3/UL 1.18-3.74 Harlan# 0.91 x10^3/UL High 0.24-0.82 Eos # 0.3 x10^3/UL 0.0-0.5 Baso # 0.07 x10^3/UL 0.01-0.08 Charlie% 65.6 % 34.0-70.0 Lymph % 20.0 % 20.0-52.0 Harlan% 10.6 % 5.0-12.0 Eos% 2.9 % 0.7-7.0 Baso% 0.8 % 0.1-1.2 Laboratory test finding 01/19/2018 [facility] TSH 4.46 mIU/L 0.50- 6.00 Free T4 1.20 ng/dL 0.75-1.54 Ua - Micro (Fma) 01/19/2018 [facility] Appearance clear (607)- - Color yellow Glucose, Urine (Fma/CMC/CTX) neg Bilirubin neg Ketones neg SP Grav 1.010 Blood neg PH 6.5 Protein neg Urobil 0.2 Nitrite neg Leukocytes (Fma/CMC/Centrex) small # Hyaline - /Lpf Granular - /Lpf WBC (Fma,Centrex) 8-10 # RBC 0-1 # Mucus (Fma/CBC/Centrex) - /Lpf Epith - /Lpf Bacteria - /Hpf Amorphous (Fma/CMC/Centrex) - /Lpf Crystals, Fluid (Fma/CMC/CTX) - Z#Comments - Comprehensive Metabolic Prof 01/19/2018 [facility] Sodium 137 mEq/L 134-149 Potassium 4.6 mEq/L 3.6-5.5 Chloride 101 mEq/L 94-112 Carbon Dioxide 28 mEq/L 21-32 Glucose 159 mg/dL High 70-105 BUN 23 mg/dL 6-26 Creatinine 1.1 mg/dL 0.6-1.4 BUN/Creat Ratio 20.9 CALC 8.0-36.0 Calcium 10.1 mg/dL 8.6-10.2 Total Protein 7.8 g/dL 6.4-8.3 Albumin 4.6 g/dL 3.8-5.5 Globulin 3.2 g/dL 2.0-4.8 A/G Ratio 1.4 CALC 0.6-2.3 Alk. Phosphatase 76 U/L 22-95 Alt (SGPT) 28 U/L 7-35 Ast (Sgot) 20 U/L 5-34 Total Bilirubin 0.8 mg/dL 0.2-1.3 GFR Non- >60 ml/min/1.73m^ >=60 GFR >60 ml/min/1.73m^ >=60 Lipid Profile 01/19/2018 [facility] Cholesterol 119 mg/dL Low 120- 200 Triglycerides 139 mg/dL 30-200 HDL Cholesterol 34 mg/dL 30-70 LDL (Calculated) 57 CALC 0-129 VLDL Cholesterol 28 mg/dL 0-50 HDL Risk Factor 3.5 CALC 0.0-4.4 Laboratory test 01/19/2018 [facility] Hemoglobin A1c 6.8 % High 4.1- 5.7 finding (607)- - (Fma) Microalb, Random (Fma/CMC/CTX) 38.8 mg/L mg/L High 0.5-37 Laboratory test 05/26/2017 [facility] Hemoglobin A1c 6.3 % High 4.1- 5.7 finding (607)- - (Fma) Microalb, Random (Fma/CMC/CTX) 27.9 mg/L 0.5-37 Comprehensive Metabolic Prof 05/26/2017 [facility] Sodium 138 mEq/L 134-149 Potassium 5.0 mEq/L 3.6-5.5 Chloride 98 mEq/L 94-112 Carbon Dioxide 29 mEq/L 21-32 Glucose 132 mg/dL High 70-105 27 BUN 24 mg/dL 6-26 Creatinine 1.1 mg/dL 0.6-1.4 BUN/Creat Ratio 21.8 CALC 8.0-36.0 Calcium 10.2 mg/dL 8.6-10.2 Total Protein 7.7 g/dL 6.4-8.3 Albumin 4.5 g/dL 3.8-5.5 Globulin 3.2 g/dL 2.0-4.8 A/G Ratio 1.4 CALC 0.6-2.3 Alk. Phosphatase 78 U/L 22-95 Alt (SGPT) 23 U/L 7-35 Ast (Sgot) 20 U/L 5-34 Total Bilirubin 0.9 mg/dL 0.2-1.3 GFR Non- >60 ml/min/1.73m^ >=60 GFR >60 ml/min/1.73m^ >=60 Ua - Non Micro (Fma) 05/26/2017 [facility] Appearance clear (607)- - Color yellow Glucose, Urine (Fma/CMC/CTX) - Bilirubin - Ketones - SP Grav 1.020 Blood - PH 7.0 Protein - Urobil 0.2 Nitrite - Leukocytes (Fma/CMC/Centrex) - Lipid Profile 05/26/2017 [facility] Cholesterol 123 mg/dL 120-200 Triglycerides 155 mg/dL 30-200 HDL Cholesterol 30 mg/dL 30-70 LDL (Calculated) 62 CALC 0-129 VLDL Cholesterol 31 mg/dL 0-50 HDL Risk Factor 4.1 CALC 0.0-4.4 Laboratory test finding 05/26/2017 [facility] TSH 3.89 mIU/L 0.50- 6.00 Free T4 1.13 ng/dL 0.75-1.54 CBC Electronic Fma 05/26/2017 [facility] WBC 7.6 x10^3/UL 4.0-10.0 RBC 5.48 x10^6/UL 3.93-6.00 HGB 16.1 g/dL 12.0-17.0 HCT 49 % 35-50 MCV 88.7 fL 80.0-95.0 MCH 29.4 pg 25.6-32.2 MCHC 33.1 g/dL 32.2-36.0 RDW-CV 13.7 % 11.6-14.4 PLT 189 x10^3/UL 163-400 MPV 10.9 fL 9.4-12.4 Charlie# 4.47 x10^3/UL 1.56-6.13 Lymph# 1.97 x10^3/UL 1.18-3.74 Harlan# 0.85 x10^3/UL High 0.24-0.82 Eos # 0.3 x10^3/UL 0.0-0.5 Baso # 0.04 x10^3/UL 0.01-0.08 Charlie% 58.7 % 34.0-70.0 Lymph % 25.8 % 20.0-52.0 Harlan% 11.1 % 5.0-12.0 Eos% 3.8 % 0.7-7.0 Baso% 0.5 % 0.1-1.2 Comp Metabolic Panel 06/14/2016 [facility] Sodium 136 mmol/L N 133-145 Potassium 4.9 mmol/L N 3.5-5.0 Chloride 100 [...] 61.8 N >60 Egfr 79.5 N >60 28 Laboratory test 06/14/2016 [facility] B-Type Natriuretic 141 pg/mL High 29 finding Peptide BNP Laboratory test 04/26/2016 [facility] Point of Care Glucose 101 mg/dL N 74-106 30 finding Laboratory test 03/30/2016 [facility] Lactic Acid 1.7 mmol/L N 0.5-2.0 31 finding Inr/Protime 03/30/2016 [facility] Inr 1.67 High 0.89-1.11 Laboratory test 03/30/2016 [facility] B-Type Natriuretic 605 pg/mL High 32 finding Peptide BNP Comp Metabolic Panel 03/30/2016 [facility] Sodium 134 mmol/L N 133-145 Potassium 4.6 mmol/L N 3.5-5.0 Chloride 98 mmol/L Low 101-111 Co2 Carbon Dioxide 29 mmol/L N 22-32 Anion Gap 7 mmol/L N 2-11 Glucose 100 mg/dL N 70-100 Blood Urea Nitrogen 35 mg/dL High 6-24 Creatinine 1.50 mg/dL High 0.67-1.17 BUN/Creatinine Ratio 23.3 High 8-20 Calcium 9.7 mg/dL N 8.6-10.3 Total Protein 7.8 g/dL N 6.4-8.9 Albumin 3.9 g/dL N 3.2-5.2 Globulin 3.9 g/dL N 2-4 Albumin/Globulin Ratio 1.0 N 1-3 Total Bilirubin 1.50 mg/dL High 0.2-1.0 Alkaline Phosphatase 64 U/L N 34-104 Alt 10 U/L N 7-52 Ast 16 U/L N 13-39 Egfr Non- 46.4 N >60 Egfr 59.7 N >60 33 Laboratory test finding 03/30/2016 [facility] Magnesium 2.2 mg/dL N 1.9-2.7 Troponin I 0.01 ng/mL N <0.04 34 Laboratory test finding 03/30/2016 [facility] Thyroxine 7.03 ?g/dL N 6.09-12.23 TSH (Thyroid Stim Horm) 6.41 mcIU/mL High 0.34-5.60 CBC Auto Diff 03/30/2016 [facility] White Blood Count 5.9 10^3/uL N 3.5-10.8 Red Blood Count 7.04 10^6/uL High 4.0-5.4 Hemoglobin 12.3 g/dL Low 14.0-18.0 35 Hematocrit 44 % N 42-52 Mean Corpuscular Volume 63 fL Low 80-94 36 Mean Corpuscular Hemoglobin 17 pg Low 27-31 Mean Corpuscular HGB Conc 28 g/dL Low 31-36 Red Cell Distribution Width 23 % High 10.5-15 Platelet Count 188 10^3/uL N 150-450 Mean Platelet Volume 9 um3 N 7.4-10.4 Abs Neutrophils 3.6 10^3/uL N 1.5-7.7 Abs Lymphocytes 1.1 10^3/uL N 1.0-4.8 Abs Monocytes 0.6 10^3/uL N 0-0.8 Abs Eosinophils 0.2 10^3/uL N 0-0.6 Abs Basophils 0.3 10^3/uL High 0-0.2 Abs Nucleated RBC 0.01 10^3/uL N Granulocyte % 61.6 % N 38-83 Lymphocyte % 19.4 % Low 25-47 Monocyte % 9.4 % High 1-9 Eosinophil % 3.7 % N 0-6 Basophil % 5.9 % High 0-2 Nucleated Red Blood Cells % 0.2 N Cell Morphology 03/30/2016 [facility] Microcytosis 3+ N Hypochromasia 3+ N Polychromasia 1+ N Target Cells 1+ N Elliptocyte 1+ N Laboratory test finding 03/30/2016 [facility] Free T4 (Free 0.91 ng/dL N 0.61- 1.12 Thyroxine) Urinalysis Profile 03/30/2016 [facility] Urine Color Yellow N Urine Appearance Clear N Urine Specific [place] 1.010 N 1.010-1.030 Urine pH 6.0 N 5-9 Urine Urobilinogen Negative N Negative Urine Ketones Negative N Negative Urine Protein Negative N Negative Urine Leukocytes Negative N Negative Urine Blood Negative N Negative Urine Nitrite Negative N Negative Urine Bilirubin Negative N Negative Urine Glucose Negative N Negative Laboratory test finding 03/30/2016 [facility] Pathologist Review (SEE NOTE) N 37 Iron & Iron Binding 03/30/2016 [facility] Iron 17 g/dL Low 50-212 Capacity Unsaturated Iron Binding 501 g/dL N Total Iron Binding Capacity 518 g/dL High 250-450 % Iron Saturation 3 % Low 15-55 Laboratory test finding 03/30/2016 [facility] Ferritin < 10.0 ng/mL Low 24-336 Folic Acid (Folate) > 20.00 ng/mL N >3.99 Vitamin B12 423 pg/mL N 180-914 38 Hemoglobin A1c (Glyco HGB) 6.3 % High Less than 6.0 39 Blood Culture SEE RESULT BELOW 40 CKMB 03/30/2016 [facility] CKMB ng/mL 1.7 ng/mL N 0.6-6.3 Comprehensive Metabolic 03/16/2016 [facility] Sodium 140 mEq/L 134- 149 Prof Potassium 5.4 mEq/L 3.6-5.5 Chloride 105 mEq/L 94-112 Carbon Dioxide 30 mEq/L 21-32 Glucose 95 mg/dL 70-105 BUN 32 mg/dL High 6-26 41 Creatinine 1.4 mg/dL 0.6-1.4 BUN/Creat Ratio 22.9 CALC 8.0-36.0 Calcium 9.1 mg/dL 8.6-10.2 Total Protein 7.2 g/dL 6.4-8.3 Albumin 4.0 g/dL 3.8-5.5 Globulin 3.2 g/dL 2.0-4.8 A/G Ratio 1.3 CALC 0.6-2.3 Alk. Phosphatase 61 U/L 22-95 Alt (SGPT) 9 U/L 7-35 Ast (Sgot) 18 U/L 5-34 Total Bilirubin 1.3 mg/dL 0.2-1.3 GFR Non- 54 ml/min/1.73m^ Low >=60 GFR >60 ml/min/1.73m^ >=60 Complete Blood Count 03/16/2016 [facility] Sonny WBC 7.1 x10^3/UL 3.6-9.6 RBC 6.45 x10^6/UL High 3.90-5.70 42 HGB 12.0 g/dL Low 12.1-17.2 HCT 42 % 36-50 MCV 64.0 fL Low 82.2-97.4 43 MCH 18.7 pg Low 27.6-33.3 MCHC 29.0 g/dL Low 33.0-35.5 RDW 20.1 % High 11.6-13.7 PLT 235 x10^3/UL 150-400 MPV 6.8 fL Low 7.4-10.4 Gran # 5.1 x10^3/UL 1.5-7.2 Lymph# 1.5 x10^3/UL 0.7-4.9 Harlan# 0.5 x10^3/UL 0.1-0.9 Gran % 69.9 % 42.2-75.2 Lymph % 22.0 % 20.5-51.1 Harlan% 8.1 % 1.7-9.3 Laboratory test 03/16/2016 [facility] Hemoglobin A1c (Fma) 5.7 % 4.1-5.7 finding (607)- - Brain Natural Peptide 551 pg/mL High <100 Comprehensive Metabolic Prof 11/04/2015 José Luis Lynch Sodium 138 mEq/L 134-149 Potassium 4.8 mEq/L 3.6-5.5 Chloride 97 mEq/L 94-112 Carbon Dioxide 31 mEq/L 21-32 Glucose 123 mg/dL High 70-105 44 BUN 15 mg/dL 6-26 Creatinine 1.1 mg/dL 0.6-1.4 BUN/Creat Ratio 13.6 CALC 8.0-36.0 Calcium 9.3 mg/dL 8.6-10.2 Total Protein 7.2 g/dL 6.4-8.3 Albumin 4.2 g/dL 3.8-5.5 Globulin 3.0 g/dL 2.0-4.8 A/G Ratio 1.4 CALC 0.6-2.3 Alk. Phosphatase 64 U/L 22-95 Alt (SGPT) 12 U/L 7-35 Ast (Sgot) 15 U/L 5-34 Total Bilirubin 0.8 mg/dL 0.2-1.3 GFR Non- >60 ml/min/1.73m^ >=60 GFR >60 ml/min/1.73m^ >=60 Lipid Profile 11/04/2015 [facility] Cholesterol 106 mg/dL Low 120- 200 45 Triglycerides 114 mg/dL 30-200 HDL Cholesterol 27 mg/dL Low 30-70 46 LDL (Calculated) 56 CALC 0-129 VLDL Cholesterol 23 mg/dL 0-50 HDL Risk Factor 3.9 CALC 0.0-4.4 Complete Blood Count 11/04/2015 [facility] WBC 8.2 x10^3/UL 3.6-9.6 RBC 5.29 x10^6/UL 3.90-5.70 HGB 14.5 g/dL 12.1-17.2 HCT 45 % 36-50 MCV 85.0 fL 82.2-97.4 MCH 27.5 pg Low 27.6-33.3 MCHC 33.0 g/dL 33.0-35.5 RDW 15.0 % High 11.6-13.7 PLT 198 x10^3/UL 150-400 MPV 8.1 fL 7.4-10.4 Gran # 5.8 x10^3/UL 1.5-7.2 Lymph# 2.0 x10^3/UL 0.7-4.9 Harlan# 0.4 x10^3/UL 0.1-0.9 Gran % 69.7 % 42.2-75.2 Lymph % 24.7 % 20.5-51.1 Harlan% 5.6 % 1.7-9.3 Laboratory test 11/04/2015 [facility] Hemoglobin A1c 6.3 % High 4.1- 5.7 finding (607)- - (Fma) Comprehensive 08/05/2015 [facility] Sonny Sodium 138 mEq/L 134-149 Metabolic Prof Potassium 4.5 mEq/L 3.6-5.5 Chloride 94 mEq/L 94-112 Carbon Dioxide 32 mEq/L 21-32 Glucose 90 mg/dL 70-105 BUN 18 mg/dL 6-26 Creatinine 0.9 mg/dL 0.6-1.4 BUN/Creat Ratio 20.0 CALC 8.0-36.0 Calcium 10.0 mg/dL 8.6-10.2 Total Protein 7.7 g/dL 6.4-8.3 Albumin 4.5 g/dL 3.8-5.5 Globulin 3.2 g/dL 2.0-4.8 A/G Ratio 1.4 CALC 0.6-2.3 Alk. Phosphatase 67 U/L 22-95 Alt (SGPT) 17 U/L 7-35 Ast (Sgot) 17 U/L 5-34 Total Bilirubin 0.6 mg/dL 0.2-1.3 GFR Non- >60 ml/min/1.73m^ >=60 GFR >60 ml/min/1.73m^ >=60 Laboratory test finding 08/05/2015 [facility] Lynch Free T4 1.25 ng/dL 0.75-1.54 TSH 3.36 mIU/L 0.50-6.00 Lipid Profile 08/05/2015 [facility] Lynch Cholesterol 125 mg/dL 120-200 Triglycerides 150 mg/dL 30-200 HDL Cholesterol 33 mg/dL 30-70 LDL (Calculated) 62 CALC 0-129 VLDL Cholesterol 30 mg/dL 0-50 HDL Risk Factor 3.8 CALC 0.0-4.4 Laboratory test 08/05/2015 José Luis Lynch CK 41 U/L 38-174 finding Laboratory test 08/05/2015 [facility] Hemoglobin A1c 5.3 % 4.1-5.7 finding (607)- - (Fma) CBC Electronic (a) 08/05/2015 [facility] WBC 7.9 3.6-9.6 (607)- - RBC 4.85 3.90-5.70 Hemoglobin (Fma/CMC/CTX) 14.1 g/dL 12.1 - 17.2 Hematocrit (Fma/CMC/CTX) 44.3 % 36.1 - 50.3 Platelets 248 10^3/ul 150-400 Lymph% 31.3 % 17.0-48.0 Mixed% 6.8 Neutrophils % 61.9 Mean Corpuscular Vol 91 82.2-97.4 Mean Corpuscular Hemoglobin 29.2 27.6-33.3 Mean Corpuscular Hemo Concen 31.9 Low 32.0-36.0 RDW 14.5 High 11.6-13.7 Mean Platelet Volume 7.4 5.5-11.0 Laboratory test 02/07/2015 [facility] Hemoglobin A1c 5.7 % % 4.1- 5.7 finding (607)- - (Fma/CMC,CX) Lipid Profile 02/07/2015 José Luis Lynch Cholesterol 153 mg/dL 120-200 Triglycerides 222 mg/dL High 30-200 HDL Cholesterol 30 mg/dL 30-70 LDL (Calculated) 79 CALC 0-129 VLDL Cholesterol 44 mg/dL 0-50 HDL Risk Factor 5.1 CALC High 0.0-4.4 Comprehensive Metabolic Prof 02/07/2015 José Luis Lynch Sodium 138 mEq/L 134-149 Potassium 4.6 mEq/L 3.6-5.5 Chloride 93 mEq/L Low 94-112 47 Carbon Dioxide 31 mEq/L 21-32 Glucose 119 mg/dL High 70-105 48 BUN 18 mg/dL 6-26 Creatinine 1.0 mg/dL 0.6-1.4 BUN/Creat Ratio 18.0 CALC 8.0-36.0 Calcium 9.9 mg/dL 8.6-10.2 Total Protein 7.9 g/dL 6.4-8.3 Albumin 4.5 g/dL 3.8-5.5 Globulin 3.4 g/dL 2.0-4.8 A/G Ratio 1.3 CALC 0.6-2.3 Alk. Phosphatase 54 U/L 22-95 Alt (SGPT) 21 U/L 7-35 Ast (Sgot) 21 U/L 5-34 Total Bilirubin 1.1 mg/dL 0.2-1.3 GFR Non- >60 ml/min/1.73m^ >=60 GFR >60 ml/min/1.73m^ >=60 CBC Auto Diff 11/11/2014 [facility] White Blood Count 8.3 10^3/uL N 4.8-10.8 Red Blood Count 5.90 10^6/uL High 4.0-5.4 Hemoglobin 16.9 g/dL N 14.0-18.0 Hematocrit 52 % N 42-52 Mean Corpuscular Volume 88 fL N 80-94 Mean Corpuscular Hemoglobin 29 pg N 27-31 Mean Corpuscular HGB Conc 32 g/dL N 31-36 Red Cell Distribution Width 15 % N 10.5-15 Platelet Count 182 10^3/uL N 150-450 Mean Platelet Volume 9 um3 N 7.4-10.4 Abs Neutrophils 4.6 10^3/uL N 1.5-7.7 Abs Lymphocytes 2.6 10^3/uL N 1.0-4.8 Abs Monocytes 0.6 10^3/uL N 0-0.8 Abs Eosinophils 0.3 10^3/uL N 0-0.6 Abs Basophils 0.1 10^3/uL N 0-0.2 Abs Nucleated RBC 0.01 10^3/uL N Granulocyte % 56.3 % N 38-83 Lymphocyte % 31.6 % N 25-47 Monocyte % 7.8 % N 1-9 Eosinophil % 3.5 % N 0-6 Basophil % 0.8 % N 0-2 Nucleated Red Blood Cells % 0.1 N Inr/Protime 11/11/2014 [facility] Inr 1.05 N 0.78-1.07 Laboratory test 11/11/2014 [facility] Partial Thrombo 36.9 seconds High 26.0- 36.3 finding Time PTT Lactic Acid 1.7 mmol/L N 0.5-2.2 B Type Natriuretic Peptide 106 pg/mL High 49 Comp Metabolic Panel 11/11/2014 [facility] Sodium 137 mmol/L N 133-145 Potassium 4.1 mmol/L N 3.5-5.0 Chloride 96 mmol/L Low 101-111 Co2 Carbon Dioxide 33 mmol/L High 22-32 Anion Gap 8 mmol/L N 2-11 Glucose 103 mg/dL High 70-100 Blood Urea Nitrogen 14 mg/dL N 6-24 Creatinine 0.83 mg/dL N 0.67-1.17 BUN/Creatinine Ratio 16.9 N 8-20 Calcium 10.0 mg/dL N 8.6-10.3 Total Protein 7.7 g/dL N 6.4-8.9 Albumin 4.3 g/dL N 3.2-5.2 Globulin 3.4 g/dL N 2-4 Albumin/Globulin Ratio 1.3 N 1-3 Total Bilirubin 1.20 mg/dL High 0.2-1.0 Alkaline Phosphatase 61 U/L N 34-104 Alt 19 U/L N 7-52 Ast 16 U/L N 13-39 Egfr Non- 92.4 N >60 Egfr 118.8 N >60 50 Laboratory test finding 11/11/2014 [facility] Magnesium 1.7 mg/dL Low 1.9-2.7 Lipase 30 U/L N 11.0-82.0 Creatine Kinase 45 U/L N 10-223 C Reactive Protein 8.12 mg/L High < 5.00 51 Troponin I 0.01 ng/mL N <0.03 52 CKMB 11/11/2014 [facility] CKMB ng/mL 1.5 ng/mL N 0.6-6.3 Laboratory test finding 11/11/2014 [facility] TSH (Thyroid Stim 2.55 ?IU/mL N 0.34-5.60 Horm) Urinalysis Profile 11/11/2014 [facility] Urine Color Yellow N Urine Appearance Clear N Urine Specific [place] 1.012 N 1.010-1.030 Urine pH 8.0 N 5-9 Urine Urobilinogen Negative N Negative Urine Ketones Trace Abnormal Negative Urine Protein 1+(30 mg/dL) Abnormal Negative Urine Leukocytes Negative N Negative Urine Blood Negative N Negative Urine Nitrite Negative N Negative Urine Bilirubin Negative N Negative Urine Glucose Negative N Negative Urine White Blood Cell Absent N Absent Urine Red Blood Cell Absent N Absent Urine Bacteria Absent N Absent Comprehensive Metabolic Prof 10/09/2014 [facility] Sodium 137 mEq/L 134-149 Potassium 4.5 mEq/L 3.6-5.5 Chloride 95 mEq/L 94-112 Carbon Dioxide 30 mEq/L 21-32 Glucose 118 mg/dL High 70-105 53 BUN 17 mg/dL 6-26 Creatinine 0.8 mg/dL 0.6-1.4 BUN/Creat Ratio 21.3 CALC 8.0-36.0 Calcium 9.5 mg/dL 8.6-10.2 Total Protein 7.4 g/dL 6.4-8.3 Albumin 4.3 g/dL 3.8-5.5 Globulin 3.1 g/dL 2.0-4.8 A/G Ratio 1.4 CALC 0.6-2.3 Alk. Phosphatase 60 U/L 22-95 Alt (SGPT) 17 U/L 7-35 Ast (Sgot) 15 U/L 5-34 Total Bilirubin 0.9 mg/dL 0.2-1.3 GFR Non- >60 ml/min/1.73m^ >=60 GFR >60 ml/min/1.73m^ >=60 Lipid Profile 10/09/2014 [facility] Lynch Cholesterol 123 mg/dL 120-200 Triglycerides 120 mg/dL 30-200 HDL Cholesterol 31 mg/dL 30-70 LDL (Calculated) 68 CALC 0-129 VLDL Cholesterol 24 mg/dL 0-50 HDL Risk Factor 4.0 CALC 0.0-4.4 Laboratory test 10/09/2014 [facility] Hemoglobin A1c 5.6% % 4.1- 5.7 finding (607)- - (Fma/CMC,CX) Laboratory test 04/24/2014 [facility] Hemoglobin A1c 6.4 % High 4.1- 5.7 finding (607)- - (a/[facility],CX) Comprehensive 04/24/2014 [facility] Sodium 136 mEq/L 134-149 Metabolic Prof Potassium 4.5 mEq/L 3.6-5.5 Chloride 94 mEq/L 94-112 Carbon Dioxide 32 mEq/L 21-32 Glucose 113 mg/dL High 70-105 54 BUN 22 mg/dL 6-26 Creatinine 1.0 mg/dL 0.6-1.4 BUN/Creat Ratio 22.0 CALC 8.0-36.0 Calcium 10.1 mg/dL 8.6-10.2 Total Protein 7.2 g/dL 6.4-8.3 Albumin 4.4 g/dL 3.8-5.5 Globulin 2.8 g/dL 2.0-4.8 A/G Ratio 1.6 CALC 0.6-2.3 Alk. Phosphatase 59 U/L 22-95 Alt (SGPT) 46 U/L High 7-35 55 Ast (Sgot) 27 U/L 5-34 Total Bilirubin 1.4 mg/dL High 0.2-1.3 Lipid Profile 04/24/2014 [facility] Cholesterol 118 mg/dL Low 120- 200 56 Triglycerides 169 mg/dL 30-200 HDL Cholesterol 28 mg/dL Low 30-70 57 LDL (Calculated) 56 CALC 0-129 VLDL Cholesterol 34 mg/dL 0-50 HDL Risk Factor 3.9 CALC 0.0-4.4 Laboratory test 11/01/2013 [facility] Hemoglobin A1c 6.2 % High 4.1- 5.7 finding (607)- - ([facility],CX) Laboratory test 06/01/2013 [facility] Hemoglobin A1c 8.4 % High 4.1- 5.7 finding (607)- - ([facility],CX) Comprehensive 06/01/2013 [facility] Sonny Sodium 137 134-149 Metabolic Prof mEq/L Potassium 4.4 mEq/L 3.6-5.5 Chloride 95 mEq/L 94-112 Carbon Dioxide 28 mEq/L 21-32 Glucose 167 mg/dL High 70-105 BUN 20 mg/dL 6-26 Creatinine 1.0 mg/dL 0.6-1.4 BUN/Creat Ratio 20.0 CALC 8.0-36.0 Calcium 9.6 mg/dL 8.6-10.2 Total Protein 7.9 g/dL 6.3-8.1 Albumin 5.0 g/dL 3.8-5.5 Globulin 2.9 g/dL 2.0-4.8 A/G Ratio 1.7 CALC 0.6-2.3 Alk. Phosphatase 88 U/L 22-95 Alt (SGPT) 40 U/L 10-40 Ast (Sgot) 33 U/L 5-34 Total Bilirubin 1.3 mg/dL 0.2-1.3 Laboratory test 03/08/2013 [facility] Hemoglobin A1c 8.6 % High 4.1- 5.7 finding (607)- - ([facility],CX) Comprehensive 10/26/2012 [facility] Albumin 4.7 g/dL 3.8-5.5 58 Metabolic Prof Alk. Phos. 94 U/L 22-95 Alt (SGPT) 47 U/L High 10-40 Ast (Sgot) 36 U/L High 5-34 BUN 14 mg/dL 6-26 Calcium 10.2 mg/dL 8.6-10.2 Chloride 97 mEq/L 94-112 Creatinine 1.1 mg/dL 0.6-1.4 Carbon Dioxide 27 mEq/L 21-32 Glucose 130 mg/dL High 70-105 59 Sodium 135 mEq/L 134-149 Total Bilirubin 1.2 mg/dL 0.2-1.3 Total Protein 8.0 g/dL 6.3-8.1 Potassium 4.5 mEq/L 3.6-5.5 Globulin 3.3 g/dL 2.0-4.8 A/G Ratio 1.4 Calc 0.6-2.3 BUN/Creat Ratio 12.8 Calc 8.0-36.0 Lipid Profile 10/26/2012 [facility] Cholesterol 136 mg/dL 120-200 HDL 25 mg/dL Low 30-70 60 Triglycerides 232 mg/dL High 30-200 HDL Risk Factor 5.4 CALC High 0.0-4.4 LDL (Calculated) 64 CALC 0-129 VLDL (Calculated) 46 mg/dL 0-50 Laboratory test 10/26/2012 [facility] PSA 0.50 ng/mL 0.00-4.00 finding Ua - Non Micro ([facility]) 10/26/2012 [facility] Appearance clear (607)- - Color yellow Glucose, Urine ([facility]/CMC/CTX) - Bilirubin - Ketones - SP Grav 1.010 Blood - PH 6.5 Protein - Urobil 0.2 Nitrite - Leukocytes ([facility]) - Laboratory test 10/26/2012 [facility] Hemoglobin A1c 7.3% % High 4.1 -5.7 finding (607)- - (a/[facility],CX) Laboratory test 06/15/2012 [facility] Hemoglobin A1c 6.7 % High 4.1- 5.7 finding (607)- - (a/[facility],CX) Lipid Profile 02/10/2012 [facility] Cholesterol 164 mg/dL 120-200 HDL 32 mg/dL 30-70 Triglycerides 259 mg/dL High 30-200 HDL Risk Factor 5.1 CALC High 0.0-4.4 LDL (Calculated) 80 CALC 0-129 VLDL (Calculated) 52 mg/dL High 0-50 Comprehensive Metabolic Prof 02/10/2012 [facility] Albumin 4.8 g/dL 3.8-5.5 Alk. Phos. 81 U/L 22-95 Alt (SGPT) 42 U/L High 10-40 61 Ast (Sgot) 32 U/L 5-34 BUN 14 mg/dL 6-26 Calcium 10.2 mg/dL 8.6-10.2 Chloride 97 mEq/L 94-112 Creatinine 1.0 mg/dL 0.6-1.4 Carbon Dioxide 30 mEq/L 21-32 Glucose 154 mg/dL High 70-105 Sodium 135 mEq/L 134-149 Total Bilirubin 0.9 mg/dL 0.2-1.3 Total Protein 7.8 g/dL 6.3-8.1 Potassium 4.7 mEq/L 3.6-5.5 Globulin 3.0 g/dL 2.0-4.8 A/G Ratio 1.6 Calc 0.6-2.3 BUN/Creat Ratio 14.8 Calc 8.0-36.0 Laboratory test 02/10/2012 [facility] LDL (Direct) 71 mg/dL 0-130 finding Laboratory test 02/10/2012 [facility] Hemoglobin A1c 7.3 % High 4.1- 5.7 finding (607)- - ([facility],CX) Lipid Profile 10/21/2011 [facility] Triglyceride 278 mg/dL High 40-200 (Trig/Chol/HDL) Cholesterol 143 mg/dL Less Than 200 62 High Density Lipoprotein 31 mg/dL Low 40-60 63 Cholesterol/HDL Ratio 4.61 AVERAGE 1-4.97 Low Density Lipoprotein 56 mg/dL Less Than 100 64 Laboratory test 10/07/2011 [facility] Hemoglobin A1c 6.1 % High 4.1- 5.7 finding (607)- - ([facility],CX) CBC Electronic 07/01/2011 [facility] WBC 9.1 3.6-9.6 (a) (607)- - RBC 5.22 3.90-5.70 Hemoglobin ([facility]/CMC/CTX) 16.8 g/dL 12.1 - 17.2 Hematocrit (a/CMC/CTX) 47.2 % 36.1 - 50.3 Platelets 215 10^3/ul 150-400 Lymph% 44.4 20.5-51.1 Mixed% 12.4 Neutrophils % 43.2 Mean Corpuscular Vol 90.4 82.2-97.4 Mean Corpuscular Hemoglobin 32.2 27.6-33.3 Mean Corpuscular Hemo Concen 35.6 32.0-36.0 RDW 13.3 11.6-13.7 Mean Platelet Volume 10.7 6.5-11.0 Basic Metabolic Profile 07/01/2011 [facility] BUN 19 mg/dL 6-26 Calcium 9.9 mg/dL 8.6-10.2 Chloride 99 mEq/L 94-112 Creatinine 1.0 mg/dL 0.6-1.4 Carbon Dioxide 27 mEq/L 21-32 Glucose 74 mg/dL 70-105 Sodium 140 mEq/L 134-149 Potassium 4.4 mEq/L 3.6-5.5 BUN/Creat Ratio 19.6 Calc 8.0-36.0 Laboratory test 07/01/2011 [facility] Hemoglobin A1c 6.8 % High 4.1- 5.7 finding (607)- - ([facility],CX) Laboratory test 04/22/2011 [facility] Lynch LDL (Direct) 60 mg/dL 0-130 finding Comprehensive 04/22/2011 José Luis Lynch Albumin 4.7 g/dL 3.8-5.5 Metabolic Prof Alk. Phos. 104 U/L High 22-95 65 Alt (SGPT) 34 U/L 10-40 Ast (Sgot) 27 U/L 5-34 BUN 16 mg/dL 6-26 Calcium 9.9 mg/dL 8.6-10.2 Chloride 93 mEq/L Low 94-112 66 Creatinine 0.9 mg/dL 0.6-1.4 Carbon Dioxide 28 mEq/L 21-32 Glucose 434 mg/dL High 70-105 67 Sodium 131 mEq/L Low 134-149 68 Total Bilirubin 1.1 mg/dL 0.2-1.3 Total Protein 7.9 g/dL 6.3-8.1 Potassium 4.5 mEq/L 3.6-5.5 Globulin 3.2 g/dL 2.0-4.8 A/G Ratio 1.5 Calc 0.6-2.2 BUN/Creat Ratio 16.9 Calc 8.0-36.0 Lipid Profile 04/22/2011 [facility] Sonny Cholesterol 204 mg/dL High 120- 200 HDL 25 mg/dL Low 30-70 Triglycerides 691 mg/dL High 30-200 HDL Risk Factor 8.0 CALC High 0.0-4.0 LDL (Calculated) 40 CALC 0-129 69 VLDL (Calculated) 138 mg/dL High 0-50 Laboratory test 04/22/2011 [facility] Hemoglobin A1c >14.0 % High 4.1-5.7 finding (607)- - (Fma/CMC,CX) Urinalysis 04/22/2011 [facility] Ua Color YELLOW Yellow Appearance-Urine CLEAR Clear Specific [place]-Ur 1.040 High 1.010-1.030 Esterase-Urine NEGATIVE Negative Nitrite NEGATIVE Negative Hlkmgtlwncue-Oj-MGV NEGATIVE Negative Protein-Urine NEGATIVE Negative PH-Urine 5.0 5-9 Blood-Urine NEGATIVE Negative Ketones-Urine 2+ Abnormal Negative Bilirubin-Ur NEGATIVE Negative Glucose-Urine 3+ Abnormal Negative Comp Metabolic Panel 04/22/2011 [facility] Sodium 129 mmol/L Low 135-145 Potassium 4.7 mmol/L 3.5-5.0 Chloride 93 mmol/L Low 101-111 Co2 (Carbon Dioxide) 24.0 mmol/L 22-32 Anion Gap 12.0 mmol/L High 2-11 70 Glucose 466 mg/dL High 70-100 71 BUN 13 mg/dL 6-24 Creatinine 0.8 mg/dL 0.50-1.40 One Over Creatinine 1.25 BUN/Creatinine Ratio 16.3 8-20 Calcium 9.8 mg/dL 8.1-9.9 Total Protein 7.2 GM/DL 6.2-8.1 Albumin 4.3 GM/DL 3.2-5.2 Globulin 2.9 GM/DL 2-4 Albumin/Globulin Ratio 1.5 1-3 Bilirubin Total 1.4 mg/dL 0.4-1.5 72 Alkaline Phosphatase 108 U/L 39-117 Alt (SGPT) 32 U/L 17-63 Ast (Sgot) 33 U/L 12-42 eGFR Non- 97.3 > 60 eGFR 125.2 > 60 73 CBC Auto Diff 04/22/2011 [facility] White Blood Count 7.6 CUMM 4.8-10.8 Red Cell Count 5.68 CUMM 4.6-6.2 Hemoglobin 17.8 g/dL 14.0-18.0 Hematocrit 50 % 42-52 Mean Corpuscular Volume 88 um3 80-94 Mean Corpuscular Hemoglob 31 pg 27-31 Mean Corpuscular HGB Cone 36 g/dL 32-36 Redcell Distribution WDTH 12 % 10.5-15 Platelet Count 173 CUMM 150-450 Mean Platelet Volume 9.4 um3 7.4-10.4 Gran % 54.0 % 38-83 Lymph % 36.1 % 25-47 Mononuclear % 7.1 % 1-9 Eosinophil % 1.9 % 0-6 Basophil % 0.9 % 0-2 Abs Lymphs 2.8 1.0-4.8 Abs Mononuclear 0.5 0-0.8 Absolute Neutrophil Count 4.1 1.5-7.7 Abs Eosinophils 0.1 0-0.6 Abs Basophils 0.1 0-0.2 74 Laboratory test 10/27/2010 [facility] Brain Natural 83.1 pg/mL < 100 finding (607)- - Peptide Lipid Profile 10/27/2010 José Luis Sonny Cholesterol 244 mg/dL High 120- 200 HDL 35 mg/dL 30-70 Triglycerides 217 mg/dL High 30-200 HDL Risk Factor 6.9 CALC High 0.0-4.0 LDL (Calculated) 166 CALC High 0-129 VLDL (Calculated) 43 mg/dL 0-50 Comprehensive Metabolic Prof 10/27/2010 José Luis Sonny Albumin 4.3 g/dL 3.8-5.5 Alk. Phos. 87 U/L 22-95 Alt (SGPT) 32 U/L 10-40 Ast (Sgot) 30 U/L 5-34 BUN 15 mg/dL 6-26 Calcium 10.2 mg/dL 8.6-10.2 Chloride 98 mEq/L 94-112 Creatinine 0.9 mg/dL 0.6-1.4 Carbon Dioxide 24 mEq/L 21-32 Glucose 102 mg/dL 70-105 Sodium 144 mEq/L 134-149 Total Bilirubin 1.1 mg/dL 0.2-1.3 Total Protein 7.8 g/dL 6.3-8.1 Potassium 5.4 mEq/L 3.6-5.5 Globulin 3.5 g/dL 2.0-4.8 A/G Ratio 1.2 Calc 0.6-2.2 BUN/Creat Ratio 16.4 Calc 8.0-36.0 CBC Electronic ([facility]) 10/27/2010 [facility] WBC 7.2 3.6-9.6 (607)- - RBC 7.14 High 3.90-5.70 75 Hemoglobin (Fma/CMC/CTX) 20.2 g/dL High 12.1 - 17.2 76 Hematocrit (Fma/CMC/CTX) 63.3 % High 36.1 - 50.3 77 Platelets 165 10^3/ul 150-400 Lymph% 26.6 20.5-51.1 Mixed% 8.9 Neutrophils % 64.5 Mean Corpuscular Vol 89 82.2-97.4 Mean Corpuscular Hemoglobin 28.3 27.6-33.3 Mean Corpuscular Hemo Concen 31.9 Low 32.0-36.0 RDW 14.4 High 11.6-13.7 Mean Platelet Volume 8.3 6.5-11.0 1 RESULTS VERIFIED BY REPEAT ANALYSIS 2 RESULTS VERIFIED BY REPEAT ANALYSIS 3 UNABLE TO PERFORM TEST DUE TO INADEQUATE SPECIMEN 4 RESULTS VERIFIED BY REPEAT ANALYSIS 5 Comment modified on 05/24/2018 13:08 result kedar'd 6 RESULTS VERIFIED BY REPEAT ANALYSIS 7 RESULTS VERIFIED BY REPEAT ANALYSIS 8 RESULTS VERIFIED BY REPEAT ANALYSIS 9 Test Performed by: [facility] [address], [place] [address] Sandro Watson M.D. Director of Laboratory 10 SEE RESULT BELOW Name: CRUZ BRASWELL : [address]: Raul Gilbert MD Acct: [id number] Unit: [id number] AGE: 73 Location: ICU [id number] Re05/03/18 SEX: M Status: ADM IN SPEC: [id number] NIKOLAY: 05/03/18 [facility] DR: Candice Valverde MD REQ: [id number] RECD: 05/03/18 STATUS: DARYL ALVAREZ DR: Ne Hernandez MD _ SOURCE: BLOOD,VENO SPDESC: ORDERED: Blood Cult Procedure Result Reported Site Aerobic Culture Bottle Final 05/08/18- 1510 ML No Growth Day 5 Anaerobic Culture Bottle Final 05/08/18- 1510 ML No Growth Day 5 * ML - Main Lab . END OF REPORT DEPARTMENT OF PATHOLOGY, [address] [place] [address] Sandro Watson M.D. Director [facility] # [id number] 11 Troponin-I testing on Plasma Separator Tubes (PST) has a known false positive rate of 0.20-0.40%. All positive troponins reflex immediate secondary confirmatory testing. 12 Because ethnic data is not always readily [...] 15-29 5 Kidney failure <15 (or dialysis) 13 SEE RESULT BELOW Name: CRUZ BRASWELL : [address]: Candice Carcamo Acct: [id number] Unit: [id number] AGE: 73 Location: ED Re05/03/18 SEX: M Status: REG ER SPEC: [id number] NIKOLAY: 05/03/18-140 [facility] DR: Candice Valverde MD REQ: [id number] RECD: 05/03/18 STATUS: RES [facility] DR: Ne Hernandez MD _ SOURCE: LEG, RIGHT SPDESC: ORDERED: Culture Stain Procedure Result Reported Site Wound/Misc Gram Stain Final 05/03/18- 1518 ML 4+ Neutrophils 4+ Gram Positive Cocci Wound/Misc Culture PENDING * - [facility] . END OF REPORT DEPARTMENT OF PATHOLOGY, [address] [place] [address] Sandro Watson M.D. Director [facility] # [id number] 14 SEE RESULT BELOW Name: CRUZ BRASWELL : [address]: Raul Gilbert MD Acct: [id number] Unit: [id number] AGE: 73 Location: ICU [id number] Re05/03/18 SEX: M Status: ADM IN SPEC: [id number] NIKOLAY: 05/03/18 [facility] DR: Candice Valverde MD REQ: [id number] RECD: 05/03/18 STATUS: DARYL ALVAREZ DR: Ne Hernandez MD _ SOURCE: LEG, RIGHT SPDESC: ORDERED: MRSA/SA SSTI, Culture Stain Procedure Result Reported Site MRSA/S. aureus SSTI PCR Final 05/03/18- 1637 ML Organism 1 MRSA NEGATIVE Organism 2 S.AUREUS NEGATIVE Wound/Misc Gram Stain Final 05/03/18- 1518 ML 4+ Neutrophils 4+ Gram Positive Cocci Wound/Misc Culture Final 05/05/18- 1401 ML Organism 1 NORMAL SONNY Quantity 2+ * ML - Main Lab . END OF REPORT DEPARTMENT OF PATHOLOGY, [address] [place] [address] Sandro Watson M.D. Director [facility] # [id number] 15 Reference ranges based on room air. 16 Critical Result LACT:3.3 Called to [id number] at: 14:12:55 by:[id number] Read back by:SARA [facility] Severe Sepsis and Septic Shock Management Bundle Measure requires all lactic acids initially measuring >2.0 mmol/L be repeated. 17 SEE RESULT BELOW Name: CRUZ BRASWELL : [address]: Erika Michaels MD Acct: [id number] Unit: [id number] AGE: 72 Location: ED Re02/23/18 SEX: M Status: PRE ER SPEC: [id number] NIKOLAY: 02/23/18-10[address] [facility] DR: Dario Ramos MD REQ: [id number] RECD: 02/23/18 STATUS: DARYL ALVAREZ DR: Ne Hernandez MD _ SOURCE: NASAL SPDESC: ORDERED: Flu A B Request Procedure Result Reported Site Rapid Influenza A B Request Final 02/23/18- 1116 ML Specimen received for Influenza A/B Molecular testing * - Main Lab . END OF REPORT DEPARTMENT OF PATHOLOGY, [address] [place] [address] Sandro Watson M.D. Director [facility] # [id number] 18 Ophthalmology Assistant: [id number] 19 SEE RESULT BELOW Name: CRUZ BRASWELL : [address]: Duglas Pete MD Acct: [id number] Unit: [id number] AGE: 72 Location: [place] [id number] Re02/24/18 Dis: 02/25/18 SEX: M Status: DIS IN SPEC: [id number] NIKOLAY: 02/23/18 [facility] DR: Dario Ramos MD REQ: [id number] RECD: 02/23/18 STATUS: DARYL ALVAREZ DR: Ne Hernandez MD _ SOURCE: BLOOD,VENO SPDESC: ORDERED: Blood Cult Procedure Result Reported Site Aerobic Culture Bottle Final 02/28/18- 1137 ML No Growth Day 5 Anaerobic Culture Bottle Final 02/28/18- 1137 ML No Growth Day 5 * ML - Main Lab . END OF REPORT DEPARTMENT OF PATHOLOGY, [address] [place] [address] Sandro Watson M.D. Director [facility] # [id number] 20 Troponin-I testing on Plasma Separator Tubes (PST) has a known false positive rate of 0.20-0.40%. All positive troponins reflex immediate secondary confirmatory testing. 21 Because ethnic data is not always readily [...] 15-29 5 Kidney failure <15 (or dialysis) 22 [facility] Severe Sepsis and Septic Shock Management Bundle Measure requires all lactic acids initially measuring >2.0 mmol/L be repeated. 23 [facility] Severe Sepsis and Septic Shock Management Bundle Measure requires all lactic acids initially measuring >2.0 mmol/L be repeated. 24 Please note: The following may produce a false positive D Dimer test: - Rheumatoid factor greater than 60 IU/ml - Plasma hemoglobin greater than 0.05 gm/dl - Bilirubin greater than 50 mg/dl - Lipids greater than 1000 mg/dl - FDP greater than 20 ug/ml 25 Critical Result LACT:2.5 Called to [id number] at: 11:44:58 by:[id number] Read back by:[id number] [facility] Severe Sepsis and Septic Shock Management Bundle Measure requires all lactic acids initially measuring >2.0 mmol/L be repeated. 26 Reference ranges based on room air. 27 RESULTS VERIFIED BY REPEAT ANALYSIS 28 Because ethnic data is not always readily [...] 15-29 5 Kidney failure <15 (or dialysis) 29 >100 to <200 pg/mL: likely compensated congestive heart failure (CHF) 200 to 400 pg/mL: likely moderate CHF >400 pg/mL: likely moderate to severe CHF 30 Ophthalmology Assistant: JAMAL Clay 31 [facility] Severe Sepsis and Septic Shock Management Bundle Measure requires all lactic acids initially measuring >2.0 mmol/L be repeated. 32 >100 to <200 pg/mL: likely compensated congestive heart failure (CHF) 200 to 400 pg/mL: likely moderate CHF >400 pg/mL: likely moderate to severe CHF 33 Because ethnic data is not always readily [...] 15-29 5 Kidney failure <15 (or dialysis) 34 99th percentile=0.04 ng/mL Troponin results at [facility] and [facility] are not interchangeable. 35 incubated 1/2 hr at 37c without significant change. 36 incubated 1/2 hr at 37c without significant change. 37 Microcytic anemia with red cell indices suggestive of iron deficiency. Additional studies as clinically warranted. Reviewed by Dr. Watson 38 Normal Range 180 to 914 Indeterminate Range 145 to 180 Deficient Range <145 39 Therapeutic target for the treatment of diabetes Mellitus patients is <7% HBA1C, and in selective patients <6.0%.Please refer to [place] [employer] Diabetic care guidelines for further information. 40 SEE RESULT BELOW Name: CRUZ BRASWELL : [address]: Esperanza Saldana MD Acct: [id number] Unit: [id number] AGE: 71 Location: [facility] 407- Re03/30/16 SEX: M Status: ADM IN SPEC: [id number] NIKOLAY: 03/31/[address] [facility] DR: Cruz Franklin MD REQ: [id number] RECD: 03/31/16 STATUS: DARYL ALVAREZ DR: Ne Hernandez MD _ SOURCE: BLOOD,VENO SPDESC: ORDERED: Blood Cult Procedure Result Reported Site Aerobic Culture Bottle Final 04/05/16516 ML No Growth Day 5 Anaerobic Culture Bottle Final 04/05/16516 ML No Growth Day 5 * ML - MAIN LAB ([facility]) . END OF REPORT * ML=Testing performed at Main Lab DEPARTMENT OF PATHOLOGY, [address] [place] [address] Sandro Watson M.D. Director [facility] # [id number] 41 RESULTS VERIFIED BY REPEAT ANALYSIS 42 consistent w/ previous results 43 consistent w/ previous results 44 RESULTS VERIFIED BY REPEAT ANALYSIS 45 RESULTS VERIFIED BY REPEAT ANALYSIS 46 RESULTS VERIFIED BY REPEAT ANALYSIS 47 RESULTS VERIFIED BY REPEAT ANALYSIS 48 RESULTS VERIFIED BY REPEAT ANALYSIS 49 >100 to <200 pg/mL: likely compensated congestive heart failure (CHF) 200 to 400 pg/mL: likely moderate CHF >400 pg/mL: likely moderate to severe CHF 50 Because ethnic data is not always readily [...] 15-29 5 Kidney failure <15 (or dialysis) 51 Acute inflammation: >10.00 52 Reference Range and Interpretation: TnI (ng/mL) Interpretation Less Than 0.03 ng/mL Not supportive of diagnosis of RI 0.03 - 0.50 ng/mL Indeterminate: suggest serial studies if clinically indicated. Greater than 0.5 ng/mL Consistent with diagnosis of RI 53 consistent w/ previous results 54 RESULTS VERIFIED BY REPEAT ANALYSIS 55 RESULTS VERIFIED BY REPEAT ANALYSIS 56 RESULTS VERIFIED BY REPEAT ANALYSIS 57 RESULTS VERIFIED BY REPEAT ANALYSIS 58 specimen moderately hemolyzed 59 RESULT KEDAR'D 60 RESULT KEDAR'D 61 result kedar'd 62 CHOLESTEROL INTERPRETATION: Desirable: Less than 200 MG/DL Borderline-High Risk: 200-239 MG/DL High-Risk: 240 MG/DL and over 63 HDL INTERPRETATION: Undesirable: High Risk: Less than 40 MG/DL Desirable: Low Risk: Greater than 60 MG/DL 64 LDL INTERPRETATION: Low Risk Optimal Level: LDL Less than 100 MG/DL Near or Above Optimal: LDL 100-129 MG/DL Borderline High Risk: LDL 130-159 MG/DL High Risk: LDL 160-189 MG/DL Very High Risk: LDL Greater than 189 MG/DL 65 result kedar'd 66 result kedar'd 67 result kedar'd triaged provider 68 result kedar'd 69 INVALID 70 Anion gap measurement may be of limited value in the presence of any alkalosis, especially in a combined acid base disorder. . 71 VERBAL TO ELVIS/BRIEN BY ALVARADO at 1940 on 04/22/11. Results read back accurately. 72 A metabolite of Naproxen, O-desmethylnaproxen, has been shown to interfere with the [place] method for measuring total bilirubin. Samples from patients who have taken Naproxen have shown spurious elevation in total bilirubin levels. 73 Because ethnic data is not always readily [...] 15-29 5 Kidney failure <15 (or dialysis) 74 H H Check Failed 75 results kedar'd x3 triaged to the provider 76 result kedar'd triaged to the provider 77 results kedar'd x3 triaged to the provider Procedures Date Code Description Status 10/05/2017 03192 Pulse Oximetry Completed 07/04/2017 67122 Pulse Oximetry Completed 07/14/2016 64256 Pulse Oximetry Completed 04/22/2016 80892 Pulse Oximetry Completed 04/14/2016 47816 Pulse Oximetry Completed 03/30/2016 04880 Pulse Oximetry Completed 03/26/2016 44611 Pulse Oximetry Completed 12/16/2015 88900 Pulse Oximetry Completed 11/11/2015 36497 Pulse Oximetry Completed 08/05/2015 54006 Pulse Oximetry Completed 05/08/2015 05360 Pulse Oximetry Completed 11/01/2013 71696 Finger Or Heel Stick Completed 06/01/2013 23636 Pulse Oximetry Completed 03/08/2013 18281 Finger Or Heel Stick Completed 10/26/2012 58150 Vision Test- screening test of visual acuity, Completed quantitative, bila 06/15/2012 95409 Pulse Oximetry Completed 06/15/2012 29249 Finger Or Heel Stick Completed 10/07/2011 67158 Pulse Oximetry Completed 10/07/2011 54699 Finger Or Heel Stick Completed 07/01/2011 27556 Pulse Oximetry Completed 04/23/2011 59112 Pulse Oximetry Completed 12/24/2010 01506 Pulse Oximetry Completed 11/12/2010 16455 Pulse Oximetry Completed 10/30/2010 17418 Isa-Noninvasive physiologic studies of upper or lower Completed extremity 10/22/2010 43362 Pulse Oximetry Completed 02/21/2010 [id number] Colonoscopy Completed Encounters Type Date Location Provider Dx Diagnosis Office Visit 01/19/2018 Main Office Ne Hernandez M.D. J44.9 Chronic obstructive 9:40a pulmonary disease, unspecified E66.9 Obesity, unspecified I48.2 Chronic atrial fibrillation R09.02 Hypoxemia E11.9 Type 2 diabetes mellitus without complications G47.33 Obstructive sleep apnea (adult) (pediatric) Z23 Encounter for immunization Office Visit 10/05/2017 8:00a Main Office Olamide Bello J44.9 Chronic obstructive [place], [employer] pulmonary disease, unspecified E11.9 Type 2 diabetes mellitus without complications R09.02 Hypoxemia I48.2 Chronic atrial fibrillation E66.9 Obesity, unspecified Office Visit 07/04/2017 3:00p Main Office Ne Hernandez Z00.01 Encounter for Poly general adult medical exam w abnormal findings E11.9 Type 2 diabetes mellitus without complications J44.9 Chronic obstructive pulmonary disease, unspecified I50.22 Chronic systolic (congestive) heart failure I25.10 Athscl heart disease of [place] coronary artery w/o ang pctrs R09.02 Hypoxemia I48.2 Chronic atrial fibrillation E66.9 Obesity, unspecified Office Visit 11/29/2016 10:40a Main Office Ne Hernandez, E11.9 Type 2 diabetes M.D. mellitus without complications J44.9 Chronic obstructive pulmonary disease, unspecified I50.22 Chronic systolic (congestive) heart failure R09.02 Hypoxemia I25.10 Athscl heart disease of [place] coronary artery w/o ang pctrs E66.9 Obesity, unspecified Z23 Encounter for immunization Office Visit 07/14/2016 2:00p [place] [facility] Ne Hernandez, E11.9 Type 2 diabetes M.D. mellitus without complications J44.9 Chronic obstructive pulmonary disease, unspecified I50.22 Chronic systolic (congestive) heart failure R09.02 Hypoxemia I25.10 Athscl heart disease of [place] coronary artery w/o ang pctrs G47.33 Obstructive sleep apnea (adult) (pediatric) Office Visit 04/22/2016 3:10p Main Office Ne Hernandez, Z01.818 Encounter for other M.D. 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 fibrillation I50.43 Acute on chronic combined systolic and diastolic hrt fail E11.9 Type 2 diabetes mellitus without complications J44.9 Chronic obstructive pulmonary disease, unspecified I25.810 Atherosclerosis of CABG w/o angina pectoris L03.113 Cellulitis of right upper limb L03.116 Cellulitis of left lower limb Office Visit 03/16/2016 11:20a Main Office Alejo Schumacher, I48.0 Paroxysmal atrial M.D. 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 (congestive) heart failure I48.0 Paroxysmal atrial fibrillation E11.9 Type 2 diabetes mellitus without complications J44.9 Chronic obstructive pulmonary disease, unspecified Z23 Encounter for immunization Office Visit 11/11/2015 1:00p Main Office Ne Hernandez, E11.9 Type 2 diabetes M.D. mellitus without complications I48.0 Paroxysmal atrial fibrillation J44.9 Chronic obstructive pulmonary disease, unspecified E78.2 Mixed hyperlipidemia I25.810 Atherosclerosis of CABG w/o angina pectoris Z72.0 Tobacco use Z00.01 Encounter for general adult medical exam w abnormal findings I50.22 Chronic systolic (congestive) heart failure R06.02 Shortness of breath Office Visit 08/05/2015 2:00p Main Office Tu Tomas, I48.0 Paroxysmal atrial M.D. fibrillation E11.9 Type 2 diabetes mellitus without complications J44.9 Chronic obstructive pulmonary disease, unspecified E78.2 Mixed hyperlipidemia Office Visit 05/08/2015 2:40p Main Office Ne Hernandez, E11.9 Type 2 diabetes M.D. mellitus without complications I48.0 Paroxysmal atrial fibrillation J44.9 Chronic obstructive pulmonary disease, unspecified E78.2 Mixed hyperlipidemia Office Visit 02/06/2015 1:00p Main Office Joe Vanegas M.D. I48.0 Paroxysmal atrial fibrillation E11.9 Type 2 diabetes mellitus without complications E78.2 Mixed hyperlipidemia J44.9 Chronic obstructive pulmonary disease, unspecified Office Visit 11/19/2014 10:30a [place] [facility] Joe Vanegas 427.31 Atrial Fibrillation M.D. Office Visit 10/09/2014 9:40a Main Office Joe Vanegas 250.00 Diabetes Mellitus M.D. W/O Compl Type II Or Unspec Controlled 272.4 Hyperlipidemia Other Unspec 414.04 Coronary Atherosclerosis Artery Bypass Graft 496 COPD Airway Obstruction Chronic Not Class Elsewhere Office Visit 05/22/2014 2:20p Main Office Joe Vanegas M.D. 724.3 Sciatica 782.3 Edema Office Visit 05/08/2014 2:50p Main Office Joe Vanegas M.D. 724.3 Sciatica 272.4 Hyperlipidemia Other Unspec 250.00 Diabetes Mellitus W/O Compl Type II Or Unspec Controlled Office Visit 04/17/2014 2:10p Main Office Joe Vanegas M.D. 724.3 Sciatica 250.00 Diabetes Mellitus W/O Compl Type II Or Unspec Controlled 272.4 Hyperlipidemia Other Unspec 496 COPD Airway Obstruction Chronic Not Class Elsewhere 414.04 Coronary Atherosclerosis Artery Bypass Graft Office Visit 11/01/2013 1:00p Main Office Joe Vanegas M.D. 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 250.00 Diabetes Mellitus Poly Lira W/O Compl Type II Or Unspec Controlled 414.04 Coronary Atherosclerosis Artery Bypass Graft 428.0 Congestive Heart Failure Unspecified 496 COPD Airway Obstruction Chronic Not Class Elsewhere Office Visit 10/26/2012 12:00p Main Office El Rhodes V70.0 Examination General Poly Lira Medical Routine AT Health Care Facility V76.51 Screening For Malignant Neoplasms Colon V76.44 Screening For Malig Walter Prostate 250.00 Diabetes Mellitus W/O Compl Type II Or Unspec Controlled 414.04 Coronary Atherosclerosis Artery Bypass Graft 428.0 Congestive Heart Failure Unspecified 272.4 Hyperlipidemia Other Unspec 496 COPD Airway Obstruction Chronic Not Class Elsewhere 440.21 Atherosclerosis Arteries Extrem W/ Interm Claudication V06.5 Tetanus Diphtheria (DT) V72.0 Examination Eyes & Vision Office Visit 06/15/2012 2:00p Main Office El A. 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 Chronic Not Class Elsewhere 440.21 Atherosclerosis Arteries Extrem W/ Interm Claudication Office Visit 02/10/2012 1:20p Main Office [place] AMelanie 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 Chronic Not Class Elsewhere 440.21 Atherosclerosis Arteries Extrem W/ Interm Claudication 272.1 Hypertriglyceridemia Pure Office Visit 10/07/2011 1:20p Main Office [place] 250.00 Diabetes Mellitus Poly Lira W/O Compl Type II Or Unspec Controlled 272.4 Hyperlipidemia Other Unspec 414.04 Coronary Atherosclerosis Artery Bypass Graft 428.0 Congestive Heart Failure Unspecified 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 Airway Obstruction Chronic Not Class Elsewhere 440.21 Atherosclerosis Arteries Extrem W/ Interm Claudication Office Visit 07/01/2011 3:20p Main Office [place] 250.00 Diabetes Mellitus Poly Lira W/O Compl Type II Or Unspec Controlled 272.4 Hyperlipidemia Other Unspec 414.04 Coronary Atherosclerosis Artery Bypass Graft 428.0 Congestive Heart Failure Unspecified 496 COPD Airway Obstruction Chronic Not Class Elsewhere 440.21 Atherosclerosis Arteries Extrem W/ Interm Claudication Office Visit 04/29/2011 Main Office [place] 250.00 Diabetes Mellitus W/ O 12:00p Poly Lira Compl Type II Or Unspec Controlled Office Visit 04/23/2011 [facility] Keerthi AmaroMelanie 250.00 Diabetes Mellitus W/O 1:50p Office Poly [place] Compl Type II Or Unspec Controlled Office Visit 12/24/2010 Main Office [place] 414.04 Coronary 1:20p Poly Lira Atherosclerosis Artery Bypass Graft 428.0 Congestive Heart Failure Unspecified 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 Airway Obstruction Chronic Not Class Elsewhere 440.21 Atherosclerosis Arteries Extrem W/ Interm Claudication 272.4 Hyperlipidemia Other Unspec 272.1 Hypertriglyceridemia Pure Office Visit 11/12/2010 3:00p Main Office [place] 414.04 Coronary Poly Lira Atherosclerosis Artery Bypass Graft 428.0 Congestive Heart Failure Unspecified 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 at [id number] - Ne Hernandez M.D.J44.9 Chronic obstructive pulmonary disease, unspecifiedComments:on 4L O2 chronically stable on regimen increases to 6L with exertionFollow up:3moI48.2 Chronic atrial fibrillationComments:sees Dr Stephenson09.02 HypoxemiaComments:is on oxygen therapy, continues to find benefit from use chronic on 4l, has pulm, restrictive lung disease/copdG47.33 Obstructive sleep apnea (adult) (pediatric)I95.9 Hypotension, unspecifiedComments:may taper midodrine if BP allows, continue [id number] Cellulitis of right lower limbComments:resolved, continue antibiotics 2 more mdswaN55.9 Anemia, unspecifiedComments:continue ironI50.22 Chronic systolic ( congestive) heart failureComments:Patient was advised to call or return if there was a significant increase in peripheral edema, shortness of breath, or weight improved, see pulmonary next weekD41.4 Neoplasm of uncertain behavior of bladderComments:seeing [id number] Type 2 diabetes mellitus without [id number] Disorder of bilirubin metabolism, unspecifiedNew Labs: Bilirubin Total And Direct, Ordered: 05/23/18Comments:Because the total bilirubin was elevated a fractionation of the direct and indirect bilirubin was performed.AllNew Medication:Lisinopril 5 mg - 1 by mouth every dayComments: Medication Management Patient Understands medications he's taking? Yes No Are there Barriersto Adherence? Yes No Has the patient been asked about herbal supplements and therapies, and OTC meds? Yes No
--- OUTSIDE RECORDS SUMMARY | 2018-06-14 20:45 | XMS REPORT | Continuity of Care Document ---
:1945 External Reference #:[id number] Author Name Ne Hernandez M.D. Address [address] [place] [address] Care Team Providers Name Role Phone Ne Hernandez M.D. Care Team Information [employer] Unavailable Ne Hernandez M.D. Primary Care Physician Unavailable Payers Date Identification Numbers Payment Provider Subscriber Effective: 2012 Policy Number: [id number] [employer] [place] [employer] PayID: [id number] [address] [place] [address] Effective: 2012 Policy Number: [id number] [employer] [place] [employer] Expires: 2018 PayID: [id number] [address] [place] [address] Effective: 2015 Policy Number: [id number] [facility] Expires: [address] [place] [address] Policy Number: [id number] [facility] Health Care Options [facility] PayID: [id number] [address] [place] [address] Advance Directives Description No Information Available Problems [...] Observation Comments General No colon cancer Father [place] fatal age 52 Father due to GA () Mother Diabetes Mellitus, II First Brother [...] Ultra 2 test once a day 1units [facility], 06/14/2016 dx: e11.9 last M.D. w/Device Kit office visit 04/22/16 Onetouch Ultra Blue use for BG 200units [facility], 06/14/2016 testing 3x daily M.D. Strips E11.9 last appt 04/22/16 Furosemide 1 by mouth every 90tabs Galdino A. 04/14/2016 40mg Tablets day Poly Downs Tamsulosin HCL take 1 capsule 90caps N40.1 [facility], 03/26/2016 0.4mg daily for M.D. Capsules prostate Ventolin HFA 2 puffs every 4 16gm J44.9 [facility], 11/11/2015 hours as needed M.D. 108(90Base) mcg/Act Aerosol Metformin HCL 1 by mouth twice 120tabs E11.9 [facility], 06/01/2013 1000mg a day M.D. Tablets Metoprolol Tartrate 1 by mouth twice 180tabs I48.0 [facility], 2012 a day M.D. 25mg Tablets Torsemide 1 by mouth every Unknown 20mg Tablets day Spironolactone 1 by mouth every Unknown 25mg day Tablets Prednisone as Directed Unknown 10mg Tablets Midodrine HCL tid Unknown 5mg Tablets Ferrousul 1 by mouth every Unknown 325(65Fe) mg other day for Tablets anemia Azithromycin 1 PO Unknown 250mg [id number] Tablets Plavix 1 by mouth every 90tabs I48.0 [facility], 75mg Tablets day M.D. Atorvastatin Calcium 1 by mouth every 90tabs E78.2 [facility], day M.D. 20mg Tablets Finasteride 1 by mouth every 90tabs [facility], 5mg Tablets day M.D. Duoneb use 1 [...] Capsules 08/05/2015 Furosemide take 1 tablet 45tabs [facility], - 20mg Tablets every other day M.D. 12/16/2015 Multaq take 1 tablet 60tabs [facility], - 400mg Tablets by mouth two M.D. 12/30/2015 times daily Furosemide 2 by mouth 90tabs [facility], - 40mg Tablets every day M.D. 04/14/2016 Isosorbide Mononitrate 1 by mouth 90tabs [facility], - ER every day M.D. 05/23/2018 30mg Tablets ER 24HR Immunizations CPT Code Status Date Vaccine Lot # [id number] Given 01/19/2018 Pneumococcal Immunization [id number] Given 01/19/2018 High-Dose, Influenza Virus Vacccine-fluzone 65 and [id number] older 91492 Given 11/29/2016 High-Dose, Influenza Virus Vacccine-fluzone 65 and [id number] older 56482 Given 12/16/2015 Pneumococcal Conjugate Vacc-13 [id number] 33708 Given 12/16/2015 High-Dose, Influenza Virus Vacccine-fluzone 65 and [id number] older 49566 Given 10/25/2013 DO Not Use Split Influenza Virus Vaccine [id number] Given 10/26/2012 Tdap Tetanus, W Pertussis [id number] Vital Signs Date Vital Result Comment 05/23/2018 [...] Test Result H/L Range Note Laboratory test 05/23/2018 [facility] Free T4 <pending> 0.75-1.54 finding TSH <pending> 0.5-5.0 Iron <pending> 60-150 B12 <pending> 230-1050 Magnesium <pending> 1.2-2.1 Laboratory test 05/23/2018 [facility] Hemoglobin A1c 5.8 % High 4.1- 5.7 finding (607)- - (Fma) Laboratory test 05/03/2018 [facility] Erythrocyte Sed 2 mm/Hr N 0-20 1 finding Rate Blood Culture SEE RESULT BELOW 2 CBC Auto Diff 05/03/2018 [facility] White Blood Count 9.3 10^3/uL N 3.5-10.8 [...] 0.2 Large Platelets Present Urinalysis Profile 05/03/2018 [facility] Urine Color Yellow Urine Appearance Clear Urine Specific Green 1.008 Low 1.010-1.030 Urine pH 5.0 N 5-9 Urine Urobilinogen Negative Negative Urine Ketones Negative Negative Urine Protein Negative Negative Urine Leukocytes Negative Negative Urine Blood Negative Negative Urine Nitrite Negative Negative Urine Bilirubin Negative Negative Urine Glucose Negative Negative Laboratory test finding 05/03/2018 [facility] Creatine Kinase(CK) 44 U/L N 10- 223 C Reactive Protein 68.94 mg/L High <8.01 Troponin I 0.01 ng/mL <0.04 3 Comp Metabolic Panel 05/03/2018 [facility] Sodium 140 mmol/L N 135-145 Potassium 4.0 [...] Egfr Non- 53.9 >60 Egfr 65.3 >60 4 Laboratory test finding 05/03/2018 [facility] Partial Thrombo Time 35.0 seconds N 26.0-36.3 PTT B-Type Natriuretic Peptide BNP 301 pg/mL High <=100 Inr/Protime 05/03/2018 [facility] Inr 1.75 High 0.77-1.02 Laboratory test finding 05/03/2018 [facility] Lactic Acid 3.3 mmol/L High 0.5- 2.0 5 Arterial Blood Gas 05/03/2018 [facility] PH Arterial 7.47 High 7.35-7.45 Pco2 Arterial 47 mmHg High 35-45 Po2 Arterial 87 mmHg N 80-100 O2 Saturation Arterial 98.6 % High 94.0-98.0 Base Excess Arterial 9.1 mmol/L High -2.0-2.0 6 Hco3 Arterial 31.9 mmol/L High 19-31 Laboratory test 05/03/2018 [facility] MRSA/S. aureus Ssti SEE RESULT BELOW 7 finding PCR Wound Culture/Sensi 05/03/2018 [facility] Wound/Misc SEE RESULT BELOW 8 Culture-Gram Stain Laboratory test 02/23/2018 [facility] Rapid Influenza A & SEE RESULT BELOW 9 finding B Antigen Rapid Influenza A & 02/23/2018 [facility] Influenza A NEGATIVE Negative 10 B Molecular Molecular Influenza B Molecular NEGATIVE Negative Laboratory test finding 02/23/2018 [facility] TSH (Thyroid Stim 4.87 mcIU/mL N 0.34-5.60 Horm) Blood Culture SEE RESULT BELOW 11 Urinalysis Profile 02/23/2018 [facility] Urine Color Straw Urine Appearance Clear Urine Specific Green 1.006 Low 1.010-1.030 Urine pH 5.0 N 5-9 Urine Urobilinogen Negative Negative Urine Ketones Negative Negative Urine Protein Negative Negative Urine Leukocytes Negative Negative Urine Blood Negative Negative Urine Nitrite Negative Negative Urine Bilirubin Negative Negative Urine Glucose Negative Negative Laboratory test finding 02/23/2018 [facility] Troponin I 0.01 ng/mL <0.04 12 Comp Metabolic Panel 02/23/2018 [facility] Sodium 138 mmol/L N 135-145 Potassium 4.6 [...] Egfr Non- 53.2 >60 Egfr 64.3 >60 13 Laboratory test 02/23/2018 [facility] Partial Thrombo 39.6 seconds High 26.0- 36.3 finding Time PTT D Dimer Quantitative < 200 ng/mL N Less Than 230 14 Lactic Acid 2.5 mmol/L High 0.5-2.0 15 Inr/Protime 02/23/2018 [facility] Inr 1.49 High 0.77-1.02 Arterial Blood Gas 02/23/2018 [facility] PH Arterial 7.43 N 7.35-7.45 Pco2 Arterial 44 mmHg N 35-45 Po2 Arterial 67 mmHg Low 80-100 O2 Saturation Arterial 93.6 % Low 94.0-98.0 Base Excess Arterial 4.2 mmol/L High -2.0-2.0 16 Hco3 Arterial 28.0 mmol/L N 19-31 CBC Auto Diff 02/23/2018 [facility] White Blood Count 8.2 10^3/uL N 3.5-10.8 [...] % Nucleated Red Blood Cells % 0.1 Laboratory test 02/23/2018 [facility] B-Type 180 pg/mL High <=100 finding Natriuretic Peptide BNP Laboratory test 02/23/2018 [facility] Lactic Acid 1.2 mmol/L N 0.5-2.0 17 finding Laboratory test 02/23/2018 [facility] Lactic Acid 1.1 mmol/L N 0.5-2.0 18 finding CBC Electronic 01/19/2018 [facility] WBC 8.6 4.0-10.0 Fma x10^3/UL RBC 5.71 x10^6/UL 3.93-6.00 HGB 16.6 g/dL 12.0-17.0 HCT 52 % High 35-50 MCV 90.9 fL 80.0-95.0 MCH 29.1 pg 25.6-32.2 MCHC 32.2 g/dL 32.2-36.0 RDW-CV 14.3 % 11.6-14.4 PLT 203 x10^3/UL 163-400 MPV 10.9 fL 9.4-12.4 Charlie# 5.64 x10^3/UL 1.56-6.13 Lymph# 1.72 x10^3/UL 1.18-3.74 Mcnairy# 0.91 x10^3/UL High 0.24-0.82 Eos # 0.3 x10^3/UL 0.0-0.5 Baso # 0.07 x10^3/UL 0.01-0.08 Charlie% 65.6 % 34.0-70.0 Lymph % 20.0 % 20.0-52.0 Mcnairy% 10.6 % 5.0-12.0 Eos% 2.9 % 0.7-7.0 Baso% 0.8 % 0.1-1.2 Laboratory test finding 01/19/2018 [facility] TSH 4.46 mIU/L 0.50- 6.00 Free T4 1.20 ng/dL 0.75-1.54 Lipid Profile 01/19/2018 [facility] Cholesterol 119 mg/dL Low 120- 200 Triglycerides 139 mg/dL 30-200 HDL Cholesterol 34 mg/dL 30-70 LDL (Calculated) 57 CALC 0-129 VLDL Cholesterol 28 mg/dL 0-50 HDL Risk Factor 3.5 CALC 0.0-4.4 Comprehensive Metabolic Prof 01/19/2018 [facility] Sodium 137 mEq/L 134-149 Potassium 4.6 [...] >=60 GFR >60 ml/min/1.73m^ >=60 Ua - Micro (Fma) 01/19/2018 [facility] Medicine Appearance clear (607)- - Color yellow [...] /Lpf Crystals, Fluid (Fma/CMC/CTX) - Z#Comments - Laboratory test 01/19/2018 [facility] Hemoglobin A1c 6.8 % High 4.1- 5.7 finding (607)- - (Fma) Microalb, Random (Fma/CMC/CTX) 38.8 mg/L mg/L High 0.5-37 Laboratory test 05/26/2017 [facility] Hemoglobin A1c 6.3 % High 4.1- 5.7 finding (607)- - (Fma) Microalb, Random (Fma/CMC/CTX) 27.9 mg/L 0.5-37 Ua - Non Micro (Fma) 05/26/2017 [facility] Appearance clear (607)- - Color yellow Glucose, Urine (Fma/CMC/CTX) - Bilirubin - Ketones - SP Grav 1.020 Blood - PH 7.0 Protein - Urobil 0.2 Nitrite - Leukocytes (Fma/CMC/Centrex) - CBC Electronic Fma 05/26/2017 [facility] WBC 7.6 x10^3/UL 4.0-10.0 RBC 5.48 x10^6/UL 3.93-6.00 HGB 16.1 g/dL 12.0-17.0 HCT 49 % 35-50 MCV 88.7 fL 80.0-95.0 MCH 29.4 pg 25.6-32.2 MCHC 33.1 g/dL 32.2-36.0 RDW-CV 13.7 % 11.6-14.4 PLT 189 x10^3/UL 163-400 MPV 10.9 fL 9.4-12.4 Charlie# 4.47 x10^3/UL 1.56-6.13 Lymph# 1.97 x10^3/UL 1.18-3.74 Mcnairy# 0.85 x10^3/UL High 0.24-0.82 Eos # 0.3 x10^3/UL 0.0-0.5 Baso # 0.04 x10^3/UL 0.01-0.08 Charlie% 58.7 % 34.0-70.0 Lymph % 25.8 % 20.0-52.0 Mcnairy% 11.1 % 5.0-12.0 Eos% 3.8 % 0.7-7.0 Baso% 0.5 % 0.1-1.2 Laboratory test finding 05/26/2017 [facility] TSH 3.89 mIU/L 0.50- 6.00 Free T4 1.13 ng/dL 0.75-1.54 Lipid Profile 05/26/2017 [facility] Cholesterol 123 mg/dL 120-200 Triglycerides 155 mg/dL 30-200 HDL Cholesterol 30 mg/dL 30-70 LDL (Calculated) 62 CALC 0-129 VLDL Cholesterol 31 mg/dL 0-50 HDL Risk Factor 4.1 CALC 0.0-4.4 Comprehensive Metabolic Prof 05/26/2017 [facility] Sodium 138 mEq/L 134-149 Potassium 5.0 mEq/L 3.6-5.5 Chloride 98 mEq/L 94-112 Carbon Dioxide 29 mEq/L 21-32 Glucose 132 mg/dL High 70-105 19 BUN 24 mg/dL 6-26 Creatinine 1.1 mg/dL [...] >60 ml/min/1.73m^ >=60 GFR >60 ml/min/1.73m^ >=60 Comp Metabolic Panel 06/14/2016 [facility] Sodium 136 mmol/L N 133-145 Potassium 4.9 [...] 61.8 N >60 Egfr 79.5 N >60 20 Laboratory test 06/14/2016 [facility] B-Type Natriuretic 141 pg/mL High 21 finding Peptide BNP Laboratory test 04/26/2016 [facility] Point of Care Glucose 101 mg/dL N 74-106 22 finding Laboratory test 03/30/2016 [facility] Lactic Acid 1.7 mmol/L N 0.5-2.0 23 finding Inr/Protime 03/30/2016 [facility] Inr 1.67 High 0.89-1.11 Laboratory test 03/30/2016 [facility] B-Type Natriuretic 605 pg/mL High 24 finding Peptide BNP Comp Metabolic Panel 03/30/2016 [facility] Sodium 134 mmol/L N 133-145 Potassium 4.6 [...] 46.4 N >60 Egfr 59.7 N >60 25 Laboratory test finding 03/30/2016 [facility] Magnesium 2.2 mg/dL N 1.9-2.7 Troponin I 0.01 ng/mL N <0.04 26 CKMB 03/30/2016 [facility] CKMB ng/mL 1.7 ng/mL N 0.6-6.3 Laboratory test finding 03/30/2016 [facility] Thyroxine 7.03 ?g/dL N 6.09-12.23 TSH (Thyroid Stim Horm) 6.41 mcIU/mL High 0.34-5.60 CBC Auto Diff 03/30/2016 [facility] White Blood Count 5.9 10^3/uL N 3.5-10.8 Red Blood Count 7.04 10^6/uL High 4.0-5.4 Hemoglobin 12.3 g/dL Low 14.0-18.0 27 Hematocrit 44 % N 42-52 Mean Corpuscular Volume 63 fL Low 80-94 28 Mean Corpuscular Hemoglobin 17 pg Low 27-31 [...] Cells % 0.2 N Cell Morphology 03/30/2016 [facility] Microcytosis 3+ N Hypochromasia 3+ N Polychromasia 1+ N Target Cells 1+ N Elliptocyte 1+ N Laboratory test 03/30/2016 [facility] Free T4 (Free 0.91 ng/dL N 0.61-1.12 finding Thyroxine) Laboratory test 03/30/2016 [facility] Ferritin < 10.0 ng/mL Low 24-336 finding Folic Acid (Folate) > 20.00 ng/mL N >3.99 Vitamin B12 423 pg/mL N 180-914 29 Hemoglobin A1c (Glyco HGB) 6.3 % High Less than 6.0 30 Blood Culture SEE RESULT BELOW 31 Iron & Iron Binding Capacity 03/30/2016 [facility] Iron 17 g/dL Low 50-212 Unsaturated Iron Binding 501 g/dL N Total Iron Binding Capacity 518 g/dL High 250-450 % Iron Saturation 3 % Low 15-55 Laboratory test finding 03/30/2016 [facility] Pathologist Review (SEE NOTE) N 32 Urinalysis Profile 03/30/2016 [facility] Urine Color Yellow N Urine Appearance Clear N Urine Specific Green 1.010 N 1.010-1.030 Urine pH 6.0 N 5-9 Urine Urobilinogen Negative N Negative Urine Ketones Negative N Negative Urine Protein Negative N Negative Urine Leukocytes Negative N Negative Urine Blood Negative N Negative Urine Nitrite Negative N Negative Urine Bilirubin Negative N Negative Urine Glucose Negative N Negative Comprehensive Metabolic Prof 03/16/2016 [facility] Sodium 140 mEq/L 134-149 Potassium 5.4 mEq/L 3.6-5.5 Chloride 105 mEq/L 94-112 Carbon Dioxide 30 mEq/L 21-32 Glucose 95 mg/dL 70-105 BUN 32 mg/dL High 6-26 33 Creatinine 1.4 mg/dL 0.6-1.4 BUN/Creat Ratio 22.9 [...] >=60 Complete Blood Count 03/16/2016 [facility] WBC 7.1 x10^3/UL 3.6-9.6 RBC 6.45 x10^6/UL High 3.90-5.70 34 HGB 12.0 g/dL Low 12.1-17.2 HCT 42 % 36-50 MCV 64.0 fL Low 82.2-97.4 35 MCH 18.7 pg Low 27.6-33.3 MCHC 29.0 g/dL Low 33.0-35.5 RDW 20.1 % High 11.6-13.7 PLT 235 x10^3/UL 150-400 MPV 6.8 fL Low 7.4-10.4 Gran # 5.1 x10^3/UL 1.5-7.2 Lymph# 1.5 x10^3/UL 0.7-4.9 Mcnairy# 0.5 x10^3/UL 0.1-0.9 Gran % 69.9 % 42.2-75.2 Lymph % 22.0 % 20.5-51.1 Mcnairy% 8.1 % 1.7-9.3 Laboratory test 03/16/2016 [facility] Hemoglobin A1c (Fma) 5.7 % 4.1-5.7 finding (607)- - Brain Natural Peptide 551 pg/mL High <100 Comprehensive Metabolic Prof 11/04/2015 [facility] Sodium 138 mEq/L 134-149 Potassium 4.8 mEq/L 3.6-5.5 Chloride 97 mEq/L 94-112 Carbon Dioxide 31 mEq/L 21-32 Glucose 123 mg/dL High 70-105 36 BUN 15 mg/dL 6-26 Creatinine 1.1 mg/dL [...] GFR >60 ml/min/1.73m^ >=60 Lipid Profile 11/04/2015 [facility] Cholesterol 106 mg/dL Low 120- 200 37 Triglycerides 114 mg/dL 30-200 HDL Cholesterol 27 mg/dL Low 30-70 38 LDL (Calculated) 56 CALC 0-129 VLDL Cholesterol 23 mg/dL 0-50 HDL Risk Factor 3.9 CALC 0.0-4.4 Complete Blood Count 11/04/2015 [facility] WBC 8.2 x10^3/UL 3.6-9.6 RBC 5.29 x10^6/UL 3.90-5.70 HGB 14.5 g/dL 12.1-17.2 HCT 45 % 36-50 MCV 85.0 fL 82.2-97.4 MCH 27.5 pg Low 27.6-33.3 MCHC 33.0 g/dL 33.0-35.5 RDW 15.0 % High 11.6-13.7 PLT 198 x10^3/UL 150-400 MPV 8.1 fL 7.4-10.4 Gran # 5.8 x10^3/UL 1.5-7.2 Lymph# 2.0 x10^3/UL 0.7-4.9 Mcnairy# 0.4 x10^3/UL 0.1-0.9 Gran % 69.7 % 42.2-75.2 Lymph % 24.7 % 20.5-51.1 Mcnairy% 5.6 % 1.7-9.3 Laboratory test 11/04/2015 [facility] Hemoglobin A1c 6.3 % High 4.1- 5.7 finding (607)- - (Fma) Comprehensive 08/05/2015 [facility] Sodium 138 mEq/L 134-149 Metabolic Prof Potassium [...] 41 U/L 38-174 finding Laboratory test 08/05/2015 [facility] Hemoglobin A1c 5.3 % 4.1-5.7 finding (607)- - (Fma) CBC Electronic ([facility]) 08/05/2015 [facility] WBC 7.9 3.6-9.6 (607)- - RBC 4.85 [...] Platelet Volume 7.4 5.5-11.0 Laboratory test 02/07/2015 [facility] Hemoglobin A1c 5.7 % % 4.1- 5.7 [...] mEq/L 3.6-5.5 Chloride 93 mEq/L Low 94-112 39 Carbon Dioxide 31 mEq/L 21-32 Glucose 119 mg/dL High 70-105 40 BUN 18 mg/dL 6-26 Creatinine 1.0 mg/dL [...] >60 ml/min/1.73m^ >=60 CBC Auto Diff 11/11/2014 [facility] White Blood Count 8.3 10^3/uL N 4.8-10.8 [...] Blood Cells % 0.1 N Inr/Protime 11/11/2014 [facility] Inr 1.05 N 0.78-1.07 Laboratory test 11/11/2014 [facility] Partial Thrombo 36.9 seconds High 26.0- 36.3 finding Time PTT Lactic Acid 1.7 mmol/L N 0.5-2.2 B Type Natriuretic Peptide 106 pg/mL High 41 Comp Metabolic Panel 11/11/2014 [facility] Sodium 137 mmol/L N 133-145 Potassium 4.1 [...] 92.4 N >60 Egfr 118.8 N >60 42 Laboratory test finding 11/11/2014 [facility] Magnesium 1.7 mg/dL Low 1.9-2.7 Lipase 30 U/L N 11.0-82.0 Creatine Kinase 45 U/L N 10-223 C Reactive Protein 8.12 mg/L High < 5.00 43 Troponin I 0.01 ng/mL N <0.03 44 CKMB 11/11/2014 [facility] CKMB ng/mL 1.5 ng/mL N 0.6-6.3 Laboratory test finding 11/11/2014 [facility] TSH (Thyroid Stim 2.55 ?IU/mL N 0.34-5.60 Horm) Urinalysis Profile 11/11/2014 [facility] Urine Color Yellow N Urine Appearance Clear N Urine Specific Green 1.012 N 1.010-1.030 Urine pH 8.0 N [...] Absent N Absent Comprehensive Metabolic Prof 10/09/2014 [facility] Sodium 137 mEq/L 134-149 Potassium 4.5 mEq/L 3.6-5.5 Chloride 95 mEq/L 94-112 Carbon Dioxide 30 mEq/L 21-32 Glucose 118 mg/dL High 70-105 45 BUN 17 mg/dL 6-26 Creatinine 0.8 mg/dL [...] Factor 4.0 CALC 0.0-4.4 Laboratory test 10/09/2014 [facility] Hemoglobin A1c 5.6% % 4.1- 5.7 finding (607)- - ([facility],CX) Laboratory test 04/24/2014 [facility] Hemoglobin A1c 6.4 % High 4.1- 5.7 finding (607)- - (a/[facility],CX) Comprehensive 04/24/2014 [facility] Sodium 136 mEq/L 134-149 Metabolic Prof Potassium 4.5 mEq/L 3.6-5.5 Chloride 94 mEq/L 94-112 Carbon Dioxide 32 mEq/L 21-32 Glucose 113 mg/dL High 70-105 46 BUN 22 mg/dL 6-26 Creatinine 1.0 mg/dL 0.6-1.4 BUN/Creat Ratio 22.0 CALC 8.0-36.0 Calcium 10.1 mg/dL 8.6-10.2 Total Protein 7.2 g/dL 6.4-8.3 Albumin 4.4 g/dL 3.8-5.5 Globulin 2.8 g/dL 2.0-4.8 A/G Ratio 1.6 CALC 0.6-2.3 Alk. Phosphatase 59 U/L 22-95 Alt (SGPT) 46 U/L High 7-35 47 Ast (Sgot) 27 U/L 5-34 Total Bilirubin 1.4 mg/dL High 0.2-1.3 Lipid Profile 04/24/2014 [facility] Cholesterol 118 mg/dL Low 120- 200 48 Triglycerides 169 mg/dL 30-200 HDL Cholesterol 28 mg/dL Low 30-70 49 LDL (Calculated) 56 CALC 0-129 VLDL Cholesterol 34 mg/dL 0-50 HDL Risk Factor 3.9 CALC 0.0-4.4 Laboratory test 11/01/2013 [facility] Hemoglobin A1c 6.2 % High 4.1- 5.7 finding (607)- - ([facility],CX) Laboratory test 06/01/2013 [facility] Hemoglobin A1c 8.4 % High 4.1- 5.7 finding (607)- - ([facility],CX) Comprehensive 06/01/2013 [facility] Sodium 137 134-149 [...] Bilirubin 1.3 mg/dL 0.2-1.3 Laboratory test 03/08/2013 [facility] Hemoglobin A1c 8.6 % High 4.1- 5.7 finding (607)- - ([facility],CX) Comprehensive 10/26/2012 [facility] Albumin 4.7 g/dL 3.8-5.5 50 Metabolic Prof Alk. Phos. 94 U/L 22-95 Alt (SGPT) 47 U/L High 10-40 Ast (Sgot) 36 U/L High 5-34 BUN 14 mg/dL 6-26 Calcium 10.2 mg/dL 8.6-10.2 Chloride 97 mEq/L 94-112 Creatinine 1.1 mg/dL 0.6-1.4 Carbon Dioxide 27 mEq/L 21-32 Glucose 130 mg/dL High 70-105 51 Sodium 135 mEq/L 134-149 Total Bilirubin 1.2 mg/dL 0.2-1.3 Total Protein 8.0 g/dL 6.3-8.1 Potassium 4.5 mEq/L 3.6-5.5 Globulin 3.3 g/dL 2.0-4.8 A/G Ratio 1.4 Calc 0.6-2.3 BUN/Creat Ratio 12.8 Calc 8.0-36.0 Lipid Profile 10/26/2012 [facility] Cholesterol 136 mg/dL 120-200 HDL 25 mg/dL Low 30-70 52 Triglycerides 232 mg/dL High 30-200 HDL Risk Factor 5.4 CALC High 0.0-4.4 LDL (Calculated) 64 CALC 0-129 VLDL (Calculated) 46 mg/dL 0-50 Laboratory test 10/26/2012 [facility] PSA 0.50 ng/mL 0.00-4.00 finding Ua - Non Micro (Fma) 10/26/2012 [facility] Appearance clear (607)- - Color yellow Glucose, Urine (Fma/CMC/CTX) - Bilirubin - Ketones - SP Grav 1.010 Blood - PH 6.5 Protein - Urobil 0.2 Nitrite - Leukocytes (Fma/CMC/Centrex) - Laboratory test 10/26/2012 [facility] Hemoglobin A1c 7.3% % High 4.1 -5.7 finding (607)- - (Fma/CMC,CX) Laboratory test 06/15/2012 [facility] Hemoglobin A1c 6.7 % High 4.1- 5.7 finding (607)- - (Fma/CMC,CX) Lipid Profile 02/10/2012 [facility] Cholesterol 164 mg/dL 120-200 HDL 32 mg/dL 30-70 Triglycerides 259 mg/dL High 30-200 HDL Risk Factor 5.1 CALC High 0.0-4.4 LDL (Calculated) 80 CALC 0-129 VLDL (Calculated) 52 mg/dL High 0-50 Comprehensive Metabolic Prof 02/10/2012 [facility] Albumin 4.8 g/dL 3.8-5.5 Alk. Phos. 81 U/L 22-95 Alt (SGPT) 42 U/L High 10-40 53 Ast (Sgot) 32 U/L 5-34 BUN 14 [...] 71 mg/dL 0-130 finding Laboratory test 02/10/2012 [facility] Hemoglobin A1c 7.3 % High 4.1- 5.7 finding (607)- - (a/[facility],CX) Lipid Profile 10/21/2011 [facility] Triglyceride 278 mg/dL High 40-200 (Trig/Chol/HDL) Cholesterol 143 mg/dL Less Than 200 54 High Density Lipoprotein 31 mg/dL Low 40-60 55 Cholesterol/HDL Ratio 4.61 AVERAGE 1-4.97 Low Density Lipoprotein 56 mg/dL Less Than 100 56 Laboratory test 10/07/2011 [facility] Hemoglobin A1c 6.1 % High 4.1- 5.7 finding (607)- - (a/[facility] [place]) Basic Metabolic 07/01/2011 [facility] BUN 19 mg/dL 6-26 Profile Calcium 9.9 mg/dL 8.6-10.2 Chloride 99 mEq/L 94-112 Creatinine 1.0 mg/dL 0.6-1.4 Carbon Dioxide 27 mEq/L 21-32 Glucose 74 mg/dL 70-105 Sodium 140 mEq/L 134-149 Potassium 4.4 mEq/L 3.6-5.5 BUN/Creat Ratio 19.6 Calc 8.0-36.0 CBC Electronic ([facility]) 07/01/2011 [facility] WBC 9.1 3.6-9.6 (607)- - RBC 5.22 3.90-5.70 Hemoglobin (Fma/CMC/CTX) 16.8 g/dL 12.1 - 17.2 Hematocrit (a/CMC/CTX) 47.2 % 36.1 - 50.3 Platelets 215 10^3/ul 150-400 Lymph% 44.4 20.5-51.1 Mixed% 12.4 Neutrophils % 43.2 Mean Corpuscular Vol 90.4 82.2-97.4 Mean Corpuscular Hemoglobin 32.2 27.6-33.3 Mean Corpuscular Hemo Concen 35.6 32.0-36.0 RDW 13.3 11.6-13.7 Mean Platelet Volume 10.7 6.5-11.0 Laboratory test 07/01/2011 [facility] Hemoglobin A1c 6.8 % High 4.1- 5.7 finding (607)- - (a/CMC,CX) Laboratory test 04/22/2011 [facility] LDL (Direct) 60 mg/dL 0-130 finding Comprehensive 04/22/2011 [facility] Albumin 4.7 g/dL 3.8-5.5 Metabolic Prof Alk. Phos. 104 U/L High 22-95 57 Alt (SGPT) 34 U/L 10-40 Ast (Sgot) 27 U/L 5-34 BUN 16 mg/dL 6-26 Calcium 9.9 mg/dL 8.6-10.2 Chloride 93 mEq/L Low 94-112 58 Creatinine 0.9 mg/dL 0.6-1.4 Carbon Dioxide 28 mEq/L 21-32 Glucose 434 mg/dL High 70-105 59 Sodium 131 mEq/L Low 134-149 60 Total Bilirubin 1.1 mg/dL 0.2-1.3 Total Protein 7.9 g/dL 6.3-8.1 Potassium 4.5 mEq/L 3.6-5.5 Globulin 3.2 g/dL 2.0-4.8 A/G Ratio 1.5 Calc 0.6-2.2 BUN/Creat Ratio 16.9 Calc 8.0-36.0 Lipid Profile 04/22/2011 [facility] Cholesterol 204 mg/dL High 120- 200 HDL 25 mg/dL Low 30-70 Triglycerides 691 mg/dL High 30-200 HDL Risk Factor 8.0 CALC High 0.0-4.0 LDL (Calculated) 40 CALC 0-129 61 VLDL (Calculated) 138 mg/dL High 0-50 Laboratory test 04/22/2011 [facility] Hemoglobin A1c >14.0 % High 4.1-5.7 finding (607)- - (Fma/CMC,CX) Urinalysis 04/22/2011 [facility] Ua Color YELLOW Yellow Appearance-Urine CLEAR Clear Specific Green-Ur 1.040 High 1.010-1.030 Esterase-Urine NEGATIVE Negative Nitrite NEGATIVE Negative Ncxrnnqxstly-Mj-OVV NEGATIVE Negative Protein-Urine NEGATIVE Negative PH-Urine 5.0 5-9 Blood-Urine NEGATIVE Negative Ketones-Urine 2+ Abnormal Negative Bilirubin-Ur NEGATIVE Negative Glucose-Urine 3+ Abnormal Negative Comp Metabolic Panel 04/22/2011 [facility] Sodium 129 mmol/L Low 135-145 Potassium 4.7 mmol/L 3.5-5.0 Chloride 93 mmol/L Low 101-111 Co2 (Carbon Dioxide) 24.0 mmol/L 22-32 Anion Gap 12.0 mmol/L High 2-11 62 Glucose 466 mg/dL High 70-100 63 BUN 13 mg/dL 6-24 Creatinine 0.8 mg/dL 0.50-1.40 One Over Creatinine 1.25 BUN/Creatinine Ratio 16.3 8-20 Calcium 9.8 mg/dL 8.1-9.9 Total Protein 7.2 GM/DL 6.2-8.1 Albumin 4.3 GM/DL 3.2-5.2 Globulin 2.9 GM/DL 2-4 Albumin/Globulin Ratio 1.5 1-3 Bilirubin Total 1.4 mg/dL 0.4-1.5 64 Alkaline Phosphatase 108 U/L 39-117 Alt (SGPT) 32 U/L 17-63 Ast (Sgot) 33 U/L 12-42 eGFR Non- 97.3 > 60 eGFR 125.2 > 60 65 CBC Auto Diff 04/22/2011 [facility] [place] White Blood Count 7.6 CUMM 4.8-10.8 Red [...] Eosinophils 0.1 0-0.6 Abs Basophils 0.1 0-0.2 66 Laboratory test 10/27/2010 [facility] Brain Natural 83.1 pg/mL < 100 finding (607)- - Peptide Lipid Profile 10/27/2010 José Luis Lynch Cholesterol 244 mg/dL High 120- 200 HDL 35 mg/dL 30-70 Triglycerides 217 mg/dL High 30-200 HDL Risk Factor 6.9 CALC High 0.0-4.0 LDL (Calculated) 166 CALC High 0-129 VLDL (Calculated) 43 mg/dL 0-50 Comprehensive Metabolic Prof 10/27/2010 José Luis Lynch Albumin 4.3 g/dL 3.8-5.5 Alk. Phos. 87 [...] BUN/Creat Ratio 16.4 Calc 8.0-36.0 CBC Electronic (Fma) 10/27/2010 [facility] WBC 7.2 3.6-9.6 (607)- - RBC 7.14 High 3.90-5.70 67 Hemoglobin (Fma/CMC/CTX) 20.2 g/dL High 12.1 - 17.2 68 Hematocrit (Fma/CMC/CTX) 63.3 % High 36.1 - 50.3 69 Platelets 165 10^3/ul 150-400 Lymph% 26.6 20.5-51.1 Mixed% 8.9 Neutrophils % 64.5 Mean Corpuscular Vol 89 82.2-97.4 Mean Corpuscular Hemoglobin 28.3 27.6-33.3 Mean Corpuscular Hemo Concen 31.9 Low 32.0-36.0 RDW 14.4 High 11.6-13.7 Mean Platelet Volume 8.3 6.5-11.0 1 Test Performed by: [facility] [address] [place] [id number] Sandro Watson M.D. Director of Laboratory 2 SEE RESULT BELOW Name: CRUZ BRASWELL : [address]: Raul Gilbert MD Acct: [id number] Unit: [id number] AGE: 73 Location: ICU [id number] Re05/03/18 SEX: M Status: ADM IN SPEC: [id number] NIKOLAY: 05/03/[address] [facility] [address]: Candice Valverde MD REQ: [id number] RECD: 05/03/18 STATUS: DARYL ALVAREZ DR: Ne Hernandez MD _ SOURCE: BLOOD,VENO [facility]: ORDERED: Blood Cult Procedure Result Reported Site Aerobic Culture Bottle Final 05/08/18- 1510 ML No Growth Day 5 Anaerobic Culture Bottle Final 05/08/18- 1510 ML No Growth Day 5 * ML - Main Lab . END OF REPORT DEPARTMENT OF PATHOLOGY, [address] [place] [address] Sandro Watson M.D. Director [facility] # [id number] 3 Troponin-I testing on Plasma Separator Tubes (PST) has a known false positive rate of 0.20-0.40%. All positive troponins reflex immediate secondary confirmatory testing. 4 Because ethnic data is not always [...] 5 Kidney failure <15 (or dialysis) 5 Critical Result LACT:3.3 Called to [id number] at: 14:12:55 by:[id number] Read back by:[id number] [place] [address] Severe Sepsis and Septic Shock Management Bundle Measure requires all lactic acids initially measuring >2.0 mmol/L be repeated. 6 Reference ranges based on room air. 7 SEE RESULT BELOW Name: CRUZ BRASWELL : [address]: Raul Gilbert MD Acct: [id number] Unit: [id number] AGE: 73 Location: ICU [id number] Re05/03/18 SEX: M Status: ADM IN SPEC: [id number] NIKOLAY: 05/03/[address] [facility] [address]: Candice Valverde MD REQ: [id number] RECD: 05/03/18 STATUS: DARYL ALVAREZ DR: Ne [...] . END OF REPORT DEPARTMENT OF PATHOLOGY, [address] [place] [address] Sandro Watson M.D. Director [facility] # [id number] 8 SEE RESULT BELOW Name: CRUZ BRASWELL : [address]: Candice Carcamo Acct: [id number] Unit: [id number] AGE: 73 Location: ED Re05/03/18 SEX: M Status: REG ER SPEC: [id number] NIKOLAY: 05/03/18-[address] [facility] [address]: Candice Valverde MD REQ: [id number] RECD: 05/03/18 STATUS: RES PANFILO DR: Ne Hernandez MD _ SOURCE: LEG, RIGHT SPDESC: ORDERED: Culture Stain Procedure Result Reported Site Wound/Misc Gram Stain Final 05/03/18- 1518 ML 4+ Neutrophils 4+ Gram Positive Cocci Wound/Misc Culture PENDING * ML - Main Lab . END OF REPORT DEPARTMENT OF PATHOLOGY, [address] [place] [address] Sandro Watson M.D. Director [facility] # [id number] 9 SEE RESULT BELOW Name: CRUZ BRASWELL : [address]: Erika Michaels MD Acct: [id number] Unit: [id number] AGE: 72 Location: ED Re02/23/18 SEX: M Status: PRE ER SPEC: [id number] NIKOLAY: 02/23/18-[address]: Dario Ramos MD REQ: [id number] RECD: 02/23/18 STATUS: DARYL ALVAREZ DR: Ne Hernandez MD _ SOURCE: NASAL SPDESC: ORDERED: Flu A B Request Procedure Result Reported Site Rapid Influenza A B Request Final 02/23/18- 1116 ML Specimen received for Influenza A/B Molecular testing * ML - Main Lab . END OF REPORT DEPARTMENT OF PATHOLOGY, [address] [place] [address] Sandro Watson M.D. Director [facility] # [id number] 10 Pharmacy Data Analyst: [id number] 11 SEE RESULT BELOW Name: CRUZ BRASWELL : [address]: Duglas Pete MD Acct: [id number] Unit: [id number] AGE: 72 Location: [address] Re02/24/18 Dis: 02/25/18 SEX: M Status: DIS IN SPEC: [id number] NIKOLAY: 02/23/[address] [facility] [address]: Dario Ramos MD REQ: [id number] RECD: 02/23/18 STATUS: DARYL ALVAREZ DR: Ne Hernandez MD _ SOURCE: BLOOD,VENO SPDESC: ORDERED: Blood Cult Procedure Result Reported Site Aerobic Culture Bottle Final 02/28/18- 1136 ML No Growth Day 5 Anaerobic Culture Bottle Final 02/28/18- 1136 ML No Growth Day 5 * ML - Main Lab . END OF REPORT DEPARTMENT OF PATHOLOGY, [address] [place] [address] Sandro Watson M.D. Director [facility] # [id number] 12 Troponin-I testing on Plasma Separator Tubes (PST) has a known false positive rate of 0.20-0.40%. All positive troponins reflex immediate secondary confirmatory testing. 13 Because ethnic data is not always readily [...] 15-29 5 Kidney failure <15 (or dialysis) 14 Please note: The following may produce a false positive D Dimer test: - Rheumatoid factor greater than 60 IU/ml - Plasma hemoglobin greater than 0.05 gm/dl - Bilirubin greater than 50 mg/dl - Lipids greater than 1000 mg/dl - FDP greater than 20 ug/ml 15 Critical Result LACT:2.5 Called to [id number] at: 11:44:58 by:[id number] Read back by:NENO [facility] Severe Sepsis and Septic Shock Management Bundle Measure requires all lactic acids initially measuring >2.0 mmol/L be repeated. 16 Reference ranges based on room air. 17 [facility] Severe Sepsis and Septic Shock Management Bundle Measure requires all lactic acids initially measuring >2.0 mmol/L be repeated. 18 [facility] Severe Sepsis and Septic Shock Management Bundle Measure requires all lactic acids initially measuring >2.0 mmol/L be repeated. 19 RESULTS VERIFIED BY REPEAT ANALYSIS 20 Because ethnic data is not always readily [...] 15-29 5 Kidney failure <15 (or dialysis) 21 >100 to <200 pg/mL: likely compensated congestive heart failure (CHF) 200 to 400 pg/mL: likely moderate CHF >400 pg/mL: likely moderate to severe CHF 22 Pharmacy Data Analyst: [id number] [place] 23 [facility] Severe Sepsis and Septic Shock Management Bundle Measure requires all lactic acids initially measuring >2.0 mmol/L be repeated. 24 >100 to <200 pg/mL: likely compensated congestive heart failure (CHF) 200 to 400 pg/mL: likely moderate CHF >400 pg/mL: likely moderate to severe CHF 25 Because ethnic data is not always readily [...] 15-29 5 Kidney failure <15 (or dialysis) 26 99th percentile=0.04 ng/mL Troponin results at [facility] and [facility] are not interchangeable. 27 incubated 1/2 hr at 37c without significant change. 28 incubated 1/2 hr at 37c without significant change. 29 Normal Range 180 to 914 Indeterminate Range 145 to 180 Deficient Range <145 30 Therapeutic target for the treatment of diabetes Mellitus patients is <7% HBA1C, and in selective patients <6.0%.Please refer to [place] [employer] Diabetic care guidelines for further information. 31 SEE RESULT BELOW Name: CRUZ BRASWELL : [address]: Esperanza Saldana MD Acct: [id number] Unit: [id number] AGE: 71 Location: [place] [address] Re03/30/16 SEX: M Status: ADM IN SPEC: [id number] NIKOLAY: 03/31/[address] [facility] [address]: Cruz Franklin MD REQ: [id number] RECD: 03/31/16 STATUS: DARYL ALVAREZ DR: Ne Hernandez MD _ SOURCE: BLOOD,VENO SPDESC: ORDERED: Blood Cult Procedure Result Reported Site Aerobic Culture Bottle Final 04/05/16- 516 ML No Growth Day 5 Anaerobic Culture Bottle Final 04/05/16- 516 ML No Growth Day 5 * ML - MAIN LAB ([facility]) . END OF REPORT * ML=Testing performed at Main Lab DEPARTMENT OF PATHOLOGY, [address] [place] [address] Sandro Watson M.D. Director [facility] # [id number] 32 Microcytic anemia with red cell indices suggestive of iron deficiency. Additional studies as clinically warranted. Reviewed by Dr. Watson 33 RESULTS VERIFIED BY REPEAT ANALYSIS 34 consistent w/ previous results 35 consistent w/ previous results 36 RESULTS VERIFIED BY REPEAT ANALYSIS 37 RESULTS VERIFIED BY REPEAT ANALYSIS 38 RESULTS VERIFIED BY REPEAT ANALYSIS 39 RESULTS VERIFIED BY REPEAT ANALYSIS 40 RESULTS VERIFIED BY REPEAT ANALYSIS 41 >100 to <200 pg/mL: likely compensated congestive heart failure (CHF) 200 to 400 pg/mL: likely moderate CHF >400 pg/mL: likely moderate to severe CHF 42 Because ethnic data is not always readily [...] 15-29 5 Kidney failure <15 (or dialysis) 43 Acute inflammation: >10.00 44 Reference Range and Interpretation: TnI (ng/mL) Interpretation Less Than 0.03 ng/mL Not supportive of diagnosis of GA 0.03 - 0.50 ng/mL Indeterminate: suggest serial studies if clinically indicated. Greater than 0.5 ng/mL Consistent with diagnosis of GA 45 consistent w/ previous results 46 RESULTS VERIFIED BY REPEAT ANALYSIS 47 RESULTS VERIFIED BY REPEAT ANALYSIS 48 RESULTS VERIFIED BY REPEAT ANALYSIS 49 RESULTS VERIFIED BY REPEAT ANALYSIS 50 specimen moderately hemolyzed 51 RESULT KEDAR'D 52 RESULT KEDAR'D 53 result kedar'd 54 CHOLESTEROL INTERPRETATION: Desirable: Less than 200 MG/DL Borderline-High Risk: 200-239 MG/DL High-Risk: 240 MG/DL and over 55 HDL INTERPRETATION: Undesirable: High Risk: Less than 40 MG/DL Desirable: Low Risk: Greater than 60 MG/DL 56 LDL INTERPRETATION: Low Risk Optimal Level: LDL Less than 100 MG/DL Near or Above Optimal: LDL 100-129 MG/DL Borderline High Risk: LDL 130-159 MG/DL High Risk: LDL 160-189 MG/DL Very High Risk: LDL Greater than 189 MG/DL 57 result kedar'd 58 result kedar'd 59 result kedar'd triaged provider 60 result kedar'd 61 INVALID 62 Anion gap measurement may be of limited value in the presence of any alkalosis, especially in a combined acid base disorder. . 63 VERBAL TO ELVIS/BRIEN BY ALVARADO at 1940 on 04/22/11. Results read back accurately. 64 A metabolite of Naproxen, O-desmethylnaproxen, has been shown to interfere with the Jendrassik-Ashley method for measuring total bilirubin. Samples from patients who have taken Naproxen have shown spurious elevation in total bilirubin levels. 65 Because ethnic data is not always readily [...] 15-29 5 Kidney failure <15 (or dialysis) 66 H H Check Failed 67 results kedar'd x3 triaged to the provider 68 result kedar'd triaged to the provider 69 results kedar'd x3 triaged to the provider Procedures Date Code Description Status 10/05/2017 44973 Pulse Oximetry Completed 07/04/2017 12281 Pulse Oximetry Completed 07/14/2016 29233 Pulse Oximetry Completed 04/22/2016 35143 Pulse Oximetry Completed 04/14/2016 85195 Pulse Oximetry Completed 03/30/2016 88821 Pulse Oximetry Completed 03/26/2016 84657 Pulse Oximetry Completed 12/16/2015 34634 Pulse Oximetry Completed 11/11/2015 05810 Pulse Oximetry Completed 08/05/2015 75156 Pulse Oximetry Completed 05/08/2015 89213 Pulse Oximetry Completed 11/01/2013 40493 Finger Or Heel Stick Completed 06/01/2013 47080 Pulse Oximetry Completed 03/08/2013 15235 Finger Or Heel Stick Completed 10/26/2012 84245 Vision Test- screening test of visual acuity, Completed quantitative, bila 06/15/2012 40682 Pulse Oximetry Completed 06/15/2012 67274 Finger Or Heel Stick Completed 10/07/2011 45992 Pulse Oximetry Completed 10/07/2011 97428 Finger Or Heel Stick Completed 07/01/2011 28250 Pulse Oximetry Completed 04/23/2011 23881 Pulse Oximetry Completed 12/24/2010 48502 Pulse Oximetry Completed 11/12/2010 45895 Pulse Oximetry Completed 10/30/2010 75627 Isa-Noninvasive physiologic studies of upper or lower Completed extremity 10/22/2010 84916 Pulse Oximetry Completed 02/21/2010 83409114 Colonoscopy Completed Encounters Type Date Location Provider Dx Diagnosis Office Visit 01/19/2018 Main Office Ne Hernandez M.D. J44.9 Chronic obstructive 9:40a pulmonary disease, unspecified E66.9 Obesity, unspecified I48.2 Chronic atrial fibrillation R09.02 Hypoxemia E11.9 Type 2 diabetes mellitus without complications G47.33 Obstructive sleep apnea (adult) (pediatric) Z23 Encounter for immunization Office Visit 10/05/2017 8:00a Main Office Olamide Bello J44.9 Chronic obstructive [place], [employer] pulmonary disease, unspecified E11.9 Type 2 diabetes mellitus without complications R09.02 Hypoxemia I48.2 Chronic atrial fibrillation E66.9 Obesity, unspecified Office Visit 07/04/2017 3:00p Main Office Ne Hernandez, Z00.01 Encounter for M.Oliverio general adult medical exam w abnormal findings E11.9 Type 2 diabetes mellitus without complications J44.9 Chronic obstructive pulmonary disease, unspecified I50.22 Chronic systolic (congestive) heart failure I25.10 [place]scl heart disease of [place] coronary artery w/o ang pctrs R09.02 Hypoxemia I48.2 Chronic atrial fibrillation E66.9 Obesity, unspecified Office Visit 11/29/2016 10:40a Main Office Ne Hernandez E11.9 Type 2 diabetes M.D. mellitus without complications J44.9 Chronic obstructive pulmonary disease, unspecified I50.22 Chronic systolic (congestive) heart failure R09.02 Hypoxemia I25.10 Athscl heart disease of [place] coronary artery w/o ang pctrs E66.9 Obesity, unspecified Z23 Encounter for immunization Office Visit 07/14/2016 2:00p [facility] Ne Hernandez E11.9 Type 2 diabetes M.D. mellitus without complications J44.9 Chronic obstructive pulmonary disease, unspecified I50.22 Chronic systolic (congestive) heart failure R09.02 Hypoxemia I25.10 Athscl heart disease of [place] coronary artery w/o ang pctrs G47.33 Obstructive sleep apnea (adult) (pediatric) Office Visit 04/22/2016 3:10p Main Office Ne Hernandez, Z01.818 Encounter for other M.D. 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 Office Visit 10/09/2014 9:40a Main Office Joe Vanegas, 250.00 Diabetes Mellitus M.D. W/O Compl Type [...] Claudication Office Visit 03/08/2013 2:40p Main Office El Rhodes 250.00 Diabetes Mellitus [...] Office Visit 06/15/2012 2:00p Main Office El Rhodes 250.00 Diabetes Mellitus [...] Office Visit 10/07/2011 1:20p Main Office El AMelanie 250.00 Diabetes [...] II Or Unspec Controlled Office Visit 04/23/2011 [facility] Keerthi Hagan 250.00 Diabetes Mellitus W/O 1:50p Office Poly [...] am - Ne Hernandez M.D. at Main Csydsk7203/2018 - Ne Hernandez M.D.J44.9 Chronic obstructive pulmonary disease, unspecifiedComments:on 4L O2 chronically stable on regimen increases to 6L with exertionFollow up:3moI48.2 Chronic atrial fibrillationComments:sees Dr Stephenson09.02 HypoxemiaComments:is on oxygen therapy, continues to find benefit from use chronic on 4l, has pulm, restrictive lung disease/copdG47.33 Obstructive sleep apnea (adult) (pediatric)I95.9 Hypotension, unspecifiedComments:may taper midodrine if BP allows, continue tknpbgcsjB11.115 Cellulitis of right lower limbComments:resolved, continue antibiotics 2 more nmgyjY61.9 Anemia, unspecifiedComments:continue ironI50.22 Chronic systolic ( congestive) heart failureComments:Patient was advised to call or return if there was a significant increase in peripheral edema, shortness of breath, or weight improved, see pulmonary next weekD41.4 Neoplasm of uncertain behavior of bladderComments:seeing vimwofwZ10.9 Type 2 diabetes mellitus without complicationsAllNew Medication:Lisinopril 5 mg - 1 by mouth every dayComments: Medication Management Patient Understands medications he's taking? Yes No Are there Barriersto Adherence? Yes No Has the patient been asked about herbal supplements and therapies, and OTC meds? Yes No
--- NOTE | 2018-06-14 21:44 | ED ---
Complaint/Male - History of Current Complaint Chief Complaint: EDUrogenitalProblems Time Seen by Provider: 06/14/18 21:39 Hx Obtained From: Patient - Allergies/Home Medications Allergies/Adverse Reactions: Allergies Allergy/AdvReac Type Severity Reaction Status Date / Time No Known Allergies Allergy Verified 04/26/16 08:25 PMH/Surg Hx/FS Hx/Imm Hx Endocrine/Hematology History: Reports: Hx Anticoagulant Therapy, Hx Diabetes Denies: Hx Blood Disorders, Hx Blood Transfusions, Hx Bone Marrow Disease, Hx Systemic Lupus Erythematosus, Hx Sickle Cell Disease, Hx Thyroid Disease, Hx Anemia, Hx Unexplained Bleeding, Other Endocrine/Hematological Disorders Cardiovascular History: Reports: Hx Congestive Heart Failure, Hx Coronary Artery Disease - STENT-2010, Hx Hypercholesterolemia, Hx Hypertension, Hx Peripheral Vascular Disease, Hx Syncope, Other Cardiovascular Problems/ Disorders - ARRHYTHMIA Denies: Hx Aneurysm, Hx Angina, Hx Angioplasty, Hx Auto Implanted Cardiovert Defib, Hx Cardiac Arrest, Hx Cardiomegaly, Hx Congenital Heart Disease, Hx Deep Vein Thrombosis, Hx Embolism, Hx Pacemaker/ICD, Hx Rheumatic Fever, Hx Valvular Heart Disease Respiratory History: Reports: Hx Chronic Obstructive Pulmonary Disease (COPD) - 4L home O2, Hx Pulmonary Edema - HX OF, Hx Sleep Apnea Denies: Hx Asthma, Hx Chronic Bronchitis, Hx Cystic Fibrosis, Hx Lung Cancer , Hx Pleural Effusion, Hx Pneumonia, Hx Pulmonary Embolism, Hx Seasonal Allergies, Other Respiratory Problems/Disorders GI History: Reports: Other GI Disorders - pt states he alternates between diarrhea and constipation Denies: Hx Cirrhosis, Hx Crohn's Disease, Hx Diverticulosis, Hx Gall Bladder Disease, Hx Gastroesophageal Reflux Disease, Hx Gastrointestinal Bleed, Hx Hiatal Hernia, Hx Irritable Bowel, Hx Jaundice, Hx Obstructive Bowel, Hx Ileostomy, Hx Pyloric Stenosis, Hx Ulcer History: Reports: Hx Chronic Renal Failure, Other Problems/Disorders - bladder tumor removed Denies: Hx Acute Renal Failure, Hx Benign Prostatic Hyperplasia, Hx Dialysis , Hx Kidney Infection, Hx Kidney Stones, Hx Renal Disease Musculoskeletal History: Denies: Hx Arthritis, Hx Back Problems, Hx Bursitis, Hx Congenital Bone Abnormalities, Hx Fibromyalgia, Hx Gout, Hx Orthopedic Injury, Hx Osteoporosis, Hx Scoliosis, Hx Tendonitis Sensory History: Reports: Hx Contacts or Glasses - reading glasses, Hx Hearing Problem - [place] Denies: Hx Cataracts, Hx Eye Injury, Hx Eye Prosthesis, Hx Glaucoma, Hx Legally Blind, Hx Macular Degeneration, Hx Vision Problem, Hx Deafness - pt slightly [place], Hx Hearing Aid, Other Sensory Impairments Opthamlomology History: Reports: Hx Contacts or Glasses - reading glasses Denies: Hx Cataracts, Hx Eye Injury, Hx Eye Prosthesis, Hx Glaucoma, Hx Legally Blind, Hx Macular Degeneration, Hx Vision Problem, Other Sensory Impairments Neurological History: Denies: Hx Dementia, Hx Developmental Delay, Hx Headaches, Hx Migraine, Hx Nerve Disease, Hx Seizures, Hx Spinal Cord Injury, Hx Transient Ischemic Attacks (TIA), Other Neuro Impairments/Disorders Psychiatric History: Denies: Hx Anxiety, Hx Attention Deficit Hyperactivity Disorder, Hx Eating Disorder, Hx Depression, Hx Panic Disorder, Hx Post Traumatic Stress Disorder, Hx Inpatient Treatment, Hx Community Mental Health Tx, Hx Schizophrenia, Hx Bipolar Disorder, Hx Suicide Attempt, Hx of Violent Episodes Against Others, Hx Substance Abuse, Other Psychiatric Issues/Disorders - Cancer History Cancer Type, Location and Year: bladder CA Hx Chemotherapy: No Hx Radiation Therapy: No Hx Palliative Cancer Treatment: No - Surgical History Surgery Procedure, Year, and Place: tonsils,. cardiac stent 2010. bladder surgery for tumor, [facility] Hx Anesthesia Reactions: No Infectious Disease History: Yes Infectious Disease History: Reports: Hx Tuberculosis - 5 month Rx ~2007 suspected exposure Denies: Hx Clostridium Difficile, Hx Hepatitis, Hx Human Immunodeficiency Virus (HIV), Hx Shingles, History Other Infectious Disease, Traveled Outside the [place] in Last 30 Days - Family History Known Family History: Positive: Cardiac Disease - Social History Alcohol Use: None Substance Use Type: Reports: None Smoking Status (MU): Former Smoker Type: Cigarettes Amount Used/How Often: 1.5 ppd X 45 YEARS Length of Time of Smoking/Using Tobacco: 47 years Have You Smoked in the Last Year: No Physical Exam Vital Signs On Initial Exam: Initial Vitals Temp Pulse Resp BP Pulse Ox 98.1 F 126 22 128/91 88 06/14/18 20:29 06/14/18 20:29 06/14/18 20:29 06/14/18 20:29 06/14/18 20:29 Diagnostics - Vital Signs Vital Signs Temp Pulse Resp BP Pulse Ox 06/14/18 20:29 98.1 F 126 22 128/91 88 - Laboratory Lab Statement: Any lab studies that have been ordered have been reviewed, and results considered in the medical decision making process.
--- NOTE | 2018-06-14 21:49 | ED ---
GI/ HPI - HPI Summary HPI Summary: 73-year-old male presents with complaint of nonfunctioning Ramos catheter. This cast there was placed today by urology. He recently had cystoscopy and biopsy one week ago. He was on Xarelto but that has been held but is also on oral Plavix. He describes discomfort and distention over his bladder. The urologist is present on arrival and will be changing out the Ramos catheter. In this process a good amount of blood has been encountered and the urologist will start continuous bladder irrigation. - History of Current Complaint Chief Complaint: EDUrogenitalProblems Time Seen by Provider: 06/14/18 21:39 Stated Complaint: CATHETER ISSUE PER PT Hx Obtained From: Patient Pain Intensity: 10 - Additional Pertinent History Primary Care Physician: KENNETH - Allergy/Home Medications Allergies/Adverse Reactions: Allergies Allergy/AdvReac Type Severity Reaction Status Date / Time No Known Allergies Allergy Verified 04/26/16 08:25 PMH/Surg Hx/FS Hx/Imm Hx Endocrine/Hematology History: Reports: Hx Anticoagulant Therapy, Hx Diabetes Denies: Hx Blood Disorders, Hx Blood Transfusions, Hx Bone Marrow Disease, Hx Systemic Lupus Erythematosus, Hx Sickle Cell Disease, Hx Thyroid Disease, Hx Anemia, Hx Unexplained Bleeding, Other Endocrine/Hematological Disorders Cardiovascular History: Reports: Hx Congestive Heart Failure, Hx Coronary Artery Disease - STENT-2010, Hx Hypercholesterolemia, Hx Hypertension, Hx Peripheral Vascular Disease, Hx Syncope, Other Cardiovascular Problems/ Disorders - ARRHYTHMIA Denies: Hx Aneurysm, Hx Angina, Hx Angioplasty, Hx Auto Implanted Cardiovert Defib, Hx Cardiac Arrest, Hx Cardiomegaly, Hx Congenital Heart Disease, Hx Deep Vein Thrombosis, Hx Embolism, Hx Pacemaker/ICD, Hx Rheumatic Fever, Hx Valvular Heart Disease Respiratory History: Reports: Hx Chronic Obstructive Pulmonary Disease (COPD) - 4L home O2, Hx Pulmonary Edema - HX OF, Hx Sleep Apnea Denies: Hx Asthma, Hx Chronic Bronchitis, Hx Cystic Fibrosis, Hx Lung Cancer , Hx Pleural Effusion, Hx Pneumonia, Hx Pulmonary Embolism, Hx Seasonal Allergies, Other Respiratory Problems/Disorders GI History: Reports: Other GI Disorders - pt states he alternates between diarrhea and constipation Denies: Hx Cirrhosis, Hx Crohn's Disease, Hx Diverticulosis, Hx Gall Bladder Disease, Hx Gastroesophageal Reflux Disease, Hx Gastrointestinal Bleed, Hx Hiatal Hernia, Hx Irritable Bowel, Hx Jaundice, Hx Obstructive Bowel, Hx Ileostomy, Hx Pyloric Stenosis, Hx Ulcer History: Reports: Hx Chronic Renal Failure, Other Problems/Disorders - bladder tumor removed Denies: Hx Acute Renal Failure, Hx Benign Prostatic Hyperplasia, Hx Dialysis , Hx Kidney Infection, Hx Kidney Stones, Hx Renal Disease Musculoskeletal History: Denies: Hx Arthritis, Hx Back Problems, Hx Bursitis, Hx Congenital Bone Abnormalities, Hx Fibromyalgia, Hx Gout, Hx Orthopedic Injury, Hx Osteoporosis, Hx Scoliosis, Hx Tendonitis Sensory History: Reports: Hx Contacts or Glasses - reading glasses, Hx Hearing Problem - TE-MOAK Denies: Hx Cataracts, Hx Eye Injury, Hx Eye Prosthesis, Hx Glaucoma, Hx Legally Blind, Hx Macular Degeneration, Hx Vision Problem, Hx Deafness - pt slightly TE-MOAK, Hx Hearing Aid, Other Sensory Impairments Opthamlomology History: Reports: Hx Contacts or Glasses - reading glasses Denies: Hx Cataracts, Hx Eye Injury, Hx Eye Prosthesis, Hx Glaucoma, Hx Legally Blind, Hx Macular Degeneration, Hx Vision Problem, Other Sensory Impairments Neurological History: Denies: Hx Dementia, Hx Developmental Delay, Hx Headaches, Hx Migraine, Hx Nerve Disease, Hx Seizures, Hx Spinal Cord Injury, Hx Transient Ischemic Attacks (TIA), Other Neuro Impairments/Disorders Psychiatric History: Denies: Hx Anxiety, Hx Attention Deficit Hyperactivity Disorder, Hx Eating Disorder, Hx Depression, Hx Panic Disorder, Hx Post Traumatic Stress Disorder, Hx Inpatient Treatment, Hx Community Mental Health Tx, Hx Schizophrenia, Hx Bipolar Disorder, Hx Suicide Attempt, Hx of Violent Episodes Against Others, Hx Substance Abuse, Other Psychiatric Issues/Disorders - Cancer History Cancer Type, Location and Year: bladder CA Hx Chemotherapy: No Hx Radiation Therapy: No Hx Palliative Cancer Treatment: No - Surgical History Surgery Procedure, Year, and Place: tonsils,. cardiac stent 2010. bladder surgery for tumor, [facility] Hx Anesthesia Reactions: No Infectious Disease History: Yes Infectious Disease History: Reports: Hx Tuberculosis - 5 month Rx ~2007 suspected exposure Denies: Hx Clostridium Difficile, Hx Hepatitis, Hx Human Immunodeficiency Virus (HIV), Hx Shingles, History Other Infectious Disease, Traveled Outside the [place] in Last 30 Days - Family History Known Family History: Positive: Cardiac Disease - Social History Alcohol Use: None Substance Use Type: Reports: None Smoking Status (MU): Former Smoker Type: Cigarettes Amount Used/How Often: 1.5 ppd X 45 YEARS Length of Time of Smoking/Using Tobacco: 47 years Have You Smoked in the Last Year: No Review of Systems Negative: Fever Positive: Abdominal Pain. Negative: Nausea Positive: no symptoms reported, urgency Musculoskeletal: Negative All Other Systems Reviewed And Are Negative: Yes Physical Exam Triage Information Reviewed: Yes Vital Signs On Initial Exam: Initial Vitals Temp Pulse Resp BP Pulse Ox 98.1 F 126 22 128/91 88 06/14/18 20:29 06/14/18 20:29 06/14/18 20:29 06/14/18 20:29 06/14/18 20:29 Vital Signs Reviewed: Yes Appearance: Positive: Pain Distress - mild Skin: Positive: Warm, Skin Color Reflects Adequate Perfusion, Dry Eyes: Positive: Normal ENT: Positive: Hearing grossly normal Neck: Positive: Supple Respiratory/Lung Sounds: Positive: Clear to Auscultation Cardiovascular: Positive: RRR Abdomen Description: Positive: Nontender, No Organomegaly, Soft Male Genital Exam: Positive: Other - bloody effluent in bladder irrigation Musculoskeletal: Positive: Normal, Strength/ROM Intact Neurological: Positive: Alert, Oriented to Person Place, Time Psychiatric: Positive: Normal Diagnostics - Vital Signs Vital Signs Temp Pulse Resp BP Pulse Ox 06/14/18 20:29 98.1 F 126 22 128/91 88 - Laboratory Lab Statement: Any lab studies that have been ordered have been reviewed, and results considered in the medical decision making process. GIGU Course/Dx - Course Course Of Treatment: urologist present with patient and has placed a ramos. He has started continuous bladder irrigation. Laboratories are pending. Discussed the case with hospitalist will admit. - Diagnoses Provider Diagnoses: Adverse effect of anticoagulant, Gross hematuria, Complication, blocked Ramos catheter - Physician Notifications Discussed Care Of Patient With: Yahir Stephens - seeing in ED, admit to Dr Golden Discharge - Sign-Out/Discharge Documenting (check all that apply): Patient Departure Patient Received Moderate/Deep Sedation with Procedure: No - Discharge Plan Condition: Fair Disposition: ADMITTED TO [facility] Referrals: Ne Hernandez MD [Primary Care Provider] - - Billing Disposition and Condition Condition: FAIR Disposition: Admitted to [facility] - Attestation Statements Document Initiated by Javan: No
[2018-06-14 22:20] LABS: Activated Partial Thrombo Time 27.7 seconds (26.0-36.3); INR 1.12 (0.82-1.09)
[2018-06-14 22:21] LABS: Hematocrit 43 % (36-46); Hemoglobin 13.9 g/dL (14.0-18.0); Mean Corpuscular HGB Conc 33 g/dL (31-36); Mean Corpuscular Hemoglobin 26 pg (27-31); Mean Corpuscular Volume 79 fL (80-94); Mean Platelet Volume 8.5 fL (7.4-10.4); Platelet Count 168 10^3/uL (150-450); Red Blood Count 5.42 10^6 /uL (4.18-5.48); Red Cell Distribution Width 26 % (10.5-15); White Blood Count 13.5 10^3/uL (3.5-10.8)
[2018-06-14 22:25] LABS: BUN/Creatinine Ratio 23.9 (8-20); Calcium 9.9 mg/dL (8.6-10.3); EGFR African American 74.4 (>60); EGFR Non-African American 61.5 (>60); Potassium 4.6 mmol/L (3.5-5.0)
[2018-06-14] MEDS ORDERED: Docusate CAP* 100 MG PO PRN (22:40)
[2018-06-14] MEDS ORDERED: Ondansetron INJ* 2 MG/ML VIAL IV PRN (22:40)
[2018-06-14] MEDS ORDERED: Acetaminophen TAB* 325 MG PO PRN (22:40)
[2018-06-14] MEDS ORDERED: Senna TAB PO PRN (22:40)
[2018-06-14] MEDS ORDERED: cefTRIAXone(*) 1 GM in NS 0.9% 50 ML* 50 ML IVPB ONE ×2 (22:43→22:51)
[2018-06-14] MEDS ORDERED: Albuterol/Ipratropium NEB.SOL* Albuterol 2.5 MG/Ipratropium 0.5 MG 3 ML INH PRN (22:46)
[2018-06-14 22:51] LABS: ABS Basophils 0.1 10^3/ul (0-0.2); ABS Eosinophils 0 10^3/ul (0-0.6); ABS Lymphocytes 1.4 10^3/ul (1.0-4.8); ABS Monocytes 1.3 10^3/ul (0-0.8); ABS Neutrophils 10.6 10^3/ul (1.5-7.7); ABS Nucleated RBC 0 10^3/ul; Eosinophil % 0.3 %; Lymphocyte % 10.7 %; Nucleated Red Blood Cells % 0.1
[2018-06-14] MEDS ORDERED: Dextrose 50% Syringe 50 ML* 25 GM/50 ML SYRINGE IV PUSH PRN (22:51)
[2018-06-14 22:52] LABS: Large Platelets Present
[2018-06-14 22:53] LABS: Polychromasia 1+
[2018-06-15] MEDS: Lactated Ringers 1000 ML Bag* 1,000 ML IV SCH ×2 (00:32→14:29)
[2018-06-15] MEDS: MIDODRINE 5 MG PO SCH ×4 (00:39→20:27)
--- NOTE | 2018-06-15 01:33 | HP ---
CC: Ne Hernandez MD; Yahir Stephens MD* HISTORY AND PHYSICAL: DATE OF ADMISSION: 06/14/18 TIME OF EVALUATION: 2199 PRIMARY CARE PHYSICIAN: Ne Hernandez MD. UROLOGIST: Yahir Stephens MD. CHIEF COMPLAINT: Urinary retention with gross hematuria. HISTORY OF PRESENT ILLNESS: This is a 73-year-old male with a past medical history of bladder tumor, status post resection. The patient had a small tumor in his bladder noted 2 weeks ago and it was cauterized. Due to the patient's comorbidities, Dr. Stephens did not want to take him to the OR. He has been on Xarelto and Plavix. On Tuesday morning, 06/12/18, the patient developed gross hematuria and then clots developed the following day with some retention. He went to Dr. Stephens's office today. He put in a Chanel and irrigated it and it cleared, and he was sent home with a Chanel catheter to be followed up on this 06/16/18. Unfortunately, when the patient got home, he noted no urinary output, increase in abdominal pressure, concern for build up of blood clots, and he was brought to the emergency room for further evaluation. Dr. Stephens evaluated in the emergency room. He placed a Chanel catheter and CBI is currently running, still has bright gross hematuria. The patient denies any lightheadedness or dizziness. No shortness of breath, no chest pain, no fevers, no nausea or vomiting, no abdominal discomfort. Otherwise, he is in his usual state of health. He states he was recently discontinued off his azithromycin. He last took Xarelto on the evening of 06/11/18, due to the hematuria starting. He has continued on his Plavix. Otherwise, remaining review of systems is negative. PAST MEDICAL HISTORY: 1. History of atrial flutter, on Xarelto, followed by Dr. Lazaro. 2. Interstitial lung disease, on prednisone. 3. COPD, on 4 L. 4. Coronary artery disease, status post PCI. 5. Ischemic cardiomyopathy, last EF of 40% to 45%. 6. CKD, stage 3. 7. Obstructive sleep apnea, on CPAP. 8. Hypertension. 9. Diabetes. 10. History of bladder tumor, status post resection. 11. History of acute diastolic heart failure. 12. Hyperlipidemia. 13. Lower extremity chronic lymphedema. 14. BPH. MEDICATIONS: 1. Xarelto 20 mg p.o. daily. Of note, last took on 06/11/18. 2. DuoNeb q.4 hours as needed. 3. Ferrous sulfate 325 mg p.o. daily. 4. Finasteride 5 mg p.o. daily. 5. Imdur 30 mg p.o. daily. 6. Lipitor 20 mg daily. 7. Metformin 1000 mg p.o. b.i.d. 8. Metoprolol tartrate 25 mg p.o. b.i.d. 9. Midodrine 5 mg p.o. t.i.d. 10. Multivitamin daily. 11. [place]-3 1000 mg p.o. daily. 12. Plavix 75 mg daily. 13. Prednisone 10 mg daily. 14. Spironolactone 25 mg daily. 15. Torsemide 20 mg daily. ALLERGIES: No known drug allergies. FAMILY HISTORY: Reviewed and noncontributory. SOCIAL HISTORY: The patient lives at home alone. He is independent of his ADLs. He is . He quit smoking about 8 years ago. At that time, he smoked a pack and a half to 2 packs per day for the past 50 years. No alcohol use. States he used to be a heavy drinker and no illicit drug use. His brother Elton is his healthcare proxy, . Code status: Full code. REVIEW OF SYSTEMS: A 14-point review of systems as mentioned in the HPI, otherwise negative. PHYSICAL EXAMINATION GENERAL: No acute distress, resting comfortably. VITAL SIGNS: Temp 98.1, pulse rate 94, respiratory rate 20, oxygen saturation is 94% on 4 L, blood pressure is 128/91. HEENT: Head normocephalic. Pupils equal and reactive, anicteric. Oropharynx: Mucous membranes moist. NECK: Supple. No lymphadenopathy. RESPIRATORY: Diminished breath sounds. No increased work of breathing. No wheeze, rhonchi, or rales. CARDIAC: Regular rate and rhythm. Soft systolic murmur heard throughout. Ectopic beats are also noted. ABDOMEN: Soft, nontender, nondistended. EXTREMITIES: The patient with chronic lower extremity lymphedema and hemosiderin changes. Distal pulses. Chanel catheter noted to have CBI with gross hematuria. NEUROLOGIC: Alert and oriented x3. No gross focal neurologic deficits. DIAGNOSTIC STUDIES/LAB DATA: White count 13.5, hemoglobin 13.9, hematocrit 43 , platelets 168, INR is 1.12. Sodium 131, potassium 4.6, chloride 93, bicarb 29 , BUN 28, creatinine 1.17, glucose 163. ASSESSMENT: This is a 73-year-old male with a past medical history of a recent cauterized small tumor in his bladder, on Xarelto and Plavix, who presents with persistent gross hematuria, now urinary retention, with Chanel catheter in place. 1. Gross hematuria and urinary retention. Assessment: The patient now with CBI, still draining gross hematuria. He is asymptomatic, his H and H is stable. We discussed holding his Xarelto and Plavix until his hematuria resolves. Per Dr. Stephens, continue the Chanel and irrigate as need. Continue CBI. We will keep him on a clear liquid diet in case he needs to go to the OR for further evaluation. Repeat his H and H in the morning. We will follow up on his UA and give him a dose of ceftriaxone x1 and follow up with Urology in the morning. 2. Chronic medical problems. Cardiac: Going to hold his Lasix in the setting of his gross hematuria and place him on gentle IV fluids for now. Continue on his remaining medications with the exception of Xarelto, Plavix. We will also hold his metformin, place him on lispro sliding scale. 3. FEN: Clear liquid diet. Gentle IV fluids. 4. DVT prophylaxis: The patient scores high risk. Place him on SCDs in the setting of his gross hematuria. 5. Code status: Full code. PATIENT TIME: Greater than 45 minutes was spent doing the history and physical , more than half the time spent in direct patient contact. [id number]/[facility] #: [id number] LILA
[2018-06-15] MEDS: Metoprolol Tartrate TAB* 25 MG PO SCH ×3 (02:14→20:32)
[2018-06-15] MEDS ORDERED: Oxybutynin TAB* 5 MG PO PRN (03:39)
[2018-06-15 06:20] LABS: Urine Appearance Cloudy; Urine Color Red
[2018-06-15 06:29] LABS: Urine Specific Gravity 1.007 (1.010-1.030)
[2018-06-15 06:49] LABS: ABS Basophils 0 10^3/ul (0-0.2); ABS Eosinophils 0.1 10^3/ul (0-0.6); ABS Lymphocytes 1.9 10^3/ul (1.0-4.8); ABS Monocytes 1.1 10^3/ul (0-0.8); ABS Nucleated RBC 0 10^3/ul; Eosinophil % 0.8 %; Hematocrit 38 % (36-46); Hemoglobin 12.4 g/dL (14.0-18.0); INR 1.09 (0.82-1.09); Lymphocyte % 17.2 %; Mean Corpuscular HGB Conc 32 g/dL (31-36); Mean Corpuscular Hemoglobin 26 pg (27-31); Mean Corpuscular Volume 79 fL (80-94); Mean Platelet Volume 8.4 fL (7.4-10.4); Nucleated Red Blood Cells % 0.1; Platelet Count 141 10^3/uL (150-450); Red Blood Count 4.87 10^6 /uL (4.18-5.48); Red Cell Distribution Width 26 % (10.5-15); White Blood Count 11.1 10^3/uL (3.5-10.8)
[2018-06-15 07:00] LABS: BUN/Creatinine Ratio 23.3 (8-20); Calcium 9.4 mg/dL (8.6-10.3); EGFR African American 106.1 (>60); EGFR Non-African American 87.7 (>60); Potassium 4.2 mmol/L (3.5-5.0)
[2018-06-15 07:08] LABS: Urine Bacteria 2+ (Absent); Urine Red Blood Cell 3+(>10/hpf) (Absent); Urine White Blood Cell 3+(>20/hpf) (Absent)
[2018-06-15] MEDS: Insulin LISPRO* 1 UNITS UNIT SUBCUT SCH ×3 (08:55→18:49)
[2018-06-15] MEDS: Ferrous Sulfate TAB* 325 MG PO SCH (09:44)
[2018-06-15] MEDS: Finasteride TAB* 5 MG PO SCH (09:45)
[2018-06-15] MEDS: Multivitamins/Minerals TAB PO SCH (09:47)
[2018-06-15] MEDS: Isosorbide Mononitrate ER TAB* 30 MG PO SCH (09:48)
[2018-06-15] MEDS: Spironolactone TAB* 25 MG PO SCH (09:48)
[2018-06-15] MEDS: predniSONE TAB* 10 MG PO SCH (09:48)
[2018-06-15] MEDS ORDERED: Iodixanol* (CONTRAST) 320 MG/ML 100 ML SDV IV SCH (12:52)
[2018-06-15] MEDS ORDERED: Atorvastatin* 20 MG TAB PO SCH (17:00)
--- NOTE | 2018-06-15 20:30 | PN ---
Subjective Date of Service: 06/15/18 Interval History: Admitted last night for bladder irrigation and possible urologic procedure. RN today noted less blot clots per flush, with Chanel bag now with clear red urine. CT Urogram with high attenuation filling defects within the bladder consistent with intraluminal thrombus, renal cysts, without hydronephrosis or nephrolithiasis. Pt denies complaints except tiredness from lack of sleep last night. Objective Active Medications: Acetaminophen (Tylenol Tab*) 650 mg PO Q4H PRN PRN Reason: FEVER/PAIN Albuterol/Ipratropium (Duoneb (Albuterol 2.5 Mg/Ipratropium 0.5 Mg)) 1 neb INH Q4H PRN PRN Reason: SOB/WHEEZING Atorvastatin Calcium (Lipitor*) 20 mg PO 1700 [facility] Last Admin: 06/15/18 18:49 Dose: 20 mg Dextrose (D50w Syringe 50 Ml*) 12.5 gm IV PUSH .FOR FS < 60 - SS PRN PRN Reason: FS < 60 Docusate Sodium (Colace Cap*) 100 mg PO BID PRN PRN Reason: CONSTIPATION Ferrous Sulfate (Ferrous Sulfate Tab*) 325 mg PO DAILY [facility] Last Admin: 06/15/18 09:44 Dose: 325 mg Finasteride (Proscar Tab*) 5 mg PO DAILY [facility] Last Admin: 06/15/18 09:45 Dose: 5 mg Lactated Ringer's (Lactated Ringers 1000 Ml Bag*) 1,000 mls @ 75 mls/hr IV PER RATE [facility] Last Admin: 06/15/18 14:29 Dose: 75 mls/hr Insulin Human Lispro (Humalog*) 0 units SUBCUT AC [facility]; Protocol Last Admin: 06/15/18 18:49 Dose: 3 units Iodixanol (Visipaque* 320 (Contrast)) 131 ml IV ONCE [facility] Stop: 06/17/18 12:51 Last Admin: 06/15/18 13:42 Dose: 131 ml Isosorbide Mononitrate (Imdur Er Tab*) 30 mg PO DAILY [facility] Last Admin: 06/15/18 09:48 Dose: 30 mg Metoprolol Tartrate (Lopressor Tab*) 25 mg PO BID [facility] Last Admin: 06/15/18 09:46 Dose: Not Given Midodrine (Midodrine (Nf)) 5 mg PO TID [facility]; Protocol Last Admin: 06/15/18 13:14 Dose: Not Given Multivitamins/Minerals (Theragran/Minerals Tab*) 1 tab PO DAILY [facility] Last Admin: 06/15/18 09:47 Dose: 1 tab Ondansetron HCl (Zofran Inj*) 4 mg IV Q4H PRN PRN Reason: NAUSEA/VOMITING Prednisone (Deltasone Tab*) 10 mg PO DAILY [facility] Last Admin: 06/15/18 09:48 Dose: 10 mg Senna (Senokot Tab*) 1 tab PO BID PRN PRN Reason: CONSTIPATION Spironolactone (Aldactone Tab*) 25 mg PO DAILY [facility] Last Admin: 06/15/18 09:48 Dose: 25 mg Vital Signs - 8 hr 06/15/18 06/15/18 06/15/18 15:30 19:35 20:19 Temperature 98.1 F 98.6 F Pulse Rate 84 97 Respiratory 16 16 16 Rate Blood Pressure 90/61 94/67 (mmHg) O2 Sat by Pulse 98 97 Oximetry Oxygen Devices in Use Now: Nasal Cannula Ears/Nose/Mouth/Throat: Mucous Membranes Moist Neck: NL Appearance and Movements; NL JVP Respiratory: Clear to Auscultation Cardiovascular: RRR Extremities: - - chronic venous stasis changes of LE bilateraly with trace edema , thickened dark skin over lower shins Result Diagrams: 06/15/18 06:19 06/15/18 06:19 Assess/Plan/Problems-Billing Assessment: 73M with COPD/ILD on home O2 4L, CAD s/p PCI, ICM HFrEF 40-45% with RV systolic dysfunction, aflutter on AC, MALLIKA on CPAP, DM2, who presents from urology clinic for gross hematuria s/p Chanel that was not draining at home. Now undergoing CBI with improvement off AC. - Patient Problems (1) Hematuria Comment: after cauterization in urology clinic. - cont CBI - appreciate Dr. Kat swann - currently holding home Xarelto, Plavix, and torsemide (2) CHF (congestive heart failure) Comment: Initially not written for home torsemide in the setting of bleed. Will re-evaluate volume status and urine tomorrow and likely add back on, given bleed likely resolving. - cont home meds: spironolactone, midodrine 5mg tid, metoprolol (3) Atrial flutter Comment: Holding Xarelto in setting of active bleeding. Will continue beta ryan and consider switching to succinate before DC (4) CAD (coronary artery disease) Comment: h/o PCI. Holding Plavix given bleed. - continue metoprolol, Imdur, and Lipitor. (5) COPD (chronic obstructive pulmonary disease) Comment: - cont home pred 10mg - DuoNebs prn (6) Type 2 diabetes mellitus Comment: - cont insulin sliding scale
[2018-06-16] MEDS ORDERED: Lactated Ringers 1000 ML Bag* 1,000 ML IV SCH (04:00)
[2018-06-16 06:49] LABS: Hematocrit 34 % (36-46); Mean Corpuscular HGB Conc 33 g/dL (31-36); Mean Corpuscular Hemoglobin 26 pg (27-31); Mean Corpuscular Volume 80 fL (80-94); Platelet Count 131 10^3/uL (150-450); Red Blood Count 4.19 10^6 /uL (4.18-5.48); Red Cell Distribution Width 26 % (10.5-15); White Blood Count 10.5 10^3/uL (3.5-10.8)
[2018-06-16 07:01] LABS: BUN/Creatinine Ratio 15.8 (8-20); Calcium 9.1 mg/dL (8.6-10.3); EGFR African American 122.3 (>60); EGFR Non-African American 101.1 (>60); Magnesium 1.9 mg/dL (1.9-2.7)
[2018-06-16] MEDS: Ferrous Sulfate TAB* 325 MG PO SCH (08:18)
[2018-06-16] MEDS: predniSONE TAB* 10 MG PO SCH (08:18)
[2018-06-16] MEDS: Isosorbide Mononitrate ER TAB* 30 MG PO SCH (08:18)
[2018-06-16] MEDS: Spironolactone TAB* 25 MG PO SCH (08:18)
[2018-06-16] MEDS: MIDODRINE 5 MG PO SCH ×2 (08:18→13:51)
[2018-06-16] MEDS: Multivitamins/Minerals TAB PO SCH (08:18)
[2018-06-16] MEDS: Finasteride TAB* 5 MG PO SCH (08:19)
[2018-06-16] MEDS: Metoprolol Tartrate TAB* 25 MG PO SCH (08:19)
[2018-06-16] MEDS: Insulin LISPRO* 1 UNITS UNIT SUBCUT SCH ×2 (09:49→13:50)
--- NOTE | 2018-06-16 09:51 | CONS ---
GENITOURINARY CONSULTATION NOTE: DATE OF CONSULT: 06/16/18 HISTORY: Mr. 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 The tumor was excised and he was treated with a course of intravesical BCG. He has done well and had periodic followup cystoscopies to check for recurrent tumor. About 1 week ago, he had a cystoscopy in the office, which showed 2 small lesions measuring about 5 mm each noted in the bladder wall. These lesions were fulgurated with a Bugbee electrode in the office under local anesthesia. No excision of the lesions was done. The patient did very well until 4 days later when he came to the office with gross hematuria. That corresponded to the time where the scab of the fulguration would have fallen. The patient has been on anticoagulation with both Xarelto and Plavix. In the office, he had a Chanel catheter placed and the bladder was irrigated and the irrigation became pink to light dexter. He was observed in the office for 2 to 3 hours and was sent home on catheter drainage, and his urine light in color. The patient called me that evening on 06/14/18 with clot urinary retention. I sent him to the emergency room where I evaluated him, the Chanel catheter was replaced and I did extensive bladder irrigations. He was then kept on continuous bladder irrigation. He was observed overnight and the hospitalist consultation was obtained because of his cardiac and pulmonary status. Both Xarelto and Plavix were discontinued. The plan was to observe his hematuria and if it does not resolve , to take him to the operating room. About 24 hours after his admission, the urine became clear and continuous bladder irrigation was discontinued. A CT urogram was obtained to assess his upper tracts to rule out lesions in the kidneys or in the ureter causing the gross hematuria. The CT showed no abnormalities in the kidneys or in the ureters, only a few clots in the bladder. The bladder was then irrigated again and all the clots were evacuated. Urine has remained clear. The patient was observed again overnight and in the morning, the urine was pink off irrigation. The plan is to discharge him home on all his medications with the exception of the Plavix and Xarelto. He will be seen in the office in 3 days and the plan is to remove the Chanel catheter. The patient's hematocrit had dropped it was 43 on admission down to 34 on the day of his discharge. His serum creatinine has remained stable. He also has remained stable cardiac and pulmonary butler. The explanation of his symptoms is falling off of the scab at the site of the fulguration of his small bladder lesions with resultant hematuria because of the anticoagulation medications he is taking. I expect that to resolve and he will not need any additional procedures. [id number]/[facility] #: [id number] LILA
[2018-06-16] MEDS ORDERED: Torsemide TAB* 20 MG PO ONE ×2 (10:16→10:18)
[2018-06-16 15:59] VITALS: BP 94/52
--- NOTE | 2018-06-16 23:32 | DS ---
CC: Dr. Ne Hernandez; Dr. Yahir Stephens* DISCHARGE SUMMARY: DATE OF ADMISSION: 06/14/18 DATE OF DISCHARGE: 06/16/18 PRIMARY CARE PROVIDER: Dr. Ne Hernandez. DISPOSITION ON DISCHARGE: Home. CONDITION ON DISCHARGE: Improved. PRIMARY DIAGNOSES: 1. Gross hematuria. 2. Acute blood loss anemia. SECONDARY DIAGNOSES: Include: 1. Atrial flutter, on Xarelto. 2. Interstitial lung disease, on prednisolone. 3. Chronic obstructive pulmonary disease with chronic respiratory failure, on 4 L oxygen. 4. Coronary artery disease. 5. Ischemic cardiomyopathy, heart failure with reduced ejection fraction, left ventricular ejection fraction 40% to 45%. 6. Chronic kidney disease, stage 3. 7. Obstructive sleep apnea with CPAP. 8. Hypertension. 9. Diabetes. 10. History of bladder tumor, status post resection and then recent intervention described in the body of this history of present illness. 11. Heart failure with preserved ejection fraction/diastolic heart failure. MEDICATIONS ON DISCHARGE: Include: 1. Prednisone 10 mg daily. 2. Metformin 1000 mg twice daily. 3. Torsemide 20 mg daily. 4. Tamsulosin 0.4 mg daily. 5. Aldactone 25 mg daily. 6. Fish oil 1000 mg daily. 7. Multivitamin 1 tab daily. 8. Midodrine 5 mg 3 times a day. 9. Metoprolol tartrate 25 mg twice daily. 10. Finasteride 5 mg daily. 11. Atorvastatin 20 mg daily. 12. Ferrous sulfate 325 mg daily. 13. Albuterol/ipratropium nebulizer every 4 hours as needed. 14. Albuterol HFA 2 puffs every 4 hours as needed. Please note the discontinuation of; 1. Xarelto. 2. Plavix. PERTINENT LABORATORY DATA: BUN 12 and creatinine 0.76 on discharge. Hemoglobin 11.0 and hematocrit 34 on discharge. PERTINENT IMAGING DATA: CT urogram: There are high attenuating filling defects within the bladder consistent with intraluminal thrombosis. HISTORY OF PRESENT ILLNESS AND HOSPITAL COURSE: This is a 73-year-old man with past medical history as outlined in history of present illness on the date of admission including bladder tumor, status post resection, had a small tumor in his bladder noted 2 weeks prior to presentation, status post cauterization with Dr. Stephens. Four days later, he developed gross hematuria. He had a Chanel catheter placed and irrigated, however, became obstructed and was brought into the emergency room where he underwent extensive bladder irrigations with Dr. Stephens. He was maintained on continuous bladder irrigation, observed in the hospital overnight. After 24 hours and off Xarelto since approximately 06/12/18 , his bladder irrigation was discontinued. CT urogram did not indicate any lesions in the upper tracks, in his kidney, or in his ureter causing hematuria. There were no other complications during the course of his hospital stay. His torsemide was held, however, restarted on the day of discharge. He will be seen by Dr. Stephens on Tuesday, 3 days status post discharge after the Chanel removed. Timing for reinitiation of Xarelto and Plavix is not clear. However, after Chanel was removed in [facility] for at least 3 days must have the risk with stroke and bleeding. I discussed at length with the patient who is in agreement with holding Plavix and Xarelto until at least Tuesday. 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 On the day of discharge, the urine being drained from his Chanel catheter was light pink, improved from his gross hematuria. At followup please; 1. Evaluate resolution of hematuria and success with Chanel removal. 2. Restart Xarelto and Plavix as deemed safe based on clinical circumstances. 3. Can consider repeat CBC for baseline hemoglobin and hematocrit status post discharge from the hospital. 4. Of note, Imdur was given in the hospital 30 mg daily. However, I did not note this as part of the patient's home medication list. This was discontinued on discharge, also in the setting of lower blood pressures and in the setting of acute blood loss anemia. Please see complete medication reconciliation and restart Imdur if blood pressure tolerates and was previously part of his medication regimen. Reasons to return to the hospital including but not limited to recurrent or worsening symptoms including gross hematuria, lightheadedness, chest pain, shortness of breath, nausea, vomiting, loss of consciousness, near loss of consciousness discussed, patient acknowledged understanding. TIME SPENT: Greater than 60 minutes was spent on this discharge of this patient , greater than half was spent [id number] with the patient. [id number]/[facility] #: [id number] [facility]
== END 2018-06-16 17:22 | disposition home or self-care (01) | DRG 696 ==
LOC: ED 20:13 → SSU 22:40 → OBSVTOIN 06-15 09:17
PROVIDERS: ADMIT Pediatrics; ATTEND Internal Medicine
DX: R31.0 Gross hematuria (principal); D62 Acute posthemorrhagic anemia; I13.0 Hypertensive heart and chronic kidney disease with heart failure and stage 1 through stage 4 chronic kidney disease, or unspecified chronic kidney disease; J84.9 Interstitial pulmonary disease, unspecified; I50.32 Chronic diastolic (congestive) heart failure; D68.32 Hemorrhagic disorder due to extrinsic circulating anticoagulants; I82.890 Acute embolism and thrombosis of other specified veins; Q61.02 Congenital multiple renal cysts; J96.10 Chronic respiratory failure, unspecified whether with hypoxia or hypercapnia; I25.10 Atherosclerotic heart disease of native coronary artery without angina pectoris; E78.00 Pure hypercholesterolemia, unspecified; E11.51 Type 2 diabetes mellitus with diabetic peripheral angiopathy without gangrene; J44.9 Chronic obstructive pulmonary disease, unspecified; H91.90 Unspecified hearing loss, unspecified ear; R33.9 Retention of urine, unspecified; G47.33 Obstructive sleep apnea (adult) (pediatric); N18.3 Chronic kidney disease, stage 3 (moderate); E11.22 Type 2 diabetes mellitus with diabetic chronic kidney disease; I25.5 Ischemic cardiomyopathy; E78.5 Hyperlipidemia, unspecified; N40.0 Benign prostatic hyperplasia without lower urinary tract symptoms; I89.0 Lymphedema, not elsewhere classified; T45.525A Adverse effect of antithrombotic drugs, initial encounter; T45.515A Adverse effect of anticoagulants, initial encounter; Z85.51 Personal history of malignant neoplasm of bladder; Z95.5 Presence of coronary angioplasty implant and graft; Z86.11 Personal history of tuberculosis; Z87.891 Personal history of nicotine dependence; Z82.49 Family history of ischemic heart disease and other diseases of the circulatory system; Y92.9 Unspecified place or not applicable; Z99.81 Dependence on supplemental oxygen; Z79.84 Long term (current) use of oral hypoglycemic drugs; Z79.52 Long term (current) use of systemic steroids
CPT/HCPCS: 36415; 74178; 76377; 80048; 81003; 83735; 85025; 85027; 85060; 85610; 85730; 86850; 86900; 86901; 87086; 94660; 99284; A9270-GY; G0378; J0696; J7512; Q9967

== ENCOUNTER 2018-12-18 13:02 | Inpatient (IN) | payer MEDICARE ==
--- OUTSIDE RECORDS SUMMARY | 2018-12-18 13:18 | XMS REPORT | Summary of Care ---
:1945 Author Organization [facility] Address [address] [facility] [place] [address] Care Team Providers Name Role Phone Ne Hernandez MD Primary Care Provider Reason for Visit Reason Comments Respiratory Failure Encounter Details Date Type Department Care Team Description 12/01/2018 Office Visit [facility] Jolynn Marsh MD Chronic respiratory failure with hypoxia and hypercapnia (HCC) (Primary Dx); [address] [place] Chronic diastolic heart failure (HCC); [place] [id number] [place] [id number] Pulmonary asbestosis (HCC); [phone] Mild chronic obstructive pulmonary disease (HCC); ILD (interstitial lung disease) (HCC); Pulmonary hypertension (HCC); Need for immunization against influenza Allergies No Known Allergiesdocumented as of this encounter (statuses as of 12/01/2018) Medications Medication Sig Dispensed Refills Start Date End Date Status metoprolol tartrate Take 25 mg by 0 Active (LOPRESSOR) 25 mg mouth TWICE DAILY. isosorbide Take 30 mg by 0 Active MONOnitrate (IMDUR) mouth DAILY. 30 MG Oral TABLET SR 24 HR clopidogrel Take 75 mg by 0 Active (PLAVIX) 75 MG Oral mouth DAILY. Tab Multiple Take by mouth 0 Active Vitamins-Minerals DAILY. (MULTIVITAMIN & MINERAL PO) Lerona-3 Fatty Acids Take by 0 Active (FISH OIL) 1000 MG mouth. Oral Cap metFORMIN Take 1,000 mg 0 Active (GLUCOPHAGE XR) 500 by mouth TWICE MG Oral TABLET SR DAILY. 24 HR atorvastatin Take by mouth 0 Active (LIPITOR) 20 MG DAILY. Oral Tab rivaroxaban Take by 0 Active (XARELTO) 20 MG mouth. Oral Tab albuterol-ipratropi 3 mL by 360 mL 0 12/04/2015 Active um (DUO-NEB) Inhalation-SVN 0.5-2.5 (3) MG/3ML route EVERY Inhalation Solution FOUR HOURS NEEDED (wheezing, shortness of breath). finasteride Take 5 mg by 0 Active (PROSCAR) 5 MG Oral mouth DAILY. Tab torsemide (DEMADEX) Take 20 mg by 0 Active 20 MG Oral Tab mouth DAILY. predniSONE Take 10 mg by 0 Active (DELTASONE) 10 MG mouth. Oral Tab spironolactone Take 25 mg by 0 Active (ALDACTONE) 25 MG mouth DAILY. Oral Tab midodrine Take 5 mg by 0 Active (PROAMATINE,ORVATEN mouth THREE ) 5 MG Oral Tab TIMES DAILY. ferrous sulfate 325 Take 325 mg by 0 Active (65 Fe) MG Oral Tab mouth DAILY. azithromycin Take 250 mg by 0 12/02/19 Discontinued (ZITHROMAX) 250 MG mouth DAILY. 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 documented as of this encounter (statuses as of 12/01/2018) Immunizations Name Administration Dates Next Due Influenza (IM) Preservative Free 11/23/2012 Influenza (IM) W/Pres 12/02/2014, 12/02/2010 Influenza Vaccine 65 Yrs + 12/01/2018 documented as of this encounter Social History Tobacco Use Types Packs/Day Years Used Date Former Smoker Cigarettes 1.5 48 Quit: 09/07/2010 Smokeless Tobacco: Never Used Alcohol Use Drinks/Week oz/Week Comments No 0 Standard drinks or equivalent 0.0 Sex Assigned at Date Recorded Not on file Job Start Date Occupation Industry Not on file Not on file Not on file Travel History Travel Start Travel End No recent travel history available. documented as of this encounter Last Filed Vital Signs Vital Sign Reading Time Taken Comments Blood Pressure 106/62 12/01/2018 10:19 AM EDT Pulse 90 12/01/2018 10:19 AM EDT Temperature 36.2 12/01/2018 10:19 AM C (97.2 EDT F) Respiratory Rate - - Oxygen Saturation 90% 12/01/2018 10:19 AM 4 l on demand EDT Inhaled Oxygen Concentration - - Weight 107 kg (236 lb) 12/01/2018 10:19 AM EDT Height 190.5 cm (6' 3") 12/01/2018 10:19 AM EDT Body Mass Index 29.5 12/01/2018 10:19 AM EDT documented in this encounter Progress Notes Jolynn Marsh MD - 12/01/2018 10:30 AM EDT PATIENT: Niles Zimmer : 1945 DATE OF SERVICE: 12/01/2018 Primary care provider: Ne Hernandez SUBJECTIVE: This is a 73-y.o. male who is in the office today for follow up of shortness of breath. He has obstructive sleep apnea on CPAP, moderate chronic obstructive pulmonary disease and mild to moderate interstitial lung disease . PFT 06/06/2018 show a mixture of moderate restriction and borderline mild obstruction (seen on flow volume loops only) that has not changed since the study of 09/25/2010. His DLCO is very severely reduced(29 % predicted) and has significantly declined since the 2010 study. He has chronic hypoxemic and hypercarbic respiratory failure that is thought to be multifactorial inetiology and out of proportion to his lung disease. He has chronic diastolic heart failure No chest pain. He does have continuing LE edema Sleep history: Nocturnal polysomnogram 12/27/2015 performed on 4 L supplemental oxygen: AHI 7.4 , RDI 20.8. Juan Manuel saturation 82%, PLM index 8.2, EKG showed atrial fibrillation with PVCs: Nocturnal polysomnogram with CPAP 01/10/2016 performed on 4 L/m supplemental oxygen: Titrated to 7 cm of water to reduce the AHI to 1.8. Juan Manuel saturation 72% . Plan index 4.2. Atrial fibrillation with PVCs Oxygen/ positive pressure device : CPAP 7 with 4 L/m supplemental oxygen, oxygen 4 l/min continuously Patient reported compliance: Nightly for 7.5 - 8 hr/night. Smoking history: reports that he quit smoking about 8 years ago. His smoking use included cigarettes. He has a 72.00 pack-year smoking history. He has never used smokeless tobacco. He reports that he does not drink alcohol or use drugs. Alcohol history: none Sedating prescribed or over the counter medications: none Co-morbidities: H/o bladder tumor (surgery and BCG bladder irrigation) He has chronic pleural thickening and interstitial lung disease that may be due to asbestosis versusprior empyema (only lung infection was pneumonia at age 13) . This was noted on CT scans done in 2010. As a child he helped his father put insulation in his home otherwise no history of asbestos exposure. Significant past medical history: Hypertension - Yes. Cardiac disease - Yes. CAD. Systolic and diastolic heart failure. Atrial fibrillation Diabetes mellitus type 2 - Yes. On Metformin Hypercholesterolemia - Yes. On Lipitor He has chronic hypoxemic and hypercarbic respiratory failure that is thought to be multifactorial in etiology Moderate chronic restrictive lung disease. Mild interstitial lung disease, extensive pattern ofpleural calcification involving both parietal and visceral pleura on both sides and pulmonary hypertension suggested by chest CT 2010. Mild chronic obstructive pulmonary disease No Known Allergies Current Outpatient Medications Medication Sig albuterol-ipratropium (DUO-NEB) 0.5-2.5 (3) MG/3ML Inhalation Solution 3 mL by Inhalation-SVNroute EVERY FOUR HOURS NEEDED (wheezing, shortness of breath). atorvastatin (LIPITOR) 20 MG Oral Tab Take by mouth DAILY. azithromycin (ZITHROMAX) 250 MG Oral Tab Take 250 mg by mouth DAILY. Take 2 pills on the first day and 1 pill each day for 4 days clopidogrel (PLAVIX) 75 MG Oral Tab Take 75 mg by mouth DAILY. ferrous sulfate 325 (65 Fe) MG Oral Tab Take 325 mg by mouth DAILY. finasteride (PROSCAR) 5 MG Oral Tab Take 5 mg by mouth DAILY. isosorbide MONOnitrate (IMDUR) 30 MG Oral TABLET SR 24 HR Take 30 mg by mouth DAILY. metFORMIN (GLUCOPHAGE XR) 500 MG Oral TABLET SR 24 HR Take 1,000 mg by mouth TWICE DAILY. metoprolol tartrate (LOPRESSOR) 25 mg Take 25 mg by mouth TWICE DAILY. midodrine (PROAMATINE,ORVATEN) 5 MG Oral Tab Take 5 mg by mouth THREE TIMES DAILY. Multiple Vitamins-Minerals (MULTIVITAMIN & MINERAL PO) Take by mouth DAILY. Lerona-3 Fatty Acids (FISH OIL) 1000 MG Oral Cap Take by mouth. predniSONE (DELTASONE) 10 MG Oral Tab Take 10 mg by mouth. rivaroxaban (XARELTO) 20 MG Oral Tab Take by mouth. spironolactone (ALDACTONE) 25 MG Oral Tab Take 25 mg by mouth DAILY. torsemide (DEMADEX) 20 MG Oral Tab Take 20 mg by mouth DAILY. No current facility-administered medications for this visit. OBJECTIVE: BP 106/62 | Pulse 90 | Temp 97.2 F (36.2 C) (Temporal) | Ht 6' 3" ( 1.905 m) | Wt 236 lb (107 kg) | SpO2 90% Comment: 4 l on demand | BMI 29.50 kg /m Constitutional: No acute cardiac or pulmonary distress. HEENT: Unremarkable Neck: Full range of motion. No jugular venous distention. Thick neck. Mallampati airway classification: III Respiratory: Normal PN/VF/Breath sounds. Rales right base >left base. No rhonchi or rubs. Cardiovascular: RRR. Normal heart sounds. No murmurs gallops or rubs Abdomen: Soft and nontender. Normal bowel sounds. Extremities: 3+ edema bilaterally. Chronic skin changes with hyperpigmentation and hyperemia bilaterally distal legs, no cyanosis or clubbing. Neuro/psychiatric examination: Alert and oriented with normal mood and affect. 06/06/2018 pulmonary function studies (reviewed by me) showed moderate lung volume restriction. Borderline airflow obstruction (airflow obstruction seen only on review of flow volume loops). Very severely reduced diffusion capacity that is reduced out of proportion to the degree of lung restriction and airflow limitation When compared to the study performed on 09/25/2010, there has been no change in spirometry values or total lung capacity. DLCO has declined by 14%. Echocardiogram 09/29/2017: FINAL IMPRESSION: Technically difficult study with limited acoustic windows and very limited endocardial visualization. Grossly preserved LV systolic function with no wall motion abnormalities and estimated EF 55%. Severe left atrial enlargement. Moderate right atrial enlargement. RV not well seen. Pulmonary artery pressure could not be determined. Study Result Procedure(s): CT CHEST WITHOUT IV CONTRAST Date of service: 06/06/2018 2:01 PM Provided clinical information: 73 years, Male, "Interstitial lung disease" Procedure and materials: Multiple helically acquired axial CT images were obtained through the chest. Sagittal and coronal reformatted images were created on a separate workstation. Contrast: None. Comparison studies: CT dated 12/02/2010 Observations: Lower Neck: Unremarkable. Lungs and Airways: Seen again are widespread pleural plaques, more extensive than typically seen with asbestos exposure. There has been interval increase in prominence of interlobular septal thickening and subpleural reticular is. Also seen, more prominent on today's exam, are several parenchymal bands perpendicular to the pleura. There is only minimal bronchiectasis. Hypoventilatory changes bilaterally. Atelectasis in the bilateral lung bases. Airways are patent. Mediastinum and [place]: Heart is unremarkable. No pericardial effusion. Atherosclerotic calcification noted in the aorta and coronary. No mediastinal or hilar lymphadenopathy. The previously mentioned dilated pulmonary trunk is unchanged, and similar in width tear of the ascending aorta. Upper Abdomen: Unremarkable. Adrenal glands are unremarkable. Bones and Soft Tissues: No suspicious lesions. Multilevel degenerative disc disease noted in the spine. Soft tissues are unremarkable. Additional findings: None. IMPRESSION IMPRESSION: Lung fibrosis pattern classic in configuration for asbestosis, advanced since the prior exam, but still with minimal bronchiectasis. Signed by Nitesh Paiz MD, MFA on 06/14/2018 8:48 AM ASSESSMENT/PLAN: ICD-9-CM ICD-10-CM 1. Chronic respiratory failure with hypoxia and hypercapnia ([facility]) 518.83 J96.11 799.02 J96.12 786.09 2. Chronic diastolic heart failure ([facility]) 428.32 I50.32 3. Pulmonary asbestosis ([facility]) 501 J61 4. Mild chronic obstructive pulmonary disease ([facility]) 496 J44.9 5. ILD (interstitial lung disease) ([facility]) 515 J84.9 6. Pulmonary hypertension ([facility]) 416.8 I27.20 7. Need for immunization against influenza V04.81 Z23 [place] FLU VACCINE 65 YRS + Shortness of breath and hypoxia out of proportion to severity of his chronic obstructive pulmonary disease and lung parenchymal disease I strongly believe that this patient's worsening respiratory failure is predominantly due to his cardiac disease with some pulmonary vascular component rather than his chronic obstructive pulmonary disease or interstitial lung disease (asbestosis). Continue CPAP at current settings of 7 cm water with 4 L/m oxygen Continue oxygen supplementation at 4 l/m at rest and 6 l/min with ambulation. Oxymizer is being used. He likely has chronic diastolic heart failure. Will defer to materials technician in regard to management and evaluation re: heart failure and possibility of progression of his coronary artery disease as contributing to his worsening shortness of breath Flu shot today Continue Duoneb three times daily He is on prednisone 10 mg daily since discharge from hospital last April. He is unclear as to why he is on prednisone. I reviewed his EPIC record and the first time it was noted (as a historical medication) was at his visit 05/2018. He does not need prednisone from a pulmonary perspective. I recommend that if there are no other indications, that his prednisone is tapered to off as follows : Prednisone 2.5 mg tabs 3 tabs/day x 14 d, 2 tabs/dayx 14 d, 1 tab/day x 14 days, 1 tab every other day x 14 days I will defer to his primary care provider Ne Hernandez as regards proceeding with thetaper. Return in about 6 months (around 06/02/2019). Jolynn Marsh MD 12/01/2018 10:50 documented in this encounter Plan of Treatment Health Maintenance Due Date Last Done Comments MEDICARE ANNUAL WELLNESS VISIT 1945 DEPRESSION SCREENING 1959 HIV SCREENING 1962 LIPID DISORDER SCREENING 1965 HEPATITIS C SCREENING 1987 COLONOSCOPY SCREENING 1997 ZOSTER IMMUNIZATION SERIES (1 1997 of 2) AAA SCREENING/SURVEILLANCE 2012 FALL RISK ASSESSMENT 2012 PNEUMOCOCCAL 65+YRS (1 of 2 - 2012 PCV13) INFLUENZA VACCINE (#1) 2018 12/02/2014, 11/23/2012, 12/02/2010 LUNG CANCER SCREENING 06/07/2019 06/06/2018, 12/02/2010 HPV IMMUNIZATION SERIES Aged Out No longer eligible based on patient's age to complete this topic MENINGOCOCCAL VACCINE IMM Aged Out No longer eligible based on patient's age to complete this topic documented as of this encounter Results Not on filedocumented in this encounter Visit Diagnoses Diagnosis Chronic respiratory failure with hypoxia and hypercapnia (HCC) - Primary Chronic diastolic heart failure (HCC) Chronic diastolic heart failure Pulmonary asbestosis (HCC) Asbestosis Mild chronic obstructive pulmonary disease (HCC) Chronic airway obstruction, not elsewhere classified ILD (interstitial lung disease) (HCC) Postinflammatory pulmonary fibrosis Pulmonary hypertension (HCC) Other chronic pulmonary heart diseases Need for immunization against influenza Need for prophylactic vaccination and inoculation against influenza documented in this encounter Insurance Payer Benefit Plan / Subscriber ID Effective Dates Phone Address Type Group MEDICARE MEDICARE PART A xxxxxxxxxxx 2012-Present Medicare & B [facility] xxxxxxxxxxx 2016-Present [facility] OPTIONS Guarantor Name Account Type Relation to Date of Phone Billing Patient Address Niles Zimmer [place] Personal/Family 1945 [address] (Home) [address] [facility] [phone] [place], [place] (Work) [id number] documented as of this encounter Advance Directives Type Date Recorded 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
[2018-12-18 13:32] LABS: ABS Basophils 0.1 10^3/ul (0-0.2); ABS Eosinophils 0.1 10^3/ul (0-0.6); ABS Lymphocytes 0.9 10^3/ul (1.0-4.8); ABS Monocytes 0.8 10^3/ul (0-0.8); ABS Neutrophils 8.3 10^3/ul (1.5-7.7); Eosinophil % 0.5 %; Hematocrit 53 % (42-52); Hemoglobin 17.1 g/dL (14.0-18.0); Lymphocyte % 8.9 %; Mean Corpuscular HGB Conc 32 g/dL (31-36); Mean Corpuscular Hemoglobin 29 pg (27-31); Mean Corpuscular Volume 89 fL (80-94); Mean Platelet Volume 8.7 fL (7.4-10.4); Nucleated Red Blood Cells % 0.1; Platelet Count 200 10^3/uL (150-450); Red Blood Count 5.93 10^6 /uL (4.18-5.48); Red Cell Distribution Width 17 % (10-15); White Blood Count 10.1 10^3/uL (3.5-10.8)
[2018-12-18 13:57] LABS: Albumin 4.4 g/dL (3.2-5.2); Albumin/Globulin Ratio 1.4 (1-3); BUN/Creatinine Ratio 26.7 (8-20); EGFR African American 55.8 (>60); EGFR Non-African American 46.1 (>60); Globulin 3.1 g/dL (2-4); Potassium 4.5 mmol/L (3.5-5.0); Total Bilirubin 1.7 mg/dL (0.2-1.0); Total Protein 7.5 g/dL (6.4-8.9)
[2018-12-18 13:58] LABS: Troponin I 0.01 ng/mL (<0.04)
[2018-12-18 13:59] LABS: INR 1.69 (0.82-1.09)
--- NOTE | 2018-12-18 14:26 | ED ---
Shortness of Breath - HPI Summary HPI Summary: This pt is a 73 y/o male [facility] c/o worsening SOB over the last 1.5 weeks. Pt reports he has the most difficulty breathing on exertion, when he gets up to walk around. He states he has not been coughing much. Pt notes he has been using a nebulizer three times a day at home and has been using an Acapella breathing device. He additionally reports legs weeping which began last week and recent weight gain of about 25-30 lbs. Denies fever, chills, diaphoresis, chest pain. Pt states he has been sleeping on a recliner for 5-6 years now. Denies erythema of eyes, sore throat, abd pain, nausea, vomiting, dysuria, hematuria, myalgia, rash, or dizziness. Pt presents to the ED saturating at 75% on 4L of oxygen. Pt uses 4L of oxygen at home at baseline. He takes Torsemide. His PCP is Dr. Ne Hernandez. - History of Current Complaint Chief Complaint: EDShortnessOfBreath Time Seen by Provider: 12/18/18 13:20 Hx Obtained From: Patient Onset/Duration: Lasting Weeks, Still Present Timing: Constant Dyspnea At: Exertion Aggravating Factors: Movement Alleviating Factors: Nothing Associated Signs & Symptoms: Cough (Nonproductive) - Allergy/Home Medications Allergies/Adverse Reactions: Allergies Allergy/AdvReac Type Severity Reaction Status Date / Time No Known Allergies Allergy Verified 04/26/16 08:25 Home Medications: Home Medications Clopidogrel TAB* [Plavix TAB*] 75 mg PO DAILY 12/18/18 [History Confirmed ] Rivaroxaban TAB(*) [Xarelto 10 mg (*)] 20 mg PO DAILY 12/18/18 [History Confirmed 12/18/18] Torsemide TAB* [Demadex 20 MG*] 20 mg PO .1-2X/DAY 12/18/18 [History Confirmed 12/18/18] predniSONE TAB* [Deltasone 10 MG TAB*] 10 mg PO DAILY 12/18/18 [History Confirmed 12/18/18] PMH/Surg Hx/FS Hx/Imm Hx Endocrine/Hematology History: Reports: Hx Anticoagulant Therapy, Hx Diabetes Denies: Hx Blood Disorders, Hx Blood Transfusions, Hx Bone Marrow Disease, Hx Systemic Lupus Erythematosus, Hx Sickle Cell Disease, Hx Thyroid Disease, Hx Anemia, Hx Unexplained Bleeding, Other Endocrine/Hematological Disorders Cardiovascular History: Reports: Hx Congestive Heart Failure, Hx Coronary Artery Disease - STENT-2011, Hx Hypercholesterolemia, Hx Hypertension, Hx Peripheral Vascular Disease, Hx Syncope, Other Cardiovascular Problems/ Disorders - ARRHYTHMIA Denies: Hx Aneurysm, Hx Angina, Hx Angioplasty, Hx Auto Implanted Cardiovert Defib, Hx Cardiac Arrest, Hx Cardiomegaly, Hx Congenital Heart Disease, Hx Deep Vein Thrombosis, Hx Embolism, Hx Pacemaker/ICD, Hx Rheumatic Fever, Hx Valvular Heart Disease Respiratory History: Reports: Hx Chronic Obstructive Pulmonary Disease (COPD) - 4L home O2, Hx Pulmonary Edema - HX OF, Hx Sleep Apnea Denies: Hx Asthma, Hx Chronic Bronchitis, Hx Cystic Fibrosis, Hx Lung Cancer , Hx Pleural Effusion, Hx Pneumonia, Hx Pulmonary Embolism, Hx Seasonal Allergies, Other Respiratory Problems/Disorders GI History: Reports: Other GI Disorders - pt states he alternates between diarrhea and constipation Denies: Hx Cirrhosis, Hx Crohn's Disease, Hx Diverticulosis, Hx Gall Bladder Disease, Hx Gastroesophageal Reflux Disease, Hx Gastrointestinal Bleed, Hx Hiatal Hernia, Hx Irritable Bowel, Hx Jaundice, Hx Obstructive Bowel, Hx Ileostomy, Hx Pyloric Stenosis, Hx Ulcer History: Reports: Hx Chronic Renal Failure, Other Problems/Disorders - bladder tumor removed Denies: Hx Acute Renal Failure, Hx Benign Prostatic Hyperplasia, Hx Dialysis , Hx Kidney Infection, Hx Kidney Stones, Hx Renal Disease Musculoskeletal History: Denies: Hx Arthritis, Hx Back Problems, Hx Bursitis, Hx Congenital Bone Abnormalities, Hx Fibromyalgia, Hx Gout, Hx Orthopedic Injury, Hx Osteoporosis, Hx Scoliosis, Hx Tendonitis Sensory History: Reports: Hx Contacts or Glasses, Hx Hearing Aid, Hx Hearing Problem - [place] Denies: Hx Cataracts, Hx Eye Injury, Hx Eye Prosthesis, Hx Glaucoma, Hx Legally Blind, Hx Macular Degeneration, Hx Vision Problem, Hx Deafness - pt slightly [place], Other Sensory Impairments Opthamlomology History: Reports: Hx Contacts or Glasses Denies: Hx Cataracts, Hx Eye Injury, Hx Eye Prosthesis, Hx Glaucoma, Hx Legally Blind, Hx Macular Degeneration, Hx Vision Problem, Other Sensory Impairments Neurological History: Denies: Hx Dementia, Hx Developmental Delay, Hx Headaches, Hx Migraine, Hx Nerve Disease, Hx Seizures, Hx Spinal Cord Injury, Hx Transient Ischemic Attacks (TIA), Other Neuro Impairments/Disorders Psychiatric History: Denies: Hx Anxiety, Hx Attention Deficit Hyperactivity Disorder, Hx Eating Disorder, Hx Depression, Hx Panic Disorder, Hx Post Traumatic Stress Disorder, Hx Inpatient Treatment, Hx Community Mental Health Tx, Hx Schizophrenia, Hx Bipolar Disorder, Hx Suicide Attempt, Hx of Violent Episodes Against Others, Hx Substance Abuse, Other Psychiatric Issues/Disorders - Cancer History Cancer Type, Location and Year: bladder CA Hx Chemotherapy: No Hx Radiation Therapy: No Hx Palliative Cancer Treatment: No - Surgical History Surgical History: Yes Surgery Procedure, Year, and Place: tonsils,. cardiac stent 2010. bladder surgery for tumor, [facility] Hx Anesthesia Reactions: No Infectious Disease History: No Infectious Disease History: Reports: Hx Tuberculosis - 5 month Rx ~2007 suspected exposure Denies: Hx Clostridium Difficile, Hx Hepatitis, Hx Human Immunodeficiency Virus (HIV), Hx Shingles, History Other Infectious Disease, Traveled Outside the [place] in Last 30 Days - Family History Known Family History: Positive: Cardiac Disease - Social History Alcohol Use: Rare Substance Use Type: Reports: None Smoking Status (MU): Former Smoker Type: Cigarettes Amount Used/How Often: 1.5 ppd X 45 YEARS Length of Time of Smoking/Using Tobacco: 47 years Have You Smoked in the Last Year: No Review of Systems Constitutional: Other - POSITIVE: recent weight gain Negative: Fever, Chills, Skin Diaphoresis Negative: Erythema Negative: Sore Throat Negative: Chest Pain Positive: Shortness Of Breath, Cough Negative: Abdominal Pain, Vomiting, Nausea Negative: dysuria, hematuria Negative: Myalgia, Edema Skin: Other - POSITIVE: legs are weeping Negative: Rash Neurological: Other - NEGATIVE: dizziness All Other Systems Reviewed And Are Negative: Yes Physical Exam - Summary Physical Exam Summary: Constitutional: Well-developed, Well-nourished, Alert. (-) Distressed Skin: Warm, Dry HENT: Normocephalic; Atraumatic Eyes: Conjunctiva normal Neck: Musculoskeletal ROM normal neck. (-) JVD, (-) Stridor, (-) Tracheal deviation Cardio: Rhythm regular, rate normal, Heart sounds normal; Intact distal pulses; The pedal pulses are 2+ and symmetric. Radial pulses are 2+ and symmetric. (-) Murmur Pulmonary/Chest wall: Effort normal. Bibasilar fine crackles. Expiratory wheeze. Abd: Soft, (-) Tenderness, (-) Guarding, (-) Rebound, Distended abdomen. Musculoskeletal: Erythema and edema of lower extremities with some drainage. Lymph: (-) Cervical adenopathy Neuro: Alert, Oriented x3 Psych: Mood and affect Normal Triage Information Reviewed: Yes Vital Signs On Initial Exam: Initial Vitals Temp Pulse Resp BP Pulse Ox 97.9 F 112 22 119/82 74 12/18/18 13:11 12/18/18 13:11 12/18/18 13:11 12/18/18 13:11 12/18/18 13:11 Vital Signs Reviewed: Yes Procedures - Sedation Patient Received Moderate/Deep Sedation with Procedure: No Diagnostics - Vital Signs Vital Signs Temp Pulse Resp BP Pulse Ox 12/18/18 13:11 97.9 F 112 22 119/82 74 - Laboratory Lab Results: Lab Results 12/18/18 12/18/18 12/18/18 Range/Units 13:20 13:20 13:20 WBC 10.1 (3.5-10.8) 10^3/uL RBC 5.93 H (4.18-5.48) 10^6 /uL Hgb 17.1 (14.0-18.0) g/dL Hct 53 H (42-52) % MCV 89 (80-94) fL MCH 29 (27-31) pg MCHC 32 (31-36) g/dL RDW 17 H (10-15) % Plt Count 200 (150-450) 10^3/uL MPV 8.7 (7.4-10.4) fL Neut % (Auto) 82.1 % Lymph % (Auto) 8.9 % Ocean % (Auto) 7.7 % Eos % (Auto) 0.5 % Baso % (Auto) 0.8 % Absolute Neuts (auto) 8.3 H (1.5-7.7) 10^3/ul Absolute Lymphs (auto) 0.9 L (1.0-4.8) 10^3/ul Absolute Monos (auto) 0.8 (0-0.8) 10^3/ul Absolute Eos (auto) 0.1 (0-0.6) 10^3/ul Absolute Basos (auto) 0.1 (0-0.2) 10^3/ul Absolute Nucleated RBC 0.0 10^3/ul Nucleated RBC % 0.1 INR (Anticoag Therapy) 1.69 H (0.82-1.09) Sodium 138 (135-145) mmol/L Potassium 4.5 (3.5-5.0) mmol/L Chloride 97 L (101-111) mmol/L Carbon Dioxide 28 (22-32) mmol/L Anion Gap 13 H (2-11) mmol/L BUN 40 H (6-24) mg/dL Creatinine 1.50 H (0.67-1.17) mg/dL Est GFR ( Amer) 55.8 (>60) Est GFR (Non-Af Amer) 46.1 (>60) BUN/Creatinine Ratio 26.7 H (8-20) Glucose 112 H (70-100) mg/dL Calcium 10.0 (8.6-10.3) mg/dL Total Bilirubin 1.70 H (0.2-1.0) mg/dL AST 16 (13-39) U/L ALT 14 (7-52) U/L Alkaline Phosphatase 59 (34-104) U/L Troponin I 0.01 (<0.04) ng/mL Total Protein 7.5 (6.4-8.9) g/dL Albumin 4.4 (3.2-5.2) g/dL Globulin 3.1 (2-4) g/dL Albumin/Globulin Ratio 1.4 (1-3) Result Diagrams: 12/18/18 13:20 12/18/18 13:20 Lab Statement: Any lab studies that have been ordered have been reviewed, and results considered in the medical decision making process. - Radiology Chest XR Radiology Interpretation Completed By: Radiologist Summary of Radiographic Findings: IMPRESSION: 1. Similar to slightly worsened patchy bilateral airspace opacification. 2. A similarly enlarged main pulmonary artery could be public service representative of pulmonary hypertension. 3. Pleural calcification (correlate with asbestos exposure and procedural history). Dr. Ramos has reviewed this report. - EKG 13:11 Cardiac Rate: NL - at 93 bpm EKG Rhythm: Atrial Flutter Summary of EKG Findings: EKG shows 13:11 atrial flutter at 93 bpm. No STEMI. Course/Dx - Course Assessment/Plan: Pt is a 73 y/o male presenting to [facility] c/o worsening SOB over the last 1.5 weeks. Pt reports he has the most difficulty breathing on exertion , when he gets up to walk around. He states he has not been coughing much. Pt notes he has been using a nebulizer three times a day at home and has been using an Acapella breathing device. He additionally reports legs weeping which began last week and recent weight gain of about 25-30 lbs. Denies fever, chills , diaphoresis, chest pain. Pt states he has been sleeping on a recliner for 5-6 years now. On exam, pt has bibasilar fine crackles. Expiratory wheeze. Erythema and edema of lower extremities with some drainage. Test results remarkable for INR of 1.69, chloride 97, BUN of 40, creatinine of 1.50, glucose of 112, total bilirubin of 1.7, BNP of 193. Chest XR shows 1. Similar to slightly worsened patchy bilateral airspace opacification. 2. A similarly enlarged main pulmonary artery could be public service representative of pulmonary hypertension. 3. Pleural calcification (correlate with asbestos exposure and procedural history). In the ED course the pt was given Lasix. Discussed pt care with Dr. Newman, hospitalist, who accepted the pt for admission. - Diagnoses Provider Diagnoses: CHF exacerbation, Hypoxemia - Physician Notifications Discussed Care of Patient With: Jhoana Newman - hospitalist Time Discussed With Above Provider: 15:50 Instructed by Provider To: Admit As Inpatient - Critical Care Time Critical Care Time: 30-74 min - 35 min Discharge ED - Sign-Out/Discharge Documenting (check all that apply): Patient Departure - Admit to [facility] [facility] - Discharge Plan Condition: Stable Disposition: ADMITTED TO [facility] Referrals: Ne Hernandez MD [Primary Care Provider] - - Attestation Statements Document Initiated by Scribe: Yes Documenting Scribe: Angella Jarrett Provider For Whom Scribe is Documenting (Include Credential): Dario Ramos MD Scribe Attestation: Angella Boss, scribed for Dario Ramos MD on 12/18/18 at 1644. Status of Scribe Document: Ready
[2018-12-18] MEDS ORDERED: Furosemide IV* 10 MG/ML VIAL (40 MG) IV SLOW PU ONE (14:27)
[2018-12-18] MEDS ORDERED: Acetaminophen TAB* 325 MG PO PRN (15:50)
[2018-12-18] MEDS ORDERED: Ondansetron INJ* 2 MG/ML VIAL IV PRN (15:50)
[2018-12-18] MEDS ORDERED: Dextrose 50% VIAL 50 ml IV PUSH PRN (15:50)
[2018-12-18] MEDS: Insulin LISPRO* 1 UNITS UNIT SUBCUT SCH ×2 (17:57→21:35)
[2018-12-18] MEDS: Albuterol/Ipratropium NEB.SOL* Albuterol 2.5 MG/Ipratropium 0.5 MG 3 ML INH SCH ×2 (18:16→19:39)
[2018-12-18] MEDS: Rivaroxaban TAB(*) 20 MG TAB PO SCH (19:13)
--- NOTE | 2018-12-18 19:38 | HP ---
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 Ne Hernandez. PROVIDER: Diana Frost NP ATTENDING PHYSICIAN: Dr. Newman.* (DICTATED BY DIANA FROST NP) CHIEF COMPLAINT: Shortness of breath. HISTORY OF PRESENT ILLNESS: This is a 73-year-old male with a past medical history significant for obstructive sleep apnea and acute diastolic heart failure and COPD, who came into the emergency room on 12/18/18 with reports of 1 -1/2 week history of increasing shortness of breath. He normally sleeps in a recliner and gets about 8 hours of sleep, though in the past one and half weeks sleeping has become more broken, only able to get 4 hours at a time and waking up with shortness of breath. He does use a CPAP at night, though has been using his 4 L via nasal cannula recently because he feels like he can breathe better with that. He has also been having an increased exercise intolerance. Normally , he is able to take care of himself, though gets some help with laundry and yard work from nearby neighbors but otherwise he has been finding it more and more difficult to do grocery shopping and cooking without taking frequent breaks to sit down. The patient has been taking his DuoNebs that are scheduled as needed 3 times a day schedule to help which has not been making much of the difference. He denies any chest pain, short of breath at rest. Denies any headaches, vision changes, abdominal pain, nausea, vomiting, or problems with voiding. In the emergency room, he received 80 mg of IV Lasix and has noted increase in urine since then. He states he is feeling so lightly better since that. He states that his legs are about 50% more swollen then they normally are and are at their usual level of redness. Bilateral legs are weeping serous fluid. Hospitalists were asked to evaluate the patient for admission. PAST MEDICAL HISTORY: 1. Ischemic cardiomyopathy with ejection fraction of 40% to 45%. 2. COPD, on 4 L of home O2. 3. Recurrent bladder tumor which was resected once but has returned. 4. A-flutter. 5. Hyperlipidemia. 6. BPH. 7. Chronic lower extremity lymphedema. 8. Coronary artery disease. 9. Hypertension. 10. Diabetes type 2. 11. Chronic kidney disease stage 3. 12. MALLIKA with CPAP. PAST SURGICAL HISTORY: Status post bladder resection. MEDICATIONS: 1. Onaway 3 fatty acids 1000 mg p.o. daily. 2. Multivitamin 1 tab p.o. daily. 3. DuoNeb 1 inhalation t.i.d. 4. Metformin 1000 mg p.o. b.i.d. 5. Tamsulosin 0.4 mg p.o. daily. 6. Finasteride 5 mg p.o. daily. 7. Clopidogrel 75 mg p.o. daily. 8. Rivaroxaban 20 mg p.o. daily. 9. Metoprolol tartrate 25 mg p.o. b.i.d. 10. Atorvastatin 20 mg p.o. daily. 11. Spironolactone 25 mg p.o. daily. 12. Torsemide 20 mg every other day and 40 mg every other day alternating. 13. Midodrine 5 mg p.o. t.i.d. 14. Ferrous sulfate 325 mg p.o. every other day. 15. Prednisone 10 mg p.o. daily. ALLERGIES: No known drug allergies. FAMILY HISTORY: Significant for mother and brother, brothers all had diabetes, father had heart disease. SOCIAL HISTORY: Quit smoking 10 years ago, had smoked for about 50 years with an average of 1.5 packs per day. Drinks 1 beer on occasion. Denies any recreational substance abuse. 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 He is . Receives help from nearby neighbors for laundry and yard work, has no biological children. REVIEW OF SYSTEMS: An 11-point system review was performed, it was significant for orthopnea, increased napping for 30 minutes on and off during the day in the past few weeks, cold hands, constipation, and shortness of breath, particularly with exertion. PHYSICAL EXAMINATION GENERAL: This is a well-developed obese older gentleman, seen sitting up in bed , no acute distress noted, though appears pale. VITAL SIGNS: Temperature 97.9 Fahrenheit, 93 pulse, 22 respirations, 92% oxygen on 5 L of O2 via nasal cannula, and 114/87 blood pressure. HEENT: Eyes: Conjunctivae are pink and moist. Pupils are equal, round, and reactive to light. EOMs intact. ENT: Oropharynx clear. Mucous membranes dry with brown coating on tongue. NECK: Supple. RESPIRATORY: Fine crackles to bilateral lower bases. Other lung thomas clear on 5 L of oxygen via nasal cannula. No accessory muscle use noted. CARDIAC: S1, S2. Heart rate irregular. No murmurs, gallops, or rubs appreciated. +2 pitting bilateral pedal edema and +3 nonpitting edema to bilateral lower extremities. Pedal pulse is present. ABDOMEN: Soft, nontender, nondistended. Positive bowel sounds x4. MUSCULOSKELETAL: No clubbing or cyanosis noted. Able to move all extremities. NEUROLOGIC: No focal deficits appreciated. Sensation intact to light touch. PSYCHOLOGIC: He is alert and oriented x4. No anxiety or depression noted. SKIN: Area of redness to middle of upper back where he had been lying on his personal pulse oximeter. Bilateral lower extremities are red, swollen, dusky in places, weeping serous fluid, warm to touch. PERTINENT LAB DATA/ DIAGNOSTIC STUDIES: Chloride 97. Anion gap 13. BUN 40, creatinine 1.5, BUN and creatinine ratio 26.7, glucose 112. Total bilirubin 1.7. B-natriuretic peptide 193. INR 1.69. RBC 5.93, hematocrit 53. EKG shows atrial flutter with some ST depression which is consistent with previous EKGs. Chest x-ray showed similar to slightly worsened patchy bilateral air space opacities and similarly a large main pulmonary artery and pleural calcifications which had been all correlated to a previous chest CT in April. ASSESSMENT: My impression is that this is a 73-year-old male with a past medical history significant for ischemic cardiomyopathy, acute diastolic heart failure and chronic obstructive pulmonary disease, who is admitted on 12/18/18 for congestive heart failure exacerbation. PLAN: 1. Acutely decompensated heart failure. Received 80 mg of furosemide in the ED. We will hold p.o. torsemide, continue with furosemide 40 mg IV b.i.d., daily weights. Place the patient on telemetry. Continue spironolactone. Check CBC and BMP in the a.m. 2. COPD. The patient does not appear to be acutely exacerbated. We will continue DuoNebs 3 times a day. The patient had been on prednisone 10 mg p.o. daily which was started in the previous admission in April due to his COPD exacerbation, though was never tapered off. We will start the patient at 7.5 mg p.o. p.o. daily to be tapered by 2.5 mg every 2 weeks until down to 0. 3. Diabetes type 2. Hold home metformin. Blood glucose monitoring a.c. and h.s. with sliding scale insulin. Blood sugars in the ED, so far has been in the low 100s, appears to be well controlled. 4. Hypertension. Continue metoprolol and spironolactone. Hold torsemide. 5. BPH. Continue tamsulosin and finasteride. No current problems with urination. 6. CAD/ischemic cardiomyopathy. Continue rivaroxaban, atorvastatin, spironolactone, clopidogrel. 7. Hyperlipidemia. Continue the atorvastatin. 8. Iron deficiency anemia. Currently hemoglobin, hematocrit are 17.1 and 53, though felt to be high due to dehydration. We will continue ferrous sulfate for now, but should be revisited as far as need on an outpatient basis. 9. Hypotension. The patient was started on midodrine in his admission in April and currently blood pressures waver between 99 and one teens. We will continue midodrine. 10. Chronic lower extremity lymphedema. Legs are considerably more swollen then they are normally as per the patient. Noted serous fluid weeping from his legs. Recommend the patient keep them elevated as much as possible. Vern wraps bilaterally during the day and may remove them during the night. 11. DVT prophylaxis. Vern wraps and continue Xarelto and clopidogrel. 12. Code status: Full code. 13. Disposition: Admit to observation on . 14. Condition: Guarded. TIME SPENT: Time spent on the patient is about 60 minutes with more than half of that spent [id number]. Case reviewed by attending and they agreed. DIANA FROST, SENIOR [employer] TECHNICIAN [id number]/ILIA #: [id number] LILA
[2018-12-18] MEDS: Furosemide IV* 10 MG/ML VIAL (40 MG) IV SCH (21:12)
[2018-12-18] MEDS: Docusate CAP* 100 MG PO SCH (21:12)
[2018-12-18] MEDS: Metoprolol Tartrate TAB* 25 MG PO SCH (21:13)
[2018-12-19 06:46] LABS: ABS Basophils 0.1 10^3/ul (0-0.2); ABS Eosinophils 0.3 10^3/ul (0-0.6); ABS Lymphocytes 2.2 10^3/ul (1.0-4.8); ABS Monocytes 1.1 10^3/ul (0-0.8); ABS Neutrophils 7.6 10^3/ul (1.5-7.7); Eosinophil % 2.4 %; Hematocrit 49 % (42-52); Hemoglobin 15.5 g/dL (14.0-18.0); Lymphocyte % 19.1 %; Mean Corpuscular HGB Conc 32 g/dL (31-36); Mean Corpuscular Hemoglobin 28 pg (27-31); Mean Corpuscular Volume 88 fL (80-94); Mean Platelet Volume 7.5 fL (7.4-10.4); Nucleated Red Blood Cells % 0.1; Platelet Count 154 10^3/uL (150-450); Red Blood Count 5.51 10^6 /uL (4.18-5.48); Red Cell Distribution Width 16 % (10-15); White Blood Count 11.3 10^3/uL (3.5-10.8)
[2018-12-19 07:04] LABS: BUN/Creatinine Ratio 23.5 (8-20); Calcium 9.2 mg/dL (8.6-10.3); EGFR African American 56.3 (>60); EGFR Non-African American 46.5 (>60); Potassium 4.2 mmol/L (3.5-5.0)
[2018-12-19] MEDS: Insulin LISPRO* 1 UNITS UNIT SUBCUT SCH ×4 (08:20→21:23)
[2018-12-19] MEDS: Furosemide IV* 10 MG/ML VIAL (40 MG) IV SCH ×2 (08:21→21:23)
[2018-12-19] MEDS: Finasteride TAB* 5 MG PO SCH (08:21)
[2018-12-19] MEDS: Clopidogrel TAB* 75 MG PO SCH (08:22)
[2018-12-19] MEDS: Atorvastatin* 20 MG TAB PO SCH (08:22)
[2018-12-19] MEDS: Tamsulosin CAP* 0.4 MG PO SCH (08:22)
[2018-12-19] MEDS: Spironolactone TAB* 25 MG PO SCH (08:22)
[2018-12-19] MEDS: Multivitamins/Minerals TAB PO SCH (08:22)
[2018-12-19] MEDS: Metoprolol Tartrate TAB* 25 MG PO SCH ×2 (08:22→21:24)
[2018-12-19] MEDS: Docusate CAP* 100 MG PO SCH ×2 (08:22→21:24)
[2018-12-19] MEDS: Albuterol/Ipratropium NEB.SOL* Albuterol 2.5 MG/Ipratropium 0.5 MG 3 ML INH SCH ×3 (08:30→20:21)
[2018-12-19] MEDS ORDERED: predniSONE TAB* 1 MG PO SCH ×2 (09:00)
[2018-12-19] MEDS ORDERED: predniSONE TAB* 5 MG PO SCH (09:00)
--- NOTE | 2018-12-19 16:27 | PN ---
Subjective Date of Service: 12/19/18 Interval History: Mr. Zmimer is feeling much better today. SOB has essentially resolved, but he does not feel at his baseline. BLE are edematous at baseline, but they are more edematous today. Abdomen feels bloated. Denies CP, N/V. No concerns from nursing. Family History: Unchanged from Admission Social History: Unchanged from Admission Past Medical History: Unchanged from Admission Objective Active Medications: Acetaminophen (Tylenol Tab*) 650 mg PO Q4H PRN MILD PAIN or TEMP > 100.4 Albuterol/Ipratropium (Duoneb (Albuterol 2.5 Mg/Ipratropium 0.5 Mg)) 1 neb INH RT.TID [facility] Atorvastatin Calcium (Lipitor*) 20 mg PO DAILY [facility] Clopidogrel Bisulfate (Plavix Tab*) 75 mg PO DAILY [facility] Dextrose (Dextrose 50% Vial 50 Ml*) 25 ml IV PUSH .FOR FS < 60 - SS PRN FS < 60 Docusate Sodium (Colace Cap*) 100 mg PO BID [facility] Ferrous Sulfate (Ferrous Sulfate Tab*) 325 mg PO EVERY OTHER DAY [facility] Finasteride (Proscar Tab*) 5 mg PO DAILY [facility] Furosemide (Lasix Iv*) 40 mg IV BID [facility] Insulin Human Lispro (Humalog*) 0 units SUBCUT ACHS [facility]; Protocol Metoprolol Tartrate (Lopressor Tab*) 25 mg PO BID [facility] Midodrine (Midodrine) 5 mg PO TID [facility]; Protocol Mometasone Furoate/Formoterol Fumar (Dulera 200/5 Mdi*) 2 puff INH BID [facility] Multivitamins/Minerals (Theragran/Minerals Tab*) 1 tab PO DAILY [facility] Ondansetron HCl (Zofran Inj*) 4 mg IV Q4H PRN NAUSEA/VOMITING Prednisone (Deltasone Tab*) 5 mg PO DAILY [facility] Prednisone (Deltasone Tab*) 2.5 mg PO DAILY [facility] Rivaroxaban (Xarelto(*)) 20 mg PO QPM [facility] Spironolactone (Aldactone Tab*) 25 mg PO DAILY [facility] Tamsulosin HCl (Flomax Cap*) 0.4 mg PO DAILY [facility] Vital Signs - 8 hr 12/19/18 12/19/18 12/19/18 08:32 11:15 14:16 Temperature 97.2 F Pulse Rate 107 74 86 Respiratory 16 24 16 Rate Blood Pressure 105/60 (mmHg) O2 Sat by Pulse 92 92 95 Oximetry Oxygen Devices in Use Now: High Flow Nasal Cannula - 8L Appearance: Elderly male sitting in bed in NAD Ears/Nose/Mouth/Throat: Mucous Membranes Moist Neck: NL Appearance and Movements; NL JVP, Trachea Midline Respiratory: Symmetrical Chest Expansion and Respiratory Effort, Clear to Auscultation - Diminished Cardiovascular: NL Sounds; No Murmurs; No JVD Abdominal: - - SNT, distended Extremities: - - +2 pitting BLE Neurological: Alert and Oriented x 3 Lines/Tubes/Other Access: Clean, Dry and Intact Peripheral IV Nutrition: Taking PO's Result Diagrams: 12/19/18 06:24 12/19/18 06:24 Assess/Plan/Problems-Billing Assessment: Mr. Zimmer is a 73 yo M with PMH of ischemic cardiomyopathy, COPD on 4L, a- flutter, lymphedema, DM2, CAD, HTN, CKD 3; who presented to the ED c/o SOB and was found to be fluid overloaded. - Patient Problems (1) Acute on chronic systolic CHF (congestive heart failure) Code(s): I50.23 - ACUTE ON CHRONIC SYSTOLIC (CONGESTIVE) HEART FAILURE Comment : - History of ischemic cardiomyopathy - Unclear cause of acute decompensation; ? a-flutter, but it is rate controlled - Echo in April 2018 shows EF 40-45% - Net loss 3600mL yesterday - Recheck TTE tomorrow - Continue furosemide, metoprolol, spironolactone (2) Acute and chronic respiratory failure with hypoxia Code(s): J96.21 - ACUTE AND CHRONIC RESPIRATORY FAILURE WITH HYPOXIA Comment: - Secondary to CHF exacerbation - Baseline 4L oxygen, current on 8L - Titrate as able (3) SUNI (acute kidney injury) Code(s): N17.9 - ACUTE KIDNEY FAILURE, UNSPECIFIED Comment: - Suspect secondary to fluid overload - CKD stage 3 listed in history, but creatinine was normal earlier this year - Trend BMP (4) COPD (chronic obstructive pulmonary disease) Code(s): J44.9 - CHRONIC OBSTRUCTIVE PULMONARY DISEASE, UNSPECIFIED Comment: - Not in exacerbation - Not on any home maintenance inhalers (?) - Continue prednisone (on 10mg chronically), nebs; start Dulera (5) Atrial flutter Code(s): I48.92 - UNSPECIFIED ATRIAL FLUTTER Comment: - Rate controlled - Continue metoprolol, Xarelto (6) CAD (coronary artery disease) Code(s): I25.10 - ATHSCL HEART DISEASE OF [place] CORONARY ARTERY W/O ANG PCTRS Comment: - Continue metoprolol, Plavix, atorvastatin (7) Type 2 diabetes mellitus Comment: - Hold metformin - Continue Lispro SS (8) HTN (hypertension) Code(s): I10 - ESSENTIAL (PRIMARY) HYPERTENSION Comment: - Normotensive - Continue metoprolol, spironolactone, furosemide (9) MALLIKA (obstructive sleep apnea) Code(s): G47.33 - OBSTRUCTIVE SLEEP APNEA (ADULT) (PEDIATRIC) Comment: - CPAP (10) BPH (benign prostatic hyperplasia) Code(s): N40.0 - BENIGN PROSTATIC HYPERPLASIA WITHOUT LOWER URINRY TRACT SYMP Comment: - Continue finasteride, tamsulosin (11) DVT prophylaxis Comment: - Xarelto (12) Full code status Code(s): Z78.9 - OTHER SPECIFIED HEALTH STATUS Comment: Status and Disposition: Inpatient. Anticipate d/c home when medically stable. Attending: Kenisha Willson
[2018-12-19] MEDS: Rivaroxaban TAB(*) 20 MG TAB PO SCH (16:36)
[2018-12-19] MEDS: Mometasone/Formoter 200/5 MDI INH SCH (20:21)
[2018-12-20 06:59] LABS: BUN/Creatinine Ratio 21.4 (8-20); Calcium 9.2 mg/dL (8.6-10.3); EGFR African American 78.2 (>60); EGFR Non-African American 64.6 (>60); Potassium 3.6 mmol/L (3.5-5.0)
[2018-12-20] MEDS: Albuterol/Ipratropium NEB.SOL* Albuterol 2.5 MG/Ipratropium 0.5 MG 3 ML INH SCH ×3 (07:44→18:16)
[2018-12-20] MEDS: Mometasone/Formoter 200/5 MDI INH SCH ×3 (07:44→19:02)
[2018-12-20] MEDS: Insulin LISPRO* 1 UNITS UNIT SUBCUT SCH ×4 (08:13→21:02)
[2018-12-20] MEDS ORDERED: predniSONE TAB* 5 MG PO SCH (09:00)
[2018-12-20] MEDS ORDERED: Iodixanol* (CONTRAST) 320 MG/ML 100 ML SDV IV SCH (09:48)
[2018-12-20] MEDS: Multivitamins/Minerals TAB PO SCH (10:01)
[2018-12-20] MEDS: Atorvastatin* 20 MG TAB PO SCH (10:01)
[2018-12-20] MEDS: Furosemide IV* 10 MG/ML VIAL (40 MG) IV SCH ×2 (10:01→14:09)
[2018-12-20] MEDS: Finasteride TAB* 5 MG PO SCH (10:01)
[2018-12-20] MEDS: Spironolactone TAB* 25 MG PO SCH (10:01)
[2018-12-20] MEDS: Tamsulosin CAP* 0.4 MG PO SCH (10:02)
[2018-12-20] MEDS: Metoprolol Tartrate TAB* 25 MG PO SCH ×2 (10:02→21:47)
[2018-12-20] MEDS: Clopidogrel TAB* 75 MG PO SCH (10:02)
[2018-12-20] MEDS: Ferrous Sulfate TAB* 325 MG PO SCH (10:02)
[2018-12-20] MEDS: Docusate CAP* 100 MG PO SCH ×2 (10:02→21:47)
[2018-12-20 12:05] LABS: POC SO2 95 %
--- NOTE | 2018-12-20 14:11 | PN ---
Subjective Date of Service: 12/20/18 Interval History: Patient is feeling well today. Patient states her gets somewhat SOB with exertion and this is worse than his baseline. Patient has no had productive cough. Patient has pain in Left calf, but no recent immobilization or surgery. Patient denies palpitations, CP, Dizziness, N/V, Abdominal pain, dysuria, wheezing, or other pain. Patient refuses to wear hospital CPAP due to discomfort and no one can get his home CPAP. Family History: Unchanged from Admission Social History: Unchanged from Admission Past Medical History: Unchanged from Admission Objective Active Medications: Acetaminophen (Tylenol Tab*) 650 mg PO Q4H PRN PRN Reason: MILD PAIN or TEMP > 100.4 Last Admin: 12/20/18 03:35 Dose: 650 mg Albuterol/Ipratropium (Duoneb (Albuterol 2.5 Mg/Ipratropium 0.5 Mg)) 1 neb INH RT.TID [facility] Last Admin: 12/20/18 13:29 Dose: 1 neb Atorvastatin Calcium (Lipitor*) 20 mg PO DAILY [facility] Last Admin: 12/20/18 10:01 Dose: 20 mg Clopidogrel Bisulfate (Plavix Tab*) 75 mg PO DAILY [facility] Last Admin: 12/20/18 10:02 Dose: 75 mg Dextrose (Dextrose 50% Vial 50 Ml*) 25 ml IV PUSH .FOR FS < 60 - SS PRN PRN Reason: FS < 60 Docusate Sodium (Colace Cap*) 100 mg PO BID [facility] Last Admin: 12/20/18 10:02 Dose: 100 mg Ferrous Sulfate (Ferrous Sulfate Tab*) 325 mg PO EVERY OTHER DAY [facility] Last Admin: 12/20/18 10:02 Dose: 325 mg Finasteride (Proscar Tab*) 5 mg PO DAILY [facility] Last Admin: 12/20/18 10:01 Dose: 5 mg Furosemide (Lasix Iv*) 60 mg IV 0800,1500 [facility] Insulin Human Lispro (Humalog*) 0 units SUBCUT ACHS [facility]; Protocol Last Admin: 12/20/18 12:08 Dose: 3 units Iodixanol (Visipaque* 320 (Contrast)) 94 ml IV ONCE [facility] Stop: 12/22/18 09:47 Last Admin: 12/20/18 10:56 Dose: 94 ml Metoprolol Tartrate (Lopressor Tab*) 25 mg PO BID [facility] Last Admin: 12/20/18 10:02 Dose: 25 mg Midodrine (Midodrine) 5 mg PO TID [facility]; Protocol Last Admin: 12/20/18 10:01 Dose: 5 mg Mometasone Furoate/Formoterol Fumar (Dulera 200/5 Mdi*) 2 puff INH BID [facility] Last Admin: 12/20/18 07:44 Dose: 2 puff Multivitamins/Minerals (Theragran/Minerals Tab*) 1 tab PO DAILY [facility] Last Admin: 12/20/18 10:01 Dose: 1 tab Ondansetron HCl (Zofran Inj*) 4 mg IV Q4H PRN PRN Reason: NAUSEA/VOMITING Prednisone (Deltasone Tab*) 7.5 mg PO DAILY [facility] Rivaroxaban (Xarelto(*)) 20 mg PO QPM [facility] Last Admin: 12/19/18 16:36 Dose: 20 mg Spironolactone (Aldactone Tab*) 25 mg PO DAILY [facility] Last Admin: 12/20/18 10:01 Dose: 25 mg Tamsulosin HCl (Flomax Cap*) 0.4 mg PO DAILY [facility] Last Admin: 12/20/18 10:02 Dose: 0.4 mg Vital Signs - 8 hr 12/20/18 12/20/18 12/20/18 07:47 07:50 08:00 Temperature Pulse Rate 93 93 Respiratory 16 16 16 Rate Blood Pressure (mmHg) O2 Sat by Pulse 94 94 Oximetry 12/20/18 12/20/18 12/20/18 08:54 09:29 12:21 Temperature 97.5 F 97.1 F 97.6 F Pulse Rate 91 113 102 Respiratory 16 18 16 Rate Blood Pressure 104/64 98/64 107/73 (mmHg) O2 Sat by Pulse 96 87 95 Oximetry 12/20/18 13:29 Temperature Pulse Rate 78 Respiratory 18 Rate Blood Pressure (mmHg) O2 Sat by Pulse 95 Oximetry Oxygen Devices in Use Now: Nasal Cannula Appearance: Patient is a 73yo male who appears stated age and is sitting in the bed in NAD. Eyes: No Scleral Icterus, PERRLA Ears/Nose/Mouth/Throat: NL Teeth, Lips, Gums, Clear Oropharnyx, Mucous Membranes Moist Neck: NL Appearance and Movements; NL JVP, Trachea Midline Respiratory: Symmetrical Chest Expansion and Respiratory Effort, - - Diminished , no other adventitious lung sounds. Cardiovascular: NL Sounds; No Murmurs; No JVD, - - 2+ B/L LE edema. No JVD on exam, Tachycardia. Abdominal: NL Sounds; No Tenderness; No Distention, No Hepatosplenomegaly Lymphatic: No Cervical Adenopathy Extremities: No Clubbing, Cyanosis Skin: No Nodules or Sclerosis Neurological: Alert and Oriented x 3, NL Sensation, NL Muscle Strength and Tone , - - CN II-XII intact. Result Diagrams: 12/19/18 06:24 12/20/18 06:23 Additional Lab and Data: Lab Results Assess/Plan/Problems-Billing Assessment: Mr. Zimmer is a 73 yo M with PMH of ischemic cardiomyopathy, COPD on 4L, a- flutter, lymphedema, DM2, CAD, HTN, CKD 3; who presented to the ED c/o SOB and was found to be fluid overloaded. - Patient Problems (1) Acute and chronic respiratory failure with hypoxia Current Visit: Yes Status: Acute Code(s): J96.21 - ACUTE AND CHRONIC RESPIRATORY FAILURE WITH HYPOXIA SNOMED Code(s): 21505062 Comment: - Likely Secondary to CHF exacerbation - Baseline 4L oxygen, current on 6L - Titrate as able - Needed 15L overnight and this AM with activity. - ABG show compensated chronic respiratory acidosis - Echo pending with ? shunt due to severe hypoxemia, though this was not present on previous echos. - Continue diuresis, may need pulmonology consult. (2) Interstitial lung disease Current Visit: Yes Status: Acute Code(s): J84.9 - INTERSTITIAL PULMONARY DISEASE, UNSPECIFIED SNOMED Code(s): 284107534 Comment: - Chronic, with pleural plaques and history asbestos exposure. - Unchanged on CT - Follow up outpatient pulmonology. (3) SUNI (acute kidney injury) Current Visit: Yes Status: Acute Code(s): N17.9 - ACUTE KIDNEY FAILURE, UNSPECIFIED SNOMED Code(s): 72364469 Comment: - Suspect secondary to fluid overload - Improved with diuresis (4) Acute on chronic systolic CHF (congestive heart failure) Current Visit: Yes Status: Acute Code(s): I50.23 - ACUTE ON CHRONIC SYSTOLIC (CONGESTIVE) HEART FAILURE SNOMED Code(s): 729115074 Comment: - History of ischemic cardiomyopathy - Unclear cause of acute decompensation; ? a-flutter, but it is rate controlled - Echo in April 2018 shows EF 40-45% - Weight unchanged - Recheck TTE - Continue furosemide IV BID, metoprolol, spironolactone (5) Atrial flutter Current Visit: No Status: Acute Code(s): I48.92 - UNSPECIFIED ATRIAL FLUTTER SNOMED Code(s): 0073102 Comment: - Rate controlled, can go up to 120s with activity. - Continue metoprolol, Xarelto (6) CAD (coronary artery disease) Current Visit: No Status: Acute Code(s): I25.10 - ATHSCL HEART DISEASE OF [place] CORONARY ARTERY W/O ANG PCTRS SNOMED Code(s): 96054313 Comment: - Continue metoprolol, Plavix, atorvastatin (7) COPD (chronic obstructive pulmonary disease) Current Visit: No Status: Acute Code(s): J44.9 - CHRONIC OBSTRUCTIVE PULMONARY DISEASE, UNSPECIFIED SNOMED Code(s): 63007761 Comment: - Not in exacerbation - Not on any home maintenance inhalers, Start Dulera - Continue prednisone and begin taper. - PRN Nebs (8) HLD (hyperlipidemia) Current Visit: No Status: Acute Code(s): E78.5 - HYPERLIPIDEMIA, UNSPECIFIED SNOMED Code(s): 15410951 Comment: - Continue lipitor. (9) HTN (hypertension) Current Visit: No Status: Acute Code(s): I10 - ESSENTIAL (PRIMARY) HYPERTENSION SNOMED Code(s): 41490608 Comment: - Normotensive - Continue metoprolol, spironolactone, furosemide (10) MALLIKA (obstructive sleep apnea) Current Visit: No Status: Acute Code(s): G47.33 - OBSTRUCTIVE SLEEP APNEA ( ADULT) (PEDIATRIC) SNOMED Code(s): 89015929 Comment: - Refuses CPAP in hospital - Resume CPAP at home - Likely cause of overnight desaturations. - Evaluate for More advanced Ventilator. (11) Full code status Current Visit: No Status: Acute Code(s): Z78.9 - OTHER SPECIFIED HEALTH STATUS SNOMED Code(s): 635538766 Comment: Status and Disposition: Inpatient. Anticipate d/c home when medically stable.
[2018-12-20] MEDS ORDERED: Perflutren Lipid Microsphere* 3 ML VIAL ONE (15:08)
[2018-12-20] MEDS: Rivaroxaban TAB(*) 20 MG TAB PO SCH (16:41)
--- NOTE | 2018-12-20 17:02 | ECHO ---
[place] [id number] Fax #: [phone] Transthoracic Echocardiogram Patient: Niles Zimmer : 1945 Study Date: 12/20/2018 Age: 73 Gender: M HR: 84 bpm Height: 75 in /190.5 cm BSA: 2.5 m^2 Weight: 272.4 lb /123.8 kg BMI: 34.1 kg/m^2 *Gas Fitter Apprentice: * Raiza Hammond RDCS RN *Referring Physician: * Josette Hein *Reading Physician: * Melissa Moran MD Indications: Congestive Heart Failure. History: Atrial flutter. Coronary artery disease. Ischemic cardiomyopathy. COPD. CKD. Risk factors: Hypertension. Diabetes mellitus. Obese. Dyslipidemia. Conclusions Summary: - Procedure narrative: The study was technically limited due to difficult acoustic windows, body habitus, and COPD. - Left ventricle: The cavity size is mildly reduced. Wall thickness is mildly increased. Systolic function is mildly reduced. The estimated ejection fraction is 45-50%. - Right ventricle: The cavity size is mildly to moderately dilated. Wall thickness is mildly to moderately increased. Systolic function is moderately to severely reduced. - Valves show grossly normal function. - Tricuspid valve: There is trace regurgitation. - Aorta: The ascending aorta internal dimension in the A-P direction, maximal systolic dimension is 3.8 cm. - Ascending aorta: The ascending aorta is mildly dilated. - Pulmonary arteries: Systolic pressure can not be accurately estimated. - Inferior vena cava: The vessel is dilated. There is (< 50%) respiratory change in the IVC dimension. - Compared with prior echocardiogram of 05/08/18, ejection fraction not significantly changed (left ventricle), right ventricle dilatation has increased from mild, right ventricle hypokinesis newly reported. Tricuspid regurgitation newly noted, aorta diameter previously measured at 4.1 cm. Study data: Transthoracic echocardiogram. Procedure: Transthoracic echocardiography was performed. Image quality was suboptimal. The study was technically limited due to difficult acoustic windows, body habitus, and COPD. The apical views are limited and non-standard with poor angles for Doppler evaluation of the valves. Intravenous Definity 3 ml was administered to enhance imaging by Juan J Hammond [facility]. Complete 2D, spectral Doppler, and color flow Doppler. Location: Bedside. Patient status: Inpatient. Patient room number: 448-02. Rhythm: Atrial flutter. Findings Left ventricle: The cavity size is mildly reduced. Wall thickness is mildly increased. Systolic function is mildly reduced. The estimated ejection fraction is 45-50%. There are no regional wall motion abnormalities. Left ventricular diastolic function parameters are indeterminate. Right ventricle: The cavity size is mildly to moderately dilated. Wall thickness is mildly to moderately increased. Systolic function is moderately to severely reduced. Ventricular septum: There is septal flattening of the interventricular septum consistent with RV volume or pressure overload. Left atrium: The atrium is normal in size. Right atrium: Not well visualized. Mitral valve: The leaflets are mildly thickened. There is no evidence of stenosis. There is no significant regurgitation. Aortic valve: The valve is trileaflet. The leaflets are mildly thickened. There is no evidence of stenosis by 2D imaging. There is no significant regurgitation. Tricuspid valve: The leaflets are normal thickness. There is no evidence of stenosis. There is trace regurgitation. Pulmonic valve: The leaflets are normal thickness. There is no evidence of stenosis. There is trace regurgitation. Aorta: Aortic root: The aortic root is mildly dilated. Ascending aorta: The ascending aorta is mildly dilated. Aortic arch: The aortic arch is not visualized. Pericardium: There is no significant pericardial effusion. Pulmonary arteries: Not well visualized. Systolic pressure can not be accurately estimated. Systemic veins: Inferior vena cava: The vessel is dilated. There is (< 50%) respiratory change in the IVC dimension. Measurements Left ventricle Value Ref Mitral valve Value Ref LUAN, LAX (L) 3.9 cm 4.2 - Peak E 0.54 m/sec ---- 5.8 Decel time 136 ms ---- ESD, LAX 2.7 cm 2.5 - 4.0 Pulmonic valve Value Ref FS, LAX 31 % 25 - 43 Peak v, S 0.66 m/sec ---- PW, ED (H) 1.2 cm 0.6 - Peak grad, S 2.0 mm Hg ---- 1.0 IVS/PW, ED 1.1 ------- Aortic root Value Ref E', med filomena, TDI 12.2 cm/sec >=7.0 Root diam 3.7 cm < 4.5 E/e', med filomena, TDI 4 ------- Ascending aorta Value Ref Ventricular septum Value Ref AAo AP diam, S 3.8 cm ---- IVS, ED, LAX (H) 1.2 cm 0.6 - 1.0 Inferior vena cava Value Ref Diam 2.6 cm ---- Right ventricle Value Ref LUAN, LAX 3.6 cm ------- LUAN minor ax, A4C (H) 5.2 cm 1.9 - mid 3.5 Aortic valve Value Ref Filomena diam, ED 2.4 cm ------- Legend: (L) and (H) [place] values outside specified reference range. Prepared and electronically signed by Melissa Moran MD 12/20/2018 17:01
[2018-12-21] MEDS: Mometasone/Formoter 200/5 MDI INH SCH ×4 (06:57→19:08)
[2018-12-21] MEDS: Albuterol/Ipratropium NEB.SOL* Albuterol 2.5 MG/Ipratropium 0.5 MG 3 ML INH SCH ×3 (06:58→17:56)
[2018-12-21 07:46] LABS: ABS Basophils 0.1 10^3/ul (0-0.2); ABS Eosinophils 0.2 10^3/ul (0-0.6); ABS Lymphocytes 1.2 10^3/ul (1.0-4.8); ABS Monocytes 0.9 10^3/ul (0-0.8); ABS Neutrophils 6.7 10^3/ul (1.5-7.7); Eosinophil % 2.2 %; Hematocrit 47 % (42-52); Hemoglobin 15.2 g/dL (14.0-18.0); Lymphocyte % 12.8 %; Mean Corpuscular HGB Conc 32 g/dL (31-36); Mean Corpuscular Hemoglobin 28 pg (27-31); Mean Corpuscular Volume 88 fL (80-94); Mean Platelet Volume 8.3 fL (7.4-10.4); Platelet Count 168 10^3/uL (150-450); Red Blood Count 5.38 10^6 /uL (4.18-5.48); Red Cell Distribution Width 16 % (10-15); White Blood Count 9.1 10^3/uL (3.5-10.8)
[2018-12-21 08:08] LABS: BUN/Creatinine Ratio 17.8 (8-20); Calcium 9.4 mg/dL (8.6-10.3); EGFR African American 82.4 (>60); EGFR Non-African American 68.1 (>60); Magnesium 1.9 mg/dL (1.9-2.7); Potassium 3.4 mmol/L (3.5-5.0)
[2018-12-21] MEDS ORDERED: Potassium Chloride* LIQUID 20 MEQ/15 ML UDC PO ONE (08:26)
[2018-12-21] MEDS: Insulin LISPRO* 1 UNITS UNIT SUBCUT SCH ×4 (08:28→21:25)
[2018-12-21] MEDS: Clopidogrel TAB* 75 MG PO SCH (09:32)
[2018-12-21] MEDS: Multivitamins/Minerals TAB PO SCH (09:32)
[2018-12-21] MEDS: Finasteride TAB* 5 MG PO SCH (09:33)
[2018-12-21] MEDS: Atorvastatin* 20 MG TAB PO SCH (09:33)
[2018-12-21] MEDS: Metoprolol Tartrate TAB* 25 MG PO SCH ×2 (09:33→21:24)
[2018-12-21] MEDS: predniSONE TAB* 5 MG PO SCH (09:35)
[2018-12-21] MEDS: Tamsulosin CAP* 0.4 MG PO SCH (09:35)
[2018-12-21] MEDS: Spironolactone TAB* 25 MG PO SCH (09:36)
[2018-12-21] MEDS: Docusate CAP* 100 MG PO SCH ×2 (09:36→21:24)
[2018-12-21] MEDS: Furosemide IV* 10 MG/ML VIAL (40 MG) IV SCH ×2 (09:37→16:04)
--- NOTE | 2018-12-21 13:33 | PN ---
Subjective Date of Service: 12/21/18 Interval History: Patient this AM again had persistent desaturation down to the 70s requiring 15L O2 to maintain above 90%. Patient again was not tachypneic and not dyspneic. Patient denies dizziness, Chest Pain, F/C, N/V, abdominal pain, diarrhea, or other pain. Patient has improved swelling in his legs. Family History: Unchanged from Admission Social History: Unchanged from Admission Past Medical History: Unchanged from Admission Objective Active Medications: Acetaminophen (Tylenol Tab*) 650 mg PO Q4H PRN PRN Reason: MILD PAIN or TEMP > 100.4 Last Admin: 12/20/18 03:35 Dose: 650 mg Albuterol/Ipratropium (Duoneb (Albuterol 2.5 Mg/Ipratropium 0.5 Mg)) 1 neb INH RT.TID [facility] Last Admin: 12/21/18 13:00 Dose: 1 neb Atorvastatin Calcium (Lipitor*) 20 mg PO DAILY [facility] Last Admin: 12/21/18 09:33 Dose: 20 mg Clopidogrel Bisulfate (Plavix Tab*) 75 mg PO DAILY [facility] Last Admin: 12/21/18 09:32 Dose: 75 mg Dextrose (Dextrose 50% Vial 50 Ml*) 25 ml IV PUSH .FOR FS < 60 - SS PRN PRN Reason: FS < 60 Docusate Sodium (Colace Cap*) 100 mg PO BID [facility] Last Admin: 12/21/18 09:36 Dose: 100 mg Ferrous Sulfate (Ferrous Sulfate Tab*) 325 mg PO EVERY OTHER DAY [facility] Last Admin: 12/20/18 10:02 Dose: 325 mg Finasteride (Proscar Tab*) 5 mg PO DAILY [facility] Last Admin: 12/21/18 09:33 Dose: 5 mg Furosemide (Lasix Iv*) 60 mg IV 0800,1500 [facility] Last Admin: 12/21/18 09:37 Dose: 60 mg Insulin Human Lispro (Humalog*) 0 units SUBCUT ACHS [facility]; Protocol Last Admin: 12/21/18 12:11 Dose: 2 units Iodixanol (Visipaque* 320 (Contrast)) 94 ml IV ONCE [facility] Stop: 12/22/18 09:47 Last Admin: 12/20/18 10:56 Dose: 94 ml Metoprolol Tartrate (Lopressor Tab*) 25 mg PO BID [facility] Last Admin: 12/21/18 09:33 Dose: 25 mg Midodrine (Midodrine) 5 mg PO TID [facility]; Protocol Last Admin: 12/21/18 09:32 Dose: 5 mg Mometasone Furoate/Formoterol Fumar (Dulera 200/5 Mdi*) 2 puff INH BID [facility] Last Admin: 12/21/18 08:29 Dose: Not Given Multivitamins/Minerals (Theragran/Minerals Tab*) 1 tab PO DAILY [facility] Last Admin: 12/21/18 09:32 Dose: 1 tab Ondansetron HCl (Zofran Inj*) 4 mg IV Q4H PRN PRN Reason: NAUSEA/VOMITING Potassium Chloride (Potassium Chloride Liquid) 40 meq PO DAILY [facility] Prednisone (Deltasone Tab*) 7.5 mg PO DAILY [facility] Last Admin: 12/21/18 09:35 Dose: 7.5 mg Rivaroxaban (Xarelto(*)) 20 mg PO QPM [facility] Last Admin: 12/20/18 16:41 Dose: 20 mg Spironolactone (Aldactone Tab*) 25 mg PO DAILY [facility] Last Admin: 12/21/18 09:36 Dose: 25 mg Tamsulosin HCl (Flomax Cap*) 0.4 mg PO DAILY [facility] Last Admin: 12/21/18 09:35 Dose: 0.4 mg Vital Signs - 8 hr 12/21/18 12/21/18 12/21/18 06:59 07:01 07:27 Temperature 97.9 F Pulse Rate 82 85 103 Respiratory 16 16 20 Rate Blood Pressure 115/77 (mmHg) O2 Sat by Pulse 95 95 89 Oximetry 12/21/18 12/21/18 12/21/18 08:00 11:07 13:03 Temperature 97.8 F Pulse Rate 86 87 Respiratory 20 20 18 Rate Blood Pressure 93/65 (mmHg) O2 Sat by Pulse 94 97 Oximetry Oxygen Devices in Use Now: High Flow Nasal Cannula Appearance: Patient is a 73yo male who appears stated age and is sitting in the bed in [place]. Eyes: No Scleral Icterus, PERRLA Ears/Nose/Mouth/Throat: NL Teeth, Lips, Gums, Clear Oropharnyx, Mucous Membranes Moist Neck: NL Appearance and Movements; NL JVP, Trachea Midline Respiratory: Symmetrical Chest Expansion and Respiratory Effort, - - Diminished thoughout, Slight rales in RLL and single wheeze in LML. Cardiovascular: NL Sounds; No Murmurs; No JVD, - - 1+ B/L LE edema with chronic venous stasis changes. Irregularly irregular rhythm. Pulses 2+ in B/L upper and lower extremity. Abdominal: NL Sounds; No Tenderness; No Distention, No Hepatosplenomegaly Lymphatic: No Cervical Adenopathy Extremities: No Clubbing, Cyanosis Skin: No Nodules or Sclerosis Neurological: Alert and Oriented x 3, NL Sensation, NL Muscle Strength and Tone , - - CN II-XII intact. Result Diagrams: 12/21/18 07:03 12/21/18 07:03 Additional Lab and Data: Lab Results Assess/Plan/Problems-Billing Assessment: Mr. Zimmer is a 73 yo M with PMH of ischemic cardiomyopathy, COPD on 4L, a- flutter, lymphedema, DM2, CAD, HTN, CKD 3; who presented to the ED c/o SOB and was found to be fluid overloaded. - Patient Problems (1) Acute and chronic respiratory failure with hypoxia Current Visit: Yes Status: Acute Code(s): J96.21 - ACUTE AND CHRONIC RESPIRATORY FAILURE WITH HYPOXIA SNOMED Code(s): 16468265 Comment: - Patient has severe and advanced hypoxic and hypercapneic respiratory failure on CPAP and 4L O2 at all times. Now with superimposed CHF exacerbation - Baseline 4L oxygen, current on between 6 and 15L, worse in AM - Titrate as able - ABG show compensated chronic respiratory acidosis - Echo shows no shunt, but RV overload and newly moderately-severely decreased RV function. - Continue diuresis - Pulmonology consult pending. (2) COPD (chronic obstructive pulmonary disease) Current Visit: No Status: Acute Code(s): J44.9 - CHRONIC OBSTRUCTIVE PULMONARY DISEASE, UNSPECIFIED SNOMED Code(s): 17133877 Comment: - With chronic hypoxic and hypercapneic respiratory failure - Not in exacerbation - Not on any home maintenance inhalers, Start Dulera - Continue prednisone and begin taper. - PRN Nebs - Due to advanced disease state, patient may benefit from non-invasive ventilator at home to reduce work of breathing and improve pulmonary status. (3) Interstitial lung disease Current Visit: Yes Status: Acute Code(s): J84.9 - INTERSTITIAL PULMONARY DISEASE, UNSPECIFIED SNOMED Code(s): 315828031 Comment: - Chronic, with pleural plaques and history asbestos exposure. - Unchanged on CT - Pulmonology consult pending (4) SUNI (acute kidney injury) Current Visit: Yes Status: Acute Code(s): N17.9 - ACUTE KIDNEY FAILURE, UNSPECIFIED SNOMED Code(s): 36994617 Comment: - Suspect secondary to fluid overload - Improved with diuresis (5) Acute on chronic systolic CHF (congestive heart failure) Current Visit: Yes Status: Acute Code(s): I50.23 - ACUTE ON CHRONIC SYSTOLIC (CONGESTIVE) HEART FAILURE SNOMED Code(s): 308266566 Comment: - History of ischemic cardiomyopathy - Unclear cause of acute decompensation - Has chronic Aflutter with no worsening in rate control - Echo shows EF 45-50% with severe pHTN. - Weight improving, based on outpatient cardiology notes, Patient was up 20lbs from baseline, down 10lbs this admission - Continue furosemide IV BID, metoprolol, spironolactone (6) Atrial flutter Current Visit: No Status: Acute Code(s): I48.92 - UNSPECIFIED ATRIAL FLUTTER SNOMED Code(s): 4499588 Comment: - Rate controlled, can go up to 120s with activity. - Continue metoprolol, Xarelto (7) CAD (coronary artery disease) Current Visit: No Status: Acute Code(s): I25.10 - ATHSCL HEART DISEASE OF [place] CORONARY ARTERY W/O ANG PCTRS SNOMED Code(s): 19994499 Comment: - Continue metoprolol, Plavix, atorvastatin - No evidence of ACS (8) HLD (hyperlipidemia) Current Visit: No Status: Acute Code(s): E78.5 - HYPERLIPIDEMIA, UNSPECIFIED SNOMED Code(s): 99150486 Comment: - Continue lipitor. (9) HTN (hypertension) Current Visit: No Status: Acute Code(s): I10 - ESSENTIAL (PRIMARY) HYPERTENSION SNOMED Code(s): 66822003 Comment: - Normotensive - Continue metoprolol, spironolactone, furosemide (10) MALLIKA (obstructive sleep apnea) Current Visit: No Status: Acute Code(s): G47.33 - OBSTRUCTIVE SLEEP APNEA ( ADULT) (PEDIATRIC) SNOMED Code(s): 87908773 Comment: - Will try hospital CPAP tonight - Resume CPAP at home - Likely cause of overnight desaturations. - Evaluate for More advanced Ventilator. - Pulmonology consult pending. (11) Full code status Current Visit: No Status: Acute Code(s): Z78.9 - OTHER SPECIFIED HEALTH STATUS SNOMED Code(s): 574092142 Comment: Status and Disposition: Inpatient. Anticipate d/c home when medically stable.
[2018-12-21] MEDS: Rivaroxaban TAB(*) 20 MG TAB PO SCH (18:03)
--- NOTE | 2018-12-21 18:10 | CONS ---
PULMONARY CONSULTATION REPORT: DATE OF CONSULT: 12/21/18 CONSULTATION REQUESTED BY: LEEANNA Burgos REASON FOR CONSULTATION: Evaluation of hypoxemic and hypercapnic respiratory failure. HISTORY OF PRESENT ILLNESS: The patient is a 73-year-old male with history of severe COPD, on home O2 at 4 L, history of ischemic cardiomyopathy with ejection fraction 40% to 45%, history of obstructive sleep apnea on CPAP, a- flutter, hypertension. The patient comes in for evaluation of worsening shortness of breath. The patient is a poor historian. Reports he has been having worsening shortness of breath prior to the presentation. He normally sleeps in recliner and gets about 8 hours of sleep and for the past 1 week and a half, he has been having more disruptive sleep and is waking up because of shortness of breath. He has been compliant with his CPAP; however, that has not been helpful recently. The patient reports significant dyspnea with minimal exertion and has been limited with his activities of daily living and decided come in to the emergency room for further evaluation. The patient reports cough productive of clear phlegm. The patient denies significant chest pain, palpitations, nausea, vomiting, headaches, vision changes. Further evaluation in the emergency room revealed significant fluid overload. The patient with significant edema of lower extremities, also with distended abdomen. He had chest x-ray and CT scan of the chest. I have reviewed them personally and with the patient today. The patient with evidence of prominence of interstitial markings bilaterally. The patient also with evidence of mild bronchiectasis and mucus plugging in the bronchi in the left lower lobe. The patient also with slightly prominent mediastinal lymph nodes. The patient also with thickened pleura and calcification of the pleura bilaterally. Laboratory evaluation did not reveal significantly elevated white count. He was noted to have elevated bicarb at 39. Blood gas analysis showed PCO2 at 61 with compensated respiratory acidosis. His pO2 was 83 on 15 L O2. Troponins were within normal limits. He has required O2 supplementation at 15 L on admission. That is significantly increased from baseline requirement of 4 L at home. After he was initiated on diuresis, he was able to titrated down to 10 L. The patient reports that his breathing is not affected by lying down and resting. He has not tried ambulating. The patient also reports constipation and distended abdomen. The patient feels lower extremities are looking much better currently. The patient also had echocardiogram that revealed elevated systolic pressure in the pulmonary arteries with moderately to severely reduced RV systolic function. EF remains at 45% to 50%. Of note, his CTA also revealed dilated pulmonary arteries suggestive of long-standing pulmonary hypertension. PAST MEDICAL HISTORY: 1. Ischemic cardiomyopathy with EF of 40% to 45%. 2. COPD, on 4 L O2. 3. Recurrent bladder tumor, resected in the past. 4. A-flutter. 5. Dyslipidemia. 6. BPH. 7. Chronic lower extremity lymphedema. 8. Pulmonary artery disease. 9. Hypertension. 10. Diabetes, type 2. 11. Chronic kidney disease, stage III. 12. MALLIKA, on CPAP. PAST SURGICAL HISTORY: Bladder resection. MEDICATIONS: 1. Organ-3 fatty acid. 2. Multivitamin. 3. DuoNeb. 4. Metformin. 5. Tamsulosin. 6. Finasteride. 7. Clopidogrel. 8. Rivaroxaban. 9. Metoprolol. 10. Atorvastatin. 11. Spironolactone. 12. Torsemide. 13. Midodrine. 14. Ferrous sulfate. 15. Prednisone 10 mg daily. ALLERGIES: No known drug allergies. FAMILY HISTORY: Mother and brothers had diabetes. Father with heart disease. SOCIAL HISTORY: Quit smoking 10 years ago. Had smoked for 50 years about 1 and a half pack per day. Drinks 1 beer on occasion. No drug abuse. REVIEW OF SYSTEMS: All 10 systems were reviewed and as per HPI. PHYSICAL EXAM: Obese male, in no apparent distress. Abdomen appears to be distended. Vital Signs: Temperature 97.8, pulse 87 beats per minute, respiratory rate 18 per minute, O2 sat 97% on 10 L. HEENT: Pupils equal, reactive to light. Mucous membranes moist. Lungs: Diminished air entry bilaterally, crackles at bases. Cardiovascular: S1, S2 present. Regular. Abdomen: Obese, distended, bowel sounds present, nontender. Extremities: Wrapped in Vern bandage, edematous. Neuro: Alert, awake, oriented x3. DIAGNOSTIC STUDIES/LAB DATA: Laboratory exam, WBC count 9.1, hemoglobin 15.2, hematocrit 47, platelet count 168. Blood gas analysis showed pH of 7.43, pCO2 of 61, pO2 of 83, bicarb 35.3 on 15 L. Sodium 139, potassium 3.4, chloride 94, bicarb 39, BUN 19, creatinine 1.07. Troponin x2 within normal limits. CT as described above in the HPI. IMPRESSION AND RECOMMENDATIONS: 73-year-old obese male with history of chronic obstructive pulmonary disease, chronic hypoxemic respiratory failure, on 4 L oxygen, obstructive sleep apnea, and possible obesity hypoventilation admitted with worsening shortness of breath. The patient with acute on chronic hypoxemic and hypercapnic respiratory failure. The patient claims to be compliant with CPAP usage, however, still has significant hypercapnia at baseline. The patient with congestive heart failure resulting in acute hypoxemic respiratory failure. The patient is responding well to diuresis. He has radiological evidence of significant pulmonary hypertension, which could be resulting from chronic underlying hypoxemia. The patient would need right heart catheterization and vasodilator challenge before medications for pulmonary hypertension could be considered. He does not appear to be in acute chronic obstructive pulmonary disease exacerbation at this time. The patient would benefit from Trelegy given history of chronic obstructive pulmonary disease and chronic hypercapnic respiratory failure. I would think that would treat his condition better than existing CPAP. Recommend optimization of cardiac medications. The patient does appear to be having mucus plugging and bronchiectasis in the left lower lobe also with evidence of mild atelectasis. He would benefit from flutter device usage. Flutter device was discussed with the patient and device was provided. The patient was also advised to ambulate as tolerated. Encouraged deep breathing. In the interim, will continue with CPAP. Will need to reassess O2 requirement prior to discharge. He is not in acute exacerbation at this time. His pulmonary hypertension is likely chronic from underlying hypoxemia. Thank you for allowing me to participate in the care of your patient. Will follow up with you. [id number]/[facility] #: [id number] LILA
[2018-12-22] MEDS: Insulin LISPRO* 1 UNITS UNIT SUBCUT SCH ×4 (07:41→21:59)
[2018-12-22] MEDS: Furosemide IV* 10 MG/ML VIAL (40 MG) IV SCH ×2 (08:11→15:02)
[2018-12-22] MEDS: Potassium Chloride* LIQUID 20 MEQ/15 ML UDC PO SCH (08:12)
[2018-12-22] MEDS: Docusate CAP* 100 MG PO SCH ×2 (08:13→22:00)
[2018-12-22] MEDS: Multivitamins/Minerals TAB PO SCH (08:13)
[2018-12-22] MEDS: predniSONE TAB* 5 MG PO SCH (08:14)
[2018-12-22] MEDS: Atorvastatin* 20 MG TAB PO SCH (08:14)
[2018-12-22] MEDS: Tamsulosin CAP* 0.4 MG PO SCH (08:14)
[2018-12-22] MEDS: Finasteride TAB* 5 MG PO SCH (08:14)
[2018-12-22] MEDS: Spironolactone TAB* 25 MG PO SCH (08:14)
[2018-12-22] MEDS: Clopidogrel TAB* 75 MG PO SCH (08:15)
[2018-12-22] MEDS: Ferrous Sulfate TAB* 325 MG PO SCH (08:15)
[2018-12-22] MEDS: Metoprolol Tartrate TAB* 25 MG PO SCH (08:16)
[2018-12-22] MEDS: Albuterol/Ipratropium NEB.SOL* Albuterol 2.5 MG/Ipratropium 0.5 MG 3 ML INH SCH ×3 (08:21→20:00)
[2018-12-22] MEDS: Mometasone/Formoter 200/5 MDI INH SCH ×2 (08:21→20:00)
[2018-12-22] MEDS ORDERED: Metoprolol Tartrate TAB* 25 MG PO SCH (09:00)
[2018-12-22 09:16] LABS: ABS Basophils 0.1 10^3/ul (0-0.2); ABS Eosinophils 0.2 10^3/ul (0-0.6); ABS Lymphocytes 1.1 10^3/ul (1.0-4.8); ABS Monocytes 0.8 10^3/ul (0-0.8); ABS Neutrophils 6.9 10^3/ul (1.5-7.7); Eosinophil % 2.1 %; Hematocrit 50 % (42-52); Hemoglobin 15.7 g/dL (14.0-18.0); Lymphocyte % 12.2 %; Mean Corpuscular HGB Conc 32 g/dL (31-36); Mean Corpuscular Hemoglobin 28 pg (27-31); Mean Corpuscular Volume 88 fL (80-94); Mean Platelet Volume 8.5 fL (7.4-10.4); Nucleated Red Blood Cells % 0.1; Platelet Count 188 10^3/uL (150-450); Red Cell Distribution Width 16 % (10-15)
[2018-12-22 09:34] LABS: BUN/Creatinine Ratio 17.8 (8-20); Calcium 9.6 mg/dL (8.6-10.3); EGFR African American 82.4 (>60); EGFR Non-African American 68.1 (>60); Potassium 3.8 mmol/L (3.5-5.0)
--- NOTE | 2018-12-22 13:27 | PN ---
Subjective Date of Service: 12/22/18 Interval History: Patient continues to nob be SOB, but is requiring 10L O2 NC. Patient denies CP, Palpitations, F/C, N/V, abdominal pain, dysuria, dizziness, or other pain. Family History: Unchanged from Admission Social History: Unchanged from Admission Past Medical History: Unchanged from Admission Objective Active Medications: Acetaminophen (Tylenol Tab*) 650 mg PO Q4H PRN PRN Reason: MILD PAIN or TEMP > 100.4 Last Admin: 12/20/18 03:35 Dose: 650 mg Albuterol/Ipratropium (Duoneb (Albuterol 2.5 Mg/Ipratropium 0.5 Mg)) 1 neb INH RT.TID [facility] Last Admin: 12/22/18 08:21 Dose: 1 neb Atorvastatin Calcium (Lipitor*) 20 mg PO DAILY [facility] Last Admin: 12/22/18 08:14 Dose: 20 mg Clopidogrel Bisulfate (Plavix Tab*) 75 mg PO DAILY [facility] Last Admin: 12/22/18 08:15 Dose: 75 mg Dextrose (Dextrose 50% Vial 50 Ml*) 25 ml IV PUSH .FOR FS < 60 - SS PRN PRN Reason: FS < 60 Docusate Sodium (Colace Cap*) 100 mg PO BID [facility] Last Admin: 12/22/18 08:13 Dose: 100 mg Ferrous Sulfate (Ferrous Sulfate Tab*) 325 mg PO EVERY OTHER DAY [facility] Last Admin: 12/22/18 08:15 Dose: 325 mg Finasteride (Proscar Tab*) 5 mg PO DAILY [facility] Last Admin: 12/22/18 08:14 Dose: 5 mg Furosemide (Lasix Iv*) 60 mg IV 0800,1500 [facility] Last Admin: 12/22/18 08:11 Dose: 60 mg Insulin Human Lispro (Humalog*) 0 units SUBCUT ACHS [facility]; Protocol Last Admin: 12/22/18 12:21 Dose: 3 units Metoprolol Succinate (Toprol Xl Tab*) 50 mg PO BID [facility] Midodrine (Midodrine) 5 mg PO TID [facility]; Protocol Last Admin: 12/22/18 08:13 Dose: 5 mg Mometasone Furoate/Formoterol Fumar (Dulera 200/5 Mdi*) 2 puff INH BID [facility] Last Admin: 12/22/18 08:21 Dose: 2 puff Multivitamins/Minerals (Theragran/Minerals Tab*) 1 tab PO DAILY [facility] Last Admin: 12/22/18 08:13 Dose: 1 tab Ondansetron HCl (Zofran Inj*) 4 mg IV Q4H PRN PRN Reason: NAUSEA/VOMITING Potassium Chloride (Potassium Chloride Liquid) 40 meq PO DAILY [facility] Last Admin: 12/22/18 08:12 Dose: 40 meq Prednisone (Deltasone Tab*) 7.5 mg PO DAILY [facility] Last Admin: 12/22/18 08:14 Dose: 7.5 mg Rivaroxaban (Xarelto(*)) 20 mg PO QPM [facility] Last Admin: 12/21/18 18:03 Dose: 20 mg Spironolactone (Aldactone Tab*) 25 mg PO DAILY [facility] Last Admin: 12/22/18 08:14 Dose: 25 mg Tamsulosin HCl (Flomax Cap*) 0.4 mg PO DAILY [facility] Last Admin: 12/22/18 08:14 Dose: 0.4 mg Vital Signs - 8 hr 12/22/18 12/22/18 12/22/18 06:34 07:16 08:22 Temperature 97.9 F Pulse Rate 95 118 Respiratory 20 20 20 Rate Blood Pressure 110/76 (mmHg) O2 Sat by Pulse 93 94 Oximetry 12/22/18 11:12 Temperature 97.6 F Pulse Rate 83 Respiratory 20 Rate Blood Pressure 98/59 (mmHg) O2 Sat by Pulse 91 Oximetry Oxygen Devices in Use Now: Nasal Cannula Appearance: Patient is a 73yo male who appears stated age and is sitting in the bed in [facility]. Eyes: No Scleral Icterus, PERRLA Ears/Nose/Mouth/Throat: NL Teeth, Lips, Gums, Clear Oropharnyx, Mucous Membranes Moist Neck: NL Appearance and Movements; NL JVP, Trachea Midline Respiratory: Symmetrical Chest Expansion and Respiratory Effort, Clear to Auscultation Cardiovascular: NL Sounds; No Murmurs; No JVD, - - Irregularly Irregular Rhythm. 1+ B/L LE edema. Abdominal: No Hepatosplenomegaly, - - Tense abdomen Lymphatic: No Cervical Adenopathy Extremities: No Clubbing, Cyanosis Skin: No Nodules or Sclerosis, - - Chronic LE venous stasis changes. Neurological: Alert and Oriented x 3, NL Sensation, NL Muscle Strength and Tone , - - CN II-XII intact. Result Diagrams: 12/22/18 08:53 12/22/18 08:53 Additional Lab and Data: Lab Results Assess/Plan/Problems-Billing Assessment: Mr. Zimmer is a 73 yo M with PMH of ischemic cardiomyopathy, COPD on 4L, a- flutter, lymphedema, DM2, CAD, HTN, CKD 3; who presented to the ED c/o SOB and was found to be fluid overloaded. - Patient Problems (1) Acute and chronic respiratory failure with hypoxia Current Visit: Yes Status: Acute Code(s): J96.21 - ACUTE AND CHRONIC RESPIRATORY FAILURE WITH HYPOXIA SNOMED Code(s): 39617600 Comment: - Patient has severe and advanced hypoxic and hypercapneic respiratory failure on CPAP and 4L O2 at all times. Now with superimposed CHF exacerbation - Baseline 4L oxygen, current on between 6 and 15L, worse in AM - Titrate as able - ABG show compensated chronic respiratory acidosis - Echo shows no shunt, but RV overload and newly moderately-severely decreased RV function. - Continue diuresis - Pulmonology consult appreciated, recommend continue Diuresis and advance to Trelegy. (2) COPD (chronic obstructive pulmonary disease) Current Visit: No Status: Acute Code(s): J44.9 - CHRONIC OBSTRUCTIVE PULMONARY DISEASE, UNSPECIFIED SNOMED Code(s): 34027871 Comment: - With chronic hypoxic and hypercapneic respiratory failure - Not in exacerbation - Not on any home maintenance inhalers, Start Dulera - Continue prednisone and begin taper. - PRN Nebs - Due to advanced disease state, patient may benefit from non-invasive ventilator at home to reduce work of breathing and improve pulmonary status. - Patient current PAP therapy is ineffective, non-invasive ventilator antonio supercede treatment needs. (3) Interstitial lung disease Current Visit: Yes Status: Acute Code(s): J84.9 - INTERSTITIAL PULMONARY DISEASE, UNSPECIFIED SNOMED Code(s): 136130018 Comment: - Chronic, with pleural plaques and history asbestos exposure. - Unchanged on CT - Pulmonology consult appreciated (4) SUNI (acute kidney injury) Current Visit: Yes Status: Acute Code(s): N17.9 - ACUTE KIDNEY FAILURE, UNSPECIFIED SNOMED Code(s): 91023408 Comment: - Suspect secondary to fluid overload - Improved with diuresis (5) Acute on chronic systolic CHF (congestive heart failure) Current Visit: Yes Status: Acute Code(s): I50.23 - ACUTE ON CHRONIC SYSTOLIC (CONGESTIVE) HEART FAILURE SNOMED Code(s): 655827876 Comment: - History of ischemic cardiomyopathy - Unclear cause of acute decompensation - Has chronic Aflutter with no worsening in rate control - Echo shows EF 45-50% with severe pHTN. - Weight improving, based on outpatient cardiology notes, Patient was up 20lbs from baseline, down 10lbs this admission, continue to diurese to goal weight and then reassess hypoxia for possible new home dose O2. - Continue furosemide IV BID, metoprolol, spironolactone (6) Atrial flutter Current Visit: No Status: Acute Code(s): I48.92 - UNSPECIFIED ATRIAL FLUTTER SNOMED Code(s): 3953323 Comment: - Rate controlled, can go up to 120s with activity. - Increase metoprolol to increase filling time in Afib - Continue Xarelto (7) CAD (coronary artery disease) Current Visit: No Status: Acute Code(s): I25.10 - ATHSCL HEART DISEASE OF [place] CORONARY ARTERY W/O ANG PCTRS SNOMED Code(s): 65416334 Comment: - Continue metoprolol, Plavix, atorvastatin - No evidence of ACS (8) HLD (hyperlipidemia) Current Visit: No Status: Acute Code(s): E78.5 - HYPERLIPIDEMIA, UNSPECIFIED SNOMED Code(s): 19176234 Comment: - Continue lipitor. (9) HTN (hypertension) Current Visit: No Status: Acute Code(s): I10 - ESSENTIAL (PRIMARY) HYPERTENSION SNOMED Code(s): 85446467 Comment: - Normotensive - Continue metoprolol, spironolactone, furosemide (10) MALLIKA (obstructive sleep apnea) Current Visit: No Status: Acute Code(s): G47.33 - OBSTRUCTIVE SLEEP APNEA ( ADULT) (PEDIATRIC) SNOMED Code(s): 42315059 Comment: - Will try hospital CPAP - Resume CPAP at home - Likely cause of overnight desaturations. - Pending Trelegy. (11) Full code status Current Visit: No Status: Acute Code(s): Z78.9 - OTHER SPECIFIED HEALTH STATUS SNOMED Code(s): 112606998 Comment: Status and Disposition: Inpatient. Anticipate d/c home when medically stable.
[2018-12-22] MEDS: Rivaroxaban TAB(*) 20 MG TAB PO SCH (17:54)
[2018-12-22] MEDS: Metoprolol Succinate XL TAB* 50 MG PO SCH (22:00)
[2018-12-23 06:36] LABS: ABS Basophils 0.1 10^3/ul (0-0.2); ABS Eosinophils 0.2 10^3/ul (0-0.6); ABS Lymphocytes 1.3 10^3/ul (1.0-4.8); ABS Monocytes 0.9 10^3/ul (0-0.8); ABS Neutrophils 7.4 10^3/ul (1.5-7.7); Eosinophil % 1.9 %; Hematocrit 50 % (42-52); Hemoglobin 15.7 g/dL (14.0-18.0); Lymphocyte % 12.9 %; Mean Corpuscular HGB Conc 31 g/dL (31-36); Mean Corpuscular Hemoglobin 28 pg (27-31); Mean Corpuscular Volume 89 fL (80-94); Platelet Count 198 10^3/uL (150-450); Red Blood Count 5.64 10^6 /uL (4.18-5.48); Red Cell Distribution Width 16 % (10-15); White Blood Count 9.8 10^3/uL (3.5-10.8)
[2018-12-23 06:42] LABS: BUN/Creatinine Ratio 16.5 (8-20); Calcium 9.7 mg/dL (8.6-10.3); EGFR African American 86.1 (>60); EGFR Non-African American 71.2 (>60)
[2018-12-23] MEDS: Insulin LISPRO* 1 UNITS UNIT SUBCUT SCH ×4 (08:05→21:48)
[2018-12-23] MEDS ORDERED: Albuterol/Ipratropium NEB.SOL* Albuterol 2.5 MG/Ipratropium 0.5 MG 3 ML ONE (08:14)
[2018-12-23] MEDS: Mometasone/Formoter 200/5 MDI INH SCH ×2 (08:16→19:10)
[2018-12-23] MEDS: Albuterol/Ipratropium NEB.SOL* Albuterol 2.5 MG/Ipratropium 0.5 MG 3 ML INH SCH ×3 (08:16→19:10)
[2018-12-23] MEDS: Finasteride TAB* 5 MG PO SCH (09:10)
[2018-12-23] MEDS: Tamsulosin CAP* 0.4 MG PO SCH (09:10)
[2018-12-23] MEDS: Metoprolol Succinate XL TAB* 50 MG PO SCH ×2 (09:10→21:49)
[2018-12-23] MEDS: Docusate CAP* 100 MG PO SCH ×2 (09:11→21:49)
[2018-12-23] MEDS: predniSONE TAB* 5 MG PO SCH (09:11)
[2018-12-23] MEDS: Atorvastatin* 20 MG TAB PO SCH (09:11)
[2018-12-23] MEDS: Spironolactone TAB* 25 MG PO SCH (09:11)
[2018-12-23] MEDS: Multivitamins/Minerals TAB PO SCH (09:11)
[2018-12-23] MEDS: Potassium Chloride* LIQUID 20 MEQ/15 ML UDC PO SCH (09:13)
[2018-12-23] MEDS: Furosemide IV* 10 MG/ML 10 ML VIAL (100 MG) IV SCH ×2 (09:15→15:26)
--- NOTE | 2018-12-23 13:01 | PN ---
Subjective Date of Service: 12/23/18 Interval History: Patient continues to not have SOB or JARVIS. Patient noticed a significant decrease in his urine output over the past day compared to previous days. Patient denies CP, Dizziness, palpitations, N/V, abdominal pain, diarrhea, or other pain. Patient states his come concentrator only goes to 4L. Family History: Unchanged from Admission Social History: Unchanged from Admission Past Medical History: Unchanged from Admission Objective Active Medications: Acetaminophen (Tylenol Tab*) 650 mg PO Q4H PRN PRN Reason: MILD PAIN or TEMP > 100.4 Last Admin: 12/20/18 03:35 Dose: 650 mg Albuterol/Ipratropium (Duoneb (Albuterol 2.5 Mg/Ipratropium 0.5 Mg)) 1 neb INH RT.TID [facility] Last Admin: 12/23/18 08:16 Dose: 1 neb Atorvastatin Calcium (Lipitor*) 20 mg PO DAILY [facility] Last Admin: 12/23/18 09:11 Dose: 20 mg Clopidogrel Bisulfate (Plavix Tab*) 75 mg PO DAILY@0900 [facility] Dextrose (Dextrose 50% Vial 50 Ml*) 25 ml IV PUSH .FOR FS < 60 - SS PRN PRN Reason: FS < 60 Docusate Sodium (Colace Cap*) 100 mg PO BID [facility] Last Admin: 12/23/18 09:11 Dose: 100 mg Ferrous Sulfate (Ferrous Sulfate Tab*) 325 mg PO EVERY OTHER DAY [facility] Last Admin: 12/22/18 08:15 Dose: 325 mg Finasteride (Proscar Tab*) 5 mg PO DAILY [facility] Last Admin: 12/23/18 09:10 Dose: 5 mg Furosemide (Lasix Iv*) 80 mg IV 0800,1500 [facility] Last Admin: 12/23/18 09:15 Dose: 80 mg Insulin Human Lispro (Humalog*) 0 units SUBCUT ACHS [facility]; Protocol Last Admin: 12/23/18 08:05 Dose: Not Given Metoprolol Succinate (Toprol Xl Tab*) 50 mg PO BID [facility] Last Admin: 12/23/18 09:10 Dose: 50 mg Midodrine (Midodrine) 5 mg PO TID [facility]; Protocol Last Admin: 12/23/18 09:11 Dose: 5 mg Mometasone Furoate/Formoterol Fumar (Dulera 200/5 Mdi*) 2 puff INH BID [facility] Last Admin: 12/23/18 08:16 Dose: 2 puff Multivitamins/Minerals (Theragran/Minerals Tab*) 1 tab PO DAILY [facility] Last Admin: 12/23/18 09:11 Dose: 1 tab Ondansetron HCl (Zofran Inj*) 4 mg IV Q4H PRN PRN Reason: NAUSEA/VOMITING Potassium Chloride (Potassium Chloride Liquid) 40 meq PO DAILY [facility] Last Admin: 12/23/18 09:13 Dose: 40 meq Prednisone (Deltasone Tab*) 7.5 mg PO DAILY [facility] Last Admin: 12/23/18 09:11 Dose: 7.5 mg Rivaroxaban (Xarelto(*)) 20 mg PO QPM [facility] Last Admin: 12/22/18 17:54 Dose: 20 mg Spironolactone (Aldactone Tab*) 25 mg PO DAILY [facility] Last Admin: 12/23/18 09:11 Dose: 25 mg Tamsulosin HCl (Flomax Cap*) 0.4 mg PO DAILY [facility] Last Admin: 12/23/18 09:10 Dose: 0.4 mg Vital Signs - 8 hr 12/23/18 12/23/18 08:00 08:17 Pulse Rate 86 Respiratory 20 18 Rate O2 Sat by Pulse 92 Oximetry Oxygen Devices in Use Now: Nasal Cannula Appearance: Patient is a 73yo male who appears stated age and is sitting in the bed in [facility]. Eyes: No Scleral Icterus, PERRLA Ears/Nose/Mouth/Throat: NL Teeth, Lips, Gums, Clear Oropharnyx, Mucous Membranes Moist Neck: NL Appearance and Movements; NL JVP, Trachea Midline Respiratory: Symmetrical Chest Expansion and Respiratory Effort, - - Slight Rales in RLL. Single expiratory wheeze heard in Left anterior chest. Cardiovascular: NL Sounds; No Murmurs; No JVD, - - Unchanged 1+ B/L LE edema. Good distal pulses. Irregularly irregular rhythm. Abdominal: - - Abdominal distention, no tenderness. Lymphatic: No Cervical Adenopathy Extremities: No Clubbing, Cyanosis Skin: No Nodules or Sclerosis, - - Chronic venous stasis changes in B/L LE. Neurological: Alert and Oriented x 3, NL Sensation, NL Muscle Strength and Tone , - - CN II-XII intact. Result Diagrams: 12/23/18 06:11 12/23/18 06:11 Additional Lab and Data: Lab Results Assess/Plan/Problems-Billing Assessment: Mr. Zimmer is a 73 yo M with PMH of ischemic cardiomyopathy, COPD on 4L, a- flutter, lymphedema, DM2, CAD, HTN, CKD 3; who presented to the ED c/o SOB and was found to be fluid overloaded. - Patient Problems (1) Acute and chronic respiratory failure with hypoxia Current Visit: Yes Status: Acute Code(s): J96.21 - ACUTE AND CHRONIC RESPIRATORY FAILURE WITH HYPOXIA SNOMED Code(s): 39016279 Comment: - Patient has severe and advanced hypoxic and hypercapneic respiratory failure on CPAP and 4L O2 at all times. Now with superimposed CHF exacerbation - Baseline 4L oxygen, current on between 6 and 10L, worse in AM - Titrate as able, - ABG show compensated chronic respiratory acidosis - Echo shows no shunt, but RV overload and newly moderately-severely decreased RV function. - Continue diuresis, Increase today due to poor urine output. - Pulmonology consult appreciated, recommend continue Diuresis and advance to Trelegy ventilator (2) Acute on chronic systolic CHF (congestive heart failure) Current Visit: Yes Status: Acute Code(s): I50.23 - ACUTE ON CHRONIC SYSTOLIC (CONGESTIVE) HEART FAILURE SNOMED Code(s): 071693230 Comment: - History of ischemic cardiomyopathy - Unclear cause of acute decompensation - Has chronic Aflutter with no worsening in rate control, increase metoprolol to hopefully increase filling times and cardiac output. - Echo shows EF 45-50% with severe pHTN. - Weight improving, based on outpatient cardiology notes, Patient was up 20lbs from baseline, down 10lbs this admission, continue to diurese to goal weight and then reassess hypoxia for possible new home dose O2. - Increase furosemide IV BID t0 60mg BID, metoprolol, spironolactone (3) COPD (chronic obstructive pulmonary disease) Current Visit: No Status: Acute Code(s): J44.9 - CHRONIC OBSTRUCTIVE PULMONARY DISEASE, UNSPECIFIED SNOMED Code(s): 02610044 Comment: - With chronic hypoxic and hypercapneic respiratory failure - Not in exacerbation - Not on any home maintenance inhalers, Start Dulera - Continue prednisone and begin taper. - PRN Nebs - Due to advanced disease state, patient may benefit from non-invasive ventilator at home to reduce work of breathing and improve pulmonary status. - Patient current PAP therapy is ineffective, non-invasive ventilator antonio supercede treatment needs. (4) Interstitial lung disease Current Visit: Yes Status: Acute Code(s): J84.9 - INTERSTITIAL PULMONARY DISEASE, UNSPECIFIED SNOMED Code(s): 446340361 Comment: - Chronic, with pleural plaques and history asbestos exposure. - Unchanged on CT - Pulmonology consult appreciated (5) SUNI (acute kidney injury) Current Visit: Yes Status: Acute Code(s): N17.9 - ACUTE KIDNEY FAILURE, UNSPECIFIED SNOMED Code(s): 95368021 Comment: - Suspect secondary to fluid overload - Improved with diuresis (6) Atrial flutter Current Visit: No Status: Acute Code(s): I48.92 - UNSPECIFIED ATRIAL FLUTTER SNOMED Code(s): 5008565 Comment: - Rate controlled, can go up to 120s with activity. - Increase metoprolol to increase filling time in Afib - Continue Xarelto (7) CAD (coronary artery disease) Current Visit: No Status: Acute Code(s): I25.10 - ATHSCL HEART DISEASE OF [place] CORONARY ARTERY W/O ANG PCTRS SNOMED Code(s): 86387646 Comment: - Continue metoprolol, Plavix, atorvastatin - No evidence of ACS (8) HLD (hyperlipidemia) Current Visit: No Status: Acute Code(s): E78.5 - HYPERLIPIDEMIA, UNSPECIFIED SNOMED Code(s): 64770188 Comment: - Continue lipitor. (9) HTN (hypertension) Current Visit: No Status: Acute Code(s): I10 - ESSENTIAL (PRIMARY) HYPERTENSION SNOMED Code(s): 22884993 Comment: - Normotensive - Continue metoprolol, spironolactone, furosemide (10) MALLIKA (obstructive sleep apnea) Current Visit: No Status: Acute Code(s): G47.33 - OBSTRUCTIVE SLEEP APNEA ( ADULT) (PEDIATRIC) SNOMED Code(s): 89481107 Comment: - Will try hospital CPAP. Tolerating well at this time. - Resume CPAP at home - Likely cause of overnight desaturations. - Pending Trelegy. (11) Full code status Current Visit: No Status: Acute Code(s): Z78.9 - OTHER SPECIFIED HEALTH STATUS SNOMED Code(s): 378490337 Comment: Status and Disposition: Inpatient. Anticipate d/c home when medically stable.
[2018-12-23] MEDS: Rivaroxaban TAB(*) 20 MG TAB PO SCH (18:21)
[2018-12-24 06:46] LABS: ABS Basophils 0.1 10^3/ul (0-0.2); ABS Eosinophils 0.3 10^3/ul (0-0.6); ABS Lymphocytes 1.5 10^3/ul (1.0-4.8); ABS Neutrophils 7.3 10^3/ul (1.5-7.7); Eosinophil % 2.8 %; Hematocrit 49 % (42-52); Hemoglobin 15.8 g/dL (14.0-18.0); Lymphocyte % 15.1 %; Mean Corpuscular HGB Conc 32 g/dL (31-36); Mean Corpuscular Hemoglobin 29 pg (27-31); Mean Corpuscular Volume 89 fL (80-94); Nucleated Red Blood Cells % 0.1; Platelet Count 201 10^3/uL (150-450); Red Blood Count 5.55 10^6 /uL (4.18-5.48); Red Cell Distribution Width 17 % (10-15); White Blood Count 10.2 10^3/uL (3.5-10.8)
[2018-12-24 07:03] LABS: BUN/Creatinine Ratio 16.7 (8-20); Calcium 9.7 mg/dL (8.6-10.3); EGFR African American 76.6 (>60); EGFR Non-African American 63.3 (>60); Potassium 4.2 mmol/L (3.5-5.0)
[2018-12-24] MEDS: Albuterol/Ipratropium NEB.SOL* Albuterol 2.5 MG/Ipratropium 0.5 MG 3 ML INH SCH ×3 (07:39→20:39)
[2018-12-24] MEDS: Mometasone/Formoter 200/5 MDI INH SCH ×2 (07:39→20:39)
[2018-12-24] MEDS: Insulin LISPRO* 1 UNITS UNIT SUBCUT SCH ×4 (07:49→21:21)
[2018-12-24] MEDS: Clopidogrel TAB* 75 MG PO SCH (08:44)
[2018-12-24] MEDS: Finasteride TAB* 5 MG PO SCH (08:44)
[2018-12-24] MEDS: Spironolactone TAB* 25 MG PO SCH (08:44)
[2018-12-24] MEDS: Multivitamins/Minerals TAB PO SCH (08:44)
[2018-12-24] MEDS: Metoprolol Succinate XL TAB* 50 MG PO SCH ×2 (08:44→21:25)
[2018-12-24] MEDS: Ferrous Sulfate TAB* 325 MG PO SCH (08:44)
[2018-12-24] MEDS: Atorvastatin* 20 MG TAB PO SCH (08:44)
[2018-12-24] MEDS: Docusate CAP* 100 MG PO SCH ×2 (08:44→21:26)
[2018-12-24] MEDS: Tamsulosin CAP* 0.4 MG PO SCH (08:44)
[2018-12-24] MEDS: Potassium Chloride* LIQUID 20 MEQ/15 ML UDC PO SCH (08:45)
[2018-12-24] MEDS: predniSONE TAB* 5 MG PO SCH (08:52)
[2018-12-24] MEDS: Furosemide IV* 10 MG/ML 10 ML VIAL (100 MG) IV SCH (08:52)
--- NOTE | 2018-12-24 11:56 | PN ---
Subjective Date of Service: 12/24/18 Interval History: Patient is still feeling well. Patient still does not get SOB with exertion. Patient states that his LE edema feels like it is all the way gone. Patient denies CP, Dizziness, N/V, abdominal pain, diarrhea, F/C, cough, wheezing, or other alarming symptoms. Family History: Unchanged from Admission Social History: Unchanged from Admission Past Medical History: Unchanged from Admission Objective Active Medications: Acetaminophen (Tylenol Tab*) 650 mg PO Q4H PRN PRN Reason: MILD PAIN or TEMP > 100.4 Last Admin: 12/20/18 03:35 Dose: 650 mg Albuterol/Ipratropium (Duoneb (Albuterol 2.5 Mg/Ipratropium 0.5 Mg)) 1 neb INH RT.TID [facility] Last Admin: 12/24/18 07:39 Dose: 1 neb Atorvastatin Calcium (Lipitor*) 20 mg PO DAILY [facility] Last Admin: 12/24/18 08:44 Dose: 20 mg Clopidogrel Bisulfate (Plavix Tab*) 75 mg PO DAILY@0900 [facility] Last Admin: 12/24/18 08:44 Dose: 75 mg Dextrose (Dextrose 50% Vial 50 Ml*) 25 ml IV PUSH .FOR FS < 60 - SS PRN PRN Reason: FS < 60 Docusate Sodium (Colace Cap*) 100 mg PO BID [facility] Last Admin: 12/24/18 08:44 Dose: 100 mg Ferrous Sulfate (Ferrous Sulfate Tab*) 325 mg PO EVERY OTHER DAY [facility] Last Admin: 12/24/18 08:44 Dose: 325 mg Finasteride (Proscar Tab*) 5 mg PO DAILY [facility] Last Admin: 12/24/18 08:44 Dose: 5 mg Furosemide (Lasix Iv*) 40 mg IV 0800,1500 [facility] Insulin Human Lispro (Humalog*) 0 units SUBCUT ACHS [facility]; Protocol Last Admin: 12/24/18 07:49 Dose: Not Given Metoprolol Succinate (Toprol Xl Tab*) 50 mg PO BID [facility] Last Admin: 12/24/18 08:44 Dose: 50 mg Midodrine (Midodrine) 5 mg PO TID [facility]; Protocol Last Admin: 12/24/18 08:52 Dose: 5 mg Mometasone Furoate/Formoterol Fumar (Dulera 200/5 Mdi*) 2 puff INH BID [facility] Last Admin: 12/24/18 07:39 Dose: 2 puff Multivitamins/Minerals (Theragran/Minerals Tab*) 1 tab PO DAILY [facility] Last Admin: 12/24/18 08:44 Dose: 1 tab Ondansetron HCl (Zofran Inj*) 4 mg IV Q4H PRN PRN Reason: NAUSEA/VOMITING Potassium Chloride (Potassium Chloride Liquid) 40 meq PO DAILY [facility] Last Admin: 12/24/18 08:45 Dose: 40 meq Prednisone (Deltasone Tab*) 5 mg PO DAILY [facility] Last Admin: 12/24/18 08:52 Dose: 5 mg Rivaroxaban (Xarelto(*)) 20 mg PO QPM [facility] Last Admin: 12/23/18 18:21 Dose: 20 mg Spironolactone (Aldactone Tab*) 25 mg PO DAILY [facility] Last Admin: 12/24/18 08:44 Dose: 25 mg Tamsulosin HCl (Flomax Cap*) 0.4 mg PO DAILY [facility] Last Admin: 12/24/18 08:44 Dose: 0.4 mg Vital Signs - 8 hr 12/24/18 07:41 Pulse Rate 86 Respiratory 16 Rate O2 Sat by Pulse 95 Oximetry Oxygen Devices in Use Now: Nasal Cannula Appearance: Patient is a 73yo male who appears stated age and is sitting in the bed in [facility]. Eyes: No Scleral Icterus, PERRLA Ears/Nose/Mouth/Throat: NL Teeth, Lips, Gums, Clear Oropharnyx, Mucous Membranes Moist Neck: NL Appearance and Movements; NL JVP, Trachea Midline Respiratory: Symmetrical Chest Expansion and Respiratory Effort, - - Dimininshed. Cardiovascular: NL Sounds; No Murmurs; No JVD, - - Irregularly Irregular Rhythm. Trace B/L LE edema. Abdominal: NL Sounds; No Tenderness; No Distention, No Hepatosplenomegaly Lymphatic: No Cervical Adenopathy Extremities: No Clubbing, Cyanosis Skin: No Nodules or Sclerosis, - - Chronic venous stasis changes. Neurological: Alert and Oriented x 3, NL Sensation, NL Muscle Strength and Tone , - - CN II-XII intact. Result Diagrams: 12/24/18 06:36 12/24/18 06:36 Additional Lab and Data: Lab Results Assess/Plan/Problems-Billing Assessment: Mr. Zimmer is a 73 yo M with PMH of ischemic cardiomyopathy, COPD on 4L, a- flutter, lymphedema, DM2, CAD, HTN, CKD 3; who presented to the ED c/o SOB and was found to be fluid overloaded. - Patient Problems (1) Acute and chronic respiratory failure with hypoxia Current Visit: Yes Status: Acute Code(s): J96.21 - ACUTE AND CHRONIC RESPIRATORY FAILURE WITH HYPOXIA SNOMED Code(s): 20810628 Comment: - Patient has severe and advanced hypoxic and hypercapneic respiratory failure on CPAP and 4L O2 at all times. Now with superimposed CHF exacerbation - Baseline 4L oxygen, now down to 5L at rest, approaching goal - Titrate as able, - ABG show compensated chronic respiratory acidosis - Echo shows no shunt, but RV overload and newly moderately-severely decreased RV function. - Continue diuresis, Decrease today in anticipation of transitioning back to oral diuretics. - Pulmonology consult appreciated, recommend continue Diuresis and advance to Trelegy ventilator (2) Acute on chronic systolic CHF (congestive heart failure) Current Visit: Yes Status: Acute Code(s): I50.23 - ACUTE ON CHRONIC SYSTOLIC (CONGESTIVE) HEART FAILURE SNOMED Code(s): 555319590 Comment: - History of ischemic cardiomyopathy - Unclear cause of acute decompensation - Has chronic Aflutter with no worsening in rate control, increase metoprolol to hopefully increase filling times and cardiac output. - Echo shows EF 45-50% with severe pHTN. - Weight improving, based on outpatient cardiology notes, Patient was up 20lbs from baseline, down 10lbs this admission, continue to diurese to goal weight and then reassess hypoxia for possible new home dose O2. - Lost 12lbs overnight, likely error, continue daily weights. - Decrease furosemide IV BID to 40mg BID, metoprolol, spironolactone (3) COPD (chronic obstructive pulmonary disease) Current Visit: No Status: Acute Code(s): J44.9 - CHRONIC OBSTRUCTIVE PULMONARY DISEASE, UNSPECIFIED SNOMED Code(s): 27019435 Comment: - With chronic hypoxic and hypercapneic respiratory failure - Not in exacerbation - Not on any home maintenance inhalers, Start Dulera - Continue prednisone and begin taper, decrease to 5mg today. - PRN Nebs - Due to advanced disease state, patient may benefit from non-invasive ventilator at home to reduce work of breathing and improve pulmonary status. - Patient current PAP therapy is ineffective, non-invasive ventilator antonio supercede treatment needs. (4) Interstitial lung disease Current Visit: Yes Status: Acute Code(s): J84.9 - INTERSTITIAL PULMONARY DISEASE, UNSPECIFIED SNOMED Code(s): 037535834 Comment: - Chronic, with pleural plaques and history asbestos exposure. - Unchanged on CT - Pulmonology consult appreciated (5) SUNI (acute kidney injury) Current Visit: Yes Status: Acute Code(s): N17.9 - ACUTE KIDNEY FAILURE, UNSPECIFIED SNOMED Code(s): 59768016 Comment: - Suspect secondary to fluid overload - Improved with diuresis (6) Atrial flutter Current Visit: No Status: Acute Code(s): I48.92 - UNSPECIFIED ATRIAL FLUTTER SNOMED Code(s): 8241252 Comment: - Rate controlled, can go up to 120s with activity. - Increased metoprolol to increase filling time in Afib, now with better rate control. - Continue Xarelto (7) CAD (coronary artery disease) Current Visit: No Status: Acute Code(s): I25.10 - ATHSCL HEART DISEASE OF [place] CORONARY ARTERY W/O ANG PCTRS SNOMED Code(s): 53663956 Comment: - Continue metoprolol, Plavix, atorvastatin - No evidence of ACS (8) HLD (hyperlipidemia) Current Visit: No Status: Acute Code(s): E78.5 - HYPERLIPIDEMIA, UNSPECIFIED SNOMED Code(s): 24936675 Comment: - Continue lipitor. (9) HTN (hypertension) Current Visit: No Status: Acute Code(s): I10 - ESSENTIAL (PRIMARY) HYPERTENSION SNOMED Code(s): 60355124 Comment: - Normotensive - Continue metoprolol, spironolactone, furosemide (10) MALLIKA (obstructive sleep apnea) Current Visit: No Status: Acute Code(s): G47.33 - OBSTRUCTIVE SLEEP APNEA ( ADULT) (PEDIATRIC) SNOMED Code(s): 66212127 Comment: - Will try hospital CPAP. Tolerating well at this time. - Resume CPAP at home - Likely cause of overnight desaturations. - Pending Trelegy on Tuesday. (11) Full code status Current Visit: No Status: Acute Code(s): Z78.9 - OTHER SPECIFIED HEALTH STATUS SNOMED Code(s): 826695834 Comment: Status and Disposition: Inpatient. Anticipate d/c home when medically stable. Hopefully within the next 1-2 days.
[2018-12-24] MEDS: Furosemide IV* 10 MG/ML VIAL (40 MG) IV SCH (14:56)
[2018-12-24] MEDS: Rivaroxaban TAB(*) 20 MG TAB PO SCH (17:54)
[2018-12-25] MEDS: Albuterol/Ipratropium NEB.SOL* Albuterol 2.5 MG/Ipratropium 0.5 MG 3 ML INH SCH (07:49)
[2018-12-25] MEDS: Mometasone/Formoter 200/5 MDI INH SCH ×2 (07:49→19:58)
[2018-12-25] MEDS: Insulin LISPRO* 1 UNITS UNIT SUBCUT SCH ×4 (08:24→21:44)
[2018-12-25] MEDS: Furosemide IV* 10 MG/ML VIAL (40 MG) IV SCH ×2 (08:45→14:56)
[2018-12-25] MEDS: Spironolactone TAB* 25 MG PO SCH (08:45)
[2018-12-25] MEDS: Metoprolol Succinate XL TAB* 50 MG PO SCH ×2 (08:45→21:44)
[2018-12-25] MEDS: Potassium Chloride* LIQUID 20 MEQ/15 ML UDC PO SCH (08:46)
[2018-12-25] MEDS: predniSONE TAB* 5 MG PO SCH (08:47)
[2018-12-25] MEDS: Docusate CAP* 100 MG PO SCH ×2 (08:47→21:44)
[2018-12-25] MEDS: Tamsulosin CAP* 0.4 MG PO SCH (08:47)
[2018-12-25] MEDS: Clopidogrel TAB* 75 MG PO SCH (08:47)
[2018-12-25] MEDS: Finasteride TAB* 5 MG PO SCH (08:47)
[2018-12-25] MEDS: Multivitamins/Minerals TAB PO SCH (08:47)
[2018-12-25] MEDS: Atorvastatin* 20 MG TAB PO SCH (08:48)
--- NOTE | 2018-12-25 09:39 | PN ---
Progress Note - Progress Note Date of Service: 12/25/18 - Pulm f/u note Note: Pt seen and examined at bedside. Pt reports feeling better this am. Reports improvement in SOB, mild intermittent cough+, able to expectorate phleghm. LE edema is improved. Pt able to tolerate CPAP. Active Medications Generic Name Dose Route Start Last Admin Trade Name Freq PRN Reason Stop Dose Admin Acetaminophen 650 mg 12/18/18 15:50 12/20/18 03:35 Tylenol Tab* PO 650 mg Q4H PRN Administration MILD PAIN or TEMP > 100.4 Albuterol/Ipratropium 1 neb 12/18/18 16:00 12/25/18 07:49 Duoneb (Albuterol 2.5 Mg/Ipratropium 0.5 Mg) INH 1 neb RT.TID [facility]E Administration Atorvastatin Calcium 20 mg 12/19/18 09:00 12/25/18 08:48 Lipitor* PO 20 mg DAILY [facility] Administration Clopidogrel Bisulfate 75 mg 12/24/18 09:00 12/25/18 08:47 Plavix Tab* PO 75 mg DAILY@0900 [facility] Administration Dextrose 25 ml 12/18/18 15:50 Dextrose 50% Vial 50 Ml* IV PUSH .FOR FS < 60 - SS PRN FS < 60 Docusate Sodium 100 mg 12/18/18 21:00 12/25/18 08:47 Colace Cap* PO 100 mg BID [facility]E Administration Ferrous Sulfate 325 mg 12/20/18 09:00 12/24/18 08:44 Ferrous Sulfate Tab* PO 325 mg EVERY OTHER DAY [facility] Administration Finasteride 5 mg 12/19/18 09:00 12/25/18 08:47 Proscar Tab* PO 5 mg DAILY [facility] Administration Furosemide 40 mg 12/24/18 15:00 12/25/18 08:45 Lasix Iv* IV 40 mg 0800,1500 [facility] Administration Insulin Human Lispro 0 units 12/18/18 16:30 12/25/18 08:24 Humalog* SUBCUT Not Given ACHS [facility] Protocol Metoprolol Succinate 50 mg 12/22/18 21:00 12/25/18 08:45 Toprol Xl Tab* PO 50 mg BID [facility] Administration Midodrine 5 mg 12/18/18 21:00 12/25/18 08:45 Midodrine PO 5 mg TID [facility] Administration Protocol Mometasone Furoate/Formoterol Fumar 2 puff 12/19/18 21:00 12/25/18 07:49 Dulera 200/5 Mdi* INH 2 puff BID [facility] Administration Multivitamins/Minerals 1 tab 12/19/18 09:00 12/25/18 08:47 Theragran/Minerals Tab* PO 1 tab DAILY [facility] Administration Ondansetron HCl 4 mg 12/18/18 15:50 Zofran Inj* IV Q4H PRN NAUSEA/VOMITING Potassium Chloride 40 meq 12/22/18 09:00 12/25/18 08:46 Potassium Chloride Liquid PO 40 meq DAILY [facility] Administration Prednisone 5 mg 12/24/18 09:00 12/25/18 08:47 Deltasone Tab* PO 5 mg DAILY [facility] Administration Rivaroxaban 20 mg 12/18/18 18:30 12/24/18 17:54 Xarelto(*) PO 20 mg QPM [facility] Administration Spironolactone 25 mg 12/19/18 09:00 12/25/18 08:45 Aldactone Tab* PO 25 mg DAILY [facility] Administration Tamsulosin HCl 0.4 mg 12/19/18 09:00 12/25/18 08:47 Flomax Cap* PO 0.4 mg DAILY [facility] Administration Vital Signs Temp Pulse Resp BP Pulse Ox 98.1 F 88 20 115/76 93 12/25/18 07:15 12/25/18 07:50 12/25/18 08:00 12/25/18 07:15 12/25/18 08:00 O/E: Obese male in bed in [facility] HEENT: PERRLA, mucus membranes moist Lungs: Good a/e b/l, no wheeze Abd: Obese, BS+ Ext: Chronic skin changes, trace edema Skin: NO rash Neuro: NO focal deficits Laboratory Results - last 24 hr 12/24/18 12/24/18 12/24/18 11:13 16:54 21:17 POC Glucose (mg/dL) 183 H 141 H 114 H 12/25/18 07:44 POC Glucose (mg/dL) 101 H I/R: 73 yo M with PMH of ischemic cardiomyopathy, COPD on chronic O2 at 4L, a- flutter, lymphedema, DM2, CAD, HTN, CKD 3, ANGELICA, presented to the ED with worsening SOB and was found to be having acute on chronic hypoxic resp failure sec to fluid overload Pt treated for acute systolic CHF exacerbation. Pt with improvement in SOB and hypoxia Pt has chronic hypercapnic resp failure sec to COPD. He continues to have hypercapnia inpsite of optimal CPAP usage for Angelica and would benefit from Trilogy Pt overall imporved since admission OOB to chair as tolerated FiO2 requirement to be assessed prior to d/c Will f/u in pulm clinic as out pt
[2018-12-25] MEDS ORDERED: Albuterol/Ipratropium NEB.SOL* Albuterol 2.5 MG/Ipratropium 0.5 MG 3 ML INH PRN (11:04)
--- NOTE | 2018-12-25 15:35 | PN ---
Subjective Date of Service: 12/25/18 Interval History: Mr. Zimmer states that he is feeling well today. He reports an occasional cough which is occasionally productive, which he states is chronic. He denies SOB at rest, but reports SOB with activity. He reports he had a BM today; he states he is eating and drinking well. He has no other complaints today. Plan is for delivery of Trilogy device today so patient may use overnight and discharge home with vent. Family History: Unchanged from Admission Social History: Unchanged from Admission Past Medical History: Unchanged from Admission Objective Active Medications: Acetaminophen (Tylenol Tab*) 650 mg PO Q4H PRN PRN Reason: MILD PAIN or TEMP > 100.4 Last Admin: 12/20/18 03:35 Dose: 650 mg Albuterol/Ipratropium (Duoneb (Albuterol 2.5 Mg/Ipratropium 0.5 Mg)) 1 neb INH RT.TID PRN PRN Reason: SOB/WHEEZING Atorvastatin Calcium (Lipitor*) 20 mg PO DAILY [facility] Last Admin: 12/25/18 08:48 Dose: 20 mg Clopidogrel Bisulfate (Plavix Tab*) 75 mg PO DAILY@0900 [facility] Last Admin: 12/25/18 08:47 Dose: 75 mg Dextrose (Dextrose 50% Vial 50 Ml*) 25 ml IV PUSH .FOR FS < 60 - SS PRN PRN Reason: FS < 60 Docusate Sodium (Colace Cap*) 100 mg PO BID [facility] Last Admin: 12/25/18 08:47 Dose: 100 mg Ferrous Sulfate (Ferrous Sulfate Tab*) 325 mg PO EVERY OTHER DAY [facility] Last Admin: 12/24/18 08:44 Dose: 325 mg Finasteride (Proscar Tab*) 5 mg PO DAILY [facility] Last Admin: 12/25/18 08:47 Dose: 5 mg Furosemide (Lasix Iv*) 40 mg IV 0800,1500 [facility] Last Admin: 12/25/18 14:56 Dose: 40 mg Insulin Human Lispro (Humalog*) 0 units SUBCUT ACHS [facility]; Protocol Last Admin: 12/25/18 12:30 Dose: 6 units Metoprolol Succinate (Toprol Xl Tab*) 50 mg PO BID [facility] Last Admin: 12/25/18 08:45 Dose: 50 mg Midodrine (Midodrine) 5 mg PO TID [facility]; Protocol Last Admin: 12/25/18 14:56 Dose: 5 mg Mometasone Furoate/Formoterol Fumar (Dulera 200/5 Mdi*) 2 puff INH BID [facility] Last Admin: 12/25/18 07:49 Dose: 2 puff Multivitamins/Minerals (Theragran/Minerals Tab*) 1 tab PO DAILY [facility] Last Admin: 12/25/18 08:47 Dose: 1 tab Ondansetron HCl (Zofran Inj*) 4 mg IV Q4H PRN PRN Reason: NAUSEA/VOMITING Potassium Chloride (Potassium Chloride Liquid) 40 meq PO DAILY [facility] Last Admin: 12/25/18 08:46 Dose: 40 meq Prednisone (Deltasone Tab*) 5 mg PO DAILY [facility] Last Admin: 12/25/18 08:47 Dose: 5 mg Rivaroxaban (Xarelto(*)) 20 mg PO QPM [facility] Last Admin: 12/24/18 17:54 Dose: 20 mg Spironolactone (Aldactone Tab*) 25 mg PO DAILY [facility] Last Admin: 12/25/18 08:45 Dose: 25 mg Tamsulosin HCl (Flomax Cap*) 0.4 mg PO DAILY [facility] Last Admin: 12/25/18 08:47 Dose: 0.4 mg Vital Signs: Temp Pulse Resp BP Pulse Ox 97.4 F 81 28 104/69 87 12/25/18 15:15 12/25/18 15:15 12/25/18 15:15 12/25/18 15:15 12/25/18 15:15 Oxygen Devices in Use Now: Nasal Cannula Appearance: Mr. Zimmer is an older obese white male who is sitting up in bed. He appears to be in no acute distress, and is breathing comfortably on 5L supplemental O2 per NC. Eyes: No Scleral Icterus, PERRLA Ears/Nose/Mouth/Throat: NL Teeth, Lips, Gums, Clear Oropharnyx, Mucous Membranes Moist, - - mildly STANDING [place]OCK Neck: NL Appearance and Movements; NL JVP, Trachea Midline Respiratory: Symmetrical Chest Expansion and Respiratory Effort, Clear to Auscultation - Diminished breath sounds without rhonchi, wheeze, rales Cardiovascular: NL Sounds; No Murmurs; No JVD, RRR, - - trace pedal edema Abdominal: NL Sounds; No Tenderness; No Distention - obese, No Hepatosplenomegaly Extremities: No Clubbing, Cyanosis Skin: - - b/l LE with venous stasis skin changes Neurological: Alert and Oriented x 3, NL Muscle Strength and Tone Result Diagrams: 12/24/18 06:36 12/24/18 06:36 Additional Lab and Data: Lab Results Assess/Plan/Problems-Billing Assessment: Mr. Zimmer is a 73 yo M with PMH of ischemic cardiomyopathy, COPD on 4L, a- flutter, lymphedema, DM2, CAD, HTN, CKD 3; who presented to the ED with c/o SOB and was found to be fluid overloaded. - Patient Problems (1) Acute and chronic respiratory failure with hypoxia Comment: - Patient has severe and advanced hypoxic and hypercapneic respiratory failure on CPAP and 4L O2 at all times. Now with superimposed CHF exacerbation - Baseline 4L oxygen, now down to 5L at rest, approaching goal - Titrate as able - ABG show compensated chronic respiratory acidosis - Echo shows no shunt, but RV overload and newly moderately-severely decreased RV function. - Continue diuresis; decreased yesterday in anticipation of transitioning back to oral diuretics starting tomorrow - Pulmonology consult appreciated; recommend continue diuresis and advance to Trilogy ventilator (scheduled to arrive today) (2) Acute on chronic systolic CHF (congestive heart failure) Comment: - History of ischemic cardiomyopathy - Unclear cause of acute decompensation - Has chronic Aflutter with no worsening in rate control, increase metoprolol to hopefully increase filling times and cardiac output. - Echo shows EF 45-50% with severe pHTN. - Weight improving, down appx 20lbs this admission, continue to diurese to goal weight and then reassess hypoxia for possible new home dose O2. - goal weight 245-247 - Decrease furosemide IV BID to 40mg BID, metoprolol, spironolactone (3) COPD (chronic obstructive pulmonary disease) Comment: - With chronic hypoxic and hypercapneic respiratory failure - Not in exacerbation - Not on any home maintenance inhalers, Start Dulera - Continue prednisone and begin taper, decrease to 5mg today. - PRN Nebs - Due to advanced disease state, patient may benefit from non-invasive ventilator at home to reduce work of breathing and improve pulmonary status. - Patient current PAP therapy is ineffective, non-invasive ventilator antonio supercede treatment needs. - Trilogy vent device will be delivered today (4) Interstitial lung disease Comment: - Chronic, with pleural plaques and history asbestos exposure. - Unchanged on CT - Pulmonology consult appreciated (5) MALLIKA (obstructive sleep apnea) Comment: - Has been using hospital CPAP - Likely cause of overnight desaturations - Trilogy vent to be delivered to inpatient room today for use now and at discharge (6) Atrial flutter Comment: - Rate controlled, can go up to 120s with activity. - Increased metoprolol to increase filling time in Afib, now with better rate control. - Continue Xarelto (7) HTN (hypertension) Comment: - Normotensive - Continue metoprolol, spironolactone, furosemide (8) CAD (coronary artery disease) Comment: - Continue metoprolol, Plavix, atorvastatin - No evidence of ACS (9) HLD (hyperlipidemia) Comment: - Continue lipitor. (10) SUNI (acute kidney injury) Comment: -Resolved -Suspect secondary to fluid overload -Improved with diuresis (11) DVT prophylaxis Comment: - Cristin (12) Full code status Comment: Status and Disposition: Inpatient. Anticipate d/c home when medically stable. Hopefully within the next 1-2 days. Trilogy to be delivered to inpatient room this evening.
[2018-12-25] MEDS: Rivaroxaban TAB(*) 20 MG TAB PO SCH (17:05)
[2018-12-26] MEDS: Insulin LISPRO* 1 UNITS UNIT SUBCUT SCH ×2 (08:21→12:42)
[2018-12-26] MEDS: Mometasone/Formoter 200/5 MDI INH SCH (08:23)
[2018-12-26] MEDS: Potassium Chloride* LIQUID 20 MEQ/15 ML UDC PO SCH (08:35)
[2018-12-26] MEDS: Multivitamins/Minerals TAB PO SCH (08:36)
[2018-12-26] MEDS: Clopidogrel TAB* 75 MG PO SCH (08:36)
[2018-12-26] MEDS: predniSONE TAB* 5 MG PO SCH (08:36)
[2018-12-26] MEDS: Spironolactone TAB* 25 MG PO SCH (08:36)
[2018-12-26] MEDS: Docusate CAP* 100 MG PO SCH (08:37)
[2018-12-26] MEDS: Ferrous Sulfate TAB* 325 MG PO SCH (08:37)
[2018-12-26] MEDS: Tamsulosin CAP* 0.4 MG PO SCH (08:37)
[2018-12-26] MEDS: Atorvastatin* 20 MG TAB PO SCH (08:37)
[2018-12-26] MEDS: Metoprolol Succinate XL TAB* 50 MG PO SCH (08:37)
[2018-12-26] MEDS: Finasteride TAB* 5 MG PO SCH (08:37)
[2018-12-26 08:39] VITALS: BP 108/74
[2018-12-26] MEDS ORDERED: Torsemide TAB* 20 MG PO SCH (09:00)
--- NOTE | 2018-12-27 01:49 | DS ---
DISCHARGE SUMMARY: DATE OF ADMISSION: 12/18/18 DATE OF DISCHARGE: 12/26/18 PRIMARY CARE PROVIDER: Ne Hernandez MD. OTHER PROVIDERS: Nathaila Mcintosh MD and Jose Miguel Lazaro MD ATTENDING PHYSICIAN: Jhoana Newman MD * (dictated by LEEANNA Ambrocio). PRIMARY DIAGNOSES: 1. Acute on chronic respiratory failure. 2. Acute on chronic systolic heart failure. 3. Interstitial lung disease. 4. Acute kidney injury. SECONDARY DIAGNOSES: 1. Ischemic cardiomyopathy, EF 40% to 45%. 2. Chronic obstructive pulmonary disease, 4 L at all times. 3. Recurrent bladder tumor, resected x1. 4. Atrial flutter. 5. Hyperlipidemia. 6. Coronary artery disease. 7. Hypertension. 8. Diabetes mellitus, type 2. 9. Chronic kidney disease, stage 3. 10. Obstructive sleep apnea, on CPAP. 11. Benign prostatic hyperplasia. 12. Chronic lower extremity edema. STUDIES WHILE IN THE HOSPITAL: 1. Transthoracic echocardiogram. In summary, LV cavity size mildly reduced, wall thickness mildly increased, systolic function mildly reduced. Estimated EF 45% to 50%. RV oannne-lz-kfxsvejqbl dilated, wall thickness mildly-to- moderately increased, systolic function ofkqssxojg-yl-cluovtqj reduced. Valves show grossly normal function, trace TR, ascending aorta mildly dilated. Pulmonary artery systolic pressure cannot be accurately estimated. 2. CTA chest: Impression: No evidence for pulmonary embolism. Enlargement of the central pulmonary arteries consistent with pulmonary artery hypertension. Findings suggestive of congestive heart failure. Dense pleural calcifications. Recommend clinical correlation for prior asbestos exposure, TB exposure and prior procedure history, enlarged mediastinal and hilar lymph nodes unchanged from the prior study. 3. Chest x-ray. Impression: Similar to slightly worsened patchy bilateral airspace opacification. A similarly enlarged main pulmonary artery could be veterans contact representative of pulmonary hypertension. Pleural calcification correlates with asbestos exposure and procedural history. CONSULTATIONS WHILE IN THE HOSPITAL: Pulmonology. Impression and Recommendations: The patient claims to be compliant with CPAP usage; however, still has significant hypercapnia at baseline. Congestive heart failure resulting in acute hypoxic respiratory failure, responding well to diuresis. Radiologic evidence of significant pulmonary hypertension, which could be resulting from chronic underlying hypoxemia. The patient would need right heart cath and vasodilator challenge before medications for pulmonary hypertension could be considered. Does not appear to be in acute chronic obstructive disease exacerbation at this time. The patient would benefit from TRELEGY given history of chronic obstructive pulmonary disease and chronic hypercapnic respiratory failure. I would think that would treat his condition better than existing CPAP. Recommend optimization of cardiac meds. The patient does appear to have mucus plugging, bronchiectasis in left lower lobe with evidence of mild atelectasis, would benefit from flutter valve. Advised to ambulate as tolerated. Encouraged deep breathing. Continue CPAP in the interim. Reassess O2 requirements prior to discharge. Pulmonary hypertension, likely chronic from underlying hypoxemia. DISCHARGE MEDICATIONS: Home medications: 1. DuoNeb 1 neb inhalation t.i.d. p.r.n. 2. Atorvastatin 20 mg p.o. daily. 3. Clopidogrel 75 mg p.o. daily. 4. Ferrous sulfate 325 mg p.o. daily. 5. Finasteride 5 mg p.o. daily. 6. Metformin 1000 mg p.o. b.i.d. 7. Midodrine 5 mg p.o. t.i.d. 8. Multivitamin/minerals 1 tablet p.o. daily. 9. [place]-3 fatty acid 1000 mg p.o. daily. 10. Rivaroxaban 20 mg p.o. daily. 11. Spironolactone 25 mg p.o. daily. 12. Tamsulosin 0.4 mg p.o. daily. 13. Torsemide 20 mg, 40 mg alternating. New home medications: 1. Metoprolol succinate 50 mg p.o. b.i.d. 2. Mometasone/formoterol 200/5, 2 puffs inhalation b.i.d. HISTORY OF PRESENT ILLNESS/HOSPITAL COURSE: Mr. Zimmer is a 73-year-old male with a past medical history of ischemic cardiomyopathy, ejection fraction 40%, COPD requiring 4 L of oxygen at all times, obstructive sleep apnea requiring CPAP at bedtime, dyslipidemia, hypertension who presented to the ER on 12/10/18 with complaints of shortness of breath. For full and complete details, please see the history and physical dictated by Diana Frost NP, but in short the patient presents with these symptoms and is admitted to the hospital for acute decompensated heart failure, acute on chronic hypoxemic respiratory failure. He was started on furosemide IV for acute on chronic systolic heart failure. His oxygen requirements slowly decreased throughout his stay. He was noted to have chronic respiratory acidosis on ABG. An echo was obtained and it showed RV overload, xkiszcxmyh-[id number] decreased RV function, no shunting and EF of 45% to 50%. Pulmonology was consulted and recommended continued diuresis and TRELEGY ventilator. The patient's home weight is 245 to 247 pounds. At the time of discharge, his weight was 252, near goal. An Astral 150 ventilator device arrived the day prior to discharge and the patient was able to trial this overnight with good results. The patient presented with acute on chronic respiratory failure. His baseline oxygen requirement is 4 L. He was requiring much higher than this at admission and was slowly titrated down to 4 L at discharge. It is suspected that his increase in requirements was partially due to acute on chronic systolic heart failure exacerbation. Again at the time of discharge, he was requiring 4 L, his baseline. Pulmonology was consulted and recommended continued oxygen, continued CPAP use with transition to TRELEGY like device. An Astral 150 ventilator device was provided to him the day prior to discharge. He states that he used this overnight with good results. He states he woke in the morning feeling well rested with an oxygen saturation of 93% whereas with his home CPAP machine he was satting in the 70s in the morning and waking with headaches. The patient was also noted to have acute kidney injury upon admission. It is likely that this was due to fluid overload. With the administration of IV Lasix , his SUNI resolved. The patient has a history of atrial fibrillation on metoprolol 25 b.i.d., Xarelto. He was rate controlled throughout his stay, although it was noted that heart rate would increase with activity. His metoprolol was doubled to 50 mg b.i.d. to help better control rate and improve filling time. At the time of discharge, the patient is able to be discharged home. He states that he is very happy with his Astral device, stating that he feels that his headaches and waking oxygen desaturation has improved. He states that he feels back to baseline. He denies, cough, fever, chills. He does again have an occasional headache typically in the morning, which is relieved with Tylenol. He reports no headache this morning. REVIEW OF SYSTEMS: A 14-point review of systems has been performed and all the pertinent positives and negatives are in the HPI. PHYSICAL EXAMINATION: Vital Signs: Temperature 97.9, temporal; heart rate 83; respiratory rate 16; oxygen saturation 98% on 4 L; blood pressure 108/74. General: Mr. Zimmer is a well-developed, well-nourished older white gentleman who appears somewhat older than his stated age. He is resting comfortably in bed. There is no increased work of breathing, although he is noted to be on supplemental O2 at 4 L. He is in no acute distress. HEENT: PERRL. EOMI. Nonicteric sclerae. Mildly hard of hearing. Oral mucous membranes are moist. There are no lesions. Oropharynx is clear without exudate. Cardiovascular: Irregular. S1 and S2 present. No murmurs, rubs, clicks or gallops. There is no JVD. There is trace pedal edema. Pulmonary: Symmetrical chest expansion, decreased air exchange without wheeze, rhonchi or rubs. No digital clubbing or cyanosis. Abdomen: Obese. Bowel sounds in all quadrants. Soft, nontender to palpation. Musculoskeletal: Full range of motion without pain or deformities. Neuro: The patient is a little awake. He is alert and oriented x3 with cranial nerves grossly intact. He has equal strength in bilateral upper and lower extremities, 5/5 throughout. DISCHARGE PLAN: Mr. Zimmer will be discharged to home. CONDITION: Improved. DIET: 1. Heart healthy. 2. ADA/diabetic. ACTIVITY: As tolerated. MEDICATIONS: 1. Continue Dulera inhaler, 2 puffs inhalation b.i.d. 2. Metoprolol has been increased to 50 mg b.i.d. 3. Resume home torsemide alternating 20 mg and 40 mg every other day. 4. Continue prednisone 5 mg p.o. daily for 11 days starting tomorrow, then decrease to 2.5 mg daily for 14 days, then discontinue. 5. Continue Astral vent device. EDUCATION: 1. Follow up with primary care provider in 4 to 7 days. 2. Follow up with casing operator in 4 to 7 days. 3. Follow up with [place] night shift manager as scheduled. 4. Repeat lab work. BMP to check potassium in 3 to 5 days and follow up with primary care provider. 5. Return to the ER or nearest hospital if you experience any worsening of symptoms, chest pain or discomfort, shortness of breath, dizziness, lightheadedness, loss of consciousness, high fevers, chills, night sweats or any other worrisome signs or symptoms. This is a summarized report of a complex medical history and hospital stay. For further details, please see the entire medical record. TIME SPENT: Approximately 40 minutes were spent on this discharge, greater than half that time was spent [id number] with the patient discussing discharge plans and instructions. LEEANNA SUE [id number]/CPS #: [id number] MTDD
== END 2018-12-26 14:00 | disposition home or self-care (01) | DRG 291 ==
LOC: ED 13:02 → MEDTELE 15:50 → OBSVTOIN 12-19 11:00
PROVIDERS: ADMIT Internal Medicine; ATTEND Internal Medicine
PROC: 5A09357 Assistance with Respiratory Ventilation, Less than 24 Consecutive Hours, Continuous Positive Airway Pressure (ICD-10-PCS; principal; 2018-12-21)
DX: I13.0 Hypertensive heart and chronic kidney disease with heart failure and stage 1 through stage 4 chronic kidney disease, or unspecified chronic kidney disease (principal); I50.43 Acute on chronic combined systolic (congestive) and diastolic (congestive) heart failure; J96.21 Acute and chronic respiratory failure with hypoxia; J96.22 Acute and chronic respiratory failure with hypercapnia; I48.92 Unspecified atrial flutter; E87.2 Acidosis; N17.9 Acute kidney failure, unspecified; J84.9 Interstitial pulmonary disease, unspecified; I25.10 Atherosclerotic heart disease of native coronary artery without angina pectoris; E78.00 Pure hypercholesterolemia, unspecified; E11.51 Type 2 diabetes mellitus with diabetic peripheral angiopathy without gangrene; J44.9 Chronic obstructive pulmonary disease, unspecified; E11.22 Type 2 diabetes mellitus with diabetic chronic kidney disease; H91.90 Unspecified hearing loss, unspecified ear; I25.5 Ischemic cardiomyopathy; E78.5 Hyperlipidemia, unspecified; N40.0 Benign prostatic hyperplasia without lower urinary tract symptoms; E66.9 Obesity, unspecified; I89.0 Lymphedema, not elsewhere classified; N18.3 Chronic kidney disease, stage 3 (moderate); D50.9 Iron deficiency anemia, unspecified; I27.20 Pulmonary hypertension, unspecified; I77.819 Aortic ectasia, unspecified site; I07.1 Rheumatic tricuspid insufficiency; I48.91 Unspecified atrial fibrillation; I95.9 Hypotension, unspecified; G47.33 Obstructive sleep apnea (adult) (pediatric); Z99.89 Dependence on other enabling machines and devices; Z72.89 Other problems related to lifestyle; Z85.51 Personal history of malignant neoplasm of bladder; Z86.11 Personal history of tuberculosis; Z87.891 Personal history of nicotine dependence; Z68.31 Body mass index [BMI] 31.0-31.9, adult; Z99.81 Dependence on supplemental oxygen; Z95.5 Presence of coronary angioplasty implant and graft; Z97.4 Presence of external hearing-aid; Z79.84 Long term (current) use of oral hypoglycemic drugs; Z79.02 Long term (current) use of antithrombotics/antiplatelets; Z79.01 Long term (current) use of anticoagulants; Z79.899 Other long term (current) drug therapy
CPT/HCPCS: 36415; 36600; 71045; 71275; 80048; 80053; 82803; 83735; 83880; 84484; 85025; 85610; 93005; 93306; 94640; 94660; 96374; 96375; 99283; A9270-GY; C8929; J1940; J7512; Q9967

== ENCOUNTER 2019-06-13 15:30 | Inpatient (IN) | payer MEDICARE ==
--- NOTE | 2019-06-13 16:30 | ED ---
Lower Extremity - HPI Summary HPI Summary: 74 year old M presenting to [facility] with a chief complaint of swelling and blistering of his bilateral lower extremities and right elbow pain since approximately one week ago. Symptoms aggravated by nothing. Symptoms alleviated by nothing. Patient reports that he has not seen a wound care doctor. He denies any falls, fever, chills, erythema of eyes, sore throat, chest pain, shortness of breath, cough, abdominal pain, nausea/vomiting, dysuria, hematuria, myalgia, rash, or dizziness. Medication list reviewed. Allergy list reviewed. - History of Current Complaint Chief Complaint: EDGeneral Stated Complaint: EDEMA, AND BLISTERING PER PT Time Seen by Provider: 06/13/19 16:21 Hx Obtained From: Patient Mechanism Of Injury: Unknown Onset of Pain: Days Onset/Duration: Still Present Timing: Constant Location: Is Discrete @ - Lower extremities, right elbow Associated Signs And Symptoms: Positive: Negative - Chills, erythema (eyes), sore throat, chest pain, shortness of breath, cough, vomiting, nausea, dysuria, hematuria, myalgia, rash. Negative: Fever, Dizziness, Abdominal Pain Aggravating Factor(s): Nothing Alleviating Factor(s): Nothing - Allergies/Home Medications Allergies/Adverse Reactions: Allergies Allergy/AdvReac Type Severity Reaction Status Date / Time No Known Allergies Allergy Verified 04/26/16 08:25 Home Medications: Home Medications Atorvastatin* [Lipitor 20 MG*] 20 mg PO DAILY 02/23/18 [History Confirmed ] Finasteride TAB* [Proscar TAB*] 5 mg PO DAILY 02/23/18 [History Confirmed ] Multivitamins/Minerals TAB* [Theragran/minerals TAB*] 1 tab PO DAILY 02/23/18 [ History Confirmed 06/13/19] [place]-3 Fatty Acids (Nf) [Fish Oil (NF)] 1,000 mg PO DAILY 02/23/18 [History Confirmed 06/13/19] Tamsulosin CAP* [Flomax CAP*] 0.4 mg PO DAILY 02/23/18 [History Confirmed ] metFORMIN* [Glucophage 500 MG TAB *] 1,000 mg PO BID 02/23/18 [History Confirmed 06/13/19] Spironolactone TAB* [Aldactone TAB 25 MG*] 25 mg PO DAILY #30 tab 05/14/18 [Rx Confirmed 06/13/19] Rivaroxaban TAB(*) [Xarelto 10 mg (*)] 20 mg PO DAILY 12/18/18 [History Confirmed 06/13/19] Metoprolol Succinate XL TAB* [Toprol XL TAB*] 50 mg PO BID #60 tab.xl 12/26/18 [ Rx Confirmed 06/13/19] Digoxin TAB* [Lanoxin TAB*] 0.125 mg PO DAILY 06/13/19 [History Confirmed ] Ferrous Sulfate TAB* 325 mg PO EVERY OTHER DAY 06/13/19 [History Confirmed 06/12] Midodrine 5 mg PO BID 06/13/19 [History Confirmed 06/13/19] Midodrine HCl 10 mg PO QPM 06/13/19 [History Confirmed 06/13/19] Torsemide TAB* [Demadex*] 40 mg PO DAILY 06/13/19 [History Confirmed 06/13/19] PMH/Surg Hx/FS Hx/Imm Hx Endocrine/Hematology History: Reports: Hx Anticoagulant Therapy, Hx Diabetes Denies: Hx Blood Disorders, Hx Blood Transfusions, Hx Bone Marrow Disease, Hx Systemic Lupus Erythematosus, Hx Sickle Cell Disease, Hx Thyroid Disease, Hx Anemia, Hx Unexplained Bleeding, Other Endocrine/Hematological Disorders Cardiovascular History: Reports: Hx Congestive Heart Failure, Hx Coronary Artery Disease - STENT-2010, Hx Hypercholesterolemia, Hx Hypertension, Hx Peripheral Vascular Disease, Hx Syncope, Other Cardiovascular Problems/ Disorders - ARRHYTHMIA Denies: Hx Aneurysm, Hx Angina, Hx Angioplasty, Hx Auto Implanted Cardiovert Defib, Hx Cardiac Arrest, Hx Cardiomegaly, Hx Congenital Heart Disease, Hx Deep Vein Thrombosis, Hx Embolism, Hx Pacemaker/ICD, Hx Rheumatic Fever, Hx Valvular Heart Disease Respiratory History: Reports: Hx Chronic Obstructive Pulmonary Disease (COPD) - 4L home O2, Hx Pulmonary Edema - HX OF, Hx Sleep Apnea Denies: Hx Asthma, Hx Chronic Bronchitis, Hx Cystic Fibrosis, Hx Lung Cancer , Hx Pleural Effusion, Hx Pneumonia, Hx Pulmonary Embolism, Hx Seasonal Allergies, Other Respiratory Problems/Disorders GI History: Reports: Other GI Disorders - pt states he alternates between diarrhea and constipation Denies: Hx Cirrhosis, Hx Crohn's Disease, Hx Diverticulosis, Hx Gall Bladder Disease, Hx Gastroesophageal Reflux Disease, Hx Gastrointestinal Bleed, Hx Hiatal Hernia, Hx Irritable Bowel, Hx Jaundice, Hx Obstructive Bowel, Hx Ileostomy, Hx Pyloric Stenosis, Hx Ulcer History: Reports: Hx Chronic Renal Failure, Other Problems/Disorders - bladder tumor removed Denies: Hx Acute Renal Failure, Hx Benign Prostatic Hyperplasia, Hx Dialysis , Hx Kidney Infection, Hx Kidney Stones, Hx Renal Disease Musculoskeletal History: Denies: Hx Arthritis, Hx Back Problems, Hx Bursitis, Hx Congenital Bone Abnormalities, Hx Fibromyalgia, Hx Gout, Hx Orthopedic Injury, Hx Osteoporosis, Hx Scoliosis, Hx Tendonitis Sensory History: Reports: Hx Contacts or Glasses - magnifiers, Hx Hearing Problem - YOCHA DEHE Denies: Hx Cataracts, Hx Eye Injury, Hx Eye Prosthesis, Hx Glaucoma, Hx Legally Blind, Hx Macular Degeneration, Hx Vision Problem, Hx Deafness - pt slightly YOCHA DEHE, Hx Hearing Aid, Other Sensory Impairments Opthamlomology History: Reports: Hx Contacts or Glasses - magnifiers Denies: Hx Cataracts, Hx Eye Injury, Hx Eye Prosthesis, Hx Glaucoma, Hx Legally Blind, Hx Macular Degeneration, Hx Vision Problem, Other Sensory Impairments Neurological History: Denies: Hx Dementia, Hx Developmental Delay, Hx Headaches, Hx Migraine, Hx Nerve Disease, Hx Seizures, Hx Spinal Cord Injury, Hx Transient Ischemic Attacks (TIA), Other Neuro Impairments/Disorders Psychiatric History: Denies: Hx Anxiety, Hx Attention Deficit Hyperactivity Disorder, Hx Eating Disorder, Hx Depression, Hx Panic Disorder, Hx Post Traumatic Stress Disorder, Hx Inpatient Treatment, Hx Community Mental Health Tx, Hx Schizophrenia, Hx Bipolar Disorder, Hx Suicide Attempt, Hx of Violent Episodes Against Others, Hx Substance Abuse, Other Psychiatric Issues/Disorders - Cancer History Cancer Type, Location and Year: bladder CA Hx Chemotherapy: No Hx Radiation Therapy: No Hx Palliative Cancer Treatment: No - Surgical History Surgical History: Yes Surgery Procedure, Year, and Place: tonsils,. cardiac stent 2010. bladder surgery for tumor, [facility] Hx Anesthesia Reactions: No Infectious Disease History: No Infectious Disease History: Reports: Hx Tuberculosis - 5 month Rx ~2007 suspected exposure Denies: Hx Clostridium Difficile, Hx Hepatitis, Hx Human Immunodeficiency Virus (HIV), Hx Shingles, History Other Infectious Disease, Traveled Outside the [place] in Last 30 Days - Family History Known Family History: Positive: Cardiac Disease - Social History Alcohol Use: None Substance Use Type: Reports: None Smoking Status (MU): Former Smoker Type: Cigarettes Amount Used/How Often: 1.5 ppd X 45 YEARS Length of Time of Smoking/Using Tobacco: 47 years Have You Smoked in the Last Year: No Review of Systems Negative: Fever, Chills Negative: Erythema Negative: Sore Throat Negative: Chest Pain Negative: Shortness Of Breath, Cough Negative: Abdominal Pain, Vomiting, Nausea Negative: dysuria, hematuria Positive: Other - Bilateral lower extremity swelling, right elbow pain. Negative: Myalgia Positive: Other - Bilateral lower extremity blistering. Negative: Rash Neurological/Mental Status: Negative - Dizziness All Other Systems Reviewed And Are Negative: Yes Physical Exam - Summary Physical Exam Summary: Constitutional: Well-developed, Well-nourished, Alert. (-) Distressed Skin: Venous stasis skin changes to his lower extremities bilaterally, 1/2 dollar sized open wound on his right terry, no erythema, skin thickening along ankle crease, ecchymosis tracking from his right antecubital space to his wrist , tenderness over medial antecubital space on his right side. HENT: Normocephalic; Atraumatic Eyes: Conjunctiva normal Neck: Musculoskeletal ROM normal neck. (-) JVD, (-) Stridor, (-) Tracheal deviation Cardio: Rhythm regular, rate normal, Heart sounds normal; Intact distal pulses; The pedal pulses are 2+ and symmetric. Radial pulses are 2+ and symmetric. (-) Murmur Pulmonary/Chest wall: Effort normal. (-) Respiratory distress, minimal crackles , breath sounds diminished. Abd: Soft, (-) tenderness, (-) Distension, (-) Guarding, (-) Rebound Musculoskeletal: (-) Edema Lymph: (-) Cervical adenopathy Neuro: Alert, Oriented x3 Psych: Mood and affect Normal Triage Information Reviewed: Yes Vital Signs On Initial Exam: Initial Vitals Temp Pulse Resp BP Pulse Ox 97.6 F 97 18 96/70 88 06/13/19 15:41 06/13/19 15:41 06/13/19 15:41 06/13/19 15:41 06/13/19 15:41 Vital Signs Reviewed: Yes Procedures - Sedation Patient Received Moderate/Deep Sedation with Procedure: No Diagnostics - Vital Signs Vital Signs Temp Pulse Resp BP Pulse Ox 06/13/19 15:41 97.6 F 97 18 96/70 88 - Laboratory Result Diagrams: 06/13/19 16:55 06/13/19 16:55 Lab Statement: Any lab studies that have been ordered have been reviewed, and results considered in the medical decision making process. - Radiology Elbow x-ray Radiology Interpretation Completed By: ED Physician Summary of Radiographic Findings: No acute disease. ED physician has reviewed and interpreted this report. Chest x-ray Radiology Interpretation Completed By: ED Physician Summary of Radiographic Findings: Bibasilar infiltrates which appear similar to previous studies. ED physician has reviewed and interpreted this report. - CT Chest/Thorax CTA CT Interpretation Completed By: Radiologist Summary of CT Findings: 1. No pulmonary embolism identified. 2. CT evidence of pulmonary hypertension and right-sided heart failure. 3. A mixture of interstitial and alveolar pulmonary edema is likely. 4. Unchanged mediastinal lymphadenopathy. 5. Coronary artery disease. 6. Scattered calcified pleural plaques. ED physician has reviewed this report. - EKG 17:38 Cardiac Rate: Other Rate - 70 BPM EKG Rhythm: Atrial Fibrillation Summary of EKG Findings: No STEMI. ED physician has reviewed and interpreted this EKG. Lower Extremity Course/Dx - Course Course Of Treatment: 74 year old M presenting to [facility] with a chief complaint of swelling and blistering of his bilateral lower extremities and right elbow pain since approximately one week ago. Physical exam findings: venous stasis skin changes to his lower extremities bilaterally, 1/2 dollar sized open wound on his right terry, no erythema, skin thickening along his ankle crease, ecchymosis tracking from his right antecubital space to his wrist, tenderness over medial antecubital space on his right side, minimal crackles, breath sounds diminished. An EKG reveals atrial fibrillation rate of 70 BPM, no STEMI. CXR reveals, per ED physician, bibasilar infiltrates which appear similar to previous studies. Elbow x-ray reveals, per ED physician, no acute disease. Chest /Thorax CTA reveals, per radiologist, 1. No pulmonary embolism identified. 2. CT evidence of pulmonary hypertension and right-sided heart failure. 3. A mixture of interstitial and alveolar pulmonary edema is likely. 4. Unchanged mediastinal lymphadenopathy. 5. Coronary artery disease. 6. Scattered calcified pleural plaques. Laboratory results with no significant abnormalities except for an RBC of 5.60, RDW of 20, absolute lymphs of 0.8, chloride of 94, carbon dioxide of 35, BUN of 35, creatinine of 1.29, BUN/creatinine ratio of 27.1, lactic acid of 2.9, total bilirubin of 1.60, C-reactive protein of 49.91, B-natriuretic peptide of 394, globulin of 4.7, and albumin/globulin ratio of 0.8. In the ED course, the patient was given Duonebs and Lasix. We discussed patient care with Dr. Alvarez at 18:15 who will come to see the patient. Patient will be signed out to Dr. Schmid at 21:00 on 06/13/2019 pending Venous Doppler Study and disposition. The patient is agreeable with this plan. - Diagnoses Provider Diagnoses: CHF exacerbation, Hypoxemia, Strain of biceps tendon - Physician Notifications Discussed Care Of Patient With: Monika Alvarez Time Discussed With Above Provider: 18:15 Instructed by Provider To: Other - Discussed with Dr. Alvarez who will come to see the patient. - Critical Care Time Critical Care Time: 30-74 min - 45 minutes Critical Care Statement: Critical care time is provided exclusive of any time spent performing procedures. Discharge ED - Sign-Out/Discharge Documenting (check all that apply): Sign-Out Patient Signing out patient TO: Helen Schmid - Pending Venous Doppler Study and disposition. - Discharge Plan Condition: Stable Referrals: Ne Hernandez MD [Primary Care Provider] - - Attestation Statements Document Initiated by Scribe: Yes Documenting Scribe: Loly Dailey Provider For Whom Scribe is Documenting (Include Credential): Dario Ramos MD Scribe Attestation: Loly Boss, scribed for Dario Ramos MD on 06/13/19 at [id number]. Status of Scribe Document: Ready
[2019-06-13 17:07] LABS: Hematocrit 48 % (42-52); Mean Corpuscular HGB Conc 33 g/dL (31-36); Mean Corpuscular Hemoglobin 29 pg (27-31); Mean Corpuscular Volume 86 fL (80-94); Mean Platelet Volume 8.5 fL (7.4-10.4); Platelet Count 173 10^3/uL (150-450); Red Cell Distribution Width 20 % (10-15); White Blood Count 6.6 10^3/uL (3.5-10.8)
[2019-06-13 17:26] LABS: ABS Basophils 0.1 10^3/ul (0-0.2); ABS Eosinophils 0.1 10^3/ul (0-0.6); ABS Lymphocytes 0.8 10^3/ul (1.0-4.8); ABS Monocytes 0.7 10^3/ul (0-0.8); ABS Neutrophils 4.9 10^3/ul (1.5-7.7); Eosinophil % 1.9 %; Lymphocyte % 12.2 %
[2019-06-13 17:30] LABS: Troponin I 0.01 ng/mL (<0.03)
[2019-06-13 17:34] LABS: Albumin 3.7 g/dL (3.2-5.2); Albumin/Globulin Ratio 0.8 (1-3); BUN/Creatinine Ratio 27.1 (8-20); Calcium 9.7 mg/dL (8.6-10.3); EGFR African American 66.2 (>60); EGFR Non-African American 54.7 (>60); Globulin 4.7 g/dL (2-4); Potassium 4.9 mmol/L (3.5-5.0); Total Bilirubin 1.6 mg/dL (0.2-1.0); Total Protein 8.4 g/dL (6.4-8.9)
[2019-06-13] MEDS ORDERED: Furosemide IV* 10 MG/ML 2 ML VIAL (20 MG) IV SLOW PU ONE (18:08)
[2019-06-13] MEDS ORDERED: Iodixanol* (CONTRAST) 320 MG/ML 100 ML SDV IV ONE (19:00)
[2019-06-13 20:25] LABS: C Reactive Protein 49.91 mg/L (<8.01)
[2019-06-13] MEDS ORDERED: Furosemide IV* 10 MG/ML 10 ML VIAL (100 MG) IV ONE (20:45)
[2019-06-13] MEDS ORDERED: Albuterol 2.5 MG/3 ML NEB.SOL* (0.083%) INH PRN (20:46)
[2019-06-13] MEDS ORDERED: Metoprolol Succinate XL TAB* 50 MG PO SCH (21:00)
[2019-06-13] MEDS ORDERED: Dextrose 50% Syringe 50 ML* 25 GM/50 ML SYRINGE IV PUSH PRN (21:21)
[2019-06-14] MEDS: Enoxaparin(*) 150 MG/ML 1 ML SYRINGE SUBCUT SCH ×3 (01:03→22:57)
[2019-06-14] MEDS: Metoprolol Succinate XL TAB* 50 MG PO SCH ×3 (01:33→20:16)
[2019-06-14 03:50] LABS: Magnesium 1.8 mg/dL (1.9-2.7)
[2019-06-14 04:22] LABS: ABS Basophils 0.1 10^3/ul (0-0.2); ABS Eosinophils 0.2 10^3/ul (0-0.6); ABS Lymphocytes 1.3 10^3/ul (1.0-4.8); ABS Monocytes 0.8 10^3/ul (0-0.8); ABS Neutrophils 4.4 10^3/ul (1.5-7.7); Eosinophil % 3.2 %; Hematocrit 44 % (42-52); Hemoglobin 14.7 g/dL (14.0-18.0); Lymphocyte % 18.5 %; Mean Corpuscular HGB Conc 33 g/dL (31-36); Mean Corpuscular Hemoglobin 28 pg (27-31); Mean Corpuscular Volume 86 fL (80-94); Mean Platelet Volume 8.1 fL (7.4-10.4); Nucleated Red Blood Cells % 0.1; Platelet Count 161 10^3/uL (150-450); Red Cell Distribution Width 19 % (10-15); White Blood Count 6.8 10^3/uL (3.5-10.8)
[2019-06-14 04:27] LABS: INR 1.9 (0.82-1.09)
[2019-06-14 04:39] LABS: BUN/Creatinine Ratio 27.1 (8-20); Calcium 9.5 mg/dL (8.6-10.3); EGFR African American 66.2 (>60); EGFR Non-African American 54.7 (>60); Potassium 4.1 mmol/L (3.5-5.0)
[2019-06-14 05:31] LABS: Magnesium 1.8 mg/dL (1.9-2.7)
--- NOTE | 2019-06-14 06:24 | HP ---
CC: Dr. Hernandez* HISTORY AND PHYSICAL: DATE OF ADMISSION: 06/13/19 PROVIDER: Brandi Candelaria NP. PRIMARY CARE PROVIDER: Dr. Hernandez. ATTENDING PHYSICIAN WHILE IN THE HOSPITAL: Dr. Monika Alvarez* (dictated by Brandi Candelaria NP). CHIEF COMPLAINT: Progressive shortness of breath, right arm pain and bruising, bilateral lower extremity swelling. HISTORY OF PRESENT ILLNESS: Mr. Zimmer is a 74-year-old male with a past medical history significant for coronary artery disease; history of A-flutter; hyperlipidemia; hypertension; congestive heart failure; chronic kidney disease, stage 3; type 2 diabetes; obstructive sleep apnea; COPD; BPH; chronic respiratory failure with hypoxia, who presented to the emergency room with complaints of progressively worsening shortness of breath, bilateral lower extremity swelling and pain and bruising in his right arm. The patient reports that he has developed progressively worsening exertional shortness of breath since this January. He also reports that he has had increased swelling in his legs with blistering and weeping and trouble walking because his legs feel so heavy. He reports that he has had increased swelling and blistering for approximately 2 months. The patient also reports he developed pain in his right antecubital area of the right arm and then developed bruising approximately 3 days ago. Due to these findings, the patient presented to the emergency room for further evaluation. He denies any fever or unintended weight loss. He denies any chest pain. He does report bilateral lower extremity edema. No cough, hemoptysis. He does report progressive exertional shortness of breath that has progressively worsened since January. He denies any nausea , vomiting, diarrhea, abdominal pain, gross hematuria, or dysuria. Denies any focal weakness, sensory loss, dysphagia, arthralgias, myalgias. He does report an open sore to his right lower leg that is nonhealing x2 months. He denies any psychosis or anxiety. While in the emergency room, the patient had routine lab work drawn. He was found to have an elevated BNP and pain in his right arm antecubital area of the right arm as well as ecchymosis, and shortness of breath requiring 6 L of oxygen , increased from his baseline requirement. Due to these findings, hospital medicine was asked to see and evaluate him for admission. PAST MEDICAL HISTORY: Significant for: 1. Coronary artery disease. 2. History of atrial flutter. 3. Hypertension/ hypotension. 4. Hyperlipidemia. 5. Diastolic congestive heart failure. 6. Chronic kidney disease, stage 3. 7. Type 2 diabetes. 8. Obstructive sleep apnea, on trilogy. 9. COPD, on oxygen 4 L at baseline. 10. BPH. 11. Chronic respiratory failure with hypoxia. 12. Chronic lower extremity lymphedema. 13. Recurrent bladder tumor, which was resected but has returned. 14. Ischemic cardiomyopathy with an EF of 40% to 45%. PAST SURGICAL HISTORY: Bladder resection. MEDICATIONS: Include: 1. [place]-3 fatty acid 1000 mg p.o. daily. 2. Multivitamin 1 tablet p.o. daily. 3. DuoNeb 1 inhale t.i.d. 4. Metformin 1000 mg p.o. b.i.d. 5. Tamsulosin 0.4 mg p.o. daily. 6. Finasteride 5 mg p.o. daily. 7. Clopidogrel 75 mg p.o. daily. 8. Xarelto 20 mg p.o. daily. 9. Metoprolol tartrate 50 mg p.o. b.i.d. 10. Ferrous sulfate 325 mg every other day. 11. Spironolactone 12.5 mg twice daily. 12. Midodrine 5 mg p.o. b.i.d. 13. Midodrine 10 mg at bedtime. 14. Atorvastatin 20 mg p.o. daily. 15. Torsemide 40 mg p.o. daily. ALLERGIES: No known drug allergies. FAMILY HISTORY: Father with history of heart disease. Mother and brother with diabetes. No reported history of cancer. SOCIAL HISTORY: The patient quit smoking in 2010. Prior to that he smoked a pack and half a day for 50 years. He reports occasional alcohol use. No illicit drug use. He is . Surrogate decision maker in the event he is unable to make his own decisions is his brother, Elton. REVIEW OF SYSTEMS: A 14-point review of systems was completed. All pertinent positives were mentioned in the HPI, otherwise were negative. PHYSICAL EXAMINATION GENERAL: At this time, Mr. Zimmer is a 74-year-old male. He is alert and oriented, resting on the stretcher in the emergency room. He does not appear to be in any acute distress. He is well developed, well nourished. VITAL SIGNS: Blood pressure 100/66, heart rate 72, respirations 18, O2 saturation 95%, temperature was 97.6. HEENT: Head is atraumatic, normocephalic. Eyes: EOMs are intact. Sclerae anicteric and not pale. Oral mucosa is moist. NECK: Supple. He does have positive JVD. LUNGS: Diminished bilaterally. No wheezes, rales, or rhonchi. CARDIAC: S1, S2. Regular rate and rhythm. No rubs or gallops. ABDOMEN: Obese, soft, and nontender. Bowel sounds are present x4. EXTREMITIES: He is able to move all 4 extremities. Right arm with ecchymosis and tenderness to the right antecubital. He does have venous stasis changes to bilateral lower extremities with scabbed areas and dry scaly skin. They are erythematous without signs of cellulitis. NEUROLOGIC: He is awake, alert, oriented x3. Speech is clear. Thought process intact. There are no gross focal deficits. SKIN: He does have ecchymosis noted to his right arm from his wrist to his upper arm on the medial aspect. His bilateral lower extremities have venous stasis changes with scabbed areas and dry scaly skin. DIAGNOSTIC STUDIES/LAB DATA: WBCs are 6.6, RBCs 5.60, hemoglobin 16.0, hematocrit is 48, platelet count is 173. Sodium 136, potassium 4.9, chloride 94 , carbon dioxide was 35, anion gap was 7, BUN was 35, creatinine 1.29, glucose was 96, lactic acid was 2.9. Total bilirubin 1.60, ASTs were 21, ALTs were 23, alkaline phosphatase was 101. Troponin was 0.01. C-reactive protein was 49.91. BNP was 394. He had a CTA of the chest and thorax. No pulmonary embolism is identified. CT evidence of pulmonary hypertension, right-sided heart failure, a mixture of interstitial and alveolar pulmonary edema, unchanged mediastinal lymphadenopathy , coronary artery disease, scattered calcified pleural plaques. He had an electrocardiogram, which showed atrial fibrillation at a rate of 70. He does have some mild ST depressions in V2, V3 that appear to be new. ASSESSMENT AND PLAN: Mr. Zimmer is a 74-year-old male with a past medical history significant for coronary artery disease; atrial flutter; hypertension; hyperlipidemia; history of congestive heart failure; chronic kidney disease, stage III; type 2 diabetes; obstructive sleep apnea; chronic obstructive pulmonary disease; and acute on chronic hypoxic respiratory failure, who presented to the emergency room with complaints of progressively worsening shortness of breath since January, leg swelling and acute ecchymosis to his right arm. He will be admitted for: 1. Shortness of breath. I suspect his shortness of breath is related to acute diastolic congestive heart failure. He is currently requiring 5 liters NC, O2 saturations are 95%. I will give him IV Lasix 60 mg b.i.d. He did have a CT of the chest that was negative for pulmonary embolism, but did show pulmonary edema. We will place him on daily weights and strict I's and O's. He will have a heart healthy, caffeine okay diet. 2. Right arm ecchymosis and pain. The patient does have a venous Doppler of the right arm that is currently pending. Should this come back with DVT, we will need to change his anticoagulation therapy. As the patient reports that he has been taking his Xarelto daily and has not missed any dosing. 3. Atrial flutter, atrial fibrillation. The patient is currently on Xarelto. He will continue Xarelto, digoxin, metoprolol as previously prescribed. 4. Hyperlipidemia. He will continue on atorvastatin 20 mg p.o. daily. 5. Benign prostatic hypertrophy. He will continue on tamsulosin 0.4 mg p.o. daily. 6. Coronary artery disease. The patient will continue on metoprolol, spironolactone as previously prescribed. 7. COPD. Patient is on 4 liters NC at baseline, reports that he uses trilogy machine at home. He reports that he o2 saturation on 4 liters at home range between 85-92% 8. Type 2 diabetes. The patient will hold his metformin. As he has had CTA of the chest, we will hold that for 72 hours. He will be placed on fingersticks a.c. and h.s. with lispro sliding scale. 9. Obstructive sleep apnea. Reports that he thinks he wears trilogy machine at home. 10. DVT prophylaxis: He is on Xarelto. 11. FEN: He can have a heart healthy, caffeine okay diet. 12. Code status: He is full code. TIME SPENT: Time spent on this admission was 60 minutes, greater than half of that time was spent at the bedside reviewing events leading thus far to his hospitalization, performing physical exam, and reviewing my plan of care. BRANDI CANDELARIA NP [id number]/[facility] #: [id number] LILA
[2019-06-14] MEDS ORDERED: Magnesium Sulfate 2 GM IV (Premix) IVPB ONE (06:30)
[2019-06-14] MEDS: Insulin LISPRO* 1 UNITS UNIT SUBCUT SCH ×4 (07:38→20:59)
[2019-06-14] MEDS ORDERED: Rivaroxaban TAB(*) 10 MG PO SCH (09:00)
[2019-06-14] MEDS: Furosemide IV* 10 MG/ML 10 ML VIAL (100 MG) IV SCH ×2 (09:04→17:04)
[2019-06-14] MEDS: Spironolactone TAB* 25 MG PO SCH (09:06)
[2019-06-14] MEDS: Tamsulosin CAP* 0.4 MG PO SCH (09:06)
[2019-06-14] MEDS: Multivitamins/Minerals TAB PO SCH (09:06)
[2019-06-14] MEDS: Digoxin TAB* 0.125 MG PO SCH (09:06)
[2019-06-14] MEDS: Atorvastatin* 20 MG TAB PO SCH (09:06)
[2019-06-14] MEDS: Finasteride TAB* 5 MG PO SCH (09:06)
--- NOTE | 2019-06-14 10:20 | PN ---
Date of Service: 06/14/19 Critical Care Services: Patient was on vapotherm 40L FiO2 100% overnight, no complain of cough. He is taking torsemide 40mg daily religiously at home since Jan, he stated he took water only when he was taking pills, however he still felt more swollen and short of breath on exertion. He was using O2 4L and trilogy at home. O2 requirement: vapotherm 40L FiO2 100% with spO2 98% Medication: Acetaminophen (Tylenol Tab*) 650 mg PO Q4H PRN PRN Reason: MILD PAIN or TEMP > 100.4 Albuterol (Ventolin 2.5 Mg/3 Ml Neb.Alana*) 2.5 mg INH [id number] AWAKE PRN PRN Reason: sob/wheezing Atorvastatin Calcium (Lipitor*) 20 mg PO DAILY [facility] Last Admin: 06/14/19 09:06 Dose: 20 mg Dextrose (D50w Syringe 50 Ml*) 12.5 gm IV PUSH .FOR FS < 60 - SS PRN PRN Reason: FS < 60 Digoxin (Lanoxin Tab*) 0.125 mg PO DAILY [facility] Last Admin: 06/14/19 09:06 Dose: 0.125 mg Enoxaparin Sodium (Lovenox(*)) 115 mg SUBCUT Q12H [facility] Last Admin: 06/14/19 01:03 Dose: 115 mg Ferrous Sulfate (Ferrous Sulfate Tab*) 325 mg PO EVERY OTHER DAY [facility] Finasteride (Proscar Tab*) 5 mg PO DAILY [facility] Last Admin: 06/14/19 09:06 Dose: 5 mg Furosemide (Lasix Iv*) 60 mg IV 0800,1700 [facility] Last Admin: 06/14/19 09:04 Dose: 60 mg Insulin Human Lispro (Humalog*) 0 units SUBCUT ACHS [facility]; Protocol Last Admin: 06/14/19 07:38 Dose: Not Given Metoprolol Succinate (Toprol Xl Tab*) 50 mg PO Q12HR [facility] Last Admin: 06/14/19 09:06 Dose: 50 mg Midodrine (Midodrine) 5 mg PO BID [facility]; Protocol Last Admin: 06/14/19 09:06 Dose: 5 mg Midodrine (Midodrine) 10 mg PO 2100 [facility]; Protocol Last Admin: 06/14/19 01:03 Dose: 10 mg Multivitamins/Minerals (Theragran/Minerals Tab*) 1 tab PO DAILY [facility] Last Admin: 06/14/19 09:06 Dose: 1 tab Spironolactone (Aldactone Tab*) 25 mg PO DAILY [facility] Last Admin: 06/14/19 09:06 Dose: 25 mg Tamsulosin HCl (Flomax Cap*) 0.4 mg PO DAILY [facility] Last Admin: 06/14/19 09:06 Dose: 0.4 mg Vital Signs: Temp Pulse Resp BP SpO2 FiO2 97.7 F 83 16 99/64 95 80 06/14/19 07:49 06/14/19 09:06 06/14/19 09:00 06/14/19 09:00 06/14/19 09:00 06/13 03:35 Physical Exam: Constitutional: awake, alert, not in distress Eyes: no pallor, no icterus ENT: dry mucous CVS: normal rate, regular, no murmur Chest/Resp: bilateral air entry, no rhales, no wheeze, no rhonchi, no acc muscle use Abdomen/GI: soft, nontender, nondistended, BS+ Ext/Msk: warm, pulses+, bilateral LL edema up to knee with chronic lichenization of changes in skin, right LL abrasion seen Neuro: awake, alert, orientedx4 Psych: normal affect Fluid Balance (Past 24 Hours): I= 200 H=7144 Net= -2300 Intake & Output 06/12/19 06/13/19 06/14/19 06/15/19 06:59 06:59 06:59 06:59 Intake Total 200 245 Output Total 2500 Balance -2300 245 Weight 111.12 kg Intake: IVPB 70 Oral 200 175 Output: Urine 2500 Labs: Laboratory Results - last 24 hr 06/13/19 06/13/19 06/13/19 16:55 16:55 16:55 WBC 6.6 RBC 5.60 H Hgb 16.0 Hct 48 MCV 86 MCH 29 MCHC 33 RDW 20 H Plt Count 173 MPV 8.5 Neut % (Auto) 73.9 Lymph % (Auto) 12.2 Aurora % (Auto) 11.0 Eos % (Auto) 1.9 Baso % (Auto) 1.0 Absolute Neuts (auto) 4.9 Absolute Lymphs (auto) 0.8 L Absolute Monos (auto) 0.7 Absolute Eos (auto) 0.1 Absolute Basos (auto) 0.1 Absolute Nucleated RBC 0.0 Nucleated RBC % 0.0 INR (Anticoag Therapy) Sodium 136 Potassium 4.9 Chloride 94 L Carbon Dioxide 35 H Anion Gap 7 BUN 35 H Creatinine 1.29 H Est GFR ( Amer) 66.2 Est GFR (Non-Af Amer) 54.7 BUN/Creatinine Ratio 27.1 H Glucose 96 POC Glucose (mg/dL) Lactic Acid 2.9 H* Calcium 9.7 Magnesium 1.8 L Total Bilirubin 1.60 H AST 21 ALT 13 Alkaline Phosphatase 101 Troponin I 0.01 C-Reactive Protein 49.91 H B-Natriuretic Peptide Total Protein 8.4 Albumin 3.7 Globulin 4.7 H Albumin/Globulin Ratio 0.8 L 06/13/19 06/14/19 06/14/19 16:55 00:55 00:55 WBC RBC Hgb Hct MCV MCH MCHC RDW Plt Count MPV Neut % (Auto) Lymph % (Auto) Aurora % (Auto) Eos % (Auto) Baso % (Auto) Absolute Neuts (auto) Absolute Lymphs (auto) Absolute Monos (auto) Absolute Eos (auto) Absolute Basos (auto) Absolute Nucleated RBC Nucleated RBC % INR (Anticoag Therapy) Sodium Potassium Chloride Carbon Dioxide Anion Gap BUN Creatinine Est GFR ( Amer) Est GFR (Non-Af Amer) BUN/Creatinine Ratio Glucose POC Glucose (mg/dL) Lactic Acid 1.7 Calcium Magnesium Cancelled Total Bilirubin AST ALT Alkaline Phosphatase Troponin I 0.02 C-Reactive Protein B-Natriuretic Peptide 394 H Total Protein Albumin Globulin Albumin/Globulin Ratio 06/14/19 06/14/19 06/14/19 04:12 04:12 04:12 WBC 6.8 RBC 5.20 Hgb 14.7 Hct 44 MCV 86 MCH 28 MCHC 33 RDW 19 H Plt Count 161 MPV 8.1 Neut % (Auto) 65.5 Lymph % (Auto) 18.5 Aurora % (Auto) 11.8 Eos % (Auto) 3.2 Baso % (Auto) 1.0 Absolute Neuts (auto) 4.4 Absolute Lymphs (auto) 1.3 Absolute Monos (auto) 0.8 Absolute Eos (auto) 0.2 Absolute Basos (auto) 0.1 Absolute Nucleated RBC 0.0 Nucleated RBC % 0.1 INR (Anticoag Therapy) 1.90 H Sodium 136 Potassium 4.1 Chloride 95 L Carbon Dioxide 32 Anion Gap 9 BUN 35 H Creatinine 1.29 H Est GFR ( Amer) 66.2 Est GFR (Non-Af Amer) 54.7 BUN/Creatinine Ratio 27.1 H Glucose 78 POC Glucose (mg/dL) Lactic Acid Calcium 9.5 Magnesium 1.8 L Total Bilirubin AST ALT Alkaline Phosphatase Troponin I Cancelled C-Reactive Protein B-Natriuretic Peptide Total Protein Albumin Globulin Albumin/Globulin Ratio 06/14/19 07:34 WBC RBC Hgb Hct MCV MCH MCHC RDW Plt Count MPV Neut % (Auto) Lymph % (Auto) Aurora % (Auto) Eos % (Auto) Baso % (Auto) Absolute Neuts (auto) Absolute Lymphs (auto) Absolute Monos (auto) Absolute Eos (auto) Absolute Basos (auto) Absolute Nucleated RBC Nucleated RBC % INR (Anticoag Therapy) Sodium Potassium Chloride Carbon Dioxide Anion Gap BUN Creatinine Est GFR ( Amer) Est GFR (Non-Af Amer) BUN/Creatinine Ratio Glucose POC Glucose (mg/dL) 91 Lactic Acid Calcium Magnesium Total Bilirubin AST ALT Alkaline Phosphatase Troponin I C-Reactive Protein B-Natriuretic Peptide Total Protein Albumin Globulin Albumin/Globulin Ratio Studies: US: right nonocclusive thrombus in right brachial vein. Nutrition: Oral nutrition Impression: Mr. Zimmer is a 74 yo male with history of CAD, HFrEF (last EF 45-50%, right ventricle hypokinesis in 2019), Aflutter on Xarelto, COPD on home O2 and trilogy , CKD stage 3, T2DM, HTN, HLD, presented with progressive worsening shortness of breath and swelling, found to have CHF exacerbation. Problems: 1. CHF exacerbation cx pulmonary edema, b/g known HFrEF, compliant to diuretics 2. Right brachial vein thrombosis 3. COPD - no exacerbation 4. AFlutter 5. CKD stage 3 6. T2DM 7. CAD 8. HTN 9. HLD Plan: Neuro-alert, oriented -Delirium prec; avoid BDZ CVS-worsening CHF, increase diuretics to iv lasix 60mg bid for now - aim for negative I/O - TTE today to reassess heart function - continue home med digoxin and metoprol Resp- -Wean Fio2 to keep sat 88-92% ID- right LL edema with abrasion, not infected looking - wound care GI- -Nutrition: heart healthy diet -GI prophylaxis: not needed Renal- -strict I/O, replete to keep K>4, Mg>2, Mg repleted today -aim for negative balance Heme-right nonocclusive brachial thrombus - sc heparin therapeutic dose Endo-Maintain BG<200, insulin protocol as needed Musculsk-pressure ulcer precaution Wounds- right LL abrasion on top of lymphedema, wound consult Nutrition- heart healthy diet DVT prophylaxis: on therapeutic heparin dose GI prophylaxis: not indicated Central Line: no Arterial Line: no Chanel Catheter: no Disposition: Patient requires Critical Care/ICU for Hypoxic respiratory failure Patient clinical status: improved Code Status: full code
--- NOTE | 2019-06-14 12:46 | ECHO ---
*[facility]* [place] [address] Fax #: [phone] Transthoracic Echocardiogram Patient: Niles Zimmer : 1945 Study Date: 06/14/2019 Age: 74 Gender: M HR: 63 bpm Height: 75 in /190.5 cm BSA: 2.44 m^2 Weight: 243.5 lb /110.7 kg BMI: 30.5 kg/m^2 *Senior It Engineer: * Chelsey Mahmood [facility] *Referring Physician: * Dee Dee Ramos *Reading Physician: * Jose Miguel Lazaro MD Indications: Congestive Heart Failure. History: Atrial flutter. Coronary artery disease. Congestive heart failure. Chronic obstructive pulmonary disease. PMH: Ischemic Cardiomyopathy. Functional status: Following treatment plan for sleep apnea. Risk factors: Hypertension. Diabetes mellitus. Obese. Dyslipidemia. Conclusions Summary: - Left ventricle: The cavity size is at the lower limits of normal. Wall thickness is mildly increased. Systolic function is mildly reduced. The estimated ejection fraction is 45-50%. - Right ventricle: Systolic function is moderately to severely reduced. - Ventricular septum: There is septal flattening of the interventricular septum consistent with RV volume or pressure overload. - Left atrium: The atrium is moderately dilated. - Right atrium: The atrium is severely dilated. - Mitral valve: There is trace regurgitation. - Tricuspid valve: There is mild-moderate regurgitation. - C/t 12/20/2018, tricuspid regurgitation was trace then. Otherwise no overt significant changes. Study data: Transthoracic echocardiogram. Procedure: Transthoracic echocardiography was performed. Image quality was poor. The study was technically limited due to poor apical acoustic window availability. Apical 2 and 3 chamber views were attempted but not diagnostic. Complete 2D, spectral Doppler, and color flow Doppler. Location: ICU Patient status: Inpatient. Patient room number: ICU-03. Rhythm: Normal sinus rhythm with PVC's. Findings Left ventricle: The cavity size is at the lower limits of normal. Wall thickness is mildly increased. Systolic function is mildly reduced. The estimated ejection fraction is 45-50%. Wall motion is normal; there are no regional wall motion abnormalities. There is no consistent Doppler evidence of clinically significant diastolic dysfunction. Right ventricle: The cavity size is moderately to severely dilated. Systolic function is moderately to severely reduced. Systolic pressure is moderately increased. Ventricular septum: There is septal flattening of the interventricular septum consistent with RV volume or pressure overload. Left atrium: The atrium is moderately dilated. Right atrium: The atrium is severely dilated. Mitral valve: The Mitral valve annulus appears calcified. The leaflets are mildly thickened. There is no evidence of stenosis. There is trace regurgitation. Aortic valve: The valve is trileaflet. The leaflets are mildly thickened. Poor angle to evaluate doppler flow velocities. Valve appears to have adequate cusp mobility with 2-D imaging. There is no evidence of stenosis. There is no significant regurgitation. Tricuspid valve: The leaflets are normal thickness. There is no evidence of stenosis. There is mild-moderate regurgitation. Pulmonic valve: The leaflets are normal thickness. There is no evidence of stenosis. There is trace regurgitation. Aorta: Aortic root: The aortic root is upper normal in size. Ascending aorta: The ascending aorta is upper normal in size. Aortic arch: The aortic arch is poorly visualized. Pericardium: There is no significant pericardial effusion. Pulmonary arteries: The main pulmonary artery is normal-sized. Systolic pressure is moderately increased. Pulmonary artery pressure may be underestimated Systemic veins: Inferior vena cava: The vessel is dilated. There is (< 50%) respiratory change in the IVC dimension. Measurements Left ventricle Value Ref Aortic valve Value Ref LUAN, LAX (L) 4.1 cm 4.2 - Filomena diam, S 2.1 cm 2.0 - 3.2 5.8 Peak v, S 0.64 m/sec --------- ESD, LAX 3.2 cm 2.5 - VTI, S 10.4 cm --------- 4.0 Mean grad, S 1.0 mm Hg --------- FS, LAX (L) 22 % Peak grad, S 1.6 mm Hg --------- PW, ED, LAX (H) 1.3 cm 0.6 - LVOT/AV, VTI ratio 0.7 --------- 1.0 FS (L) 22 % Mitral valve Value Ref Mid-wall FS 8 % -------- Peak E 0.78 m/sec --------- PW, ED (H) 1.3 cm 0.6 - Peak A 0.5 m/sec --------- 1.0 Decel time 140 ms --------- E', lat filomena, TDI 10.4 cm/sec >=10.0 Peak grad, D 2.4 mm Hg --- ------ E/e', lat filomena, TDI 8 -------- Peak E/A ratio 1.57 ------ --- LVOT Value Ref Pulmonic valve Value Ref Peak dexter, S 0.34 m/sec -------- Peak v, S 0.82 m/sec --------- VTI, S 7.3 cm -------- Peak grad, S 2.7 mm Hg --------- Peak grad, S 1 mm Hg -------- Mean grad, S 0 mm Hg -------- Tricuspid valve Value Ref TR peak v (H) 3.16 m/sec <=2.8 Ventricular septum Value Ref Peak RV-RA grad, S 40 mm Hg --------- IVS, ED (H) 1.3 cm 0.6 - 1.0 Aortic root Value Ref Root diam 3.5 cm <4.5 Right ventricle Value Ref LUAN, LAX 4.0 cm -------- Ascending aorta Value Ref LUAN minor ax, A4C (H) 4.9 cm 1.9 - AAo AP diam, S 3.5 cm --------- mid 3.5 Pressure, S 55 mm Hg -------- Pulmonary artery Value Ref Pressure, S 52.3 mm Hg --------- Left atrium Value Ref LA ID 3.4 cm -------- Inferior vena cava Value Ref SI dim ES, LAX 3.4 cm -------- Diam 2.9 cm --------- ML dim, A4C 3.8 cm -------- SI dim, A4C 5.8 cm -------- Right atrium Value Ref SI dim, ES (H) 6.0 cm 3.4 - 5.3 ML dim, ES, A4C (H) 5.5 cm 2.6 - 4.4 Estimated RAP 15 mm Hg -------- Legend: (L) and (H) savannah values outside specified reference range. Prepared and electronically signed by Jose Miguel Lazaro MD 06/14/2019 12:45
[2019-06-14] MEDS: Acetaminophen TAB* 325 MG PO PRN (20:16)
[2019-06-15 04:24] LABS: Hematocrit 45 % (42-52); Hemoglobin 14.8 g/dL (14.0-18.0); Mean Corpuscular HGB Conc 33 g/dL (31-36); Mean Corpuscular Hemoglobin 28 pg (27-31); Mean Corpuscular Volume 86 fL (80-94); Mean Platelet Volume 8.1 fL (7.4-10.4); Platelet Count 156 10^3/uL (150-450); Red Blood Count 5.24 10^6 /uL (4.18-5.48); Red Cell Distribution Width 19 % (10-15); White Blood Count 7.2 10^3/uL (3.5-10.8)
[2019-06-15 04:41] LABS: BUN/Creatinine Ratio 25.6 (8-20); Calcium 9.2 mg/dL (8.6-10.3); EGFR Non-African American 52.9 (>60)
[2019-06-15 05:13] LABS: ABS Basophils 0.1 10^3/ul (0-0.2); ABS Eosinophils 0.3 10^3/ul (0-0.6); Eosinophil % 3.8 %; Large Platelets Present; Lymphocyte % 13.2 %; Nucleated Red Blood Cells % 0.1
[2019-06-15] MEDS: Insulin LISPRO* 1 UNITS UNIT SUBCUT SCH ×4 (07:44→20:52)
[2019-06-15] MEDS: Tamsulosin CAP* 0.4 MG PO SCH (09:14)
[2019-06-15] MEDS: Multivitamins/Minerals TAB PO SCH (09:14)
[2019-06-15] MEDS: Ferrous Sulfate TAB* 325 MG PO SCH (09:15)
[2019-06-15] MEDS: Finasteride TAB* 5 MG PO SCH (09:15)
[2019-06-15] MEDS: Spironolactone TAB* 25 MG PO SCH (09:15)
[2019-06-15] MEDS: Digoxin TAB* 0.125 MG PO SCH (09:15)
[2019-06-15] MEDS: Atorvastatin* 20 MG TAB PO SCH (09:15)
--- NOTE | 2019-06-15 09:16 | PN ---
Date of Service: 06/15/19 Critical Care Services: Patient was unable to wean down O2 yesterday, still max out on vapotherm 40L 100 % with sat 87-90%. His blood pressure is lowish ranging 80-100/ 50-70mmhg overnight. Patient felt "ok", no SOB, no cough. Afebrile overnight. O2 requirement: vapotherm 40L FiO2 100% with spO2 98% No presser on now. Acetaminophen (Tylenol Tab*) 650 mg PO Q4H PRN PRN Reason: MILD PAIN or TEMP > 100.4 Last Admin: 06/14/19 20:16 Dose: 650 mg Albuterol (Ventolin 2.5 Mg/3 Ml Neb.Alana*) 2.5 mg INH [id number] AWAKE PRN PRN Reason: sob/wheezing Albuterol/Ipratropium (Duoneb (Albuterol 2.5 Mg/Ipratropium 0.5 Mg)) 3 ml INH [id number] AWAKE [facility] Atorvastatin Calcium (Lipitor*) 20 mg PO DAILY [facility] Last Admin: 06/15/19 09:15 Dose: 20 mg Dextrose (D50w Syringe 50 Ml*) 12.5 gm IV PUSH .FOR FS < 60 - SS PRN PRN Reason: FS < 60 Digoxin (Lanoxin Tab*) 0.125 mg PO DAILY [facility] Last Admin: 06/15/19 09:15 Dose: 0.125 mg Enoxaparin Sodium (Lovenox(*)) 115 mg SUBCUT Q12H [facility] Last Admin: 06/14/19 22:57 Dose: 115 mg Ferrous Sulfate (Ferrous Sulfate Tab*) 325 mg PO EVERY OTHER DAY [facility] Last Admin: 06/15/19 09:15 Dose: 325 mg Finasteride (Proscar Tab*) 5 mg PO DAILY [facility] Last Admin: 06/15/19 09:15 Dose: 5 mg Insulin Human Lispro (Humalog*) 0 units SUBCUT ACHS [facility]; Protocol Last Admin: 06/15/19 07:44 Dose: Not Given Metoprolol Succinate (Toprol Xl Tab*) 50 mg PO Q12HR [facility] Last Admin: 06/14/19 20:16 Dose: 50 mg Midodrine (Midodrine) 5 mg PO BID [facility]; Protocol Last Admin: 06/15/19 09:14 Dose: 5 mg Midodrine (Midodrine) 10 mg PO 2100 [facility]; Protocol Last Admin: 06/14/19 20:15 Dose: 10 mg Multivitamins/Minerals (Theragran/Minerals Tab*) 1 tab PO DAILY [facility] Last Admin: 06/15/19 09:14 Dose: 1 tab Spironolactone (Aldactone Tab*) 25 mg PO DAILY [facility] Last Admin: 06/15/19 09:15 Dose: 25 mg Tamsulosin HCl (Flomax Cap*) 0.4 mg PO DAILY [facility] Last Admin: 06/15/19 09:14 Dose: 0.4 mg Vital Signs: Temp Pulse Resp BP SpO2 FiO2 97.8 F 83 17 97/69 89 100 06/15/19 07:53 06/15/19 09:02 06/15/19 09:02 06/15/19 09:02 06/15/19 09:02 06/14 07:47 Physical Exam: Constitutional: awake, alert, not in distress Eyes: no pallor, no icterus ENT: dry mucous CVS: normal rate, regular, no murmur Chest/Resp: diffuse wheezing heard Abdomen/GI: soft, nontender, nondistended, BS+ Ext/Msk: warm, pulses+, bilateral LL edema up to knee with chronic lichenization of changes in skin, right LL abrasion seen Neuro: awake, alert, orientedx4 Psych: normal affect Fluid Balance (Past 24 Hours): I= 1857 O= 3325 Net= -1468 Intake & Output 06/13/19 06/14/19 06/15/19 06/16/19 06:59 06:59 06:59 06:59 Intake Total 200 1857 360 Output Total 2500 3325 0 Balance -2300 -1468 360 Weight 111.12 kg 109.4 kg Intake: IV Fluids 32 NS (0.9%) 26 IVPB 140 Magnesium 70 Oral 200 1685 360 Output: Urine 2500 3325 0 Labs: Laboratory Results - last 24 hr 06/14/19 06/14/19 06/14/19 12:30 16:59 20:20 WBC RBC Hgb Hct MCV MCH MCHC RDW Plt Count MPV Neut % (Auto) Lymph % (Auto) Swain % (Auto) Eos % (Auto) Baso % (Auto) Absolute Neuts (auto) Absolute Lymphs (auto) Absolute Monos (auto) Absolute Eos (auto) Absolute Basos (auto) Absolute Nucleated RBC Nucleated RBC % Large Platelets Anisocytosis Sodium Potassium Chloride Carbon Dioxide Anion Gap BUN Creatinine Est GFR ( Amer) Est GFR (Non-Af Amer) BUN/Creatinine Ratio Glucose POC Glucose (mg/dL) 130 H 80 147 H Calcium Magnesium 06/15/19 06/15/19 06/15/19 04:14 04:14 07:32 WBC 7.2 RBC 5.24 Hgb 14.8 Hct 45 MCV 86 MCH 28 MCHC 33 RDW 19 H Plt Count 156 MPV 8.1 Neut % (Auto) 68.3 Lymph % (Auto) 13.2 Swain % (Auto) 13.8 Eos % (Auto) 3.8 Baso % (Auto) 0.9 Absolute Neuts (auto) 5.0 Absolute Lymphs (auto) 1.0 Absolute Monos (auto) 1.0 H Absolute Eos (auto) 0.3 Absolute Basos (auto) 0.1 Absolute Nucleated RBC 0.0 Nucleated RBC % 0.1 Large Platelets Present Anisocytosis 1+ Sodium 135 Potassium 4.0 Chloride 95 L Carbon Dioxide 32 Anion Gap 8 BUN 34 H Creatinine 1.33 H Est GFR ( Amer) 64.0 Est GFR (Non-Af Amer) 52.9 BUN/Creatinine Ratio 25.6 H Glucose 90 POC Glucose (mg/dL) 97 Calcium 9.2 Magnesium 2.0 Studies: TTE 06/13: EF 45-50%, RV reduced systolic function, and septal flattening of intraventricular septum consistent with RV overload. US: right nonocclusive thrombus in right brachial vein. Nutrition: Oral nutrition Impression: Mr. Zimmer is a 74 yo male with history of CAD, HFrEF (last EF 45-50%, right ventricle hypokinesis in 2019), Aflutter on Xarelto, COPD on home O2 and trilogy , CKD stage 3, T2DM, HTN, HLD, presented with progressive worsening shortness of breath and swelling, found to have CHF exacerbation. Problems: 1. CHF exacerbation cx pulmonary edema ([place]) 2. New right brachial vein thrombosis 3. COPD - doesn't seem in exacerbation but do have diffuse wheezing today 4. AFlutter 5. CKD stage 3 6. T2DM 7. CAD 8. HTN 9. HLD Plan: Neuro-alert, oriented -Delirium prec; avoid BDZ CVS- TTE showing reduced RV function and RV overload - Unable to tolerate diuretics this morning due to hypotension - fluid restriction< 1200 every day - continue home med digoxin, adalactone, reduce metoprol to short acting 12.5mg bid Resp- -keep sat 88-92% -will keep vapotherm and escalate to bipap if needed -not a good candidate for intubation due to his end stage disease, will discuss with patient about goal of care ID- right LL edema with abrasion, not infected looking - wound care GI- -Nutrition: heart healthy diet -GI prophylaxis: not needed Renal- -strict I/O, replete to keep K>4, Mg>2, Mg repleted today -aim for negative balance Heme-right nonocclusive brachial thrombus - sc heparin therapeutic dose Endo-Maintain BG<200, insulin protocol as needed Musculsk-pressure ulcer precaution Wounds- right LL abrasion on top of lymphedema, wound consult Nutrition- heart healthy diet. limit fluid intake DVT prophylaxis: on therapeutic heparin dose GI prophylaxis: not indicated Central Line: no Arterial Line: no Chanel Catheter: no Disposition: Patient requires Critical Care/ICU for Hypoxic respiratory failure Patient clinical status: Fair Code Status: full code now, we will carry out goal of care discussion with patient today since he is having end stage disease.
[2019-06-15] MEDS: Albuterol/Ipratropium NEB.SOL* (2.5/0.5 MG) 3 ML NEB.SOLN INH SCH ×3 (10:18→19:03)
[2019-06-15] MEDS: Enoxaparin(*) 150 MG/ML 1 ML SYRINGE SUBCUT SCH ×2 (12:39→22:29)
[2019-06-15] MEDS: Torsemide TAB* 20 MG PO SCH (18:27)
[2019-06-15] MEDS: Metoprolol Succinate XL TAB* 50 MG PO SCH (20:24)
[2019-06-15] MEDS: Furosemide IV* 10 MG/ML 10 ML VIAL (100 MG) IV SCH (20:24)
[2019-06-15] MEDS: Metoprolol Tartrate TAB* 25 MG PO SCH (20:39)
[2019-06-15] MEDS: Acetaminophen TAB* 325 MG PO PRN (20:39)
[2019-06-15] MEDS ORDERED: Metoprolol Succinate XL TAB* 50 MG PO SCH (21:00)
[2019-06-16] MEDS: Albuterol/Ipratropium NEB.SOL* (2.5/0.5 MG) 3 ML NEB.SOLN INH SCH ×5 (00:52→23:50)
[2019-06-16] MEDS: Insulin LISPRO* 1 UNITS UNIT SUBCUT SCH ×4 (09:09→21:19)
[2019-06-16] MEDS: Finasteride TAB* 5 MG PO SCH (09:19)
[2019-06-16] MEDS: Digoxin TAB* 0.125 MG PO SCH (09:21)
[2019-06-16] MEDS: Tamsulosin CAP* 0.4 MG PO SCH (09:22)
[2019-06-16] MEDS: Atorvastatin* 20 MG TAB PO SCH (09:22)
[2019-06-16] MEDS: Multivitamins/Minerals TAB PO SCH (09:22)
[2019-06-16] MEDS: Spironolactone TAB* 25 MG PO SCH (09:22)
[2019-06-16] MEDS ORDERED: Furosemide IV* 10 MG/ML 10 ML VIAL (100 MG) IV ONE (09:23)
[2019-06-16] MEDS: Torsemide TAB* 20 MG PO SCH (09:23)
[2019-06-16] MEDS: Metoprolol Tartrate TAB* 25 MG PO SCH ×2 (09:23→21:20)
[2019-06-16] MEDS: Enoxaparin(*) 150 MG/ML 1 ML SYRINGE SUBCUT SCH ×2 (11:07→23:15)
--- NOTE | 2019-06-16 15:06 | PN ---
Date of Service: 06/16/19 Critical Care Services: Patient was saturating with vapotherm max out, spO2 83% overnight. He was tired looking this morning, didn't complain any SOB. O2 requirement: vapotherm 40L FiO2 100% with spO2 83% Vital: BP at low 90s, frequent PVC in tele Medication Acetaminophen (Tylenol Tab*) 650 mg PO Q4H PRN PRN Reason: MILD PAIN or TEMP > 100.4 Last Admin: 06/15/19 20:39 Dose: 650 mg Albuterol (Ventolin 2.5 Mg/3 Ml Neb.Alana*) 2.5 mg INH [id number] AWAKE PRN PRN Reason: sob/wheezing Albuterol/Ipratropium (Duoneb (Albuterol 2.5 Mg/Ipratropium 0.5 Mg)) 3 ml INH [id number] AWAKE [facility] Last Admin: 06/16/19 07:58 Dose: 3 ml Atorvastatin Calcium (Lipitor*) 20 mg PO DAILY [facility] Last Admin: 06/16/19 09:22 Dose: 20 mg Dextrose (D50w Syringe 50 Ml*) 12.5 gm IV PUSH .FOR FS < 60 - SS PRN PRN Reason: FS < 60 Digoxin (Lanoxin Tab*) 0.125 mg PO DAILY [facility] Last Admin: 06/16/19 09:21 Dose: 0.125 mg Enoxaparin Sodium (Lovenox(*)) 115 mg SUBCUT Q12H [facility] Last Admin: 06/16/19 11:07 Dose: 115 mg Ferrous Sulfate (Ferrous Sulfate Tab*) 325 mg PO EVERY OTHER DAY [facility] Last Admin: 06/15/19 09:15 Dose: 325 mg Finasteride (Proscar Tab*) 5 mg PO DAILY [facility] Last Admin: 06/16/19 09:19 Dose: 5 mg Insulin Human Lispro (Humalog*) 0 units SUBCUT ACHS [facility]; Protocol Last Admin: 06/16/19 12:35 Dose: 3 units Metoprolol Tartrate (Lopressor Tab*) 12.5 mg PO Q12HR [facility] Last Admin: 06/16/19 09:23 Dose: 12.5 mg Midodrine (Midodrine) 5 mg PO BID [facility]; Protocol Last Admin: 06/16/19 09:21 Dose: 5 mg Midodrine (Midodrine) 10 mg PO 2100 [facility]; Protocol Last Admin: 06/15/19 20:39 Dose: 10 mg Multivitamins/Minerals (Theragran/Minerals Tab*) 1 tab PO DAILY [facility] Last Admin: 06/16/19 09:22 Dose: 1 tab Spironolactone (Aldactone Tab*) 25 mg PO DAILY [facility] Last Admin: 06/16/19 09:22 Dose: 25 mg Tamsulosin HCl (Flomax Cap*) 0.4 mg PO DAILY [facility] Last Admin: 06/16/19 09:22 Dose: 0.4 mg Vital Signs: Temp Pulse Resp BP SpO2 FiO2 98.5 F 82 28 80/46 81 100 06/16/19 11:29 06/16/19 14:30 06/16/19 14:30 06/16/19 14:30 06/16/19 14:30 06/15 12:00 Physical Exam: Constitutional: awake, alert, RR high but not in distress ENT: dry mucous CVS: normal rate, regular, no murmur Chest/Resp: diffuse exp wheezing heard Abdomen/GI: soft, nontender, nondistended, BS+ Ext/Msk: warm, pulses+, bilateral LL shrinking edema up to knee with chronic lichenization of changes in skin, right LL abrasion not infected looking Neuro: awake, alert, orientedx4 Fluid Balance (Past 24 Hours): I= O= Net Intake & Output 06/14/19 06/15/19 06/16/19 06/17/19 06:59 06:59 06:59 06:59 Intake Total 200 1857 960 470 Output Total 2500 3325 1545 650 Balance -6780 -1468 -585 -180 Weight 111.12 kg 109.4 kg 108.8 kg Intake: IV Fluids 32 NS (0.9%) 26 IVPB 140 Magnesium 70 Oral 200 1685 960 470 Output: Urine 2500 3325 1045 650 Chanel 500 Labs: Laboratory Results - last 24 hr 06/15/19 06/15/19 06/15/19 12:26 16:40 20:46 POC Glucose (mg/dL) 134 H 112 H 157 H 06/16/19 06/16/19 08:39 12:27 POC Glucose (mg/dL) 92 157 H Studies: CXR 06/15: cardiomegaly, worsening interstitial and alveolar edema. Nutrition: Oral nutrition Impression: Mr. Zimmer is a 74 yo male with history of CAD, HFrEF (last EF 45-50%, right ventricle hypokinesis in 2019), Aflutter on Xarelto, COPD on home O2 and trilogy , CKD stage 3, T2DM, HTN, HLD, presented with progressive worsening shortness of breath and swelling, found to have right heart failure. Problems: 1. right heart failure cx pulmonary edema (Cor Pulmonale), pulmonary hypertension due to pulmonary cause 2. New right brachial vein thrombosis 3. COPD - doesn't seem in exacerbation 4. AFlutter 5. CKD stage 3 6. T2DM 7. CAD 8. HTN 9. HLD Plan: Neuro-alert, oriented -Delirium prec; avoid BDZ CVS- TTE showing reduced RV function and RV overload - one dose of iv lasix 40mg on top of his old diuretics today - fluid restriction< 1200 every day - continue home med digoxin, adalactone, reduce metoprol to short acting 12.5mg bid Resp- -keep sat 88-92% -escalate to bipap if continues to deteriorate -Patient is not a good candidate for intubation due to his end stage disease and poor prognosis with intubation in her disease. Dr. Serrano discussed with patient regarding goal of care, patient would like DNR, DNI. -will continue to support for now, if he deteriorated further, for comfort care. ID- right LL edema with abrasion, not infected looking - wound care GI- -Nutrition: heart healthy diet -GI prophylaxis: not needed Renal- -strict I/O, replete to keep K>4, Mg>2, Mg repleted today -aim for negative balance Heme-right nonocclusive brachial thrombus - sc heparin therapeutic dose Endo-Maintain BG<200, insulin protocol as needed Musculsk-pressure ulcer precaution Wounds- right LL abrasion on top of lymphedema, wound consult Nutrition- heart healthy diet. limit fluid intake DVT prophylaxis: on therapeutic heparin dose GI prophylaxis: not indicated Central Line: no Arterial Line: no Chanel Catheter: no Disposition: Patient requires Critical Care/ICU for Hypoxic respiratory failure Patient clinical status: Fair Code Status: DNR/DNI
[2019-06-16] MEDS ORDERED: Magnesium Hydroxide LIQ* 30 ML UDC PO PRN (16:37)
[2019-06-17] MEDS: Acetaminophen TAB* 325 MG PO PRN (01:09)
[2019-06-17] MEDS: Albuterol/Ipratropium NEB.SOL* (2.5/0.5 MG) 3 ML NEB.SOLN INH SCH (07:28)
[2019-06-17] MEDS ORDERED: Lorazepam PYXIS KEY PRN ×2 (08:33→10:13)
[2019-06-17] MEDS ORDERED: LORazepam INJ* 2 MG/ML 1 ML VIAL IV PUSH PRN (08:33)
[2019-06-17] MEDS: Insulin LISPRO* 1 UNITS UNIT SUBCUT SCH (08:38)
[2019-06-17] MEDS ORDERED: Furosemide IV* 10 MG/ML 10 ML VIAL (100 MG) IV ONE (09:23)
[2019-06-17] MEDS: Atorvastatin* 20 MG TAB PO SCH (09:52)
[2019-06-17] MEDS: Digoxin TAB* 0.125 MG PO SCH (09:52)
[2019-06-17] MEDS: Finasteride TAB* 5 MG PO SCH (09:53)
[2019-06-17] MEDS: Multivitamins/Minerals TAB PO SCH (09:53)
[2019-06-17] MEDS: Spironolactone TAB* 25 MG PO SCH (09:53)
[2019-06-17] MEDS: Tamsulosin CAP* 0.4 MG PO SCH (09:53)
[2019-06-17] MEDS: Metoprolol Tartrate TAB* 25 MG PO SCH (09:53)
[2019-06-17] MEDS: Ferrous Sulfate TAB* 325 MG PO SCH (09:53)
[2019-06-17] MEDS ORDERED: Morphine 10 MG/ML VIAL (1 ml) IV ONE ×2 (10:12→10:40)
[2019-06-17] MEDS ORDERED: Morphine 10 MG/ML VIAL (1 ml) ONE (10:13)
[2019-06-17] MEDS ORDERED: Lorazepam PYXIS KEY ONE (10:14)
[2019-06-17] MEDS ORDERED: LORazepam INJ* 2 MG/ML 1 ML VIAL ONE (10:15)
[2019-06-17] MEDS ORDERED: LORazepam INJ* 2 MG/ML 1 ML VIAL IV PUSH ONE (10:20)
[2019-06-17 10:47] VITALS: BP 115/78
--- NOTE | 2019-06-17 12:35 | DS ---
SUMMARY: DATE OF ADMISSION: 06/13/19 DATE OF : 06/17/19 HOSPITAL COURSE: This patient was a 74-year-old male with a history of coronary artery disease, atrial fibrillation, hypertension, heart failure, chronic kidney disease, and type 2 diabetes, who was admitted with increasing shortness of breath and admission diagnosis of heart failure. Shortly after admission, the patient had a transthoracic cardiac ultrasound, which showed predominantly right-sided heart failure due to pulmonary hypertension from chronic obstructive lung disease. The patient was managed with diuretics; however, because of progressive hypoxemia, he was transferred to the intensive care unit and placed on high-flow humidified nasal O2. Oxygenation continued to steadily worsen in the intensive care unit and the patient stated his wish was not to be intubated or resuscitated. With the nasal O2 maxed out at 40 L per minute with an FiO2 of 100%, the patient's oxygenation deteriorated and on 06/17/19 because of arterial sats in the 70s, it was decided to institute comfort measures after speaking to the patient's healthcare proxy (his brother) . The patient was then given morphine, Ativan for comfort and supplemental O2 was removed. The patient appeared comfortable and developed progressive hypoxemia with eventual bradycardic cardiac arrest. The patient was pronounced at 10:45 a.m. on 06/17/19 and his brother was notified of the event. A request for autopsy was denied. FINAL DIAGNOSES: 1. Cor pulmonale due to chronic obstructive lung disease. 2. Hypertension. 3. Atrial fibrillation. 4. Type 2 diabetes. 5. Benign prostatic hypertrophy. 6. Mild left-sided systolic heart failure. SURGICAL PROCEDURES: None. [id number]/[facility] #: [id number] [facility]
== END 2019-06-17 10:45 | disposition expired | DRG 314 ==
LOC: ED 15:30 → ICU 20:46 → OBSVTOIN 21:00
PROVIDERS: ADMIT Hospitalist; ATTEND Internal Medicine Critical Care Medicine
DX: I27.81 Cor pulmonale (chronic) (principal); J96.21 Acute and chronic respiratory failure with hypoxia; I50.23 Acute on chronic systolic (congestive) heart failure; I13.0 Hypertensive heart and chronic kidney disease with heart failure and stage 1 through stage 4 chronic kidney disease, or unspecified chronic kidney disease; I82.621 Acute embolism and thrombosis of deep veins of right upper extremity; I48.92 Unspecified atrial flutter; I25.10 Atherosclerotic heart disease of native coronary artery without angina pectoris; E78.5 Hyperlipidemia, unspecified; E11.22 Type 2 diabetes mellitus with diabetic chronic kidney disease; Z66 Do not resuscitate; N18.3 Chronic kidney disease, stage 3 (moderate); J44.9 Chronic obstructive pulmonary disease, unspecified; N40.0 Benign prostatic hyperplasia without lower urinary tract symptoms; I27.20 Pulmonary hypertension, unspecified; I48.91 Unspecified atrial fibrillation; G47.33 Obstructive sleep apnea (adult) (pediatric); S80.811A Abrasion, right lower leg, initial encounter; X58.XXXA Exposure to other specified factors, initial encounter; I87.8 Other specified disorders of veins; I25.5 Ischemic cardiomyopathy; D49.4 Neoplasm of unspecified behavior of bladder; Z87.891 Personal history of nicotine dependence; Z99.81 Dependence on supplemental oxygen; Z79.01 Long term (current) use of anticoagulants; Z79.84 Long term (current) use of oral hypoglycemic drugs; Z79.899 Other long term (current) drug therapy; Z82.49 Family history of ischemic heart disease and other diseases of the circulatory system; Z83.3 Family history of diabetes mellitus; Y92.9 Unspecified place or not applicable
CPT/HCPCS: 36415; 71045; 71275; 80048; 80053; 83605; 83735; 83880; 84484; 85025; 85610; 86140; 93005; 93306; 94640; 96374; 99284; A9270-GY; J1650; J1940; J2060; J2270; J3475; J7620; Q9967